=== PATIENT | male | born 1965 | race American Indian/Alaskan Native ===

== ENCOUNTER 2016-07-23 08:26 | Day surgery (SDC) | payer MEDICARE ==
[~2016-07-23 08:26] MED LIST: ANCEF/STERILE WATER 2 GM/20 ML 2 GM/20 ML SYRINGE IV NR; NACL 0.9% 1000 ML 1,000 ML IV SCH
--- NOTE | 2016-07-23 09:29 | Anesthesia Consultation ---
Anesthesia Consult and Med Hx Date of service: 07/23/16 - Airway Anesthetic Teeth Evaluation: Good ROM Head & Neck: Adequate Mental/Hyoid Distance: Adequate Mallampati Class: Class III Intubation Access Assessment: Possibly Difficult - Pulmonary Exam CTA: Yes - Cardiac Exam Cardiac Exam: RRR - Pre-Operative Health Status ASA Pre-Surgery Classification: ASA3 - Pre-Anesthesia Comment Pre-Anesthesia Comments: Patient states that the last time he had anesthesia he ended up coding, " for 32 min" Patient refusing to go to sleep. Wants block and light sedation - Pulmonary Hx Smoking: Yes (last cigarette 2 weeks ago) - Cardiovascular System Hx Hypertension: Yes (5YRS) - Endocrine Hx Renal Disease: Yes (renal failure. diaylsis- tues, thurs,sat; last dialysis sat) Hx End Stage Renal Disease: Yes Hx Insulin Dependent Diabetes: Yes - Hematic Hx Anemia: Yes
--- NOTE | 2016-07-23 09:30 | Anesthesia Day of Surgery ---
Anesthesia Day of Surgery - Day of Surgery Patient Examined: Yes Patient H&P Reviewed: Yes Patient is NPO: Yes Beta Blockers: No Cardiac Clearance: No Pulmonary Clearance: No
[2016-07-23] MEDS ORDERED: VERSED IV NR (10:00)
[2016-07-23] MEDS ORDERED: PEPCID IV NR (10:00)
[2016-07-23] MEDS ORDERED: DIPRIVAN 10 MG/ML IV ONE (10:36)
[2016-07-23] MEDS ORDERED: VERSED ONE (10:37)
[2016-07-23] MEDS ORDERED: XYLOCAINE 1%/ EPI 1:100,000 INFILTRATI ONE ×2 (11:06)
[2016-07-23] MEDS ORDERED: MARCAINE 0.5% INFILTRATI ONE ×2 (11:06)
[2016-07-23] MEDS ORDERED: NACL 0.9% IR ONE (11:06)
[2016-07-23] MEDS ORDERED: HEPARIN 10,000 UNITS/10 ML 1,000 UNIT in NACL 0.9% 250ML 250 ML IR ONE (11:07)
[2016-07-23] MEDS ORDERED: RIFADIN 600 MG in NACL 0.9% 50 ML IR ONE (11:08)
[2016-07-23] MEDS ORDERED: NACL 0.9% 250ML ONE (11:15)
[2016-07-23] MEDS ORDERED: XYLOCAINE 1% 20 mL ONE (11:15)
[2016-07-23] MEDS ORDERED: DECADRON ONE (11:15)
--- NOTE | 2016-07-23 12:07 | Short Stay Summary ---
Short Stay Documentation Date of service: 07/23/16 Narrative H&P: See H&P - History H&P: obtained from office - Allergies and Medications Current Medications: Allergies IVP dye Allergy (Uncoded 12/02/15 14:35) Unknown Home Medications Medication Instructions Recorded Confirmed Last Taken Type Insulin Aspart Prot/Aspart 0 units SQ BID 07/13/16 07/13/16 Unknown History [Novolog Mix 70/30] Sevelamer Carbonate [Renvela] 0.8 gm PO TIDWM 07/13/16 07/13/16 Unknown History Active Medications Famotidine (Pepcid) 20 mg IV PREOP NR Stop: 07/23/16 23:59 Cefazolin Sodium (Ancef/Sterile Water 2 Gm/20 Ml) 2 gm in 20 mls @ 80 mls/hr IV PREOP NR PRN Reason: Protocol Stop: 07/23/16 23:59 Sodium Chloride (Nacl 0.9% 1000 Ml) 1,000 mls @ 42 mls/hr IV DIRECT PEDRO LUIS Midazolam HCl (Versed) 2 mg IV PREOP NR Stop: 07/23/16 23:59 - Brief post op/procedure progress note Date of procedure: 07/23/16 Pre-op diagnosis: End-Stage Renal Disease Post-op diagnosis: same Procedure: Creation of Right Brachial Artery to Axillary Vein Arteriovenous Graft with 7 mm Bovine Graft Anesthesia: regional Surgeon: IZABELA MURRAY Estimated blood loss: minimal Pathology: none Condition: stable - Disposition Condition at discharge: Good Disposition: DISCHARGED TO HOME OR SELFCARE Short Stay Discharge Plan Activity: other (no heavy lifting with right arm) Wound: open to air, keep clean and dry, other (okay to wash the wound with soap and water but do not soak in water) Follow up with: IZABELA MURRAY MD [Staff Physician] - 14 Days Prescriptions: HYDROcodone/APAP 7.5-325 [[place] 7.5/325] 1 each PO Q6HR PRN #50 tablet PRN Reason: Pain
--- NOTE | 2016-07-23 12:12 | Operative Report ---
Operative Report Operative Report: Date of procedure: 07/23/2016 Pre-operative diagnosis: End-Stage Renal Disease Post-operative diagnosis: Same Procedure(s): 1. Creation of Right Brachial Artery to Axillary Vein AV Graft with 7 mm Bovine Graft Surgeon: Glenn Covarrubias MD Color Strainer: None Anesthesia: General Endotracheal Anesthesia EBL: Minimal Counts: Correct Complications: None Condition: Stable Findings: Successful Creation of Right Arm AV Graft with excellent thrill and palpable radial pulse at the end of the case. Specimen: None Indication: The patient is a 50-year-old male with a history of end-stage renal disease who was at multiple AV access creations. No need of a new access and a vein mapping demonstrated he had no adequate vein for creation so was offered an AV graft. He was given the risks, benefits, and alternative procedures and consented to procedure. Description of Procedure: The patient was brought to the operating room and laid in supine position after general endotracheal anesthesia was achieved the left arm was prepped and draped in normal sterile fashion. A longitudinal incision was made on the medial aspect of the arm just proximal to the antecubital crease and carried down to the brachial artery using sharp dissection. The brachial artery was dissected out circumferentially both proximally and distally and controlled with vessel loops. A second incision was created in longitudinal fashion on the medial aspect of the arm just distal to the axillary crease and carried down to the axillary vein using sharp dissection. Axillary vein was dissected out circumferentially and controlled with a vessel loop. I then used a Nikki- Wick tunneler to tunnel from the brachial artery incision to the axillary vein incision and then put an 8 mm bovine through the tunnel. I infused with heparinized saline to ensure that it was not twisted or kinked. I put the brachial artery vessel loops on tension controlling the flow and then created an arteriotomy using an 11 blade and Roberts scissors. I beveled the graft and created an end-to-side anastomosis using 6-0 Prolene running fashion. I clamped the graft just proximal to the anastomosis and then released the vessel loops restoring flow in the brachial artery. I placed quick clot in incision to achieve hemostasis. I cut the proximal end of the graft to the appropriate length and beveled the graft in preparation for a venous anastomosis. I controlled the axillary vein a Satinsky clamp and created a venotomy using an 11 blade and Roberts scissors. I created an end to side anastomosis using a 6-0 Prolene in running fashion. Prior to completing the anastomosis I flushed the graft to ensure there was no thrombus and then completed the anastamosis. I released all clamps allowing flow into the AV graft which had an excellent thrill. I packed the wound with quick clot to achieve hemostasis. I anesthetized both wounds with Marcaine and then closed both wounds in 2 layers using 3-0 Vicryl in running fashion in the deep dermal layer and 4-0 Monocryl in running fashion the subcuticular layer. I dressed both wounds with Surgicel. The patient tolerated the procedure well all sponge needle and instrument counts were correct the patient was taken to recovery in stable condition.
[2016-07-23 16:44] VITALS: BP 150/90
--- NOTE | 2016-07-23 20:55 | Admit Criteria Form ---
Admission Criteria Documentation: AMBULATORY SURGERY EXCEPTION CRITERIA Ambulatory Surgery Exception Criteria ( Place 'X' for any and all applicable criteria): Surgery or procedure performed on ambulatory basis may require inpatient stay for[A] ANY ONE of the following(1)(2)(3)(4)(5)(6)(7)(8)(9): [X] I. A preoperative situation, condition, or finding that warrants inpatient stay as indicated by ANY ONE of the following: [] a) Inpatient care needed because of severity of a disease or condition rather than the surgery (eg, severe cardiac or respiratory disease, severe infection) (15) (16 ) (17) (18) [] b) Emergent procedure (eg, angioplasty for acute ischemia)(19) [] c) Complex surgical approach or situation as indicated by ANY ONE of the following(3): [] i) Open approach needed instead of usual endoscopic, transcatheter, or other less invasive procedure [] ii) Difficult approach because of previous operation [] iii) Airway monitoring required after open neck procedures(20)(21) [] iv) Large mass requiring unusually extensive dissection [] v) Additional complicating feature requiring inpatient care (eg, drain management)(22(23): [X] d) Major surgery in a pt with high anesthetic risk as indicated by ANY ONE of the following (2)(3)(5)(7)(8): [X] i) ASA risk class III or higher (severe systemic disease impairing function) [D] [] ii) Advanced age (eg, older than 85 years)(14)(24) [] iii) Symptomatic heart failure(25) [] iv) Symptomatic asthma or COPD(8)(21) [] v) Morbid obesity with hemodynamic or respiratory problems(20)( 21)(26)(27) [] vi) Obstructive sleep apnea(20)(21) [] vii) Former premature infants who are younger than 60 weeks [] viii) High risk for severe postoperative abnormalities (eg, severe postoperative hypocalcemia after parathyroidectomy for severe hyperparathyroidism)(27)( 28) [] ix) Unstable angina(25) [] e) Drug-related risk requiring inpatient stay as indicated by ANY ONE of the following(5)(10)(14)(32)(33) [] i) Procedure requires discontinuing drugs or other therapy (eg , antiarrhythmic medication, antiseizure medication), which necessitates inpatient observation or treatment.(18)(31) [] ii) Major surgery and high risk drug use as indicated by ANY ONE of the following: [] 1) Active abuse of cocaine or similar drug [] 2) Monoamine oxidase inhibitor use [] 3) Other drug identified as posing risk [] f) Inadequate outpatient care situation as indicated by ANY ONE of the following(5)(10)(14)(32)(33) [] i) Patient lives remote from medical facility and procedure has urgent complication potential, and temporary nearby residence cannot be arranged [] ii) Patient will have postprocedure incapacitation and inadequate assistance at home, or alternative level of care cannot be arranged. [] iii) Patient will have long general anesthesia or procedure side effect resolution time, and competent person to stay with patient on first postoperative night at home or alternative level of care cannot be arranged. []iv) Other inadequate outpatient situation that cannot be handled by other means [] II. A perioperative event, condition, or finding that warrants inpatient stay as indicated by ANY ONE of the following (1)(2)(3): [] a) Inadequate physiologic recovery: cardiovascular, respiratory, or hemodynamic status not normal or near preoperative baseline(18) [] b) Hemodynamic instability [] c) Patient not alert with near normal or baseline mental status [] d) Temperature not normal or as expected and not appropriate for outpatient treatment of condition [] e) Ambulatory or appropriate activity level status not yet achieved post procedure [E](34)(35)(36) [] f) Operative site not appropriate (eg, unexpected or excessive drainage or bleeding) [] g) Postoperative effects not resolved or adequately managed (eg, significant pain or vomiting not appropriate for outpatient or next level of care)(10)(12) [] h) Complicating features requiring inpatient care as indicated by ANY ONE of the following(37): [] i) Severe complications of procedure (eg, bowel injury, airway compromise, vascular injury,severe hemorrhage) [] ii) Extensive (eg, dissection far beyond usual scope of procedure ) or prolonged (eg, 120 minutes beyond usual) surgery needed requiring inpatient postoperative care [] iii) Conversion to an open or complex procedure that requires inpatient care (eg, open vs laparoscopic cholecystectomy, abdominal vs vaginal hysterectomy)(38) [] iv) Comorbid condition or test result identified during or post procedure that requires inpatient care (7) [] v) Malignant hyperthermia(30) [] vi) Other complicating feature requiring inpatient care(22)(23) Inpatient stay may be needed until ALL of the following are present (1)(2)(3)(4) (5)(6)(10)(14)(33)(40): []a) Physiologic recovery: cardiovascular, respiratory, and hemodynamic status normal or near preoperative baseline []b) Hemodynamic stability []c) Patient alert, with near normal or baseline mental status []d) Temperature appropriate: patient afebrile or temperature appropriate for outpt treatment of condition []e) Activity level appropriate: ambulatory or appropriate activity level post procedure []f) Operative site appropriate as indicated by ALL of the following: []i) Site dry or with expected drainage []ii) Any blood noted is as expected for procedure. []g) Postoperative effects resolved or managed as indicated by ALL of the following: []i) Pain management appropriate for outpatient (or next level of) care(10) []ii) Minimal nausea and vomiting: if present, successfully treated with oral medication(12) []iii) Headache, dizziness, or drowsiness (if present) are mild. []h) Voiding status acceptable as indicated by ANY ONE of the following: []i) Voiding spontaneously []ii) No voiding but instructions given for follow-up in 6 to 8 hours []iii) Urinary catheter in place, and instructions given for follow-up []i) Complicating features requiring inpatient care manageable at a lower level of care(37) []j) Comorbid conditions manageable at a lower level of care(37) The original [employer] content created by [employer] has been revised. The portions of the content which have been revised are identified through the use of italic text or in bold, and [facility] [email or web address] has neither reviewed nor approved the modified material. All other unmodified content is copyright [employer]. Please see references footnoted in the original [employer] edition 2016 Admission Criteria Met: Yes
== END 2016-07-23 15:20 | disposition home or self-care (01) ==
LOC: OR 08:26
PROVIDERS: ATTEND Surgery Vascular Surgery
DX: I12.0 Hypertensive chronic kidney disease with stage 5 chronic kidney disease or end stage renal disease (principal); E11.22 Type 2 diabetes mellitus with diabetic chronic kidney disease; N18.6 End stage renal disease; F17.210 Nicotine dependence, cigarettes, uncomplicated; D64.9 Anemia, unspecified; Z72.89 Other problems related to lifestyle; Z99.2 Dependence on renal dialysis; Z98.890 Other specified postprocedural states; Z83.3 Family history of diabetes mellitus; Z80.9 Family history of malignant neoplasm, unspecified
CPT/HCPCS: 36415; 36830; 82962; 84132; J0690; J1644; J2250; J2704; J3490; J7030; J7050; C1768; J1100

== ENCOUNTER 2016-10-26 08:39 | Day surgery (SDC) | payer MEDICARE ==
[~2016-10-26 08:39] MED LIST changes: +HEPARIN 10,000 UNITS/10 ML ONE; +MARCAINE 0.5% 30 ML INFILTRATI ONE; +NACL 0.9% 500 ML 500 ML ONE; +NACL P/F VIAL (10 ML) 0 ML ONE; +PROTAMINE SULFATE ONE; +RIFADIN ONE
[2016-10-26] MEDS ORDERED: SUBLIMAZE ONE ×2 (08:47→11:58)
[2016-10-26] MEDS ORDERED: DIPRIVAN 10 MG/ML IV ONE (08:47)
[2016-10-26] MEDS ORDERED: ZOFRAN ONE (08:48)
[2016-10-26] MEDS ORDERED: XYLOCAINE MPF 2% ONE (08:48)
--- NOTE | 2016-10-26 09:17 | Anesthesia Consultation ---
Anesthesia Consult and Med Hx Date of service: 10/26/16 - Pre-Operative Health Status ASA Pre-Surgery Classification: ASA4 - Pulmonary Hx Smoking: Yes (CIGARETTES < 1 PPD X 35 YRS, QUIT 07/2016) Hx Sleep Apnea: No - Cardiovascular System Hx Hypertension: Yes (FOR 5YRS, NO MEDS) - Central Nervous System Hx Psychiatric Problems: No - Endocrine Hx Renal Disease: Yes Hx End Stage Renal Disease: Yes Hx Insulin Dependent Diabetes: Yes Hx Hyperthyroidism: Yes (secondary to ESRD) - Hematic Hx Anemia: Yes - Other Systems Hx Cancer: No
--- NOTE | 2016-10-26 09:27 | Anesthesia Day of Surgery ---
Anesthesia Day of Surgery - Day of Surgery Patient Examined: Yes Patient H&P Reviewed: Yes Patient is NPO: Yes
[2016-10-26] MEDS ORDERED: PEPCID ONE (10:04)
[2016-10-26 10:09] LABS: Mean Corpuscular HGB Conc 31 % (32-34); Mean Corpuscular Volume 80 fl (84-94); Platelet Count 168 K/mm3 (140-440); Red Blood Count 5.34 M/mm3 (3.65-5.03); Red Cell Distribution Width 19.1 % (13.2-15.2); White Blood Count 4.7 K/mm3 (4.5-11.0)
[2016-10-26 10:12] LABS: Hematocrit 42.6 % (35.5-45.6); Hemoglobin 13.2 gm/dl (11.8-15.2); Mean Corpuscular Hemoglobin 25 pg (28-32)
[2016-10-26 10:14] LABS: BUN/Creatinine Ratio 3.33; Calcium 8.7 mg/dL (8.4-10.2); Chloride 98.7 mmol/L (98-107); Potassium 4.9 mmol/L (3.6-5.0)
[2016-10-26] MEDS ORDERED: ZOFRAN IV PRN (10:45)
[2016-10-26] MEDS ORDERED: DILAUDID IV PRN (10:45)
[2016-10-26] MEDS ORDERED: NORCO 5/325 PO PRN (10:45)
[2016-10-26 10:55] LABS: Blastocytes % (Manual) 0 %
[2016-10-26 10:56] LABS: Anisocytosis 1+; Diff Status Complete; Hypochromasia 1+; Platelet Estimate Cons
[2016-10-26] MEDS ORDERED: MARCAINE 0.5% INFILTRATI ONE (10:57)
[2016-10-26] MEDS ORDERED: NACL 0.9% IR ONE (10:57)
[2016-10-26] MEDS ORDERED: HEPARIN 10,000 UNITS/10 ML 2,000 UNIT in NACL 0.9% 500 ML 500 ML IR ONE (10:57)
[2016-10-26] MEDS ORDERED: PEPCID PO NR (11:00)
[2016-10-26] MEDS ORDERED: PROAIR IH ONE (12:02)
--- NOTE | 2016-10-26 12:54 | Short Stay Summary ---
Short Stay Documentation Date of service: 10/26/16 Narrative H&P: See H&P - History H&P: obtained from office - Allergies and Medications Current Medications: Allergies IVP dye Allergy (Uncoded 12/02/15 14:35) Unknown Home Medications Medication Instructions Recorded Confirmed Last Taken Type Sevelamer Carbonate [Renvela] 0.8 gm PO TIDWM 07/13/16 10/26/16 10/24/16 17:00 History Insulin Aspart [NovoLOG Flexpen] 0 units SQ BIDAC 10/24/16 10/24/16 Unknown History Active Medications Cefazolin Sodium (Ancef/Sterile Water 2 Gm/20 Ml) 2 gm in 20 mls @ 80 mls/hr IV PREOP NR PRN Reason: Protocol Stop: 10/26/16 23:59 Sodium Chloride (Nacl 0.9% 1000 Ml) 1,000 mls @ 42 mls/hr IV DIRECT PEDRO LUIS Last Admin: 10/26/16 09:35 Dose: 42 mls/hr - Brief post op/procedure progress note Date of procedure: 10/26/16 Pre-op diagnosis: End-Stage Renal Disease Post-op diagnosis: same Procedure: One Stage Creation of Left Brachiobasilic Arteriovenous Fistula Anesthesia: GETA Surgeon: IZABELA MURRAY Estimated blood loss: other (200 ml) Pathology: none Condition: stable - Disposition Condition at discharge: Good Disposition: DISCHARGED TO HOME OR SELFCARE Short Stay Discharge Plan Activity: other (no lifting with left arm) Wound: open to air, keep clean and dry, other (okay to wash the wound with soap and water but do not soak in water) Follow up with: HILLARY CASTANEDA MD [Primary Care Provider] - 7 Days IZABELA MURRAY MD [Staff Physician] - 14 Days Prescriptions: Oxycodone HCl/Acetaminophen [Percocet 10/325 mg] 1 each PO Q6HR PRN #90 tablet PRN Reason: Pain
--- NOTE | 2016-10-26 13:01 | Operative Report ---
Operative Report Operative Report: Date of Procedure: 10/26/2016 Pre-operative Diagnosis: End Stage Renal Disease Post-operative Diagnosis: Same Procedure(s): 1. One Stage Creation of Left Brachial Basilic Arteriovenous Fistula Surgeon: Glenn Covarrubias M.D. Hospice Entrance Attendant: None Anesthesia: Gen. endotracheal anesthesia EBL: 200 mL Counts: Correct Complications: None Condition: Stable Findings: The patient has significant scarring of the brachial artery at the antecubital crease. Successful creation of left AV fistula with palpable thrill at the completion of the case. Specimen: None Indication: The patient is a 50-year-old male with a history of end-stage renal disease was having multiple AV access creations. He recently had creation of a right AV graft that became infected requiring excision. He is in need of new access. His vein size and demonstrated he was a candidate for left AV fistula. He was given the risk, benefits, and alternative procedures and consented to procedure. Description of Procedure: The patient was brought to the operating room and laid in supine position. After general endotracheal anesthesia was achieved his left arm was prepped and draped in normal sterile fashion. I initially created a transverse incision just pulled and cubital crease and carried this down to the brachial artery which was severely scarred in from a previous Gio fistula that has thrombosed creating an inflammatory reaction over the brachial artery. I decided to abandon this artery and created a longitudinal incision just above the antecubital crease and carried this down to the basilic vein. The basilic vein was fairly robust lot that was reasonable to created one stage brachial basilic arteriovenous fistula. I extended this incision towards the axillary crease and then dissected down to the basilic vein using sharp dissection. All side branches were suture ligated and divided and then I ligated and divided the vein near the elbow. I used a Nikki with tunneler to create a tunnel along the lateral aspect of the incision and then pulled the vein through the tunnel. I infused with heparinized saline to ensure that it was not twisted or kinked and additionally passed a 3 Dorcas to ensure that it was not twisted or kinked. I then dissected out the brachial artery just above the elbow, through the same incision. I dissected circumferentially controlled with vessel loops. I then created an arteriotomy using 11 blade and Roberts scissors and then created an end-to-side anastomosis using a 6-0 Prolene in running fashion. Prior to completing the anastomosis I flushed the artery as well as the vein and then completed the anastomosis. Upon completing the anastomosis WERE removed to allow flow in the fistula which had an excellent thrill. Hemostasis within the wound was achieved with quick clot. Once hemostasis was achieved I anesthetized both wounds with Marcaine and then closed them both in 2 layers using a 3-0 Vicryl running fashion and the deep dermal layer and a 4-0 Monocryl in running fashion subcuticular. Both wounds were then dressed with Dermabond. The patient tolerated the procedure well. All sponge, needle, and instrument counts were correct. The patient was taken to the recovery area in stable condition.
--- NOTE | 2016-10-26 13:50 | Post Anesthesia Evaluation ---
- Post Anesthesia Evaluation Patient Participated: Yes Airway Patent: Yes Stable Respiratory Function: Yes Temp > 96.8F: Yes Pain Manageable: Yes Adequeate Hydration: Yes Anesthesia Complications: No Block Receding Appropriately: Not Applicable
[2016-10-26 15:08] VITALS: BP 153/76
== END 2016-10-26 15:34 | disposition home or self-care (01) ==
LOC: OR 08:39
PROVIDERS: ATTEND Surgery Vascular Surgery
DX: E11.22 Type 2 diabetes mellitus with diabetic chronic kidney disease (principal); I12.0 Hypertensive chronic kidney disease with stage 5 chronic kidney disease or end stage renal disease; N18.6 End stage renal disease; E03.9 Hypothyroidism, unspecified; D64.9 Anemia, unspecified; F17.290 Nicotine dependence, other tobacco product, uncomplicated; Z79.4 Long term (current) use of insulin; Z79.899 Other long term (current) drug therapy; Z72.89 Other problems related to lifestyle; Z99.2 Dependence on renal dialysis; Z98.890 Other specified postprocedural states; Z88.4 Allergy status to anesthetic agent; Z91.041 Radiographic dye allergy status; Z83.3 Family history of diabetes mellitus; Z80.9 Family history of malignant neoplasm, unspecified
CPT/HCPCS: 36415; 36819; 80048; 82962; 85007; 85025; C1757; J0690; J1644; J2405; J2704; J3010; J7030; J7040; J2720; J3490

== ENCOUNTER 2016-11-09 08:51 | Day surgery (SDC) | payer MEDICARE ==
[~2016-11-09 08:51] MED LIST changes: -HEPARIN 10,000 UNITS/10 ML ONE; -MARCAINE 0.5% 30 ML INFILTRATI ONE; -NACL 0.9% 1000 ML 1,000 ML IV SCH; -NACL 0.9% 500 ML 500 ML ONE; -NACL P/F VIAL (10 ML) 0 ML ONE; -PROTAMINE SULFATE ONE; -RIFADIN ONE
[2016-11-09] MEDS ORDERED: BENADRYL IV ONE (12:00)
[2016-11-09] MEDS ORDERED: HEPARIN/NS 5000 UNIT/500ML(CATH LAB) 1,000 ML IR ONE (14:15)
[2016-11-09] MEDS ORDERED: XYLOCAINE 2% INFILTRATI ONE (14:15)
[2016-11-09] MEDS ORDERED: VERSED ONE (14:15)
[2016-11-09] MEDS ORDERED: NACL 0.9% 500 ML 500 ML ONE (14:15)
[2016-11-09] MEDS ORDERED: HEPARIN 10,000 UNITS/10 ML ONE (14:15)
[2016-11-09] MEDS ORDERED: ANCEF/STERILE WATER 2 GM/20 ML 2 GM/20 ML SYRINGE IV ONE (14:39)
[2016-11-09] MEDS: SUBLIMAZE ONE ×2 (14:47→15:42)
--- NOTE | 2016-11-09 15:55 | Short Stay Summary ---
Short Stay Documentation Date of service: 11/09/16 - History Principal diagnosis: Central venous occlusion H&P: obtained from office - Allergies and Medications Current Medications: Allergies IVP dye Allergy (Uncoded 12/02/15 14:35) Unknown Home Medications Medication Instructions Recorded Confirmed Last Taken Type Sevelamer Carbonate [Renvela] 0.8 gm PO TIDWM 07/13/16 11/09/16 11/08/16 History Insulin Aspart [NovoLOG Flexpen] 0 units SQ BIDAC 10/24/16 11/09/16 11/08/16 History Oxycodone HCl/Acetaminophen 1 each PO Q6HR PRN #90 tablet 10/26/16 11/09/16 Rx [Percocet 10/325 mg] Active Medications Cefazolin Sodium (Ancef/Sterile Water 2 Gm/20 Ml) 2 gm in 20 mls @ 80 mls/hr IV PREOP NR PRN Reason: Protocol Stop: 11/09/16 23:59 - Brief post op/procedure progress note Date of procedure: 11/09/16 Pre-op diagnosis: Central venous occlusion Post-op diagnosis: same Procedure: Venogram and US evaluation of central veins Anesthesia: local Surgeon: HUMA ALBARADO Estimated blood loss: minimal Pathology: none Condition: stable - Disposition Condition at discharge: Good Disposition: DC-01 TO HOME OR SELFCARE Short Stay Discharge Plan Activity: advance as tolerated Weight Bearing Status: Weight Bear as Tolerated Diet: regular Wound: keep clean and dry, per your surgeon's advice Follow up with: IZABELA MURRAY MD [Staff Physician] - 7 Days
--- NOTE | 2016-11-09 16:02 | Operative Report ---
Operative Report Operative Report: EXAM: ULTRASOUND-GUIDED EVALUATION OF THE VEINS OF THE NECK, VENOGRAPHY OF THE CENTRAL VEINS FROM A LEFT COMMON FEMORAL VEIN APPROACH CLINICAL INDICATION: PATIENT WITH SVC SYNDROME AND HAS SWELLING IN BILATERAL UPPER EXTREMITY SWELLING DATE: 11/09/2016 PROCEDURE: Following an explanation of the risks, benefits and alternatives; written informed consent was obtained. The patient was brought to the angiographic suite and his bilateral neck and left groin were prepped and draped in the usual sterile fashion. The patient has a catheter in his right femoral vein. Ultrasound-guided evaluation of the patient's neck demonstrates occlusion of bilateral internal jugular veins. Only collateral flow drains the neck. The external jugular veins are identified however distally they are occluded. 1% lidocaine was used for anesthesia. Under ultrasound guidance, the left common femoral vein was cannulated using a 7 cm 18-gauge needle. A 0.035 guidewire was advanced centrally. The needle was removed and a 5 Mauritanian sheath placed over the guidewire. A 4 Mauritanian vertebral catheter was then advanced over the guidewire into the SVC and digital subtraction venography performed. The guidewire in the distal SVC, the 5 Mauritanian sheath was exchanged for a 7 Mauritanian 65 cm sheath which was advanced to position the tip in the distal SVC. Contrast was injected through the sheath which demonstrates flush occlusion of the SVC. There is some tortuosity of the distal SVC with Dr. prompt drainage into the right atrium. The 4 Mauritanian vertebral catheter and 0.035 guidewire were again readvanced into the SVC and probe in an attempt to find a channel consistent with innominate veins. On the right side, there is a arch and tingling into the SVC which was cannulated and represents he has vein. A variety of catheters and guidewires were then utilized in 2 cannulate either the proximal SVC or either and innominate veins without success. Contrast was injected multiple locations of demonstrates no reflux of contrast into any venous structure that suggest a possible target for recanalization. At this point, the catheters, guidewires and sheaths were removed and hemostasis achieved in the right groin using an manual compression. A sterile dressing was then applied. The patient tolerated the procedure well. There were no immediate post procedure complications. Conscious sedation was performed under the guidance of radiologic nursing. Continuous cardiopulmonary monitoring was utilized. IMPRESSION: 1) Ultrasound guided evaluation of the neck demonstrated occlusion of bilateral internal jugular veins and distal occlusion of bilateral external jugular veins. 2) Central venography performed from a groin approach demonstrating flush occlusion of the SVC approximately 3 cm proximal to its entry into the right atrium. The azygous vein is identified. However, no target for recanalization is identified. 3) Further evaluation of the patient' s upper extremity venous system will be performed using CT venography of the chest.
[2016-11-09 17:15] VITALS: BP 153/99
--- NOTE | 2016-11-12 07:43 | Vascular Lab Report ---
MISCELLANEOUS VESSEL IDENTIFICATION: COMMENTS ON THE SCAN: The left common femoral artery was identified and under real-time ultrasound guidance was cannulated. IMPRESSION: Successful ultrasound guided arterial cannulation.
== END 2016-11-09 18:15 | disposition home or self-care (01) ==
LOC: OPU 08:51
PROVIDERS: ATTEND Surgery Vascular Surgery
DX: I87.1 Compression of vein (principal); E11.22 Type 2 diabetes mellitus with diabetic chronic kidney disease; N18.6 End stage renal disease; Z91.041 Radiographic dye allergy status; Z88.4 Allergy status to anesthetic agent; Z99.2 Dependence on renal dialysis; Z98.890 Other specified postprocedural states; F17.200 Nicotine dependence, unspecified, uncomplicated; Z72.89 Other problems related to lifestyle; Z80.9 Family history of malignant neoplasm, unspecified; Z83.3 Family history of diabetes mellitus
CPT/HCPCS: 36010; 36415; 75827; 76937; 82962; 84132; 96374; 96375; C1751; C1769; C1887; J0690; J1200; J1644; J2250; J2930; J3010; J7040; Q9967

== ENCOUNTER 2016-11-21 09:05 | Outpatient (CLI) | payer MEDICARE | END 2016-11-21 09:06 | disposition home or self-care (01) | LOC: CT 09:05 | PROVIDERS: ATTEND Surgery Vascular Surgery | DX: I12.9 Hypertensive chronic kidney disease with stage 1 through stage 4 chronic kidney disease, or unspecified chronic kidney disease (principal); N18.6 End stage renal disease; E11.22 Type 2 diabetes mellitus with diabetic chronic kidney disease; T82.590S Other mechanical complication of surgically created arteriovenous fistula, sequela; T82.858S Stenosis of other vascular prosthetic devices, implants and grafts, sequela; E03.9 Hypothyroidism, unspecified; Z79.4 Long term (current) use of insulin; F17.200 Nicotine dependence, unspecified, uncomplicated; X58.XXXS Exposure to other specified factors, sequela | CPT/HCPCS: 36415; 82565; 84520 ==

== ENCOUNTER 2016-12-10 08:34 | Day surgery (SDC) | payer MEDICARE ==
--- NOTE | 2016-12-07 09:06 | Admit Criteria Form ---
Admission Criteria Documentation: SKIN AND WOUND CARE Clinical Indications for Inpatient Care (Place 'X' for any and all applicable criteria): Ongoing inpatient care may be indicated for pressure, venous, arterial, or neuropathic ulcers, with ANY ONE of the following (2)(3)(8)(9)(21)(25): [X ]I. Need for ANY ONE of the following(26) [ ]a) Pressure ulcer closure procedures [ ]b) Skin grafting [ X]c) Wound debridement [ ]d) Dressing change under general anesthesia [ ]e) Arterial revascularization procedures(19) (Also use Aortofemoral or Aortoiliac Bypass or Femoral Popliteal Bypass Criteria as appropriate) [ ]f) Amputation (Also use Foot: Transmetatarsal Amputation or Knee: Amputation Above or Below Knee Criteria as appropriate) [ ]g) Diverting colostomy [ ]h) Other significant surgical treatment [ ]II. Infection requiring inpatient care as indicated by ALL of the following( 27) [ ]a) ANY ONE of the following signs of infection: [ ]i) Poorly approximated incision line. [ ]ii) Excessive drainage [ ]iii) Foul odor [ ]iv) Pus [ ]v) Increased redness [ ]vi) Breakdown in tissue after suture removal [ ]vii) Fever [ ]b) ANY ONE of the following findings: [ ]i) Mental status changes [ ]ii) Dehydration [ ]iii) Bacteremia [ ]iv) Perineal infection [ ]v) Hemodynamic instability [ ]vi) High-risk conditions, such as ANY ONE of the following: [ ]1) Poorly controlled diabetes [ ]2) Cirrhosis [ ]3) Neutropenia [ ]4) Asplenia [ ]5) HIV infection [ ]6) Immunosuppression Extended stay beyond goal length of stay for primary condition may be needed until ALL of the following are present(1)(2)(13)(21)(27): [ ]a) Tissue necrosis absent or treatment plan manageable at lower level of care [ ]b) Fistulas, tunneling, or underlying deep tissue infection absent or treated [ ]c) Purulence and tissue breakdown absent or improved [ ]d) Ulcer surgical repair absent or healing without complications [ ]e) Wound infection absent or manageable at lower level of care [ ]f) Comorbidities absent or manageable at lower level of care The original [facility] content created by Suzanne Whitaker has been revised. The portions of the content which have been revised are identified through the use of italic text or in bold, and [facility] has neither reviewed nor approved the modified material. All other unmodified content is copyright [facility]. Please see references footnoted in the original [facility] edition 2016
[~2016-12-10 08:34] MED LIST changes: +NACL 0.9% 1000 ML 1,000 ML IV SCH
[2016-12-10] MEDS ORDERED: NACL BACTERIOSTATIC INFILTRATI ONE (09:50)
[2016-12-10] MEDS ORDERED: HEPARIN 10,000 UNITS/10 ML ONE (09:59)
[2016-12-10] MEDS ORDERED: MARCAINE 0.5% 30 ML INFILTRATI ONE (09:59)
[2016-12-10] MEDS ORDERED: PROTAMINE SULFATE ONE (09:59)
[2016-12-10] MEDS ORDERED: RIFADIN ONE (10:00)
[2016-12-10] MEDS ORDERED: NITROGLYCERIN SYRINGE 3 ML ONE (10:00)
[2016-12-10] MEDS ORDERED: NACL 0.9% 250ML 250 ML ONE ×2 (10:00→10:12)
[2016-12-10] MEDS ORDERED: THROMBIN (BOVINE) TP ONE (10:01)
[2016-12-10] MEDS ORDERED: GELFOAM TP ONE (10:01)
--- NOTE | 2016-12-10 10:06 | Anesthesia Day of Surgery ---
Anesthesia Day of Surgery - Day of Surgery Patient Examined: Yes Patient H&P Reviewed: Yes Patient is NPO: Yes
--- NOTE | 2016-12-10 10:06 | Anesthesia Consultation ---
Anesthesia Consult and Med Hx Date of service: 12/10/16 - Airway Anesthetic Teeth Evaluation: Good ROM Head & Neck: Adequate Mental/Hyoid Distance: Adequate Mallampati Class: Class III Intubation Access Assessment: Possibly Difficult - Pulmonary Exam CTA: Yes - Cardiac Exam Cardiac Exam: RRR - Pre-Operative Health Status ASA Pre-Surgery Classification: ASA3 Proposed Anesthetic Plan: General - Pulmonary Hx Smoking: Yes (CIGARETTES < 1 PPD X 35 YRS, QUIT 07/2016) Hx Sleep Apnea: No - Cardiovascular System Hx Hypertension: Yes (FOR 5 YRS, NO MEDS) Hx Heart Attack/AMI: No - Central Nervous System Hx Psychiatric Problems: No - Endocrine Hx Renal Disease: Yes Hx End Stage Renal Disease: Yes Hx Insulin Dependent Diabetes: Yes Hx Hyperthyroidism: Yes (secondary to ESRD) - Other Systems Hx Cancer: No - Additional Comments Anesthesia Medical History Comments: Patient reports apparent cardiac arrest due to oversedation years ago. He had uncomplicated general anesthesia 11/10 at [facility]
[2016-12-10] MEDS ORDERED: DILAUDID IV PRN (10:07)
[2016-12-10 10:44] LABS: BUN/Creatinine Ratio 3.73; Calcium 8.9 mg/dL (8.4-10.2); Chloride 95.1 mmol/L (98-107); Potassium 4.5 mmol/L (3.6-5.0)
[2016-12-10] MEDS ORDERED: PERCOCET 5/325 PO PRN (11:00)
[2016-12-10] MEDS ORDERED: PEPCID PO NR (11:00)
[2016-12-10] MEDS ORDERED: ZOFRAN IV PRN (11:00)
[2016-12-10] MEDS ORDERED: VERSED IV NR (11:00)
[2016-12-10 11:07] LABS: Hematocrit 34.4 % (35.5-45.6); Hemoglobin 10.9 gm/dl (11.8-15.2); Mean Corpuscular HGB Conc 32 % (32-34); Mean Corpuscular Hemoglobin 28 pg (28-32); Mean Corpuscular Volume 87 fl (84-94); Platelet Count 196 K/mm3 (140-440); Red Blood Count 3.97 M/mm3 (3.65-5.03); Red Cell Distribution Width 31.1 % (13.2-15.2); White Blood Count 6.5 K/mm3 (4.5-11.0)
[2016-12-10] MEDS ORDERED: XYLOCAINE MPF 2% ONE (11:22)
[2016-12-10] MEDS ORDERED: DIPRIVAN 10 MG/ML IV ONE (11:22)
[2016-12-10] MEDS ORDERED: SUBLIMAZE ONE (11:37)
[2016-12-10 11:43] LABS: Basophils % (Manual) 0 % (0.0-1.8); Blastocytes % (Manual) 0 %
[2016-12-10 11:44] LABS: Elliptocytes 1+; Schistocytes Rare
[2016-12-10 11:45] LABS: Anisocytosis 1+; Diff Status Complete; Hypochromasia 1+; Platelet Estimate Consistent w Auto
[2016-12-10] MEDS ORDERED: NACL 0.9% IR ONE (12:19)
[2016-12-10] MEDS ORDERED: HEPARIN 10,000 UNITS/10 ML 1,000 UNIT in NACL 0.9% 250ML 250 ML IR ONE (12:20)
[2016-12-10] MEDS ORDERED: OMNIPAQUE (300 MG) 50 ML in NACL 0.9% 50 ML IR ONE (12:20)
[2016-12-10] MEDS ORDERED: BENADRYL ONE (12:25)
[2016-12-10] MEDS ORDERED: NACL 0.9% 500 ML 500 ML ONE (12:27)
[2016-12-10] MEDS ORDERED: ZOFRAN ONE (12:59)
--- NOTE | 2016-12-10 13:04 | Short Stay Summary ---
Short Stay Documentation Date of service: 12/10/16 Narrative H&P: See H&P - History H&P: obtained from office - Allergies and Medications Current Medications: Allergies IVP dye Allergy (Uncoded 12/02/15 14:35) Unknown Home Medications Medication Instructions Recorded Confirmed Last Taken Type Sevelamer Carbonate [Renvela] 0.8 gm PO TIDWM 07/13/16 12/10/16 12/08/16 History Insulin Aspart [NovoLOG Flexpen] 0 units SQ BIDAC 10/24/16 12/10/16 12/08/16 History Active Medications Hydromorphone HCl (Dilaudid) 0.5 mg IV Q10MIN PRN PRN Reason: Pain , Severe (7-10) Stop: 12/10/16 15:00 Cefazolin Sodium (Ancef/Sterile Water 2 Gm/20 Ml) 2 gm in 20 mls @ 80 mls/hr IV PREOP NR PRN Reason: Protocol Stop: 12/10/16 23:59 Sodium Chloride (Nacl 0.9% 1000 Ml) 1,000 mls @ 42 mls/hr IV DIRECT PEDRO LUIS Last Admin: 12/10/16 10:29 Dose: 42 mls/hr Midazolam HCl (Versed) 2 mg IV PREOP NR Stop: 12/10/16 23:59 Last Admin: 12/10/16 10:40 Dose: 2 mg - Brief post op/procedure progress note Date of procedure: 12/10/16 Pre-op diagnosis: Complications of Dialysis Access Post-op diagnosis: same Procedure: 1. Left Arm Fistulagram with Central Venogram 2. Debridement of Left Arm Skin and soft Tissue 10 x 4 x 4 cm (Upper Arm Wound ) 4 x 4 x 1 cm (Antecubital Wound) 3. Radiologic Supervision with Interpretation Anesthesia: JANIE Surgeon: IZABELA MURRAY Estimated blood loss: minimal Pathology: list (skin and soft tissue from left arm wounds) Specimen disposition: discarded Condition: stable - Disposition Condition at discharge: Good Disposition: DC- TO HOME OR SELFCARE Short Stay Discharge Plan Activity: other (no heavy lifting with left arm) Wound: per wound nurse instructions (Home Health to perform dressing changes) Follow up with: IZABELA MURRAY MD [Staff Physician] - 14 Days Prescriptions: Oxycodone HCl/Acetaminophen [Percocet 7.5/325 mg] 1 each PO Q6HR PRN #60 tablet PRN Reason: Pain
--- NOTE | 2016-12-10 13:19 | Operative Report ---
Operative Report Operative Report: Date of Procedure: 12/10/2016 Pre-operative Diagnosis: Complications of Dialysis Access Post-operative Diagnosis: Same Procedure(s): 1. Left Arm Fistulagram with Central Venogram 2. Excisional Debridement of Left Arm Skin and soft Tissue 10 x 4 x 4 cm ( Upper Arm Wound) 4 x 4 x 1 cm (Antecubital Wound) 3. Radiologic Supervision with Interpretation Surgeon: Glenn Covarrubias M.D. Community Development Director: None Anesthesia: Gen. 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 The chronic occlusion was unable to be crossed. The patient's wound was debrided to healthy bleeding tissue without any evidence of necrotic tissue or infection within the wound. The fistula is remote from the incision. Specimen: Skin and soft tissue from left arm wounds was discarded. Indication: The patient is a 51-year-old male with a history of end-stage renal disease who is currently on hemodialysis to a femoral permacath. She had creation of a left arm brachiobasilic arteriovenous fistula that cause significant swollen in his face as well as arm secondary to a central venous occlusion. Swelling in his arm resulted in breakdown of his wounds. He is in need of debridement of the wounds and a possible fistulogram with angioplasty to resolve the swelling. He was given the risks, benefits, and alternative procedures and consented to procedure. Description of Procedure: The patient was brought to the operating room and laid in supine position. After general endotracheal anesthesia was achieved his left arm was prepped and draped in normal sterile fashion. Micropuncture technique was used to access the fistula towards the venous outflow and a 0.035 J-wire was advanced into the proximal subclavian vein. I then placed a 11 cm 7 [place] sheath also allergic technique. I advanced a vertebral catheter and then exchanged the J-wire for 0.035 Advantage Wire. I made multiple attempts to cross the occlusion with various wires and catheters without success. I eventually aborted the procedure and removed all catheters, wires, and sheath, and closed the entry site with 4-0 Chromic in pursestring fashion. I then turned my attention to the wounds. The patient had a on the medial aspect of his arm through her previous elevation incision. He also has an incision just below the antecubital crease that both have dehisced. I used curved Mayos to sharply debride all necrotic skin and soft tissue within the wound. I then copiously irrigated both wounds and achieve hemostasis within the wound with a combination of direct pressure and cautery. Once hemostasis was achieved the wounds were packed with moist gauze and then dressed with an AVD pad, Kerlix roll, and a 4 inch Jaylen bandage. The patient tolerated the procedure well. All sponge, needle, and instruments counts were correct. The patient was taken to the recovery area in stable condition.
[2016-12-10] MEDS ORDERED: DECADRON ONE (16:00)
[2016-12-10 16:19] VITALS: BP 138/75
== END 2016-12-10 16:32 | disposition home or self-care (01) ==
LOC: OR 08:34
PROVIDERS: ATTEND Surgery Vascular Surgery
DX: T82.590A Other mechanical complication of surgically created arteriovenous fistula, initial encounter (principal); I12.0 Hypertensive chronic kidney disease with stage 5 chronic kidney disease or end stage renal disease; E11.22 Type 2 diabetes mellitus with diabetic chronic kidney disease; N25.81 Secondary hyperparathyroidism of renal origin; N18.6 End stage renal disease; Z99.2 Dependence on renal dialysis; Z98.890 Other specified postprocedural states; Z88.4 Allergy status to anesthetic agent; Z91.041 Radiographic dye allergy status; Z87.891 Personal history of nicotine dependence; Z72.89 Other problems related to lifestyle; Z79.899 Other long term (current) drug therapy; Z79.4 Long term (current) use of insulin; Z80.9 Family history of malignant neoplasm, unspecified; Z83.3 Family history of diabetes mellitus; Y83.2 Surgical operation with anastomosis, bypass or graft as the cause of abnormal reaction of the patient, or of later complication, without mention of misadventure at the time of the procedure
CPT/HCPCS: 11042; 11045; 36415; 36901; 80048; 82962; 85007; 85025; A4649; C1751; C1769; C1887; C1894; J0690; J1100; J1200; J1644; J2250; J2405; J2704; J2720; J3010; J3246; J3490; J7030; J7040; J7050; Q9966; J1815

== ENCOUNTER 2016-12-17 12:59 | Outpatient (CLI) | payer MEDICARE ==
[2016-12-17] MEDS ORDERED: XYLOCAINE TOPICAL 4% TP ONE ×2 (13:40→14:00)
== END 2016-12-17 13:00 | disposition home or self-care (01) ==
LOC: WOUND 12:59
PROVIDERS: ATTEND Internal Medicine
DX: T81.89XA Other complications of procedures, not elsewhere classified, initial encounter (principal); E11.22 Type 2 diabetes mellitus with diabetic chronic kidney disease; I12.0 Hypertensive chronic kidney disease with stage 5 chronic kidney disease or end stage renal disease; N18.6 End stage renal disease; F17.200 Nicotine dependence, unspecified, uncomplicated; Z99.2 Dependence on renal dialysis; Z72.89 Other problems related to lifestyle; Y83.8 Other surgical procedures as the cause of abnormal reaction of the patient, or of later complication, without mention of misadventure at the time of the procedure; Y92.89 Other specified places as the place of occurrence of the external cause
CPT/HCPCS: 99215; G0463

== ENCOUNTER 2016-12-17 14:00 | Outpatient (CLI) | payer MEDICARE ==
--- NOTE | 2016-11-29 14:42 | Cat Scan Report ---
CTA chest without and with contrast: History: End-stage renal disease Findings: No endobronchial lesion. Mediastinal lymph nodes measuring up to 2 cm. Left axillary lymph nodes measuring up to 1.2 cm. Right axillary lymph node measuring up to 1.5 cm. No pericardial effusion. Moderate right pleural effusion. Diffuse subcutaneous edema. No evidence of pulmonary embolism or aortic aneurysm. The visualized hepatic veins appears normal. Compressive atelectasis right lower lobe. No consolidation or mass. Impression: No evidence of pulmonary embolism. Additional findings as detailed above.
[~2016-12-17 14:00] MED LIST changes: -ANCEF/STERILE WATER 2 GM/20 ML 2 GM/20 ML SYRINGE IV NR; +HEPARIN IV ONE; +HEPARIN ONE; -NACL 0.9% 1000 ML 1,000 ML IV SCH; +NACL ONE
== END 2016-12-17 23:59 | disposition home or self-care (01) ==
LOC: CT 14:00
PROVIDERS: ATTEND Surgery Vascular Surgery
DX: N18.6 End stage renal disease (principal); T82.858S Stenosis of other vascular prosthetic devices, implants and grafts, sequela; T82.590S Other mechanical complication of surgically created arteriovenous fistula, sequela; X58.XXXS Exposure to other specified factors, sequela; J90 Pleural effusion, not elsewhere classified; J98.11 Atelectasis; R60.0 Localized edema; F17.200 Nicotine dependence, unspecified, uncomplicated
CPT/HCPCS: 36415; 71275; 82565; 84520; J1644; Q9967

== ENCOUNTER 2017-02-08 07:52 | Day surgery (SDC) | payer MEDICARE ==
[~2017-02-08 07:52] MED LIST changes: +ANCEF/STERILE WATER 2 GM/20 ML 2 GM/20 ML SYRINGE IV NR; -HEPARIN IV ONE; -HEPARIN ONE; +NACL 0.9% 1000 ML 1,000 ML IV SCH; -NACL ONE
[2017-02-08 08:51] LABS: Basophils % (Auto) 1.3 % (0.0-1.8); Eosinophils % (Auto) 3.6 % (0.0-4.3); Hematocrit 38.7 % (35.5-45.6); Hemoglobin 12.2 gm/dl (11.8-15.2); Mean Corpuscular HGB Conc 32 % (32-34); Mean Corpuscular Hemoglobin 29 pg (28-32); Mean Corpuscular Volume 91 fl (84-94); Platelet Count 167 K/mm3 (140-440); Red Blood Count 4.27 M/mm3 (3.65-5.03); White Blood Count 6.8 K/mm3 (4.5-11.0)
[2017-02-08 08:53] LABS: Red Cell Distribution Width 21.2 % (13.2-15.2)
[2017-02-08 09:03] LABS: INR 1.13 (0.87-1.13); Partial Thromboplastin Time 33.3 Sec. (24.2-36.6)
[2017-02-08 09:33] LABS: Potassium 5.2 mmol/L (3.6-5.0)
[2017-02-08 10:00] LABS: BUN/Creatinine Ratio 5.25; Calcium 8.8 mg/dL (8.4-10.2)
[2017-02-08] MEDS ORDERED: VERSED IV PRN (10:20)
--- NOTE | 2017-02-08 10:20 | Anesthesia Day of Surgery ---
Anesthesia Day of Surgery - Day of Surgery Patient Examined: Yes Patient H&P Reviewed: Yes Patient is NPO: Yes
--- NOTE | 2017-02-08 10:20 | Anesthesia Consultation ---
Anesthesia Consult and Med Hx Date of service: 02/08/17 - Airway Anesthetic Teeth Evaluation: Good ROM Head & Neck: Adequate Mental/Hyoid Distance: Adequate Mallampati Class: Class III Intubation Access Assessment: Possibly Difficult - Pulmonary Exam CTA: Yes - Pre-Operative Health Status ASA Pre-Surgery Classification: ASA4 Proposed Anesthetic Plan: General - Pre-Anesthesia Comment Pre-Anesthesia Comments: One loose tooth, lower left molar - Pulmonary Hx Smoking: Yes (CIGARETTES < 1 PPD X 35 YRS, QUIT 07/2016) Hx Sleep Apnea: No - Cardiovascular System Hx Hypertension: Yes (FOR 5 YRS, NO MEDS) Hx Heart Attack/AMI: No - Central Nervous System Hx Psychiatric Problems: No - Endocrine Hx Renal Disease: Yes Hx End Stage Renal Disease: Yes Hx Insulin Dependent Diabetes: Yes Hx Hyperthyroidism: Yes (secondary to ESRD) - Other Systems Hx Cancer: No - Additional Comments Anesthesia Medical History Comments: NAC previously.
[2017-02-08] MEDS ORDERED: VERSED IV ONE (10:31)
[2017-02-08] MEDS ORDERED: DIPRIVAN 10 MG/ML IV ONE (10:31)
[2017-02-08] MEDS ORDERED: [UNRECOGNIZED DRUG - OTHER] IJ ONE (10:32)
[2017-02-08] MEDS ORDERED: WATER FOR INJ IJ ONE (10:32)
[2017-02-08] MEDS ORDERED: BENADRYL ONE (10:33)
[2017-02-08] MEDS ORDERED: QUELICIN ONE (10:34)
[2017-02-08] MEDS ORDERED: ANCEF/STERILE WATER 2 GM/20 ML 2 GM/20 ML SYRINGE IV ONE (10:43)
[2017-02-08] MEDS ORDERED: NACL 0.9% 1000 ML 1,000 ML ONE (10:50)
[2017-02-08] MEDS ORDERED: HEPARIN/NS 5000 UNIT/500ML(CATH LAB) 1,000 ML IR ONE (10:51)
[2017-02-08] MEDS ORDERED: HEPARIN 10,000 UNITS/10 ML ONE (10:51)
[2017-02-08] MEDS ORDERED: XYLOCAINE 2% INFILTRATI ONE (10:52)
--- NOTE | 2017-02-08 12:26 | Operative Report ---
Operative Report Operative Report: EXAM: RIGHT LOWER EXTREMITY ATHERECTOMY, ANGIOPLASTY AND DRUG CUTTING BALLOON PLACEMENT CLINICAL INDICATION: PATIENT WITH HISTORY OF PERIPHERAL VASCULAR DISEASE WITH REST PAIN DATE: 02/08/2017 PROCEDURE: Following an examination of the risks, benefits and alternatives; written informed consent was obtained. The patient was brought to the genetic suite and placed in supine position on the examination table. Following the induction of general anesthesia, initial evaluation of his left groin was performed with ultrasound. This demonstrated a patent left common femoral artery. The left groin was prepped and draped in the usual sterile fashion. 1 % lidocaine was used for anesthesia. Under ultrasound guidance, the left common femoral artery was cannulated with a 7 cm 21-gauge needle. A 0.01 a guidewire was advanced centrally under fluoroscopy. The needle was removed and a micro-sheath placed. The 0.018 guidewire was exchanged for a 0.035 guidewire and a micro-sheath exchanged for a 5 Faroese vascular sheet. A 5 Faroese on the flush catheter was advanced over the guidewire to the distal abdominal aorta. Angiography was performed in the distal abdominal aorta for anatomic localization. The bifurcation was crossed using Omnipaque flush catheter and 0.035 guidewire under fluoroscopy. Additional angiography was performed in the right common iliac artery and right external iliac artery. Scattered atherosclerotic disease is present without hemodynamically significant stenosis. The origin of the SFA demonstrates a 99% stenosis with significant flow limitation. The stenotic area was crossed using the 0.035 guidewire and a 4 Faroese vertebral catheter. At this point in time, atherectomy of the lesion was performed using a Hawk 1LS atherectomy device. Post atherectomy angioplasty was performed using a 6 mm x 40 mm balloon insufflated to 6 beatriz for 1 minute. Post atherectomy and Quita plus the imaging demonstrated the reduction of the lesion to less than 20% stenosis. The 4 Faroese vertebral catheter was then advanced over the guidewire passed the lesion and additional imaging of the SFA performed. This demonstrates a mid 80 % stenosis and an distal 90% stenosis involving the SFA. Additional atherectomy was performed using the Hawk 1LS atherectomy device. Angioplasty of the entire SFA wasn't performed using a 5 mm x 250 mm balloon insufflated to 6 beatriz for 2 minutes. Post atherectomy and Quita plus the imaging demonstrated reduction of these 2 areas of stenoses to less than 20%. The repeatable catheter was again advanced over the guidewire to the popliteal artery. Angiography was performed to identify the below the knee vessels. The patient does have 3 below the knee vessels however, they are atretic. The component of this may be secondary to chronic underfilling. The guidewire was advanced through the catheter and catheter removed. Additional angiographic imaging of the right groin was performed for anatomic localization. A Bard 6 mm x 60 mm Lutonix drug-coated balloon was then advanced into the right groin at the site of the lesion. The balloon was insufflated to 7 beatriz for 3 minutes. Post angioplasty imaging with a drug- coated balloon demonstrated additional reduction of the stenosis to less than 10 %. At this point, the sheath was withdrawn proximally over the guidewire and imaging obtained of the access site. An appropriate access site puncture was identified. The sheath was removed and hemostasis achieved using an Angio-Seal arterial closure device. A sterile dressing was then applied. The patient tolerated the procedure well. There were no immediate post procedure complication. Sedation was provided by anesthesia. Continuous cardiopulmonary monitoring was utilized. IMPRESSION: 1) Right lower extremity angiogram demonstrating 99% stenosis involving the proximal SFA, 80% stenosis involving the mid SFA and 90% stenosis involving the distal SFA. 2) Atherectomy of the SFA using a Hawk 1 LS atherectomy device. 3) Angioplasty of the SFA as described. 4) Treatment of the proximal lesion with a drug-coated balloon as described.
--- NOTE | 2017-02-08 12:28 | Short Stay Summary ---
Short Stay Documentation Date of service: 02/08/17 - History Principal diagnosis: PVD with rest pain H&P: obtained from office - Allergies and Medications Current Medications: Allergies IVP dye Allergy (Uncoded 12/02/15 14:35) Unknown Home Medications Medication Instructions Recorded Confirmed Last Taken Type Sevelamer Carbonate [Renvela] 0.8 gm PO TIDWM 07/13/16 02/08/17 02/07/17 History Insulin Aspart [NovoLOG Flexpen] 3 - 5 units SQ BIDAC 10/24/16 02/08/17 History Naproxen Sodium [Aleve TAB] 1 tab PO PRN PRN 02/08/17 02/08/17 02/08/17 History Active Medications Cefazolin Sodium (Ancef/Sterile Water 2 Gm/20 Ml) 2 gm in 20 mls @ 80 mls/hr IV PREOP NR PRN Reason: Protocol Stop: 02/08/17 23:59 Sodium Chloride (Nacl 0.9% 1000 Ml) 1,000 mls @ 42 mls/hr IV DIRECT PEDRO LUIS Midazolam HCl (Versed) 2 mg IV PREOP PRN PRN Reason: Agitation Stop: 02/08/17 23:59 - Brief post op/procedure progress note Date of procedure: 02/08/17 Pre-op diagnosis: PVD with rest pain right foot and calf Post-op diagnosis: same Procedure: RLE revasc Anesthesia: GETA Surgeon: HUMA ALBARADO Estimated blood loss: minimal Pathology: none Condition: stable - Disposition Condition at discharge: Good Disposition: DC-01 TO HOME OR SELFCARE Short Stay Discharge Plan Activity: advance as tolerated Weight Bearing Status: Weight Bear as Tolerated Diet: regular Wound: keep clean and dry, per your surgeon's advice Follow up with: ROBERTA VENTURA MD [Primary Care Provider] - 7 Days
[2017-02-08] MEDS ORDERED: FLUSH HEPARIN IV ONE ×2 (14:02→15:09)
--- NOTE | 2017-02-08 14:14 | Post Anesthesia Evaluation ---
- Post Anesthesia Evaluation Patient Participated: Yes Airway Patent: Yes Stable Respiratory Function: Yes Nausea/Vomiting: No Temp > 96.8F: Yes Pain Manageable: Yes Adequeate Hydration: Yes Anesthesia Complications: No Block Receding Appropriately: Not Applicable Patient on Ventilator: No
[2017-02-08 15:24] VITALS: BP 137/82
== END 2017-02-08 14:45 | disposition home or self-care (01) ==
LOC: CATHLABREC 07:52
PROVIDERS: ATTEND Radiology Diagnostic Radiology
DX: I70.221 Atherosclerosis of native arteries of extremities with rest pain, right leg (principal); E11.22 Type 2 diabetes mellitus with diabetic chronic kidney disease; N18.6 End stage renal disease; F17.200 Nicotine dependence, unspecified, uncomplicated; Z88.4 Allergy status to anesthetic agent; Z91.041 Radiographic dye allergy status; Z98.890 Other specified postprocedural states; Z72.89 Other problems related to lifestyle; Z99.2 Dependence on renal dialysis; Z79.4 Long term (current) use of insulin; Z79.899 Other long term (current) drug therapy
CPT/HCPCS: 36415; 37225; 76937; 80048; 82962; 85025; 85610; 85730; C1714; C1725; C1750; C1760; C1769; C1887; J0330; J0690; J1200; J1642; J1644; J2704; J2930; J7030; J2250; Q9967

== ENCOUNTER 2017-05-09 18:21 | Inpatient (IN) | payer MEDICARE ==
[2017-05-09] MEDS ORDERED: D50W (25GM) Syringe IV ONE (19:09)
--- NOTE | 2017-05-09 19:19 | Emergency Department Report ---
HPI - General Chief Complaint: Altered Mental Status Time Seen by Provider: 05/09/17 18:57 - HPI HPI: Room 2 The patient is a 51-year-old male presented with a chief complaint of altered mental status. The patient's visitor states that his neighbor informed him the patient was stumbling when he arrived home from hemodialysis. The neighbor let the patient in the home and the patient stumbled and fell over into his chair at approximately 16:00. The patient's visitor states he arrives at approximately 15:00 and the patient was unresponsive in his chair. EMS was called and per the visitor's Accu-Chek was 85. The patient only complains of feeling tired and dizzy. Patient denies any forms of pain. Patient last received dialysis today. Location: Mental state Duration: [See above] Quality: Altered Severity: Moderate Modifying factors: [see above] Context: [see above] Mode of transportation: [not driving] ED Past Medical Hx - Past Medical History Hx Hypertension: Yes (FOR 5 YRS, NO MEDS) Hx Diabetes: Yes Hx Renal Disease: Yes - Surgical History Additional Surgical History: vas cath and multiple graft placement - Family History Family history: no significant - Social History Smoking Status: Current Every Day Smoker - Medications Home Medications: Home Medications Medication Instructions Recorded Confirmed Last Taken Type Sevelamer Carbonate [Renvela] 0.8 gm PO TIDWM 07/13/16 02/08/17 02/07/17 History Insulin Aspart [NovoLOG Flexpen] 3 - 5 units SQ BIDAC 10/24/16 02/08/17 History Naproxen Sodium [Aleve TAB] 1 tab PO PRN PRN 02/08/17 02/08/17 02/08/17 History oxyCODONE /ACETAMINOPHEN [Percocet 1 tab PO Q4HR PRN #40 tab 02/08/17 Unknown Rx 5/325] ED Review of Systems ROS: Stated complaint: DIZZY,LETHARGIC Other details as noted in HPI Eyes: denies: eye pain ENT: denies: throat pain Cardiovascular: denies: chest pain Gastrointestinal: denies: abdominal pain Neurological: confusion, other (syncope). denies: headache Physical Exam - Physical Exam Vital Signs: Vital Signs 05/09/17 18:31 Temperature 98 F Pulse Rate 92 H Respiratory 16 Rate Blood Pressure 93/61 O2 Sat by Pulse 97 Oximetry Physical Exam: GENERAL: The patient is well-developed well-nourished male lying on stretcher appearing fatigued, awakens with verbal stimuli to answer questions and then goes back to sleep. [] HEENT: Normocephalic. Atraumatic. Extraocular motions are intact. Patient has moist mucous membranes. NECK: Supple. Trachea midline CHEST/LUNGS: Clear to auscultation. There is no respiratory distress noted. HEART/CARDIOVASCULAR: Regular. There is no tachycardia. There is no gallop rub or murmur. ABDOMEN: Abdomen is soft, nontender. Patient has normal bowel sounds. There is no abdominal distention. SKIN: There is a subacute appearing rash in the left lower abdomen consistent with zoster. There is no edema. There is no diaphoresis. NEURO: The patient is awake and oriented but falls asleep easily. The patient is cooperative. The patient has no focal neurologic deficits. The patient has normal speech. Cranial nerves II through XII grossly intact, no drift MUSCULOSKELETAL: There is no evidence of acute injury. ED Course Vital Signs 05/09/17 18:31 Temperature 98 F Pulse Rate 92 H Respiratory 16 Rate Blood Pressure 93/61 O2 Sat by Pulse 97 Oximetry - Central Line Placement Left Femoral Consent Obtained: verbal consent Time Out Performed: No Patient Placed on Monitor/Pulse Ox: Yes Prep: mask, gown, gloves Central Line Prep: sterile drapes applied Local Anesthesia Used: Lidocaine 1% Amount of Anesthesia Used (mls): 3 Ultrasound Used for Placement: No Central Line Lumen Inserted: triple Bloods Obtained for Lab: No Central Line Position: good blood return, all ports aspirated, flus, other ( line secured with adhesive) Dressing Applied: Tegaderm Patient Tolerated Procedure: well Complications: none Additional Comments: Initial attempt for central line placement was right internal jugular. However the patient told me to "stop!" While I was using an ultrasound to locate the vein. Patient not cooperative with right IJ CVL and subsequently the left femoral site was chosen ED Medical Decision Making - Lab Data Result diagrams: 05/09/17 19:34 05/09/17 19:34 Laboratory Tests 05/09/17 05/09/17 05/09/17 18:46 19:25 19:25 WBC RBC Hgb Hct MCV MCH MCHC RDW Plt Count Add Manual Diff Total Counted Seg Neutrophils % Seg Neuts % (Manual) Band Neutrophils % Lymphocytes % (Manual) Reactive Lymphs % (Man) Monocytes % (Manual) Eosinophils % (Manual) Basophils % (Manual) Metamyelocytes % Myelocytes % Promyelocytes % Blast Cells % Nucleated RBC % Seg Neutrophils # Man Band Neutrophils # Lymphocytes # (Manual) Abs React Lymphs (Man) Monocytes # (Manual) Eosinophils # (Manual) Basophils # (Manual) Metamyelocytes # Myelocytes # Promyelocytes # Blast Cells # WBC Morphology Hypersegmented Neuts Hyposegmented Neuts Hypogranular Neuts Smudge Cells Toxic Granulation Toxic Vacuolation Dohle Bodies Pelger-Huet Anomaly Marv Rods Platelet Estimate Clumped Platelets Plt Clumps, EDTA Large Platelets Giant Platelets Platelet Satelliting Plt Morphology Comment RBC Morphology Dimorphic RBCs Polychromasia Hypochromasia Poikilocytosis Anisocytosis Microcytosis Macrocytosis Spherocytes Pappenheimer Bodies Sickle Cells Target Cells Tear Drop Cells Ovalocytes Helmet Cells Cole-Goodsprings Bodies [place] Rings Arabella Cells Bite Cells Crenated Cell Elliptocytes Acanthocytes (Spur) Rouleaux Hemoglobin C Crystals Schistocytes Malaria parasites ESR Nestor Bodies Hem Pathologist Commnt PT INR APTT Sodium Potassium Chloride Carbon Dioxide Anion Gap BUN Creatinine Estimated GFR BUN/Creatinine Ratio Glucose POC Glucose 56 L Calcium Ammonia 28.0 Total Creatine Kinase CK-MB (CK-2) Troponin T C-Reactive Protein Triglycerides Cholesterol LDL Cholesterol Direct HDL Cholesterol Cholesterol/HDL Ratio TSH 5.000 H Free T4 1.36 05/09/17 05/09/17 05/09/17 19:25 19:34 19:34 WBC 15.7 H RBC 4.71 Hgb 14.7 Hct 45.8 H MCV 97 H MCH 31 MCHC 32 RDW 21.6 H Plt Count 180 Add Manual Diff Complete Total Counted 100 Seg Neutrophils % Sales Project Administrator Seg Neuts % (Manual) 92.0 H Band Neutrophils % 0 Lymphocytes % (Manual) 3.0 L Reactive Lymphs % (Man) 0 Monocytes % (Manual) 2.0 Eosinophils % (Manual) 2.0 Basophils % (Manual) 1.0 Metamyelocytes % 0 Myelocytes % 0 Promyelocytes % 0 Blast Cells % 0 Nucleated RBC % Not Reportable Seg Neutrophils # Man 14.4 H Band Neutrophils # 0.0 Lymphocytes # (Manual) 0.5 L Abs React Lymphs (Man) 0.0 Monocytes # (Manual) 0.3 Eosinophils # (Manual) 0.3 Basophils # (Manual) 0.2 H Metamyelocytes # 0.0 Myelocytes # 0.0 Promyelocytes # 0.0 Blast Cells # 0.0 WBC Morphology Not Reportable Hypersegmented Neuts Not Reportable Hyposegmented Neuts Not Reportable Hypogranular Neuts Not Reportable Smudge Cells Not Reportable Toxic Granulation Not Reportable Toxic Vacuolation Not Reportable Dohle Bodies Not Reportable Pelger-Huet Anomaly Not Reportable Marv Rods Not Reportable Platelet Estimate Consistent w auto Clumped Platelets Not Reportable Plt Clumps, EDTA Not Reportable Large Platelets Not Reportable Giant Platelets Not Reportable Platelet Satelliting Not Reportable Plt Morphology Comment Not Reportable RBC Morphology Not Reportable Dimorphic RBCs Not Reportable Polychromasia Not Reportable Hypochromasia Not Reportable Poikilocytosis Not Reportable Anisocytosis 1+ Microcytosis Not Reportable Macrocytosis Not Reportable Spherocytes Not Reportable Pappenheimer Bodies Not Reportable Sickle Cells Not Reportable Target Cells Not Reportable Tear Drop Cells Not Reportable Ovalocytes Not Reportable Helmet Cells Not Reportable Cole-Goodsprings Bodies Not Reportable [place] Rings Not Reportable Arabella Cells Not Reportable Bite Cells Not Reportable Crenated Cell Not Reportable Elliptocytes Not Reportable Acanthocytes (Spur) Not Reportable Rouleaux Not Reportable Hemoglobin C Crystals Not Reportable Schistocytes Not Reportable Malaria parasites Not Reportable ESR 1 Nestor Bodies Not Reportable Hem Pathologist Commnt No PT INR APTT Sodium 138 Potassium 5.1 H Chloride 87.0 L Carbon Dioxide 22 Anion Gap 34 BUN 47 H Creatinine 10.0 H Estimated GFR 7 BUN/Creatinine Ratio 5 Glucose 83 POC Glucose 41 L Calcium 9.6 Ammonia Total Creatine Kinase 246 H CK-MB (CK-2) 12.8 H Troponin T 0.384 H* C-Reactive Protein 45.90 H Triglycerides 191 H Cholesterol 114 LDL Cholesterol Direct 68 HDL Cholesterol 8 L Cholesterol/HDL Ratio 14.25 TSH Free T4 05/09/17 05/09/17 05/09/17 19:34 20:05 20:36 WBC RBC Hgb Hct MCV MCH MCHC RDW Plt Count Add Manual Diff Total Counted Seg Neutrophils % Seg Neuts % (Manual) Band Neutrophils % Lymphocytes % (Manual) Reactive Lymphs % (Man) Monocytes % (Manual) Eosinophils % (Manual) Basophils % (Manual) Metamyelocytes % Myelocytes % Promyelocytes % Blast Cells % Nucleated RBC % Seg Neutrophils # Man Band Neutrophils # Lymphocytes # (Manual) Abs React Lymphs (Man) Monocytes # (Manual) Eosinophils # (Manual) Basophils # (Manual) Metamyelocytes # Myelocytes # Promyelocytes # Blast Cells # WBC Morphology Hypersegmented Neuts Hyposegmented Neuts Hypogranular Neuts Smudge Cells Toxic Granulation Toxic Vacuolation Dohle Bodies Pelger-Huet Anomaly Marv Rods Platelet Estimate Clumped Platelets Plt Clumps, EDTA Large Platelets Giant Platelets Platelet Satelliting Plt Morphology Comment RBC Morphology Dimorphic RBCs Polychromasia Hypochromasia Poikilocytosis Anisocytosis Microcytosis Macrocytosis Spherocytes Pappenheimer Bodies Sickle Cells Target Cells Tear Drop Cells Ovalocytes Helmet Cells Cole-Goodsprings Bodies [place] Rings Arabella Cells Bite Cells Crenated Cell Elliptocytes Acanthocytes (Spur) Rouleaux Hemoglobin C Crystals Schistocytes Malaria parasites ESR Nestor Bodies Hem Pathologist Commnt PT 17.9 H INR 1.40 H APTT 43.9 H Sodium Potassium Chloride Carbon Dioxide Anion Gap BUN Creatinine Estimated GFR BUN/Creatinine Ratio Glucose POC Glucose 78 83 Calcium Ammonia Total Creatine Kinase CK-MB (CK-2) Troponin T C-Reactive Protein Triglycerides Cholesterol LDL Cholesterol Direct HDL Cholesterol Cholesterol/HDL Ratio TSH Free T4 05/09/17 21:37 WBC RBC Hgb Hct MCV MCH MCHC RDW Plt Count Add Manual Diff Total Counted Seg Neutrophils % Seg Neuts % (Manual) Band Neutrophils % Lymphocytes % (Manual) Reactive Lymphs % (Man) Monocytes % (Manual) Eosinophils % (Manual) Basophils % (Manual) Metamyelocytes % Myelocytes % Promyelocytes % Blast Cells % Nucleated RBC % Seg Neutrophils # Man Band Neutrophils # Lymphocytes # (Manual) Abs React Lymphs (Man) Monocytes # (Manual) Eosinophils # (Manual) Basophils # (Manual) Metamyelocytes # Myelocytes # Promyelocytes # Blast Cells # WBC Morphology Hypersegmented Neuts Hyposegmented Neuts Hypogranular Neuts Smudge Cells Toxic Granulation Toxic Vacuolation Dohle Bodies Pelger-Huet Anomaly Marv Rods Platelet Estimate Clumped Platelets Plt Clumps, EDTA Large Platelets Giant Platelets Platelet Satelliting Plt Morphology Comment RBC Morphology Dimorphic RBCs Polychromasia Hypochromasia Poikilocytosis Anisocytosis Microcytosis Macrocytosis Spherocytes Pappenheimer Bodies Sickle Cells Target Cells Tear Drop Cells Ovalocytes Helmet Cells Cole-Goodsprings Bodies [place] Rings Arabella Cells Bite Cells Crenated Cell Elliptocytes Acanthocytes (Spur) Rouleaux Hemoglobin C Crystals Schistocytes Malaria parasites ESR Nestor Bodies Hem Pathologist Commnt PT INR APTT Sodium Potassium Chloride Carbon Dioxide Anion Gap BUN Creatinine Estimated GFR BUN/Creatinine Ratio Glucose POC Glucose 69 L Calcium Ammonia Total Creatine Kinase CK-MB (CK-2) Troponin T C-Reactive Protein Triglycerides Cholesterol LDL Cholesterol Direct HDL Cholesterol Cholesterol/HDL Ratio TSH Free T4 - EKG Data -: EKG Interpreted by Me EKG shows normal: sinus rhythm Rate: normal - EKG Data When compared to previous EKG there are: no significant change Interpretation: unchanged when compared t (08/25/2016) - Radiology Data Radiology results: report reviewed (CT head), image reviewed (CT head) FINAL REPORT PROCEDURE: CT head without contrast. TECHNIQUE: Computerized tomography of the head was performed without contrast material. HISTORY: Syncope, altered mental status. COMPARISON: CT head 08/25/2016. FINDINGS: The ventricles are normal in size. The graham matter and white matter appear normal. There are no mass lesions. There is no intracranial hemorrhage. The calvarium appears intact. There is some opacification of some of the mastoid air cells bilaterally. The paranasal sinuses are clear as far as visualized. IMPRESSION: Normal study of the brain. Mild bilateral mastoiditis. Transcribed By: MRM Dictated By: LES JENNINGS MD Electronically Authenticated By: LES JENNINGS MD Signed Date/Time: 05/09/171908 DD/ 08 TD/TT: 05/09/171908 - Differential Diagnosis syncope, ICH, hypothyroidism Critical care attestation.: If time is entered above; I have spent that time in minutes in the direct care of this critically ill patient, excluding procedure time. ED Disposition Clinical Impression: Altered mental status, Diabetic foot infection, Sepsis, Syncope Disposition: OP ADMIT IP TO THIS HOSP Is pt being admited?: Yes Does the pt Need Aspirin: Yes Condition: Serious Instructions: Diabetes Mellitus Type 2 in Adults (ED), Syncope (ED) Referrals: PRIMARY CARE, [Primary Care Provider] - 3-5 Days Time of Disposition: 23:58 (hospitalist paged (Dr. Fabiana Swift))
[2017-05-09 19:47] LABS: Hematocrit 45.8 % (35.5-45.6); Hemoglobin 14.7 gm/dl (11.8-15.2); Mean Corpuscular HGB Conc 32 % (32-34); Mean Corpuscular Hemoglobin 31 pg (28-32); Mean Corpuscular Volume 97 fl (84-94); Platelet Count 180 K/mm3 (140-440); Red Blood Count 4.71 M/mm3 (3.65-5.03); White Blood Count 15.7 K/mm3 (4.5-11.0)
[2017-05-09 19:49] LABS: Red Cell Distribution Width 21.6 % (13.2-15.2)
[2017-05-09 19:57] LABS: INR 1.4 (0.87-1.13)
[2017-05-09 19:58] LABS: Partial Thromboplastin Time 43.9 Sec. (24.2-36.6)
[2017-05-09 20:03] LABS: Creatine Kinase MB 12.8 ng/mL (0.0-4.0)
[2017-05-09 20:05] LABS: Calcium 9.6 mg/dL (8.4-10.2); Potassium 5.1 mmol/L (3.6-5.0)
[2017-05-09 20:19] LABS: C-Reactive Protein 45.9 mg/dL (0.00-1.30)
[2017-05-09] MEDS ORDERED: NACL 0.9% 500 ML 500 ML IV ONE (21:12)
[2017-05-09 21:15] LABS: Erythrocyte Sedimentation Rate 1 mm/Hr (0-20)
--- NOTE | 2017-05-09 21:18 | XRay Report ---
FINAL REPORT PROCEDURE: Right foot. TECHNIQUE: Three views. HISTORY: Diabetic foot infection. COMPARISON: No prior studies are available for comparison. FINDINGS: The bones appear intact without fracture or dislocation. There are no signs of osteomyelitis. The joint spaces appear normal. There is some calcification in the small arteries of the foot. There may be an ulcer in the soft tissues of the great toe. IMPRESSION: No evidence of osteomyelitis.
[2017-05-09] MEDS ORDERED: NACL 0.9% 1000 ML 0 ML ONE (21:24)
[2017-05-09 21:57] LABS: Anisocytosis 1+; Blastocytes % (Manual) 0 %; Diff Status Complete; Platelet Estimate Consistent w Auto
[2017-05-09] MEDS ORDERED: ZOSYN/NS 2.25 GM/50ML 2.25 GM/50 ML BAG IV ONE (22:30)
[2017-05-09] MEDS ORDERED: VANCOMYCIN/NS 1 GM/250 ML 1 GM/250 ML BAG IV ONE (23:00)
--- NOTE | 2017-05-09 23:12 | Cat Scan Report ---
FINAL REPORT PROCEDURE: CT head without contrast. TECHNIQUE: Computerized tomography of the head was performed without contrast material. HISTORY: Syncope, altered mental status. COMPARISON: CT head 08/25/2016. FINDINGS: The ventricles are normal in size. The graham matter and white matter appear normal. There are no mass lesions. There is no intracranial hemorrhage. The calvarium appears intact. There is some opacification of some of the mastoid air cells bilaterally. The paranasal sinuses are clear as far as visualized. IMPRESSION: Normal study of the brain. Mild bilateral mastoiditis.
[2017-05-09] MEDS ORDERED: LEVOPHED DRIP 4 MG/NS 250 ML 4 MG/250 ML BAG IV ONE (23:59)
[2017-05-10] MEDS ORDERED: DULCOLAX PR PRN (01:22)
[2017-05-10] MEDS ORDERED: TYLENOL PO PRN (01:22)
[2017-05-10] MEDS ORDERED: ZOFRAN IV PRN (01:22)
--- NOTE | 2017-05-10 01:34 | History and Physical Report ---
History of Present Illness Date of examination: 05/10/17 History of present illness: 51-year-old man history of hypertension, diabetes, end-stage renal disease on dialysis was brought to the emergency room because he was weak and not acting himself. Brother at bedside state that after dialysis his symptoms started, family members told him that he had a syncopal episode. The review of system unobtainable PAST MEDICAL HISTORY:hypertension, diabetes, end-stage renal disease on dialysis PAST SURGICAL HISTORY: AV fistula SOCIAL HISTORY: He smokes, unknown drug or alcohol FAMILY HISTORY: Hypertension Medications and Allergies Allergies Allergy/AdvReac Type Severity Reaction Status Date / Time IVP dye Allergy Unknown Uncoded 12/02/15 14:35 Home Medications Medication Instructions Recorded Confirmed Last Taken Type Sevelamer Carbonate [Renvela] 0.8 gm PO TIDWM 07/13/16 02/08/17 02/07/17 History Insulin Aspart [NovoLOG Flexpen] 3 - 5 units SQ BIDAC 10/24/16 02/08/17 History Naproxen Sodium [Aleve TAB] 1 tab PO PRN PRN 02/08/17 02/08/17 02/08/17 History oxyCODONE /ACETAMINOPHEN [Percocet 1 tab PO Q4HR PRN #40 tab 02/08/17 Unknown Rx 5/325] Active Meds: Active Medications Acetaminophen (Tylenol) 650 mg PO Q4H PRN PRN Reason: Pain MILD(1-3)/Fever >100.5/CALDERON Bisacodyl (Dulcolax) 10 mg UT QDAY PRN PRN Reason: Constipation unrelieved by MOM Dextrose (D50w (25gm) Syringe) 50 ml IV PRN PRN PRN Reason: Hypoglycemia Enoxaparin Sodium (Lovenox) 30 mg SUB-Q QDAY PEDRO LUIS Norepinephrine (Levophed Drip 4 Mg/Ns 250 Ml) 4 mg in 250 mls @ 7.5 mls/hr IV TITR ONE; 2 MCG/MIN PRN Reason: Protocol Stop: 05/11/17 09:18 Last Admin: 05/10/17 00:30 Dose: 2 mcg/min, 7.5 mls/hr Piperacillin Sod/Tazobactam Sod (Zosyn/Ns 2.25 Gm/50ml) 2.25 gm in 50 mls @ 100 mls/hr IV Q8HR PEDRO LUIS PRN Reason: Protocol Ondansetron HCl (Zofran) 4 mg IV Q8H PRN PRN Reason: N/V unrelieved by Reglan Exam - Physical Exam Narrative exam: Gen. appearance: Patient lying in bed, no apparent distress HEENT: Normocephalic, atraumatic, pupils equally round and reactive to light, extraocular movement intact, and no sclericterus,. No JVD or thyromegaly or nodule,neck supple, no carotid bruit ,mucous membranes moist, no exudate or erythema Heart: S1, S2, regular rate and rhythm Lungs: Clear to auscultation bilaterally, breathing comfortable Abdomen: Positive bowel sounds, nontender, nondistended, no organomegaly Extremity: dry gangrene of right toe, No edema, cyanosis, clubbing Skin: No rash, nodules, warm, dry Neuro: Lethargic but arousable - Constitutional Vitals: Temp Pulse Resp BP Pulse Ox 98 F 94 H 20 101/56 99 05/09/17 18:31 05/10/17 00:45 05/10/17 00:56 05/10/17 00:45 05/10/17 00:56 Results - Labs CBC & Chem 7: 05/15/17 07:50 05/15/17 07:50 Labs: Abnormal lab results 05/09/17 05/09/17 05/09/17 Range/Units 18:46 19:25 19:25 WBC (4.5-11.0) K/mm3 Hct (35.5-45.6) % MCV (84-94) fl RDW (13.2-15.2) % Seg Neuts % (Manual) (40.0-70.0) % Lymphocytes % (Manual) (13.4-35.0) % Seg Neutrophils # Man (1.8-7.7) K/mm3 Lymphocytes # (Manual) (1.2-5.4) K/mm3 Basophils # (Manual) (0.0-0.1) K/mm3 PT (12.2-14.9) Sec. INR (0.87-1.13) APTT (24.2-36.6) Sec. D-Dimer (0-234) ng/mlDDU Potassium (3.6-5.0) mmol/L Chloride (98-107) mmol/L BUN (9-20) mg/dL Creatinine (0.8-1.5) mg/dL POC Glucose 56 L 41 L (70-105) Total Creatine Kinase (55-170) units/L CK-MB (CK-2) (0.0-4.0) ng/mL Troponin T (0.00-0.029) ng/mL C-Reactive Protein (0.00-1.30) mg/dL Triglycerides (2-149) mg/dL HDL Cholesterol (40-59) mg/dL TSH 5.000 H (0.270-4.200) mlU/mL 05/09/17 05/09/17 05/09/17 Range/Units 19:34 19:34 19:34 WBC 15.7 H (4.5-11.0) K/mm3 Hct 45.8 H (35.5-45.6) % MCV 97 H (84-94) fl RDW 21.6 H (13.2-15.2) % Seg Neuts % (Manual) 92.0 H (40.0-70.0) % Lymphocytes % (Manual) 3.0 L (13.4-35.0) % Seg Neutrophils # Man 14.4 H (1.8-7.7) K/mm3 Lymphocytes # (Manual) 0.5 L (1.2-5.4) K/mm3 Basophils # (Manual) 0.2 H (0.0-0.1) K/mm3 PT 17.9 H (12.2-14.9) Sec. INR 1.40 H (0.87-1.13) APTT 43.9 H (24.2-36.6) Sec. D-Dimer 1996.75 H (0-234) ng/mlDDU Potassium 5.1 H (3.6-5.0) mmol/L Chloride 87.0 L (98-107) mmol/L BUN 47 H (9-20) mg/dL Creatinine 10.0 H (0.8-1.5) mg/dL POC Glucose (70-105) Total Creatine Kinase 246 H (55-170) units/L CK-MB (CK-2) 12.8 H (0.0-4.0) ng/mL Troponin T 0.384 H* (0.00-0.029) ng/mL C-Reactive Protein 45.90 H (0.00-1.30) mg/dL Triglycerides 191 H (2-149) mg/dL HDL Cholesterol 8 L (40-59) mg/dL TSH (0.270-4.200) mlU/mL /14/17 Range/Units 21:37 WBC (4.5-11.0) K/mm3 Hct (35.5-45.6) % MCV (84-94) fl RDW (13.2-15.2) % Seg Neuts % (Manual) (40.0-70.0) % Lymphocytes % (Manual) (13.4-35.0) % Seg Neutrophils # Man (1.8-7.7) K/mm3 Lymphocytes # (Manual) (1.2-5.4) K/mm3 Basophils # (Manual) (0.0-0.1) K/mm3 PT (12.2-14.9) Sec. INR (0.87-1.13) APTT (24.2-36.6) Sec. D-Dimer (0-234) ng/mlDDU Potassium (3.6-5.0) mmol/L Chloride (98-107) mmol/L BUN (9-20) mg/dL Creatinine (0.8-1.5) mg/dL POC Glucose 69 L (70-105) Total Creatine Kinase (55-170) units/L CK-MB (CK-2) (0.0-4.0) ng/mL Troponin T (0.00-0.029) ng/mL C-Reactive Protein (0.00-1.30) mg/dL Triglycerides (2-149) mg/dL HDL Cholesterol (40-59) mg/dL TSH (0.270-4.200) mlU/mL - Imaging and Cardiology EKG: image reviewed CT Scan - head: report reviewed Assessment and Plan Assessment Sepsis shock Syncope Elevated d-dimer End-stage renal disease on dialysis Lower extremity wound Plan Admit to medicine Start IV Zosyn, levophed drip, status post vancomycin in the emergency room Check cardiac enzymes, echo, VQ scan, chest x-ray Consult renal, critical care DVT prophylaxis
--- NOTE | 2017-05-10 03:13 | XRay Report ---
FINAL REPORT PROCEDURE: XR CHEST 1V AP TECHNIQUE: Chest radiograph anteroposterior view. CPT 04118 HISTORY: Routine cxr/ams COMPARISON: No prior studies are available for comparison. FINDINGS: Heart: Borderline enlarged. Mediastinum/Vessels: Normal. Lungs/Pleural space: There elevation the right hemidiaphragm. There is an infiltrate at the right lung base. There is a small right pleural effusion. The left lung is clear and expanded. There are no pneumothoraces.. Bony thorax: No acute osseous abnormality. Life support devices: None. IMPRESSION: The heart is borderline enlarged.. There elevation the right hemidiaphragm. There is an infiltrate at the right lung base. There is a small right pleural effusion. The left lung is clear and expanded. There are no pneumothoraces..
--- NOTE | 2017-05-10 03:57 | Nuclear Medicine Report ---
FINAL REPORT PROCEDURE: NM LUNG SCAN PERF/VENT TECHNIQUE: 5.0 mCi Tc-99m MAA was injected IV for pulmonary perfusion imaging in multiple projections. 15.0 mCi xe-[id number] was inhaled for pulmonary ventilation imaging in multiple projections. Injection site: RIGHT antecubital fossa. CPT 58077 REGULATORY GUIDELINES: The patient was released based upon guidelines established in [place] State Regulations for Protection Against Radiation, Chapter 1199-07-03-35, Release of Individuals Containing Radioactive Drugs or Implants. HISTORY: syncope COMPARISON: Chest x-ray dated 05/10/2017 FINDINGS: Perfusion: There is a large perfusion defect corresponding to the right lower lung.. Ventilation: There is a large ventilation defect corresponding to the right lower lung.. IMPRESSION: There are matching perfusion and ventilation defects corresponding to opacity at the right lower lung seen on chest x-ray. There are no perfusion or ventilation defects in the left lung. There is low probability of pulmonary embolism.
[2017-05-10] MEDS: D50W (25GM) Syringe IV PRN ×2 (04:21→06:15)
[2017-05-10 04:29] LABS: Creatine Kinase MB 10.1 ng/mL (0.0-4.0)
[2017-05-10] MEDS: ZOSYN/NS 2.25 GM/50ML 2.25 GM/50 ML BAG IV SCH ×3 (06:15→21:27)
[2017-05-10] MEDS ORDERED: D50W (25GM) Vial IV ONE (08:00)
[2017-05-10 09:02] LABS: Calcium 8.7 mg/dL (8.4-10.2); Chloride 88.7 mmol/L (98-107); Potassium 5.8 mmol/L (3.6-5.0)
[2017-05-10 10:14] LABS: Hematocrit 43.9 % (35.5-45.6); Hemoglobin 15.1 gm/dl (11.8-15.2); Mean Corpuscular HGB Conc 35 % (32-34); Mean Corpuscular Hemoglobin 33 pg (28-32); Mean Corpuscular Volume 96 fl (84-94); Platelet Count 166 K/mm3 (140-440); Red Blood Count 4.59 M/mm3 (3.65-5.03); White Blood Count 19.6 K/mm3 (4.5-11.0)
[2017-05-10 10:16] LABS: Red Cell Distribution Width 21.6 % (13.2-15.2)
--- NOTE | 2017-05-10 10:43 | Consultation ---
History of Present Illness - History of Present Illness Thank you for the consultation patient was evaluated today. Source of information; patient himself current records were also reviewed History of presenting illness; Patient is a 51-year-old -[place] male who has been admitted here with multiple comorbidities including, altered mental status, patient was also noted to be stumbling after he returned home from hemodialysis and fell over his chair at around extreme p.m. yesterday. After the EMS came and his Accu-Chek was around 85 according to the current records. Physical family member available at this time and patient cannot provide any history. Upon arrival patient's BMI was 47 creatinine was 10 potassium 5.1 his white cell count was 15.7 thousand, platelet count. He currently does have a right femoral permacath / blood cultures were drawn but currently negative for any growth. V/Q scan was essentially unremarkable, currently an echocardiogram is in progress. CT scan of the head did not show any acute events Patient is currently on vasopressor levo fed with borderline blood pressure. He also appears to be encephalopathic at this time. Past medical history is significant for end-stage renal disease Central venous catheter right femoral for dialysis access Anemia and end-stage renal disease Secondary hyperparathyroidism Allergies: IV dye Social history: unable to obtain due to altered mental status Family history: unable to obtain due to altered mental status review of systems: Unable to obtain due to altered mental status Physical examination General: No acute distress, occasionally agitated HEENT: Oral mucosa moist no pharyngeal erythema no pallor or icterus no uremic order Neck: Supple no evidence of any thyromegaly trachea midline no JVD Chest: Clear to auscultation no crackles are also wheezes anteriorly Heart: Regular rate and rhythm S1-S2 heard no S3-S4 Abdomen: Soft nontender no renal bruit no CVA tenderness no suprapubic fullness no organomegaly Extremity: Minimal edema dry skin no peripheral cyanosis pulses palpable, has a right femoral central venous catheter for dialysis Neurological: patient is arousable but lethargic Back: Nontender thoracolumbar spine Musculoskeletal: No joint effusion noted Skin: No petechial rash/noted Assessment and plan; end-stage renal disease: Patient is currently in maintenance of her dialysis 3 times a week there is no acute emergent indication for renal replacement therapy as patient is also hemodynamically unstable we'll continue to monitor his potassium level Hypotension: Agree with obtaining blood cultures, empiric antibiotic if needed IV fluids, He will benefit from a cardiac echocardiogram, needs to rule out for any possibility of sepsis Hyperkalemia: Very mild at this time to follow if needed can give Kayexalate or dialyze if stable anemia and end-stage renal disease: To monitor and follow Secondary hyperparathyroidism: To monitor phosphorus and PTH level periodically Patient's prognosis appears to be guarded to poor given that he is admitted with altered mental status hypotensive, We'll continue to follow and make recommendations from renal standpoint If you have any questions please feel free to contact me at [phone] Medications and Allergies Allergies Allergy/AdvReac Type Severity Reaction Status Date / Time IVP dye Allergy Unknown Uncoded 12/02/15 14:35 Home Medications Medication Instructions Recorded Confirmed Last Taken Type Sevelamer Carbonate [Renvela] 0.8 gm PO TIDWM 07/13/16 02/08/17 02/07/17 History Insulin Aspart [NovoLOG Flexpen] 3 - 5 units SQ BIDAC 10/24/16 02/08/17 History Naproxen Sodium [Aleve TAB] 1 tab PO PRN PRN 02/08/17 02/08/17 02/08/17 History oxyCODONE /ACETAMINOPHEN [Percocet 1 tab PO Q4HR PRN #40 tab 02/08/17 Unknown Rx 5/325] Active Meds: Active Medications Acetaminophen (Tylenol) 650 mg PO Q4H PRN PRN Reason: Pain MILD(1-3)/Fever >100.5/CALDERON Bisacodyl (Dulcolax) 10 mg [place] QDAY PRN PRN Reason: Constipation unrelieved by MOM Dextrose (D50w (25gm) Vial) 25 gm IV PRN PRN PRN Reason: Hypoglycemia Enoxaparin Sodium (Lovenox) 30 mg SUB-Q QDAY PEDRO LUIS Norepinephrine (Levophed Drip 4 Mg/Ns 250 Ml) 4 mg in 250 mls @ 7.5 mls/hr IV TITR ONE; 2 MCG/MIN PRN Reason: Protocol Stop: 05/11/17 09:18 Last Titration: 05/10/17 03:50 Dose: 4 mcg/min, 15 mls/hr Piperacillin Sod/Tazobactam Sod (Zosyn/Ns 2.25 Gm/50ml) 2.25 gm in 50 mls @ 100 mls/hr IV Q8HR PEDRO LUIS PRN Reason: Protocol Last Admin: 05/10/17 06:15 Dose: 100 mls/hr Calcium Gluconate 1,000 mg/ (Sodium Chloride) 110 mls @ 660 mls/hr IV ONCE ONE Stop: 05/10/17 10:41 Ondansetron HCl (Zofran) 4 mg IV Q8H PRN PRN Reason: N/V unrelieved by Reglan Exam - Vital Signs Vital signs: Vital Signs Temp Pulse Resp BP Pulse Ox 98 F 92 H 16 93/61 97 05/09/17 18:31 05/09/17 18:31 05/09/17 18:31 05/09/17 18:31 05/09/17 18:31 Results - Lab Results 05/10/17 10:02 05/10/17 10:42 Most recent lab results Calcium 8.7 mg/dL (8.4-10.2) 05/10/17 07:44
[2017-05-10] MEDS ORDERED: CALCIUM GLUCONATE 1,000 MG in NACL 0.9% 100 ML IV ONE (12:30)
[2017-05-10 13:07] LABS: ISTAT Base Excess -5; ISTAT HCO3 19.4; ISTAT PCO2 28.7 (35-45); ISTAT PH 7.438 (7.35-7.45); ISTAT PO2 115 (80-105); ISTAT SO2 99; ISTAT TCO2 20
--- NOTE | 2017-05-10 13:15 | Vascular Lab Report ---
LOWER EXTREMITY ARTERIAL DUPLEX: REASON FOR EXAM: Peripheral arterial disease with gangrene, right lower extremity. COMMENTS ON THE RIGHT: Triphasic waveforms are seen proximally. Monophasic waveforms are seen distally. Velocities throughout the leg are lower than expected. Monophasic flow is seen distal to the popliteal artery. Scattered plaque is seen throughout. Findings are consistent with abnormal perfusion. Findings are not consistent with the ability to heal distal wounds. COMMENTS ON THE LEFT: Triphasic waveforms are seen proximally. Monophasic waveforms are seen distally. Lower than expected velocities are seen throughout the arterial system. Monophasic flow is seen distal to the popliteal artery. Scattered plaque is seen throughout. Findings are consistent with abnormal perfusion. Findings are not consistent with the ability to heal distal wounds. IMPRESSION: RIGHT: Low flow velocities throughout. Severe arterial occlusive disease distal to the popliteal artery. Findings are not consistent with the ability to heal distal wounds. LEFT:Low flow velocities throughout. Severe arterial occlusive disease is noted distal to the popliteal artery. Findings are not consistent with the ability to heal distal wounds.
--- NOTE | 2017-05-10 14:59 | Event Note ---
Date: 05/10/17 Pt seen and examined. Appears confused. Chemistry is significant for hyperkalemia. will give 30gm of kayexalate, 1gm calcium gluconate, insulin 10 unts and one ampule d50. Will repeat K level. nephrology following the pt. Will cont current plan and management as dictated in h and P.
--- NOTE | 2017-05-10 15:11 | Consultation ---
History of Present Illness Consult date: 05/10/17 Requesting physician: DUYEN ALDRICH Reason for consult: hypoxemia, other (septic shock) History of present illness: 51-year-old man history of hypertension, diabetes, end-stage renal disease on dialysis was brought to the emergency room because he was weak and not acting himself. Brother at bedside state that after dialysis his symptoms started. The patient lives with his 17 year old daughter and the brother states that the patietn is very non-compliant with medical therapies. Patient has multiple comorbidities including, altered mental status, patient was also noted to be stumbling after he returned home from hemodialysis and fell over his chair at around extreme p.m. yesterday. After the EMS came and his Accu-Chek was around 85 according to the current records. Physical family member available at this time and patient cannot provide any history. Upon arrival patient's BMI was 47 creatinine was 10 potassium 5.1 his white cell count was 15.7 thousand, platelet count. He currently does have a right femoral permacath/ blood cultures were drawn but currently negative for any growth. V/Q scan was essentially unremarkable, An echo revealed LVEF 25-30%, severe right ventricular dilatation and hypokinesis, severe right atrial dilatation, moderate to severe TR with severe pulmonary hypertension. Telemetry is pertinent for a transient episode of atrial fibrillation with RVR. CT scan of the head did not show any acute events Patient is currently on norepinephrine with borderline blood pressure. He has leukocytosis, hyperkalemia , lactic acidosis. His brother endorses a history of tobacco abuse disorder, ESRD on HD but non- compliant with HD, he also has gangrene of the right great toe which he apparently has been receiving therapies for over the last few months. I have been consulted for critical care management and admission to the ICU Past medical history is also significant for Diabetes mellitus Peripheral vascular disease Tobacco abuse disorder End-stage renal disease Central venous catheter right femoral for dialysis access Anemia and end-stage renal disease Secondary hyperparathyroidism Past History Past Medical History: other Medications and Allergies Allergies Allergy/AdvReac Type Severity Reaction Status Date / Time IVP dye Allergy Unknown Uncoded 12/02/15 14:35 Home Medications Medication Instructions Recorded Confirmed Last Taken Type Sevelamer Carbonate [Renvela] 0.8 gm PO TIDWM 07/13/16 02/08/17 02/07/17 History Insulin Aspart [NovoLOG Flexpen] 3 - 5 units SQ BIDAC 10/24/16 02/08/17 History Naproxen Sodium [Aleve TAB] 1 tab PO PRN PRN 02/08/17 02/08/17 02/08/17 History oxyCODONE /ACETAMINOPHEN [Percocet 1 tab PO Q4HR PRN #40 tab 02/08/17 Unknown Rx 5/325] Active Meds: Active Medications Acetaminophen (Tylenol) 650 mg PO Q4H PRN PRN Reason: Pain MILD(1-3)/Fever >100.5/CALDERON Bisacodyl (Dulcolax) [address] QDAY PRN PRN Reason: Constipation unrelieved by MOM Dextrose (D50w (25gm) Vial) 25 gm IV PRN PRN PRN Reason: Hypoglycemia Dextrose (D50w (25gm) Syringe) 50 ml IV ONCE ONE Stop: 05/10/17 16:01 Enoxaparin Sodium (Lovenox) 30 mg SUB-Q QDAY PEDRO LUIS Norepinephrine (Levophed Drip 4 Mg/Ns 250 Ml) 4 mg in 250 mls @ 7.5 mls/hr IV TITR ONE; 2 MCG/MIN PRN Reason: Protocol Stop: 05/11/17 09:18 Last Titration: 05/10/17 03:50 Dose: 4 mcg/min, 15 mls/hr Piperacillin Sod/Tazobactam Sod (Zosyn/Ns 2.25 Gm/50ml) 2.25 gm in 50 mls @ 100 mls/hr IV Q8HR PEDRO LUIS PRN Reason: Protocol Last Admin: 05/10/17 06:15 Dose: 100 mls/hr Insulin Human Isoph/Insulin Regular (Novolin 70/30) 10 unit SUB-Q ONCE ONE Stop: 05/10/17 16:01 Ondansetron HCl (Zofran) 4 mg IV Q8H PRN PRN Reason: N/V unrelieved by Reglan Sodium Polystyrene Sulfonate (Kionex) 30 gm PO ONCE ONE Stop: 05/10/17 16:01 Review of Systems ROS unobtainable: due to mental status (encephalopathic, intermittently and inconcistently obeys one step commands) Physical Examination Vital signs: Vital Signs Temp Pulse Resp BP Pulse Ox 98 F 92 H 16 93/61 97 05/09/17 18:31 05/09/17 18:31 05/09/17 18:31 05/09/17 18:31 05/09/17 18:31 General appearance: lethargic Eyes: non-icteric ENT: oropharynx dry Neck: supple, no lymphadenopathy, no JVD Effort: mildly labored Ascultation: Bilateral: diminished breath sounds Cardiovascular: regular rate and rhythm, murmur noted (systolic murmur) Gastrointestinal: normoactive bowel sounds, soft, non-tender, other (distended) Extremities: cool (necrotic right great toe, absent pedal pulses, right groin permacath, left femoral CVC), cyanosis non-focal exam, other (encephalopathy) Results - Laboratory Findings CBC and BMP: 05/12/17 Unknown 05/12/17 Unknown ABG POC ABG pH 7.438 (7.35-7.45) 05/10/17 13:02 POC ABG pCO2 28.7 (35-45) L 05/10/17 13:02 POC ABG pO2 115 (80-105) H 05/10/17 13:02 POC ABG HCO3 19.4 05/10/17 13:02 POC ABG Total CO2 20 05/10/17 13:02 POC ABG O2 Sat 99 05/10/17 13:02 PT/INR, D-dimer PT 17.9 Sec. (12.2-14.9) H 05/09/17 19:34 INR 1.40 (0.87-1.13) H 05/09/17 19:34 D-Dimer 1996.75 ng/mlDDU (0-234) H 05/09/17 19:34 Abnormal lab findings: Abnormal Labs 05/09/17 05/09/17 05/09/17 18:46 19:25 19:25 WBC Hct MCV MCH MCHC RDW Seg Neuts % (Manual) Lymphocytes % (Manual) Seg Neutrophils # Man Lymphocytes # (Manual) Basophils # (Manual) PT INR APTT D-Dimer POC ABG pCO2 POC ABG pO2 Sodium Potassium Chloride Carbon Dioxide BUN Creatinine Glucose POC Glucose 56 L 41 L Total Creatine Kinase CK-MB (CK-2) CK-MB (CK-2) Rel Index Troponin T C-Reactive Protein Triglycerides HDL Cholesterol TSH 5.000 H 05/09/17 05/09/17 05/09/17 19:34 19:34 19:34 WBC 15.7 H Hct 45.8 H MCV 97 H MCH MCHC RDW 21.6 H Seg Neuts % (Manual) 92.0 H Lymphocytes % (Manual) 3.0 L Seg Neutrophils # Man 14.4 H Lymphocytes # (Manual) 0.5 L Basophils # (Manual) 0.2 H PT 17.9 H INR 1.40 H APTT 43.9 H D-Dimer 1996.75 H POC ABG pCO2 POC ABG pO2 Sodium Potassium 5.1 H Chloride 87.0 L Carbon Dioxide BUN 47 H Creatinine 10.0 H Glucose POC Glucose Total Creatine Kinase 246 H CK-MB (CK-2) 12.8 H CK-MB (CK-2) Rel Index Troponin T 0.384 H* C-Reactive Protein 45.90 H Triglycerides 191 H HDL Cholesterol 8 L TSH 05/09/17 05/10/17 05/10/17 21:37 03:30 03:59 WBC Hct MCV MCH MCHC RDW Seg Neuts % (Manual) Lymphocytes % (Manual) Seg Neutrophils # Man Lymphocytes # (Manual) Basophils # (Manual) PT INR APTT D-Dimer POC ABG pCO2 POC ABG pO2 Sodium Potassium Chloride Carbon Dioxide BUN Creatinine Glucose POC Glucose 69 L 63 L Total Creatine Kinase 233 H CK-MB (CK-2) 10.1 H CK-MB (CK-2) Rel Index 4.3 H Troponin T 0.363 H* C-Reactive Protein Triglycerides HDL Cholesterol TSH 05/10/17 05/10/17 05/10/17 05:52 07:17 07:31 WBC Hct MCV MCH MCHC RDW Seg Neuts % (Manual) Lymphocytes % (Manual) Seg Neutrophils # Man Lymphocytes # (Manual) Basophils # (Manual) PT INR APTT D-Dimer POC ABG pCO2 POC ABG pO2 Sodium Potassium Chloride Carbon Dioxide BUN Creatinine Glucose POC Glucose 69 L 66 L Total Creatine Kinase 230 H CK-MB (CK-2) 10.0 H CK-MB (CK-2) Rel Index 4.3 H Troponin T 0.371 H* C-Reactive Protein Triglycerides HDL Cholesterol TSH 05/10/17 05/10/17 05/10/17 07:44 07:57 10:02 WBC 19.6 H Hct MCV 96 H MCH 33 H MCHC 35 H RDW 21.6 H Seg Neuts % (Manual) Lymphocytes % (Manual) Seg Neutrophils # Man Lymphocytes # (Manual) Basophils # (Manual) PT INR APTT D-Dimer POC ABG pCO2 POC ABG pO2 Sodium 135 L Potassium 5.8 H Chloride 88.7 L Carbon Dioxide 21 L BUN 52 H Creatinine 10.6 H Glucose 177 H POC Glucose 161 H Total Creatine Kinase CK-MB (CK-2) CK-MB (CK-2) Rel Index Troponin T C-Reactive Protein Triglycerides HDL Cholesterol TSH 05/10/17 05/10/17 10:42 13:02 WBC Hct MCV MCH MCHC RDW Seg Neuts % (Manual) Lymphocytes % (Manual) Seg Neutrophils # Man Lymphocytes # (Manual) Basophils # (Manual) PT INR APTT D-Dimer POC ABG pCO2 28.7 L POC ABG pO2 115 H Sodium Potassium 5.7 H Chloride Carbon Dioxide BUN Creatinine Glucose POC Glucose Total Creatine Kinase CK-MB (CK-2) CK-MB (CK-2) Rel Index Troponin T C-Reactive Protein Triglycerides HDL Cholesterol TSH - Diagnostic Findings Chest x-ray: image reviewed Assessment and Plan Severe sepsis with septic shock Possible cardiogenic shock Acute Hypoxemic Resp Failure Right lung pneumonia with parapneumonic effusion( possibly aspiration) Gangrenous right great toe Right Pleural Effusion ESRD on dialysis HTN Anemia Acute Encephalopathy (Toxic-Metabolic) Hyperkalemia Type 2 DM PVD with h/o stent placement Severe pulmonary hypertension -Continue with vasopressor support, norepinephrine, keep MAP>65 -Aspiration precautions, HOB>40 -Follow up cultures -Continue on vancomycin and zosyn for now -Renally dose all medications -Keep NPO for now, remains tenouous. -If he fails supplemental oxygen or his encephalopathy worsens, may need mechanical ventilatory support - continue supplemental oxygen - get chest USS - order thoracentesis with pleural fluid analysis - HD/UF as tolerated for toxin and volume clearance - add Vasopressin infusion if unable to maitain MAP>65 or increasing doses of norepinephrine - continue empiric AB's - get lactate and CRP and trend as necessary - GI & VTE prophylaxis -accuchecks, glycemic control -Will need to place small bowel feeding tube to initiate enteric feeding if he remains at aspiration risk -Medical management of hyperkalemia, may not tolerate HD with his current hemodynamic profile. - Flu & pneumovax per protocol ..he is critically ill on life sustaining interventions including MVS and at high risk for further deterioration including .. discussed care plan with his brother who is at the bedside ..patient is full code, and is to be resuscitated in the event of cardiopulmonary arrest ....65' CCT
[2017-05-10] MEDS: LOVENOX SUB-Q SCH (15:48)
[2017-05-10] MEDS ORDERED: D50W (25GM) Syringe IV ONE (16:00)
[2017-05-10] MEDS ORDERED: KIONEX PO ONE (16:00)
[2017-05-10] MEDS ORDERED: NACL 0.9% 500 ML 500 ML IV ONE (18:00)
--- NOTE | 2017-05-10 18:02 | Event Note ---
chart reviewed again patient's hyperkalemia is currently being treated medically. He has been hypotensive, blood cultures have been negative At this point I would like to give him 500 cc of normal saline bolus start him on midodrine to see if he'll become more stable If his hyperkalemia remains refractory we can consider dialyzing him tonight with sodium modeling, lower blood flow and cooler dialysate to see if he can tolerate it well
[2017-05-10] MEDS ORDERED: D5/0.45NS 1,000 ML IV SCH (21:00)
[2017-05-10] MEDS ORDERED: LEVOPHED DRIP 4 MG/NS 250 ML 4 MG/250 ML BAG IV PRN (21:36)
[2017-05-10] MEDS: PROAMATINE PO SCH (21:37)
[2017-05-10] MEDS ORDERED: LEVOPHED DRIP 4 MG/NS 250 ML 4 MG/250 ML BAG IV SCH (22:00)
[2017-05-11 00:34] LABS: Calcium 8.8 mg/dL (8.4-10.2); Chloride 92.4 mmol/L (98-107); Potassium 5.7 mmol/L (3.6-5.0)
[2017-05-11] MEDS ORDERED: KIONEX PO ONE (00:41)
[2017-05-11] MEDS ORDERED: NACL 0.9% 250ML 250 ML IV ONE (02:51)
[2017-05-11 03:45] LABS: Basophils % (Auto) 0.5 % (0.0-1.8); Eosinophils % (Auto) 1.8 % (0.0-4.3); Hematocrit 41.1 % (35.5-45.6); Mean Corpuscular HGB Conc 34 % (32-34); Mean Corpuscular Hemoglobin 33 pg (28-32); Mean Corpuscular Volume 96 fl (84-94); Platelet Count 147 K/mm3 (140-440); White Blood Count 14.3 K/mm3 (4.5-11.0)
[2017-05-11 03:57] LABS: Red Cell Distribution Width 21.9 % (13.2-15.2)
[2017-05-11 04:33] LABS: Calcium 8.7 mg/dL (8.4-10.2); Chloride 94.1 mmol/L (98-107); Potassium 5.3 mmol/L (3.6-5.0)
[2017-05-11] MEDS: ZOSYN/NS 2.25 GM/50ML 2.25 GM/50 ML BAG IV SCH ×2 (06:13→19:16)
--- NOTE | 2017-05-11 08:53 | Progress Note ---
Subjective Interval history: Patient was seen today for follow-up, on many renal related issues patient is arousable but remains encephalopathic Earlier was hypotensive and tachycardic as well Denies any complaints of chest pain shortness of breath Noted to have cardiomyopathy ejection fraction and 25% range with severe pulmonary hypertension and valvular heart disease Interdisciplinary notes were reviewed Vitals labs intake and output medications were reviewed from today Allergies: Reviewed Social history: Reviewed Family history: Reviewed Physical examination HEENT: Oral mucosa moist no pharyngeal erythema Neck: Supple no JVD Chest: Clear to auscultation no crackles rales or wheezes Heart: Regular rate and rhythm S1-S2 heard no S3-S4 Abdomen: Soft nontender no renal bruit no CVA tenderness no suprapubic fullness Extremity: Mild edema dry skin no peripheral cyanosis pulses palpable Neurological: arousable but does not follow commands well Musculoskeletal: No joint effusion noted Assessment and plan end-stage renal disease: Patient is in need for dialysis. We'll do with a low blood flow cooler dialysate and higher sodium to see if he can tolerate well, risk and benefit of therapy were discussed with the patient's brother Chris at length explained about hemodynamic instability and remotely he wants us to proceed with hemodialysis knowing the risk and benefit currently patient has refractory hyperkalemia which is quite worrisome Hypotension tachycardia currently relatively better will give him albumin higher dialysate sodium and try dialysis as he is hyperkalemic Hyperkalemia: Patient has received several treatments since yesterday still remains hyperkalemic will need to be dialyzed Altered mental status: Etiology unclear at this time status post cardiology and pulmonary evaluation please consider neuro evaluation as well it could be metabolic rule out other causes Lactic acidosis: Mostly resulting from hypotension currently blood cultures have been negative Condition of patient: Critically ill prognosis very poor mortality risk high Discussed with patient's family Chris over the phone explained not once but twice about all the hospital related comorbidities in addition to renal Expected prognosis was also explained to the patient's brother He is going to come and see him today Objective - Vital Signs Vital signs: Vital Signs - 12hr 05/10/17 05/10/17 05/10/17 21:01 21:08 21:11 Temperature Pulse Rate 91 H 89 Pulse Rate [ Left Dorsalis Pedis] Pulse Rate [ Left Popliteal] Pulse Rate [ Right Dorsalis Pedis] Pulse Rate [ Right Popliteal ] Respiratory 24 19 Rate Blood Pressure 110/83 110/83 O2 Sat by Pulse 94 Oximetry 05/10/17 05/10/17 05/10/17 21:21 21:30 21:41 Temperature Pulse Rate 89 83 88 Pulse Rate [ Left Dorsalis Pedis] Pulse Rate [ Left Popliteal] Pulse Rate [ Right Dorsalis Pedis] Pulse Rate [ Right Popliteal ] Respiratory 28 H 16 17 Rate Blood Pressure 125/59 107/57 107/57 O2 Sat by Pulse Oximetry 05/10/17 05/10/17 05/10/17 21:51 22:00 22:11 Temperature Pulse Rate 86 92 H 91 H Pulse Rate [ Left Dorsalis Pedis] Pulse Rate [ Left Popliteal] Pulse Rate [ Right Dorsalis Pedis] Pulse Rate [ Right Popliteal ] Respiratory 26 H 15 22 Rate Blood Pressure 103/48 94/58 94/58 O2 Sat by Pulse Oximetry 05/10/17 05/10/17 05/10/17 22:21 22:30 22:41 Temperature Pulse Rate 91 H 92 H 90 Pulse Rate [ Left Dorsalis Pedis] Pulse Rate [ Left Popliteal] Pulse Rate [ Right Dorsalis Pedis] Pulse Rate [ Right Popliteal ] Respiratory 17 13 17 Rate Blood Pressure 103/48 120/59 120/59 O2 Sat by Pulse Oximetry 05/10/17 05/10/17 05/10/17 22:51 23:00 23:11 Temperature Pulse Rate 87 90 88 Pulse Rate [ Left Dorsalis Pedis] Pulse Rate [ Left Popliteal] Pulse Rate [ Right Dorsalis Pedis] Pulse Rate [ Right Popliteal ] Respiratory 18 18 15 Rate Blood Pressure 120/59 103/55 103/55 O2 Sat by Pulse Oximetry 05/10/17 05/10/17 05/10/17 23:21 23:23 23:31 Temperature Pulse Rate 88 90 Pulse Rate [ Left Dorsalis Pedis] Pulse Rate [ Left Popliteal] Pulse Rate [ Right Dorsalis Pedis] Pulse Rate [ Right Popliteal ] Respiratory 21 15 19 Rate Blood Pressure 104/58 96/57 O2 Sat by Pulse 98 Oximetry 05/10/17 05/10/17 05/10/17 23:41 23:45 23:51 Temperature Pulse Rate 89 87 Pulse Rate [ Left Dorsalis Pedis] Pulse Rate [ Left Popliteal] Pulse Rate [ Right Dorsalis Pedis] Pulse Rate [ Right Popliteal ] Respiratory 17 21 Rate Blood Pressure 96/57 88/59 88/59 O2 Sat by Pulse Oximetry 05/10/17 05/11/17 05/11/17 23:58 00:00 00:11 Temperature Pulse Rate 89 89 91 H Pulse Rate [ Left Dorsalis Pedis] Pulse Rate [ Left Popliteal] Pulse Rate [ Right Dorsalis Pedis] Pulse Rate [ Right Popliteal ] Respiratory 18 28 H 27 H Rate Blood Pressure 88/59 91/43 91/43 O2 Sat by Pulse Oximetry 05/11/17 05/11/17 05/11/17 00:13 00:18 00:21 Temperature Pulse Rate 91 H 88 Pulse Rate [ 88 Left Dorsalis Pedis] Pulse Rate [ 88 Left Popliteal] Pulse Rate [ 88 Right Dorsalis Pedis] Pulse Rate [ 88 Right Popliteal ] Respiratory 17 22 Rate Blood Pressure 91/43 88/59 O2 Sat by Pulse 98 Oximetry 05/11/17 05/11/17 05/11/17 00:31 00:41 00:51 Temperature Pulse Rate 90 86 85 Pulse Rate [ Left Dorsalis Pedis] Pulse Rate [ Left Popliteal] Pulse Rate [ Right Dorsalis Pedis] Pulse Rate [ Right Popliteal ] Respiratory 15 17 18 Rate Blood Pressure 100/61 119/59 107/53 O2 Sat by Pulse Oximetry 05/11/17 05/11/17 05/11/17 01:00 01:11 01:21 Temperature Pulse Rate 86 93 H 88 Pulse Rate [ Left Dorsalis Pedis] Pulse Rate [ Left Popliteal] Pulse Rate [ Right Dorsalis Pedis] Pulse Rate [ Right Popliteal ] Respiratory 22 16 18 Rate Blood Pressure 106/52 106/52 102/60 O2 Sat by Pulse Oximetry 05/11/17 05/11/17 05/11/17 01:31 01:41 01:51 Temperature Pulse Rate 94 H 84 83 Pulse Rate [ Left Dorsalis Pedis] Pulse Rate [ Left Popliteal] Pulse Rate [ Right Dorsalis Pedis] Pulse Rate [ Right Popliteal ] Respiratory 17 21 26 H Rate Blood Pressure 108/55 108/55 77/57 O2 Sat by Pulse 93 Oximetry 05/11/17 05/11/17 05/11/17 02:00 02:11 02:21 Temperature Pulse Rate 90 87 89 Pulse Rate [ Left Dorsalis Pedis] Pulse Rate [ Left Popliteal] Pulse Rate [ Right Dorsalis Pedis] Pulse Rate [ Right Popliteal ] Respiratory 26 H 29 H 20 Rate Blood Pressure 95/50 95/50 101/53 O2 Sat by Pulse Oximetry 05/11/17 05/11/17 05/11/17 02:31 02:41 02:51 Temperature Pulse Rate 93 H 136 H 135 H Pulse Rate [ Left Dorsalis Pedis] Pulse Rate [ Left Popliteal] Pulse Rate [ Right Dorsalis Pedis] Pulse Rate [ Right Popliteal ] Respiratory 24 15 28 H Rate Blood Pressure 92/63 92/63 94/52 O2 Sat by Pulse Oximetry 05/11/17 05/11/17 05/11/17 03:00 03:11 03:21 Temperature Pulse Rate 134 H 131 H 125 H Pulse Rate [ Left Dorsalis Pedis] Pulse Rate [ Left Popliteal] Pulse Rate [ Right Dorsalis Pedis] Pulse Rate [ Right Popliteal ] Respiratory 17 25 H 33 H Rate Blood Pressure 104/51 104/51 89/42 O2 Sat by Pulse 97 Oximetry 05/11/17 05/11/17 05/11/17 03:31 03:41 03:51 Temperature Pulse Rate 126 H 140 H 144 H Pulse Rate [ Left Dorsalis Pedis] Pulse Rate [ Left Popliteal] Pulse Rate [ Right Dorsalis Pedis] Pulse Rate [ Right Popliteal ] Respiratory 18 22 15 Rate Blood Pressure 86/57 86/57 81/59 O2 Sat by Pulse 97 97 Oximetry 05/11/17 05/11/17 05/11/17 03:56 04:01 04:11 Temperature Pulse Rate 122 H 126 H Pulse Rate [ 135 H Left Dorsalis Pedis] Pulse Rate [ 135 H Left Popliteal] Pulse Rate [ 135 H Right Dorsalis Pedis] Pulse Rate [ 135 H Right Popliteal ] Respiratory 22 28 H 17 Rate Blood Pressure 77/38 77/38 O2 Sat by Pulse 98 98 97 Oximetry 05/11/17 05/11/17 05/11/17 04:21 04:31 04:41 Temperature Pulse Rate 124 H 124 H 126 H Pulse Rate [ Left Dorsalis Pedis] Pulse Rate [ Left Popliteal] Pulse Rate [ Right Dorsalis Pedis] Pulse Rate [ Right Popliteal ] Respiratory 14 16 19 Rate Blood Pressure 117/56 101/46 101/46 O2 Sat by Pulse 98 99 100 Oximetry 05/11/17 05/11/17 05/11/17 04:51 05:00 05:11 Temperature Pulse Rate 127 H 126 H 128 H Pulse Rate [ Left Dorsalis Pedis] Pulse Rate [ Left Popliteal] Pulse Rate [ Right Dorsalis Pedis] Pulse Rate [ Right Popliteal ] Respiratory 20 21 25 H Rate Blood Pressure 120/45 130/60 130/60 O2 Sat by Pulse 99 100 100 Oximetry 05/11/17 05/11/17 05/11/17 05:21 05:30 05:41 Temperature Pulse Rate 134 H 144 H 136 H Pulse Rate [ Left Dorsalis Pedis] Pulse Rate [ Left Popliteal] Pulse Rate [ Right Dorsalis Pedis] Pulse Rate [ Right Popliteal ] Respiratory 24 25 H 20 Rate Blood Pressure 106/57 90/58 90/58 O2 Sat by Pulse 100 98 100 Oximetry 05/11/17 05/11/17 05/11/17 05:51 06:01 08:00 Temperature 98.3 F Pulse Rate 124 H 151 H Pulse Rate [ Left Dorsalis Pedis] Pulse Rate [ Left Popliteal] Pulse Rate [ Right Dorsalis Pedis] Pulse Rate [ Right Popliteal ] Respiratory 31 H 15 Rate Blood Pressure 134/106 104/83 O2 Sat by Pulse 99 100 Oximetry - Lab 05/11/17 03:20 05/11/17 12:43 Most recent lab results Calcium 8.7 mg/dL (8.4-10.2) 05/11/17 03:20
--- NOTE | 2017-05-11 09:06 | Consultation ---
History of Present Illness Consult date: 05/11/17 History of present illness: 51 year old male admitted with altered mental status after HD. CT brain showing bilateral mastoiditis and CXR pertinent for right sided infiltrates and pleural effusion. Patient has ESRD on HD. He is very somnolent this morning and does not answer questions appropriately. Labs are pertinent for leukocytosis, lactic acidosis and electrlytes abnormalities. Elevated D-Dimer however VQ scan was low probability. An echo revealed LVEF 25-30%, severe right ventricular diltation and hypokinesis, severe right atrial dilatation, moderate to severe TR with severe pulmonary hypertension. Tele is pertinent for a transient episode of atrial fibrillation with RVR. Past History Past Medical History: diabetes, hypertension, renal failure Past Surgical History: Other (AV fistula) Social history: smoking Family history: hypertension Medications and Allergies Allergies Allergy/AdvReac Type Severity Reaction Status Date / Time IVP dye Allergy Unknown Uncoded 12/02/15 14:35 Home Medications Medication Instructions Recorded Confirmed Last Taken Type Sevelamer Carbonate [Renvela] 0.8 gm PO TIDWM 07/13/16 02/08/17 02/07/17 History Insulin Aspart [NovoLOG Flexpen] 3 - 5 units SQ BIDAC 10/24/16 02/08/17 History Naproxen Sodium [Aleve TAB] 1 tab PO PRN PRN 02/08/17 02/08/17 02/08/17 History oxyCODONE /ACETAMINOPHEN [Percocet 1 tab PO Q4HR PRN #40 tab 02/08/17 Unknown Rx 5/325] Active Meds: Active Medications Acetaminophen (Tylenol) 650 mg PO Q4H PRN PRN Reason: Pain MILD(1-3)/Fever >100.5/CALDER[place] Bisacodyl (Dulcolax) 10 mg [place] QDAY PRN PRN Reason: Constipation unrelieved by MOM Dextrose (D50w (25gm) Vial) 25 gm IV PRN PRN PRN Reason: Hypoglycemia Enoxaparin Sodium (Lovenox) 30 mg SUB-Q QDAY [facility] Last Admin: 05/10/17 15:48 Dose: 30 mg Piperacillin Sod/Tazobactam Sod (Zosyn/Ns 2.25 Gm/50ml) 2.25 gm in 50 mls @ 100 mls/hr IV Q8HR PEDRO LUIS PRN Reason: Protocol Last Admin: 05/11/17 06:13 Dose: 100 mls/hr Dextrose/Sodium Chloride (D5/0.45ns) 1,000 mls @ 50 mls/hr IV DIRECT PEDRO LUIS Stop: 05/11/17 16:59 Last Admin: 05/10/17 21:28 Dose: 50 mls/hr Norepinephrine (Levophed Drip 4 Mg/Ns 250 Ml) 4 mg in 250 mls @ 7.5 mls/hr IV TITR PEDRO LUIS; 2 MCG/MIN PRN Reason: Protocol Midodrine (Proamatine) 5 mg PO BID PEDRO LUIS Last Admin: 05/10/17 21:37 Dose: 5 mg Ondansetron HCl (Zofran) 4 mg IV Q8H PRN PRN Reason: N/V unrelieved by Reglan Review of Systems ROS unobtainable: due to mental status Physical Examination Vital Signs Temp Pulse Resp BP Pulse Ox 98 F 92 H 16 93/61 97 05/09/17 18:31 05/09/17 18:31 05/09/17 18:31 05/09/17 18:31 05/09/17 18:31 General appearance: disheveled Neck: Positive: neck supple Cardiac: Positive: Reg Rate and Rhythm, Systolic Murmur Lungs: Positive: Decreased Breath Sounds Abdomen: Positive: Soft Extremities: Absent: edema Results 05/11/17 03:20 05/11/17 03:20 Cardiac Enzymes 05/10/17 Range/Units 07:31 CK-MB (CK-2) 10.0 H (0.0-4.0) ng/mL CBC 05/10/17 05/11/17 Range/Units 10:02 03:20 WBC 19.6 H 14.3 H (4.5-11.0) K/mm3 RBC 4.59 4.30 (3.65-5.03) M/mm3 Hgb 15.1 14.0 (11.8-15.2) gm/dl Hct 43.9 41.1 (35.5-45.6) % Plt Count 166 147 (140-440) K/mm3 Lymph # 0.6 L (1.2-5.4) K/mm3 [place] # 0.9 H (0.0-0.8) K/mm3 Eos # 0.3 (0.0-0.4) K/mm3 Baso # 0.1 (0.0-0.1) K/mm3 Comprehensive Metabolic Panel 05/10/17 05/10/17 05/10/17 Range/Units 07:44 10:42 17:53 Sodium 135 L (137-145) mmol/L Potassium 5.8 H 5.7 H 6.1 H* (3.6-5.0) mmol/L Chloride 88.7 L (98-107) mmol/L Carbon Dioxide 21 L (22-30) mmol/L BUN 52 H (9-20) mg/dL Creatinine 10.6 H (0.8-1.5) mg/dL Glucose 177 H (75-100) mg/dL Calcium 8.7 (8.4-10.2) mg/dL 05/11/17 05/11/17 Range/Units 00:00 03:20 Sodium 137 140 (137-145) mmol/L Potassium 5.7 H 5.3 H (3.6-5.0) mmol/L Chloride 92.4 L 94.1 L (98-107) mmol/L Carbon Dioxide 23 23 (22-30) mmol/L BUN 58 H 58 H (9-20) mg/dL Creatinine 11.3 H 11.2 H (0.8-1.5) mg/dL Glucose 110 H 107 H (75-100) mg/dL Calcium 8.8 8.7 (8.4-10.2) mg/dL EKG interpretations - Telemetry EKG Rhythm: Sinus Rhythm Assessment and Plan Altered Mental status Right sided pneumonia and effusion Bilateral mastoiditis ESRD on HD through a right femoral dialysis catheter Hyperkalemia Lactic acidosis Hypotension due to SIRS/sepsis, on midodrine and levophed Cardiomyopathy, LVEF 25-30% Severe right ventricular enlargement and dysfunction Moderate to severe TR with severe pulmonary hypertension (likely group II and III) Normal VQ scan Paroxysmal atrial fibrillation in the setting of severe metabolic derangements Lower extremity wound 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
[2017-05-11] MEDS: CORDARONE PO SCH (10:15)
[2017-05-11] MEDS: PROAMATINE PO SCH ×3 (11:00→23:06)
[2017-05-11] MEDS ORDERED: NACL 0.9% 100 ML IV PRN (11:00)
[2017-05-11] MEDS ORDERED: NACL 0.9% 500 ML IV ONE (11:30)
--- NOTE | 2017-05-11 11:44 | XRay Report ---
AP CHEST :05/11/17 CLINICAL: Shortness of breath. COMPARISON:05/10/17 FINDINGS: Increased opacification in the right hemithorax with greater widening of the pleural space and greater opacification of the right upper lobe with air bronchograms.Shift of the heart to the left. Left lung remains normally expanded and clear. No tubes or lines. IMPRESSION: Increased right pleural effusion and worsened right pneumonia.
[2017-05-11] MEDS ORDERED: D50W (25GM) Syringe IV ONE (12:53)
[2017-05-11] MEDS: D50W (25GM) Vial IV PRN ×2 (13:05→21:32)
--- NOTE | 2017-05-11 14:05 | Progress Note ---
Assessment and Plan Acute Hypoxemic Resp Failure Sepsis Syndrome Right Pleural Effusion ESRD on dialysis HTN Anemia Acute Encephalopathy (Toxic-Metabolic) - continue supplemental oxygen - get chest USS - order thoracentesis - HD/UF as tolerated for toxin and volume clearance - add Vasopressin Gtt for persistent HTN on Levophed - increase midodrine to 10mg p.o. q8h - continue empiric AB's - get lactate and CRP and trend as necessary - get random cortisol level +/- stress dose steroids - Aspiration Precautions - GI & VTE prophylaxis - Flu & pneumovax per protocol ..he is critically ill on life sustaining interventions including MVS and at high risk for further deterioration including ....38' CCT Subjective Date of service: 05/11/17 Principal diagnosis: Sepsis Syndrome; Acute Hypoxemic Resp Failure; Acute Encephalopathy; ESRD Interval history: Patient is seen today for: Sepsis Syndrome; Acute Hypoxemic Resp Failure; Acute Encephalopathy; ESRD Seen and examined at bedside; 24hour events reviewed; nursing and respiratory care staff consulted; no adverse overnight events reported to me; resting in bed ; on venti mask; AMS is persistent; dialysis ongoing; No emesis or overt aspiration and no gross bleeding Objective Vital Signs - 12hr 05/11/17 05/11/17 05/11/17 02:11 02:21 02:31 Temperature Pulse Rate 87 89 93 H Pulse Rate [ Left Dorsalis Pedis] Pulse Rate [ Left Popliteal] Pulse Rate [ Right Dorsalis Pedis] Pulse Rate [ Right Popliteal ] Respiratory 29 H 20 24 Rate Blood Pressure 95/50 101/53 92/63 O2 Sat by Pulse Oximetry 05/11/17 05/11/17 05/11/17 02:41 02:51 03:00 Temperature Pulse Rate 136 H 135 H 134 H Pulse Rate [ Left Dorsalis Pedis] Pulse Rate [ Left Popliteal] Pulse Rate [ Right Dorsalis Pedis] Pulse Rate [ Right Popliteal ] Respiratory 15 28 H 17 Rate Blood Pressure 92/63 94/52 104/51 O2 Sat by Pulse Oximetry 05/11/17 05/11/17 05/11/17 03:11 03:21 03:31 Temperature Pulse Rate 131 H 125 H 126 H Pulse Rate [ Left Dorsalis Pedis] Pulse Rate [ Left Popliteal] Pulse Rate [ Right Dorsalis Pedis] Pulse Rate [ Right Popliteal ] Respiratory 25 H 33 H 18 Rate Blood Pressure 104/51 89/42 86/57 O2 Sat by Pulse 97 97 Oximetry 05/11/17 05/11/17 05/11/17 03:41 03:51 03:56 Temperature Pulse Rate 140 H 144 H Pulse Rate [ 135 H Left Dorsalis Pedis] Pulse Rate [ 135 H Left Popliteal] Pulse Rate [ 135 H Right Dorsalis Pedis] Pulse Rate [ 135 H Right Popliteal ] Respiratory 22 15 22 Rate Blood Pressure 86/57 81/59 O2 Sat by Pulse 97 98 Oximetry 05/11/17 05/11/17 05/11/17 04:01 04:11 04:21 Temperature Pulse Rate 122 H 126 H 124 H Pulse Rate [ Left Dorsalis Pedis] Pulse Rate [ Left Popliteal] Pulse Rate [ Right Dorsalis Pedis] Pulse Rate [ Right Popliteal ] Respiratory 28 H 17 14 Rate Blood Pressure 77/38 77/38 117/56 O2 Sat by Pulse 98 97 98 Oximetry 05/11/17 05/11/17 05/11/17 04:31 04:41 04:51 Temperature Pulse Rate 124 H 126 H 127 H Pulse Rate [ Left Dorsalis Pedis] Pulse Rate [ Left Popliteal] Pulse Rate [ Right Dorsalis Pedis] Pulse Rate [ Right Popliteal ] Respiratory 16 19 20 Rate Blood Pressure 101/46 101/46 120/45 O2 Sat by Pulse 99 100 99 Oximetry 05/11/17 05/11/17 05/11/17 05:00 05:11 05:21 Temperature Pulse Rate 126 H 128 H 134 H Pulse Rate [ Left Dorsalis Pedis] Pulse Rate [ Left Popliteal] Pulse Rate [ Right Dorsalis Pedis] Pulse Rate [ Right Popliteal ] Respiratory 21 25 H 24 Rate Blood Pressure 130/60 130/60 106/57 O2 Sat by Pulse 100 100 100 Oximetry 05/11/17 05/11/17 05/11/17 05:30 05:41 05:51 Temperature Pulse Rate 144 H 136 H 124 H Pulse Rate [ Left Dorsalis Pedis] Pulse Rate [ Left Popliteal] Pulse Rate [ Right Dorsalis Pedis] Pulse Rate [ Right Popliteal ] Respiratory 25 H 20 31 H Rate Blood Pressure 90/58 90/58 134/106 O2 Sat by Pulse 98 100 99 Oximetry 05/11/17 05/11/17 05/11/17 06:01 06:11 06:21 Temperature Pulse Rate 151 H 115 H 112 H Pulse Rate [ Left Dorsalis Pedis] Pulse Rate [ Left Popliteal] Pulse Rate [ Right Dorsalis Pedis] Pulse Rate [ Right Popliteal ] Respiratory 15 13 18 Rate Blood Pressure 104/83 104/83 112/40 O2 Sat by Pulse 100 100 100 Oximetry 05/11/17 05/11/17 05/11/17 06:30 06:41 06:51 Temperature Pulse Rate 114 H 118 H 116 H Pulse Rate [ Left Dorsalis Pedis] Pulse Rate [ Left Popliteal] Pulse Rate [ Right Dorsalis Pedis] Pulse Rate [ Right Popliteal ] Respiratory 26 H 17 17 Rate Blood Pressure 124/50 124/50 118/38 O2 Sat by Pulse Oximetry 05/11/17 05/11/17 05/11/17 07:01 07:11 07:21 Temperature Pulse Rate 114 H 120 H 114 H Pulse Rate [ Left Dorsalis Pedis] Pulse Rate [ Left Popliteal] Pulse Rate [ Right Dorsalis Pedis] Pulse Rate [ Right Popliteal ] Respiratory 27 H 24 20 Rate Blood Pressure 138/27 138/27 117/39 O2 Sat by Pulse Oximetry 05/11/17 05/11/17 05/11/17 07:31 07:41 07:51 Temperature Pulse Rate 119 H 114 H 86 Pulse Rate [ Left Dorsalis Pedis] Pulse Rate [ Left Popliteal] Pulse Rate [ Right Dorsalis Pedis] Pulse Rate [ Right Popliteal ] Respiratory 21 28 H 16 Rate Blood Pressure 143/93 143/93 105/62 O2 Sat by Pulse Oximetry 05/11/17 05/11/17 05/11/17 08:00 08:01 08:11 Temperature 98.3 F Pulse Rate 92 H 88 Pulse Rate [ Left Dorsalis Pedis] Pulse Rate [ Left Popliteal] Pulse Rate [ Right Dorsalis Pedis] Pulse Rate [ Right Popliteal ] Respiratory 16 22 Rate Blood Pressure 99/57 99/57 O2 Sat by Pulse Oximetry 05/11/17 05/11/17 05/11/17 08:21 08:31 08:41 Temperature Pulse Rate 92 H 89 86 Pulse Rate [ Left Dorsalis Pedis] Pulse Rate [ Left Popliteal] Pulse Rate [ Right Dorsalis Pedis] Pulse Rate [ Right Popliteal ] Respiratory 21 20 23 Rate Blood Pressure 97/60 86/28 86/28 O2 Sat by Pulse Oximetry 05/11/17 05/11/17 05/11/17 08:51 09:00 09:11 Temperature Pulse Rate 86 84 83 Pulse Rate [ Left Dorsalis Pedis] Pulse Rate [ Left Popliteal] Pulse Rate [ Right Dorsalis Pedis] Pulse Rate [ Right Popliteal ] Respiratory 23 31 H 18 Rate Blood Pressure 78/44 118/38 85/61 O2 Sat by Pulse 97 97 98 Oximetry 05/11/17 05/11/17 05/11/17 09:21 09:30 09:41 Temperature Pulse Rate 85 85 87 Pulse Rate [ Left Dorsalis Pedis] Pulse Rate [ Left Popliteal] Pulse Rate [ Right Dorsalis Pedis] Pulse Rate [ Right Popliteal ] Respiratory 21 25 H 18 Rate Blood Pressure 100/52 100/53 95/67 O2 Sat by Pulse 100 100 100 Oximetry 05/11/17 05/11/17 05/11/17 09:51 10:00 10:01 Temperature Pulse Rate 86 85 Pulse Rate [ Left Dorsalis Pedis] Pulse Rate [ Left Popliteal] Pulse Rate [ Right Dorsalis Pedis] Pulse Rate [ Right Popliteal ] Respiratory 15 15 Rate Blood Pressure 96/49 78/25 O2 Sat by Pulse 100 Oximetry 05/11/17 05/11/17 05/11/17 10:11 10:21 10:31 Temperature Pulse Rate 82 81 84 Pulse Rate [ Left Dorsalis Pedis] Pulse Rate [ Left Popliteal] Pulse Rate [ Right Dorsalis Pedis] Pulse Rate [ Right Popliteal ] Respiratory 15 14 11 L Rate Blood Pressure 111/38 111/38 111/38 O2 Sat by Pulse 100 100 100 Oximetry 05/11/17 05/11/17 05/11/17 10:41 10:51 11:01 Temperature Pulse Rate 82 80 82 Pulse Rate [ Left Dorsalis Pedis] Pulse Rate [ Left Popliteal] Pulse Rate [ Right Dorsalis Pedis] Pulse Rate [ Right Popliteal ] Respiratory 14 11 L 15 Rate Blood Pressure 111/38 146/73 146/73 O2 Sat by Pulse 99 Oximetry 05/11/17 05/11/17 05/11/17 11:11 11:21 11:31 Temperature Pulse Rate 79 83 83 Pulse Rate [ Left Dorsalis Pedis] Pulse Rate [ Left Popliteal] Pulse Rate [ Right Dorsalis Pedis] Pulse Rate [ Right Popliteal ] Respiratory 16 9 L 20 Rate Blood Pressure 146/73 146/73 104/54 O2 Sat by Pulse 92 99 Oximetry 05/11/17 05/11/17 05/11/17 11:41 11:51 12:00 Temperature 97.6 F Pulse Rate 83 83 84 Pulse Rate [ Left Dorsalis Pedis] Pulse Rate [ Left Popliteal] Pulse Rate [ Right Dorsalis Pedis] Pulse Rate [ Right Popliteal ] Respiratory 16 27 H 26 H Rate Blood Pressure 104/54 110/50 118/46 O2 Sat by Pulse 100 100 100 Oximetry 05/11/17 05/11/17 05/11/17 12:10 12:21 12:31 Temperature Pulse Rate 85 78 81 Pulse Rate [ Left Dorsalis Pedis] Pulse Rate [ Left Popliteal] Pulse Rate [ Right Dorsalis Pedis] Pulse Rate [ Right Popliteal ] Respiratory 23 25 H 18 Rate Blood Pressure 118/46 108/48 96/41 O2 Sat by Pulse 100 100 95 Oximetry 05/11/17 05/11/17 05/11/17 12:41 12:51 13:01 Temperature Pulse Rate 86 82 86 Pulse Rate [ Left Dorsalis Pedis] Pulse Rate [ Left Popliteal] Pulse Rate [ Right Dorsalis Pedis] Pulse Rate [ Right Popliteal ] Respiratory 15 15 16 Rate Blood Pressure 108/48 110/44 94/52 O2 Sat by Pulse 96 93 Oximetry 05/11/17 13:11 Temperature Pulse Rate 80 Pulse Rate [ Left Dorsalis Pedis] Pulse Rate [ Left Popliteal] Pulse Rate [ Right Dorsalis Pedis] Pulse Rate [ Right Popliteal ] Respiratory 22 Rate Blood Pressure 96/41 O2 Sat by Pulse 96 Oximetry Constitutional: lethargic, appears uncomfortable Eyes: non-icteric ENT: oropharynx moist Neck: supple, no lymphadenopathy, no JVD, other (no thyromegaly) Effort: mildly labored Ascultation: Right: diminished breath sounds (base), Bilateral: rhonchi Percussion: Right: dull Cardiovascular: regular rate and rhythm, other (no rubs/murmurs) Gastrointestinal: normoactive bowel sounds, soft, non-tender, non-distended, other (No HSM) Integumentary: other (poor turgor) Extremities: no cyanosis, no edema Neurologic: unable to assess Psychiatric: other (unable to assess) CBC and BMP: 05/11/17 03:20 05/11/17 12:43 ABG, PT/INR, D-dimer: ABG POC ABG pH 7.438 (7.35-7.45) 05/10/17 13:02 POC ABG pCO2 28.7 (35-45) L 05/10/17 13:02 POC ABG pO2 115 (80-105) H 05/10/17 13:02 POC ABG HCO3 19.4 05/10/17 13:02 POC ABG Total CO2 20 05/10/17 13:02 POC ABG O2 Sat 99 05/10/17 13:02 PT/INR, D-dimer PT 17.9 Sec. (12.2-14.9) H 05/09/17 19:34 INR 1.40 (0.87-1.13) H 05/09/17 19:34 D-Dimer 1996.75 ng/mlDDU (0-234) H 05/09/17 19:34 Abnormal lab findings: Abnormal Labs 05/09/17 05/09/17 05/09/17 18:46 19:25 19:25 WBC Hct MCV MCH MCHC RDW Lymph % (Auto) Lymph # [place] # Seg Neutrophils % Seg Neuts % (Manual) Lymphocytes % (Manual) Seg Neutrophils # Seg Neutrophils # Man Lymphocytes # (Manual) Basophils # (Manual) PT INR APTT D-Dimer POC ABG pCO2 POC ABG pO2 Sodium Potassium Chloride Carbon Dioxide BUN Creatinine Glucose POC Glucose 56 L 41 L Lactic Acid Total Creatine Kinase CK-MB (CK-2) CK-MB (CK-2) Rel Index Troponin T C-Reactive Protein Triglycerides HDL Cholesterol TSH 5.000 H 05/09/17 05/09/17 05/09/17 19:34 19:34 19:34 WBC 15.7 H Hct 45.8 H MCV 97 H MCH MCHC RDW 21.6 H Lymph % (Auto) Lymph # [place] # Seg Neutrophils % Seg Neuts % (Manual) 92.0 H Lymphocytes % (Manual) 3.0 L Seg Neutrophils # Seg Neutrophils # Man 14.4 H Lymphocytes # (Manual) 0.5 L Basophils # (Manual) 0.2 H PT 17.9 H INR 1.40 H APTT 43.9 H D-Dimer 1996.75 H POC ABG pCO2 POC ABG pO2 Sodium Potassium 5.1 H Chloride 87.0 L Carbon Dioxide BUN 47 H Creatinine 10.0 H Glucose POC Glucose Lactic Acid Total Creatine Kinase 246 H CK-MB (CK-2) 12.8 H CK-MB (CK-2) Rel Index Troponin T 0.384 H* C-Reactive Protein 45.90 H Triglycerides 191 H HDL Cholesterol 8 L TSH 05/09/17 05/10/17 05/10/17 21:37 03:30 03:59 WBC Hct MCV MCH MCHC RDW Lymph % (Auto) Lymph # [place] # Seg Neutrophils % Seg Neuts % (Manual) Lymphocytes % (Manual) Seg Neutrophils # Seg Neutrophils # Man Lymphocytes # (Manual) Basophils # (Manual) PT INR APTT D-Dimer POC ABG pCO2 POC ABG pO2 Sodium Potassium Chloride Carbon Dioxide BUN Creatinine Glucose POC Glucose 69 L 63 L Lactic Acid Total Creatine Kinase 233 H CK-MB (CK-2) 10.1 H CK-MB (CK-2) Rel Index 4.3 H Troponin T 0.363 H* C-Reactive Protein Triglycerides HDL Cholesterol TSH 05/10/17 05/10/17 05/10/17 05:52 07:17 07:31 WBC Hct MCV MCH MCHC RDW Lymph % (Auto) Lymph # [place] # Seg Neutrophils % Seg Neuts % (Manual) Lymphocytes % (Manual) Seg Neutrophils # Seg Neutrophils # Man Lymphocytes # (Manual) Basophils # (Manual) PT INR APTT D-Dimer POC ABG pCO2 POC ABG pO2 Sodium Potassium Chloride Carbon Dioxide BUN Creatinine Glucose POC Glucose 69 L 66 L Lactic Acid Total Creatine Kinase 230 H CK-MB (CK-2) 10.0 H CK-MB (CK-2) Rel Index 4.3 H Troponin T 0.371 H* C-Reactive Protein Triglycerides HDL Cholesterol TSH 05/10/17 05/10/17 05/10/17 07:44 07:57 10:02 WBC 19.6 H Hct MCV 96 H MCH 33 H MCHC 35 H RDW 21.6 H Lymph % (Auto) Lymph # [place] # Seg Neutrophils % Seg Neuts % (Manual) Lymphocytes % (Manual) Seg Neutrophils # Seg Neutrophils # Man Lymphocytes # (Manual) Basophils # (Manual) PT INR APTT D-Dimer POC ABG pCO2 POC ABG pO2 Sodium 135 L Potassium 5.8 H Chloride 88.7 L Carbon Dioxide 21 L BUN 52 H Creatinine 10.6 H Glucose 177 H POC Glucose 161 H Lactic Acid Total Creatine Kinase CK-MB (CK-2) CK-MB (CK-2) Rel Index Troponin T C-Reactive Protein Triglycerides HDL Cholesterol TSH 05/10/17 05/10/17 05/10/17 10:42 13:02 17:53 WBC Hct MCV MCH MCHC RDW Lymph % (Auto) Lymph # [place] # Seg Neutrophils % Seg Neuts % (Manual) Lymphocytes % (Manual) Seg Neutrophils # Seg Neutrophils # Man Lymphocytes # (Manual) Basophils # (Manual) PT INR APTT D-Dimer POC ABG pCO2 28.7 L POC ABG pO2 115 H Sodium Potassium 5.7 H 6.1 H* Chloride Carbon Dioxide BUN Creatinine Glucose POC Glucose Lactic Acid Total Creatine Kinase CK-MB (CK-2) CK-MB (CK-2) Rel Index Troponin T C-Reactive Protein Triglycerides HDL Cholesterol TSH 05/10/17 05/10/17 05/10/17 18:26 20:38 23:46 WBC Hct MCV MCH MCHC RDW Lymph % (Auto) Lymph # [place] # Seg Neutrophils % Seg Neuts % (Manual) Lymphocytes % (Manual) Seg Neutrophils # Seg Neutrophils # Man Lymphocytes # (Manual) Basophils # (Manual) PT INR APTT D-Dimer POC ABG pCO2 POC ABG pO2 Sodium Potassium Chloride Carbon Dioxide BUN Creatinine Glucose POC Glucose 68 L < 40 L Lactic Acid 3.30 H* Total Creatine Kinase CK-MB (CK-2) CK-MB (CK-2) Rel Index Troponin T C-Reactive Protein Triglycerides HDL Cholesterol TSH 05/11/17 05/11/17 05/11/17 00:00 03:15 03:20 WBC 14.3 H Hct MCV 96 H MCH 33 H MCHC RDW 21.9 H Lymph % (Auto) 4.2 L Lymph # 0.6 L [place] # 0.9 H Seg Neutrophils % 87.2 H Seg Neuts % (Manual) Lymphocytes % (Manual) Seg Neutrophils # 12.5 H Seg Neutrophils # Man Lymphocytes # (Manual) Basophils # (Manual) PT INR APTT D-Dimer POC ABG pCO2 POC ABG pO2 Sodium Potassium 5.7 H Chloride 92.4 L Carbon Dioxide BUN 58 H Creatinine 11.3 H Glucose 110 H POC Glucose Lactic Acid 2.10 H* Total Creatine Kinase CK-MB (CK-2) CK-MB (CK-2) Rel Index Troponin T C-Reactive Protein Triglycerides HDL Cholesterol TSH 05/11/17 05/11/17 05/11/17 03:20 07:41 12:24 WBC Hct MCV MCH MCHC RDW Lymph % (Auto) Lymph # [place] # Seg Neutrophils % Seg Neuts % (Manual) Lymphocytes % (Manual) Seg Neutrophils # Seg Neutrophils # Man Lymphocytes # (Manual) Basophils # (Manual) PT INR APTT D-Dimer POC ABG pCO2 POC ABG pO2 Sodium Potassium 5.3 H Chloride 94.1 L Carbon Dioxide BUN 58 H Creatinine 11.2 H Glucose 107 H POC Glucose 46 L 46 L Lactic Acid Total Creatine Kinase CK-MB (CK-2) CK-MB (CK-2) Rel Index Troponin T C-Reactive Protein Triglycerides HDL Cholesterol TSH Chest x-ray: image reviewed (large right pleural effusion) Allied health notes reviewed: nursing
[2017-05-11 14:16] LABS: ISTAT Base Excess -3; ISTAT HCO3 22.3; ISTAT PCO2 38.1 (35-45); ISTAT PH 7.375 (7.35-7.45); ISTAT PO2 89 (80-105); ISTAT SO2 97; ISTAT TCO2 23
[2017-05-11 14:44] LABS: Total Protein 6.2 g/dL (6.3-8.2)
--- NOTE | 2017-05-11 14:45 | Progress Note ---
Assessment and Plan /Acute metabolic/toxic encephalopathy likely due to sepsis vs uremia cont abx, wait for HD, monitor electrolytes /Acute respiratory failure likely due to PNA and pleural effusion cont abx, will need thoracenthesis cont nebs, supplimental O2 /Septic vs cardiodenic shock cont pressor support and midodrine /Right sided pneumonia and effusion cont abx, ordered for thoracenthesis /Bilateral mastoiditis cont abx /ESRD on HD - through a right femoral dialysis catheter nephrology following, could not get HD due to low BP /Hyperkalemia treat medically now as cannot get HD /Lactic acidosis due to SIRS/sepsis, cont to trend /Cardiomyopathy, LVEF 25-30% cardiology consulted may need further ischemic work up when more stable /Severe pulmonary hypertension (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 The aggregate critical care time was [32] minutes. This time is in addition to time spent performing reported procedures but includes the following: [x] Data Review and interpretation [xx] Patient assessment and monitoring of vital signs [x] Documentation [x] Medication orders and management Physical exam: General appearance: disheveled HEENT: reactive pupil Neck: Positive: neck supple Cardiac: Positive: Reg Rate and Rhythm, Systolic Murmur Lungs: Positive: Decreased Breath Sounds Abdomen: Positive: Soft Extremities: Absent: edema Skin: cold, no resh Neuro: follow commends, confused, oriented to self only Musculoskeletal: no joint swelling Subjective Date of service: 05/11/17 Principal diagnosis: Sepsis Syndrome; Acute Hypoxemic Resp Failure; Acute Encephalopathy; ESRD Interval history: Pt seen and examined placed on 15L O2 appears confused c/o leg pain unable to reach out to family Objective - Constitutional Vitals: Vital Signs - 12hr 05/11/17 05/11/17 05/11/17 02:51 03:00 03:11 Temperature Pulse Rate 135 H 134 H 131 H Pulse Rate [ Left Dorsalis Pedis] Pulse Rate [ Left Popliteal] Pulse Rate [ Right Dorsalis Pedis] Pulse Rate [ Right Popliteal ] Respiratory 28 H 17 25 H Rate Blood Pressure 94/52 104/51 104/51 O2 Sat by Pulse Oximetry 05/11/17 05/11/17 05/11/17 03:21 03:31 03:41 Temperature Pulse Rate 125 H 126 H 140 H Pulse Rate [ Left Dorsalis Pedis] Pulse Rate [ Left Popliteal] Pulse Rate [ Right Dorsalis Pedis] Pulse Rate [ Right Popliteal ] Respiratory 33 H 18 22 Rate Blood Pressure 89/42 86/57 86/57 O2 Sat by Pulse 97 97 97 Oximetry 05/11/17 05/11/17 05/11/17 03:51 03:56 04:01 Temperature Pulse Rate 144 H 122 H Pulse Rate [ 135 H Left Dorsalis Pedis] Pulse Rate [ 135 H Left Popliteal] Pulse Rate [ 135 H Right Dorsalis Pedis] Pulse Rate [ 135 H Right Popliteal ] Respiratory 15 22 28 H Rate Blood Pressure 81/59 77/38 O2 Sat by Pulse 98 98 Oximetry 05/11/17 05/11/17 05/11/17 04:11 04:21 04:31 Temperature Pulse Rate 126 H 124 H 124 H Pulse Rate [ Left Dorsalis Pedis] Pulse Rate [ Left Popliteal] Pulse Rate [ Right Dorsalis Pedis] Pulse Rate [ Right Popliteal ] Respiratory 17 14 16 Rate Blood Pressure 77/38 117/56 101/46 O2 Sat by Pulse 97 98 99 Oximetry 05/11/17 05/11/17 05/11/17 04:41 04:51 05:00 Temperature Pulse Rate 126 H 127 H 126 H Pulse Rate [ Left Dorsalis Pedis] Pulse Rate [ Left Popliteal] Pulse Rate [ Right Dorsalis Pedis] Pulse Rate [ Right Popliteal ] Respiratory 19 20 21 Rate Blood Pressure 101/46 120/45 130/60 O2 Sat by Pulse 100 99 100 Oximetry 05/11/17 05/11/17 05/11/17 05:11 05:21 05:30 Temperature Pulse Rate 128 H 134 H 144 H Pulse Rate [ Left Dorsalis Pedis] Pulse Rate [ Left Popliteal] Pulse Rate [ Right Dorsalis Pedis] Pulse Rate [ Right Popliteal ] Respiratory 25 H 24 25 H Rate Blood Pressure 130/60 106/57 90/58 O2 Sat by Pulse 100 100 98 Oximetry 05/11/17 05/11/17 05/11/17 05:41 05:51 06:01 Temperature Pulse Rate 136 H 124 H 151 H Pulse Rate [ Left Dorsalis Pedis] Pulse Rate [ Left Popliteal] Pulse Rate [ Right Dorsalis Pedis] Pulse Rate [ Right Popliteal ] Respiratory 20 31 H 15 Rate Blood Pressure 90/58 134/106 104/83 O2 Sat by Pulse 100 99 100 Oximetry 05/11/17 05/11/17 05/11/17 06:11 06:21 06:30 Temperature Pulse Rate 115 H 112 H 114 H Pulse Rate [ Left Dorsalis Pedis] Pulse Rate [ Left Popliteal] Pulse Rate [ Right Dorsalis Pedis] Pulse Rate [ Right Popliteal ] Respiratory 13 18 26 H Rate Blood Pressure 104/83 112/40 124/50 O2 Sat by Pulse 100 100 Oximetry 05/11/17 05/11/17 05/11/17 06:41 06:51 07:01 Temperature Pulse Rate 118 H 116 H 114 H Pulse Rate [ Left Dorsalis Pedis] Pulse Rate [ Left Popliteal] Pulse Rate [ Right Dorsalis Pedis] Pulse Rate [ Right Popliteal ] Respiratory 17 17 27 H Rate Blood Pressure 124/50 118/38 138/27 O2 Sat by Pulse Oximetry 05/11/17 05/11/17 05/11/17 07:11 07:21 07:31 Temperature Pulse Rate 120 H 114 H 119 H Pulse Rate [ Left Dorsalis Pedis] Pulse Rate [ Left Popliteal] Pulse Rate [ Right Dorsalis Pedis] Pulse Rate [ Right Popliteal ] Respiratory 24 20 21 Rate Blood Pressure 138/27 117/39 143/93 O2 Sat by Pulse Oximetry 05/11/17 05/11/17 05/11/17 07:41 07:51 08:00 Temperature 98.3 F Pulse Rate 114 H 86 Pulse Rate [ Left Dorsalis Pedis] Pulse Rate [ Left Popliteal] Pulse Rate [ Right Dorsalis Pedis] Pulse Rate [ Right Popliteal ] Respiratory 28 H 16 Rate Blood Pressure 143/93 105/62 O2 Sat by Pulse Oximetry 05/11/17 05/11/17 05/11/17 08:01 08:11 08:21 Temperature Pulse Rate 92 H 88 92 H Pulse Rate [ Left Dorsalis Pedis] Pulse Rate [ Left Popliteal] Pulse Rate [ Right Dorsalis Pedis] Pulse Rate [ Right Popliteal ] Respiratory 16 22 21 Rate Blood Pressure 99/57 99/57 97/60 O2 Sat by Pulse Oximetry 05/11/17 05/11/17 05/11/17 08:31 08:41 08:51 Temperature Pulse Rate 89 86 86 Pulse Rate [ Left Dorsalis Pedis] Pulse Rate [ Left Popliteal] Pulse Rate [ Right Dorsalis Pedis] Pulse Rate [ Right Popliteal ] Respiratory 20 23 23 Rate Blood Pressure 86/28 86/28 78/44 O2 Sat by Pulse 97 Oximetry 05/11/17 05/11/17 05/11/17 09:00 09:11 09:21 Temperature Pulse Rate 84 83 85 Pulse Rate [ Left Dorsalis Pedis] Pulse Rate [ Left Popliteal] Pulse Rate [ Right Dorsalis Pedis] Pulse Rate [ Right Popliteal ] Respiratory 31 H 18 21 Rate Blood Pressure 118/38 85/61 100/52 O2 Sat by Pulse 97 98 100 Oximetry 05/11/17 05/11/17 05/11/17 09:30 09:41 09:51 Temperature Pulse Rate 85 87 86 Pulse Rate [ Left Dorsalis Pedis] Pulse Rate [ Left Popliteal] Pulse Rate [ Right Dorsalis Pedis] Pulse Rate [ Right Popliteal ] Respiratory 25 H 18 15 Rate Blood Pressure 100/53 95/67 96/49 O2 Sat by Pulse 100 100 Oximetry 05/11/17 05/11/17 05/11/17 10:00 10:01 10:11 Temperature Pulse Rate 85 82 Pulse Rate [ Left Dorsalis Pedis] Pulse Rate [ Left Popliteal] Pulse Rate [ Right Dorsalis Pedis] Pulse Rate [ Right Popliteal ] Respiratory 15 15 Rate Blood Pressure 78/25 111/38 O2 Sat by Pulse 100 100 Oximetry 05/11/17 05/11/17 05/11/17 10:21 10:31 10:41 Temperature Pulse Rate 81 84 82 Pulse Rate [ Left Dorsalis Pedis] Pulse Rate [ Left Popliteal] Pulse Rate [ Right Dorsalis Pedis] Pulse Rate [ Right Popliteal ] Respiratory 14 11 L 14 Rate Blood Pressure 111/38 111/38 111/38 O2 Sat by Pulse 100 100 99 Oximetry 05/11/17 05/11/17 05/11/17 10:51 11:01 11:11 Temperature Pulse Rate 80 82 79 Pulse Rate [ Left Dorsalis Pedis] Pulse Rate [ Left Popliteal] Pulse Rate [ Right Dorsalis Pedis] Pulse Rate [ Right Popliteal ] Respiratory 11 L 15 16 Rate Blood Pressure 146/73 146/73 146/73 O2 Sat by Pulse Oximetry 05/11/17 05/11/17 05/11/17 11:21 11:31 11:41 Temperature Pulse Rate 83 83 83 Pulse Rate [ Left Dorsalis Pedis] Pulse Rate [ Left Popliteal] Pulse Rate [ Right Dorsalis Pedis] Pulse Rate [ Right Popliteal ] Respiratory 9 L 20 16 Rate Blood Pressure 146/73 104/54 104/54 O2 Sat by Pulse 92 99 100 Oximetry 05/11/17 05/11/17 05/11/17 11:51 12:00 12:10 Temperature 97.6 F Pulse Rate 83 84 85 Pulse Rate [ Left Dorsalis Pedis] Pulse Rate [ Left Popliteal] Pulse Rate [ Right Dorsalis Pedis] Pulse Rate [ Right Popliteal ] Respiratory 27 H 26 H 23 Rate Blood Pressure 110/50 118/46 118/46 O2 Sat by Pulse 100 100 100 Oximetry 05/11/17 05/11/17 05/11/17 12:21 12:31 12:35 Temperature Pulse Rate 78 81 Pulse Rate [ Left Dorsalis Pedis] Pulse Rate [ Left Popliteal] Pulse Rate [ Right Dorsalis Pedis] Pulse Rate [ Right Popliteal ] Respiratory 25 H 18 Rate Blood Pressure 108/48 96/41 96/41 O2 Sat by Pulse 100 95 Oximetry 05/11/17 05/11/17 05/11/17 12:41 12:51 13:01 Temperature Pulse Rate 86 82 86 Pulse Rate [ Left Dorsalis Pedis] Pulse Rate [ Left Popliteal] Pulse Rate [ Right Dorsalis Pedis] Pulse Rate [ Right Popliteal ] Respiratory 15 15 16 Rate Blood Pressure 108/48 110/44 94/52 O2 Sat by Pulse 96 93 Oximetry 05/11/17 13:11 Temperature Pulse Rate 80 Pulse Rate [ Left Dorsalis Pedis] Pulse Rate [ Left Popliteal] Pulse Rate [ Right Dorsalis Pedis] Pulse Rate [ Right Popliteal ] Respiratory 22 Rate Blood Pressure 96/41 O2 Sat by Pulse 96 Oximetry - Labs CBC & Chem 7: 05/12/17 Unknown 05/12/17 Unknown Labs: Abnormal lab results 05/10/17 05/10/17 05/10/17 Range/Units 17:53 18:26 20:38 WBC (4.5-11.0) K/mm3 MCV (84-94) fl MCH (28-32) pg RDW (13.2-15.2) % Lymph % (Auto) (13.4-35.0) % Lymph # (1.2-5.4) K/mm3 [place] # (0.0-0.8) K/mm3 Seg Neutrophils % (40.0-70.0) % Seg Neutrophils # (1.8-7.7) K/mm3 Potassium 6.1 H* (3.6-5.0) mmol/L Chloride (98-107) mmol/L BUN (9-20) mg/dL Creatinine (0.8-1.5) mg/dL Glucose (75-100) mg/dL POC Glucose 68 L (70-105) Lactic Acid 3.30 H* (0.7-2.0) mmol/L Lactate Dehydrogenase (91-180) units/L Total Protein (6.3-8.2) g/dL 05/10/17 05/11/17 05/11/17 Range/Units 23:46 00:00 03:15 WBC (4.5-11.0) K/mm3 MCV (84-94) fl MCH (28-32) pg RDW (13.2-15.2) % Lymph % (Auto) (13.4-35.0) % Lymph # (1.2-5.4) K/mm3 [place] # (0.0-0.8) K/mm3 Seg Neutrophils % (40.0-70.0) % Seg Neutrophils # (1.8-7.7) K/mm3 Potassium 5.7 H (3.6-5.0) mmol/L Chloride 92.4 L (98-107) mmol/L BUN 58 H (9-20) mg/dL Creatinine 11.3 H (0.8-1.5) mg/dL Glucose 110 H (75-100) mg/dL POC Glucose < 40 L (70-105) Lactic Acid 2.10 H* (0.7-2.0) mmol/L Lactate Dehydrogenase (91-180) units/L Total Protein (6.3-8.2) g/dL 05/11/17 05/11/1705/11/17 Range/Units 03:20 03:20 07:41 WBC 14.3 H (4.5-11.0) K/mm3 MCV 96 H (84-94) fl MCH 33 H (28-32) pg RDW 21.9 H (13.2-15.2) % Lymph % (Auto) 4.2 L (13.4-35.0) % Lymph # 0.6 L (1.2-5.4) K/mm3 [place] # 0.9 H (0.0-0.8) K/mm3 Seg Neutrophils % 87.2 H (40.0-70.0) % Seg Neutrophils # 12.5 H (1.8-7.7) K/mm3 Potassium 5.3 H (3.6-5.0) mmol/L Chloride 94.1 L (98-107) mmol/L BUN 58 H (9-20) mg/dL Creatinine 11.2 H (0.8-1.5) mg/dL Glucose 107 H (75-100) mg/dL POC Glucose 46 L (70-105) Lactic Acid (0.7-2.0) mmol/L Lactate Dehydrogenase (91-180) units/L Total Protein (6.3-8.2) g/dL 05/11/17 05/11/17 Range/Units 12:24 12:43 WBC (4.5-11.0) K/mm3 MCV (84-94) fl MCH (28-32) pg RDW (13.2-15.2) % Lymph % (Auto) (13.4-35.0) % Lymph # (1.2-5.4) K/mm3 [place] # (0.0-0.8) K/mm3 Seg Neutrophils % (40.0-70.0) % Seg Neutrophils # (1.8-7.7) K/mm3 Potassium (3.6-5.0) mmol/L Chloride (98-107) mmol/L BUN (9-20) mg/dL Creatinine (0.8-1.5) mg/dL Glucose (75-100) mg/dL POC Glucose 46 L (70-105) Lactic Acid (0.7-2.0) mmol/L Lactate Dehydrogenase 255 H (91-180) units/L Total Protein 6.2 L (6.3-8.2) g/dL
[2017-05-11] MEDS: Vasostrict 20 UNIT in NACL 0.9% 100 ML IV SCH ×2 (14:50→23:09)
--- NOTE | 2017-05-11 15:12 | Ultrasound Report ---
FINAL REPORT PROCEDURE: US CHEST TECHNIQUE: Real-time sonography in multiple planes of the chest was performed with image documentation. CPT 06920 HISTORY: pleural effusion COMPARISON: No prior studies are available for comparison. FINDINGS: RIGHT chest: Moderate degree right pleural effusion is noted LEFT chest: Mild degree left pleural effusion is noted IMPRESSION: Bilateral pleural effusions right more than left
[2017-05-11] MEDS: DUONEB *Not for PRN Use IH SCH ×2 (18:21→20:03)
[2017-05-11] MEDS: LOVENOX SUB-Q SCH (18:27)
[2017-05-12] MEDS: ZOSYN/NS 2.25 GM/50ML 2.25 GM/50 ML BAG IV SCH ×4 (04:43→22:21)
[2017-05-12 06:03] LABS: Hematocrit 41.7 % (35.5-45.6); Hemoglobin 13.5 gm/dl (11.8-15.2); Mean Corpuscular HGB Conc 32 % (32-34); Mean Corpuscular Hemoglobin 31 pg (28-32); Mean Corpuscular Volume 95 fl (84-94); Platelet Count 121 K/mm3 (140-440); Red Blood Count 4.39 M/mm3 (3.65-5.03)
[2017-05-12 06:05] LABS: Red Cell Distribution Width 21.4 % (13.2-15.2)
[2017-05-12 06:13] LABS: Calcium 8.6 mg/dL (8.4-10.2); Chloride 96.4 mmol/L (98-107); Potassium 5.9 mmol/L (3.6-5.0)
[2017-05-12 07:11] LABS: Calcium 8.7 mg/dL (8.4-10.2); Chloride 96.8 mmol/L (98-107); Potassium 5.6 mmol/L (3.6-5.0)
[2017-05-12 07:23] LABS: INR 1.63 (0.87-1.13)
[2017-05-12 07:24] LABS: Partial Thromboplastin Time 52.8 Sec. (24.2-36.6)
[2017-05-12] MEDS: PROAMATINE PO SCH ×2 (07:43→15:00)
--- NOTE | 2017-05-12 08:51 | Progress Note ---
Subjective Principal diagnosis: Sepsis Syndrome; Acute Hypoxemic Resp Failure; Acute Encephalopathy; ESRD Interval history: Patient was seen today for follow-up, on many renal related issues patient is arousable but remains encephalopathic even today without much changes Hypotension and tachycardia is relatively better Status post partial dialysis treatment due to hemodynamic problems Interdisciplinary notes were reviewed Vitals labs intake and output medications were reviewed from today Allergies: Reviewed Social history: Reviewed Family history: Reviewed Physical examination HEENT: Oral mucosa moist no pharyngeal erythema Neck: Supple no JVD Chest: Clear to auscultation no crackles rales or wheezes Heart: Regular rate and rhythm S1-S2 heard no S3-S4 Abdomen: Soft nontender no renal bruit no CVA tenderness no suprapubic fullness Extremity: Mild edema dry skin no peripheral cyanosis pulses palpable Neurological: arousable but encephalopathic Musculoskeletal: No joint effusion noted Assessment and plan End-stage renal disease: patient is a partial hemodialysis treatment yesterday due to hemodynamic instability Hyperkalemia: At this time is to retreated medically as much as possible , not stable for HD at this time may collapse on dialysis Hypotension: Multifactorial blood cultures essentially negative patient getting slightly fluid overloaded cannot give any additional fluid currently on vasopressors Does have history of cardiomyopathy which is moderately severe being followed by cardiology Altered mental status: Multifactorial, may benefit from urology evaluation please consider PAD gangrene, to see vascular Currently being followed by multiple disciplines Overall prognosis very poor, I have discussed his renal care plan with his brother Chris at length during this hospitalization Would like to add Solu-Cortef to see if his blood pressure stabilizes if so then he can be considered for hemodialysis tomorrow In the meantime continue to treat hyperkalemia medically as much as possible, Mortality risk in my opinion: Very high family has been made aware, has been discussed with Chris brother already at length Care plan was also discussed with hospital medicine service Dr. Malagon Objective - Vital Signs Vital signs: Vital Signs - 12hr 05/11/17 05/11/17 05/11/17 21:00 21:11 21:21 Temperature Pulse Rate 82 80 75 Pulse Rate [ Left Dorsalis Pedis] Pulse Rate [ Left Popliteal] Pulse Rate [ Right Dorsalis Pedis] Pulse Rate [ Right Popliteal ] Respiratory 19 17 15 Rate Respiratory Rate [Right Foot] Blood Pressure 97/77 97/77 97/77 O2 Sat by Pulse 98 96 Oximetry 05/11/17 05/11/17 05/11/17 21:30 21:41 21:45 Temperature 98.5 F Pulse Rate 77 79 82 Pulse Rate [ Left Dorsalis Pedis] Pulse Rate [ Left Popliteal] Pulse Rate [ Right Dorsalis Pedis] Pulse Rate [ Right Popliteal ] Respiratory 15 11 L Rate Respiratory Rate [Right Foot] Blood Pressure 108/40 108/40 O2 Sat by Pulse 97 98 Oximetry 05/11/17 05/11/17 05/11/17 21:46 21:51 22:01 Temperature Pulse Rate 81 82 Pulse Rate [ Left Dorsalis Pedis] Pulse Rate [ Left Popliteal] Pulse Rate [ Right Dorsalis Pedis] Pulse Rate [ Right Popliteal ] Respiratory 18 22 Rate Respiratory 19 Rate [Right Foot] Blood Pressure 88/70 88/70 O2 Sat by Pulse 99 97 Oximetry 05/11/17 05/11/17 05/11/17 22:11 22:21 22:30 Temperature Pulse Rate 80 82 83 Pulse Rate [ Left Dorsalis Pedis] Pulse Rate [ Left Popliteal] Pulse Rate [ Right Dorsalis Pedis] Pulse Rate [ Right Popliteal ] Respiratory 15 18 22 Rate Respiratory Rate [Right Foot] Blood Pressure 88/70 69/39 98/66 O2 Sat by Pulse 96 95 100 Oximetry 05/11/17 05/11/17 05/11/17 22:31 22:41 22:51 Temperature Pulse Rate 84 81 82 Pulse Rate [ Left Dorsalis Pedis] Pulse Rate [ Left Popliteal] Pulse Rate [ Right Dorsalis Pedis] Pulse Rate [ Right Popliteal ] Respiratory 14 16 16 Rate Respiratory Rate [Right Foot] Blood Pressure 98/76 98/76 109/48 O2 Sat by Pulse 92 94 95 Oximetry 05/11/17 05/11/17 05/11/17 23:01 23:10 23:21 Temperature Pulse Rate 83 81 82 Pulse Rate [ Left Dorsalis Pedis] Pulse Rate [ Left Popliteal] Pulse Rate [ Right Dorsalis Pedis] Pulse Rate [ Right Popliteal ] Respiratory 22 23 18 Rate Respiratory Rate [Right Foot] Blood Pressure 75/31 85/41 72/51 O2 Sat by Pulse 99 98 99 Oximetry 05/11/17 05/11/17 05/11/17 23:31 23:41 23:51 Temperature Pulse Rate 83 81 81 Pulse Rate [ Left Dorsalis Pedis] Pulse Rate [ Left Popliteal] Pulse Rate [ Right Dorsalis Pedis] Pulse Rate [ Right Popliteal ] Respiratory 16 25 H 19 Rate Respiratory Rate [Right Foot] Blood Pressure 143/118 143/118 150/114 O2 Sat by Pulse 100 100 100 Oximetry 05/12/17 05/12/17 05/12/17 00:00 00:01 00:03 Temperature Pulse Rate 80 82 Pulse Rate [ Left Dorsalis Pedis] Pulse Rate [ Left Popliteal] Pulse Rate [ Right Dorsalis Pedis] Pulse Rate [ Right Popliteal ] Respiratory 16 14 17 Rate Respiratory Rate [Right Foot] Blood Pressure 79/51 79/51 O2 Sat by Pulse 100 100 100 Oximetry 05/12/17 05/12/17 05/12/17 00:11 00:21 00:31 Temperature Pulse Rate 80 82 78 Pulse Rate [ Left Dorsalis Pedis] Pulse Rate [ Left Popliteal] Pulse Rate [ Right Dorsalis Pedis] Pulse Rate [ Right Popliteal ] Respiratory 16 21 24 Rate Respiratory Rate [Right Foot] Blood Pressure 79/51 78/35 78/48 O2 Sat by Pulse 100 100 100 Oximetry 05/12/17 05/12/17 05/12/17 00:41 00:51 01:01 Temperature Pulse Rate 79 83 80 Pulse Rate [ Left Dorsalis Pedis] Pulse Rate [ Left Popliteal] Pulse Rate [ Right Dorsalis Pedis] Pulse Rate [ Right Popliteal ] Respiratory 21 27 H 26 H Rate Respiratory Rate [Right Foot] Blood Pressure 78/48 78/48 91/44 O2 Sat by Pulse 100 100 100 Oximetry 05/12/17 05/12/17 05/12/17 01:11 01:21 01:31 Temperature Pulse Rate 81 81 75 Pulse Rate [ Left Dorsalis Pedis] Pulse Rate [ Left Popliteal] Pulse Rate [ Right Dorsalis Pedis] Pulse Rate [ Right Popliteal ] Respiratory 18 25 H 20 Rate Respiratory Rate [Right Foot] Blood Pressure 91/44 84/65 79/27 O2 Sat by Pulse 100 100 100 Oximetry 05/12/17 05/12/17 05/12/17 01:41 01:51 02:00 Temperature Pulse Rate 80 80 80 Pulse Rate [ 89 Left Dorsalis Pedis] Pulse Rate [ 98 H Left Popliteal] Pulse Rate [ 89 Right Dorsalis Pedis] Pulse Rate [ 89 Right Popliteal ] Respiratory 15 13 22 Rate Respiratory Rate [Right Foot] Blood Pressure 109/90 77/34 68/35 O2 Sat by Pulse 100 100 99 Oximetry 05/12/17 05/12/17 05/12/17 02:11 02:21 02:31 Temperature Pulse Rate 76 77 79 Pulse Rate [ Left Dorsalis Pedis] Pulse Rate [ Left Popliteal] Pulse Rate [ Right Dorsalis Pedis] Pulse Rate [ Right Popliteal ] Respiratory 20 22 19 Rate Respiratory Rate [Right Foot] Blood Pressure 68/35 96/49 87/60 O2 Sat by Pulse 97 100 100 Oximetry 05/12/17 05/12/17 05/12/17 02:41 02:51 03:01 Temperature Pulse Rate 79 79 79 Pulse Rate [ Left Dorsalis Pedis] Pulse Rate [ Left Popliteal] Pulse Rate [ Right Dorsalis Pedis] Pulse Rate [ Right Popliteal ] Respiratory 22 22 21 Rate Respiratory Rate [Right Foot] Blood Pressure 86/65 94/62 87/54 O2 Sat by Pulse 100 100 100 Oximetry 05/12/17 05/12/17 05/12/17 03:11 03:21 03:31 Temperature Pulse Rate 77 78 80 Pulse Rate [ Left Dorsalis Pedis] Pulse Rate [ Left Popliteal] Pulse Rate [ Right Dorsalis Pedis] Pulse Rate [ Right Popliteal ] Respiratory 22 23 20 Rate Respiratory Rate [Right Foot] Blood Pressure 87/54 88/38 96/44 O2 Sat by Pulse 100 100 99 Oximetry 05/12/17 05/12/17 05/12/17 03:41 03:51 04:00 Temperature Pulse Rate 74 80 80 Pulse Rate [ Left Dorsalis Pedis] Pulse Rate [ Left Popliteal] Pulse Rate [ Right Dorsalis Pedis] Pulse Rate [ Right Popliteal ] Respiratory 20 20 22 Rate Respiratory Rate [Right Foot] Blood Pressure 96/44 98/64 90/63 O2 Sat by Pulse 99 99 100 Oximetry 05/12/17 05/12/17 05/12/17 04:11 04:21 04:30 Temperature Pulse Rate 79 76 77 Pulse Rate [ Left Dorsalis Pedis] Pulse Rate [ Left Popliteal] Pulse Rate [ Right Dorsalis Pedis] Pulse Rate [ Right Popliteal ] Respiratory 23 21 23 Rate Respiratory Rate [Right Foot] Blood Pressure 90/63 102/57 114/71 O2 Sat by Pulse 100 100 100 Oximetry 05/12/17 05/12/1717 04:41 04:51 05:00 Temperature Pulse Rate 80 76 81 Pulse Rate [ Left Dorsalis Pedis] Pulse Rate [ Left Popliteal] Pulse Rate [ Right Dorsalis Pedis] Pulse Rate [ Right Popliteal ] Respiratory 25 H 20 25 H Rate Respiratory Rate [Right Foot] Blood Pressure 114/71 104/77 98/66 O2 Sat by Pulse 100 100 100 Oximetry 05/12/17 05/12/17 05/12/17 05:11 05:17 05:21 Temperature Pulse Rate 83 84 82 Pulse Rate [ Left Dorsalis Pedis] Pulse Rate [ Left Popliteal] Pulse Rate [ Right Dorsalis Pedis] Pulse Rate [ Right Popliteal ] Respiratory 20 20 21 Rate Respiratory Rate [Right Foot] Blood Pressure 98/66 98/57 98/57 O2 Sat by Pulse 100 100 100 Oximetry 05/12/17 05/12/17 05/12/17 05:30 05:41 05:51 Temperature Pulse Rate 77 76 80 Pulse Rate [ Left Dorsalis Pedis] Pulse Rate [ Left Popliteal] Pulse Rate [ Right Dorsalis Pedis] Pulse Rate [ Right Popliteal ] Respiratory 20 15 17 Rate Respiratory Rate [Right Foot] Blood Pressure 98/57 98/57 104/55 O2 Sat by Pulse 100 100 100 Oximetry 05/12/17 05/12/17 05/12/17 06:01 06:10 06:20 Temperature Pulse Rate 82 83 78 Pulse Rate [ Left Dorsalis Pedis] Pulse Rate [ Left Popliteal] Pulse Rate [ Right Dorsalis Pedis] Pulse Rate [ Right Popliteal ] Respiratory 22 26 H 24 Rate Respiratory Rate [Right Foot] Blood Pressure 80/29 80/29 O2 Sat by Pulse 100 100 100 Oximetry 05/12/17 05/12/17 05/12/17 06:30 06:40 06:50 Temperature Pulse Rate 71 80 77 Pulse Rate [ Left Dorsalis Pedis] Pulse Rate [ Left Popliteal] Pulse Rate [ Right Dorsalis Pedis] Pulse Rate [ Right Popliteal ] Respiratory 21 15 17 Rate Respiratory Rate [Right Foot] Blood Pressure 135/35 135/35 141/36 O2 Sat by Pulse 100 100 100 Oximetry 05/12/17 05/12/17 05/12/17 07:00 07:10 07:20 Temperature Pulse Rate 76 75 79 Pulse Rate [ Left Dorsalis Pedis] Pulse Rate [ Left Popliteal] Pulse Rate [ Right Dorsalis Pedis] Pulse Rate [ Right Popliteal ] Respiratory 18 17 15 Rate Respiratory Rate [Right Foot] Blood Pressure 145/44 145/44 147/56 O2 Sat by Pulse 100 100 99 Oximetry 05/12/17 05/12/17 05/12/17 07:30 07:40 07:50 Temperature Pulse Rate 74 78 77 Pulse Rate [ Left Dorsalis Pedis] Pulse Rate [ Left Popliteal] Pulse Rate [ Right Dorsalis Pedis] Pulse Rate [ Right Popliteal ] Respiratory 21 20 22 Rate Respiratory Rate [Right Foot] Blood Pressure 129/45 129/45 134/33 O2 Sat by Pulse 100 100 99 Oximetry 05/12/17 05/12/17 05/12/17 08:00 08:10 08:20 Temperature 98.8 F Pulse Rate 78 78 77 Pulse Rate [ Left Dorsalis Pedis] Pulse Rate [ Left Popliteal] Pulse Rate [ Right Dorsalis Pedis] Pulse Rate [ Right Popliteal ] Respiratory 21 19 15 Rate Respiratory Rate [Right Foot] Blood Pressure 133/29 133/29 137/35 O2 Sat by Pulse 99 100 99 Oximetry 05/12/17 05/12/17 08:30 08:40 Temperature Pulse Rate 74 77 Pulse Rate [ Left Dorsalis Pedis] Pulse Rate [ Left Popliteal] Pulse Rate [ Right Dorsalis Pedis] Pulse Rate [ Right Popliteal ] Respiratory 17 21 Rate Respiratory Rate [Right Foot] Blood Pressure 130/40 130/40 O2 Sat by Pulse 99 99 Oximetry - Lab 05/12/17 Unknown 05/12/17 Unknown Most recent lab results Calcium 8.6 mg/dL (8.4-10.2) 05/12/17 Unknown
[2017-05-12] MEDS: DUONEB *Not for PRN Use IH SCH ×3 (09:16→20:05)
--- NOTE | 2017-05-12 10:06 | Progress Note ---
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) Normal VQ scan Paroxysmal atrial fibrillation in the setting of severe metabolic derangements on po amiodarone for suppression Lower extremity wound Severe bilateral arterial occlusive disease distal to the popliteal artery Type II DM History of systemic hypertension Recommendations: Continue pressor support Fluid management through HD No new cardiac recommendations Overall prognosis is very poor Subjective Date of service: 05/12/17 Principal diagnosis: Sepsis Syndrome; Acute Hypoxemic Resp Failure; Acute Encephalopathy; ESRD Interval history: Patient continues to be confused, on BiPAP Patient does not answer questions appropriately Tele is showing SR Objective Vital Signs Temp Pulse Pulse Pulse Pulse Pulse Pulse 05/12/17 09:38 78 79 05/12/17 09:10 79 78 05/12/17 08:40 77 05/12/17 08:30 74 05/12/17 08:20 77 05/12/17 08:10 78 05/12/17 08:00 98.8 F 78 05/12/17 07:50 77 05/12/17 07:40 78 05/12/17 07:30 74 05/12/17 07:20 79 05/12/17 07:10 75 05/12/17 07:00 76 05/12/17 06:50 77 05/12/17 06:40 80 05/12/17 06:30 71 05/12/17 06:20 78 05/12/17 06:10 83 05/12/17 06:01 82 05/12/17 05:51 80 05/12/17 05:41 76 05/12/17 05:30 77 05/12/17 05:21 82 05/12/17 05:17 84 05/12/17 05:11 83 05/12/17 05:00 81 05/12/17 04:51 76 05/12/17 04:41 80 05/12/17 04:30 77 05/12/17 04:21 76 05/12/17 04:11 79 05/12/17 04:00 80 05/12/17 03:51 80 05/12/17 03:41 74 05/12/17 03:31 80 05/12/17 03:21 78 05/12/17 03:11 77 05/12/17 03:01 79 05/12/17 02:51 79 05/12/17 02:41 79 05/12/17 02:31 79 05/12/17 02:21 77 05/12/17 02:11 76 05/12/17 02:00 80 89 98 H 89 05/12/17 01:51 80 05/12/17 01:41 80 05/12/17 01:31 75 05/12/17 01:21 81 05/12/17 01:11 81 05/12/17 01:01 80 05/12/17 00:51 83 05/12/17 00:41 79 05/12/17 00:31 78 05/12/17 00:21 82 05/12/17 00:11 80 05/12/17 00:03 82 05/12/17 00:01 80 05/12/17 00:00 05/11/17 23:51 81 17 23:41 81 1617 23:31 83 1617 23:21 82 1617 23:10 81 17 23:01 83 1617 22:51 82 17 22:41 81 1617 22:31 84 1617 22:30 83 1617 22:21 82 1617 22:11 80 1617 22:01 82 1617 21:51 81 1617 21:46 1617 21:45 98.5 F 82 1617 21:41 79 1617 21:30 77 16/17 21:21 75 1617 21:11 80 1617 21:00 82 1617 20:51 80 1617 20:41 83 16/17 20:31 77 1617 20:21 81 1617 20:20 84 1617 20:11 79 1617 20:09 80 1617 20:04 1617 20:01 88 12/16/17 20:00 87 87 87 12/16/17 19:51 80 12/16/17 19:41 77 12/16/17 19:31 80 12/16/17 19:21 81 1216/17 19:11 80 1216/17 19:01 81 1216/17 18:51 81 1216/17 18:45 96 H 1216/17 18:41 80 1216/17 18:30 82 98 H 1216/17 18:21 80 1216/17 18:11 83 1216/17 18:01 83 1216/17 17:51 85 1216/17 17:41 84 1216/17 17:31 82 1216/17 17:21 85 1216/17 17:11 85 1216/17 17:01 85 1216/17 16:51 84 1216/17 16:41 85 16/17 16:31 83 16/17 16:21 82 1216/17 16:11 82 1216/17 16:01 79 16/17 16:00 98.1 F 16/17 15:51 79 16/17 15:41 77 16/17 15:30 111 H 16/17 15:21 100 H 16/17 15:11 95 H 16/17 15:00 103 H 16/17 14:51 112 H 16/17 14:41 100 H 16/17 14:35 122 H 16/17 14:31 111 H 16/17 14:30 100 H 16/17 14:21 118 H 16/17 14:15 97.5 F L 102 H 16/17 14:11 95 H 16/17 14:01 130 H 16/17 14:00 89 16/17 13:51 124 H 1216/17 13:45 88 1216/17 13:41 88 1216/17 13:31 86 16/17 13:30 87 12/16/17 13:21 88 16/17 13:15 87 16/17 13:11 80 16/17 13:01 86 16/17 13:00 86 05/11/17 12:51 82 05/11/17 12:45 81 05/11/17 12:41 86 05/11/17 12:35 97.6 F 81 05/11/17 12:31 81 05/11/17 12:30 81 05/11/17 12:21 78 05/11/17 12:10 85 05/11/17 12:00 97.6 F 84 05/11/17 11:51 83 05/11/17 11:41 83 05/11/17 11:31 83 05/11/17 11:21 83 05/11/17 11:11 79 05/11/17 11:01 82 05/11/17 10:51 80 05/11/17 10:41 82 05/11/17 10:31 84 05/11/17 10:21 81 05/11/17 10:11 82 Pulse Resp Resp Resp Resp BP Pulse Ox 05/12/17 09:38 18 20 124/32 100 05/12/17 09:10 25 H 25 H 130/54 100 05/12/17 08:40 21 130/40 99 05/12/17 08:30 17 130/40 99 05/12/17 08:20 15 137/35 99 05/12/17 08:10 19 133/29 100 05/12/17 08:00 21 133/29 99 05/12/17 07:50 22 134/33 99 05/12/17 07:40 20 129/45 100 05/12/17 07:30 21 129/45 100 05/12/17 07:20 15 147/56 99 05/12/17 07:10 17 145/44 100 05/12/17 07:00 18 145/44 100 05/12/17 06:50 17 141/36 100 05/12/17 06:40 15 135/35 100 05/12/17 06:30 21 135/35 100 05/12/17 06:20 24 80/29 100 05/12/17 06:10 26 H 100 05/12/17 06:01 22 80/29 100 05/12/17 05:51 17 104/55 100 05/12/17 05:41 15 98/57 100 05/12/17 05:30 20 98/57 100 05/12/17 05:21 21 98/57 100 12/17/17 05:17 20 98/57 100 17 05:11 20 98/66 100 05/12/17 05:00 25 H 98/66 100 17 04:51 20 104/77 100 17 04:41 25 H 114/71 100 17 04:30 23 114/71 100 17 04:21 21 102/57 100 17 04:11 23 90/63 100 17 04:00 22 90/63 100 17 03:51 20 98/64 99 17 03:41 20 96/44 99 17 03:31 20 96/44 99 17 03:21 23 88/38 100 17 03:11 22 87/54 100 17 03:01 21 87/54 100 05/12/17 02:51 22 94/62 100 17 02:41 22 86/65 100 17 02:31 19 87/60 100 17 02:21 22 96/49 100 05/12/17 02:11 20 68/35 97 17 02:00 89 22 68/35 99 05/12/17 01:51 13 77/34 100 05/12/17 01:41 15 109/90 100 17 01:31 20 79/27 100 05/12/17 01:21 25 H 84/65 100 17 01:11 18 91/44 100 17 01:01 26 H 91/44 100 17 00:51 27 H 78/48 100 17 00:41 21 78/48 100 17 00:31 24 78/48 100 17 00:21 21 78/35 100 17 00:11 16 79/51 100 17 00:03 17 79/51 100 17 00:01 14 79/51 100 17 00:00 16 100 17 23:51 19 150/114 100 1617 23:41 25 H 143/118 100 1617 23:31 16 143/118 100 12/16/17 23:21 18 72/51 99 05/11/17 23:10 23 85/41 98 17 23:01 22 75/31 99 17 22:51 16 109/48 95 17 22:41 16 98/76 94 05/11/17 22:31 14 98/76 92 05/11/17 22:30 22 98/66 100 05/11/17 22:21 18 69/39 95 17 22:11 15 88/70 96 05/11/17 22:01 22 88/70 97 05/11/17 21:51 18 88/70 99 05/11/17 21:46 19 05/11/17 21:45 05/11/17 21:41 11 L 108/40 98 05/11/17 21:30 15 108/40 97 05/11/17 21:21 15 97/77 96 05/11/17 21:11 17 97/77 05/11/17 21:00 19 97/77 98 05/11/17 20:51 18 113/80 05/11/17 20:41 16 92/74 100 05/11/17 20:31 18 92/74 100 05/11/17 20:21 18 92/74 100 05/11/17 20:20 20 05/11/17 20:11 14 114/53 100 05/11/17 20:09 15 05/11/17 20:04 100 05/11/17 20:01 18 99/53 100 05/11/17 20:00 87 15 97 05/11/17 19:51 17 99/53 100 05/11/17 19:41 15 92/73 100 17 19:31 17 92/73 100 05/11/17 19:21 14 92/73 100 05/11/17 19:11 12 87/67 100 05/11/17 19:01 19 138/114 17 18:51 21 138/114 05/11/17 18:45 28 H 17 18:41 26 H 138/114 05/11/17 18:30 16 20 138/114 99 05/11/17 18:21 22 148/120 100 05/11/17 18:11 18 154/120 100 05/11/17 18:01 15 85/68 99 12/16/17 17:51 19 85/68 99 16/17 17:41 10 L 86/43 99 16/17 17:31 14 86/43 100 16/17 17:21 17 82/60 98 16/17 17:11 16 100 16/17 17:01 16 100 16/17 16:51 14 87/26 100 16/17 16:41 22 132/97 99 1216/17 16:31 26 H 132/97 100 16/17 16:21 20 125/48 99 16/17 16:11 22 125/48 97 16/17 16:01 19 125/48 97 16/17 16:00 16/17 15:51 14 120/46 99 16/17 15:41 19 106/63 100 16/17 15:30 17 106/63 99 16/17 15:21 22 109/32 96 16/17 15:11 18 101/42 99 16/17 15:00 17 101/42 100 16/17 14:51 17 107/25 97 16/17 14:41 15 101/36 100 16/17 14:35 28 H 87/67 98 16/17 14:31 19 101/36 91 16/17 14:30 90/52 16/17 14:21 15 101/76 16/17 14:15 28 H 92/48 16/17 14:11 19 111/66 100 16/17 14:01 17 111/66 100 16/17 14:00 16/17 13:51 18 135/54 100 16/17 13:45 98/56 16/17 13:41 15 94/52 100 16/17 13:31 14 98/56 100 16/17 13:30 71/49 16/17 13:21 13 85/62 93 16/17 13:15 85/62 16/17 13:11 22 96/41 96 16/17 13:01 16 94/52 16/17 13:00 94/52 16/17 12:51 15 110/44 93 12/16/17 12:45 110/44 05/11/17 12:41 15 108/48 96 05/11/17 12:35 18 96/41 05/11/17 12:31 18 96/41 95 05/11/17 12:30 96/41 05/11/17 12:21 25 H 108/48 100 05/11/17 12:10 23 118/46 100 05/11/17 12:00 26 H 118/46 100 05/11/17 11:51 27 H 110/50 100 05/11/17 11:41 16 104/54 100 05/11/17 11:31 20 104/54 99 05/11/17 11:21 9 L 146/73 92 05/11/17 11:11 16 146/73 05/11/17 11:01 15 146/73 05/11/17 10:51 11 L 146/73 05/11/17 10:41 14 111/38 99 05/11/17 10:31 11 L 111/38 100 05/11/17 10:21 14 111/38 100 05/11/17 10:11 15 111/38 100 - Physical Examination Neck: Positive: neck supple Cardiac: Positive: Reg Rate and Rhythm Lungs: Positive: Ventilated Respirations Abdomen: Positive: Soft Extremities: Absent: edema - Labs and Meds Cardiac Enzymes 05/11/17 Range/Units 12:43 Lactate Dehydrogenase 255 H (91-180) units/L Coagulation 05/12/17 Range/Units 06:41 PT 20.3 H (12.2-14.9) Sec. INR 1.63 H (0.87-1.13) APTT 52.8 H (24.2-36.6) Sec. CBC 05/12/17 Range/Units Unknown WBC 12.0 H (4.5-11.0) K/mm3 RBC 4.39 (3.65-5.03) M/mm3 Hgb 13.5 (11.8-15.2) gm/dl Hct 41.7 (35.5-45.6) % Plt Count 121 L (140-440) K/mm3 Comprehensive Metabolic Panel 05/11/17 05/11/17 05/12/17 Range/Units 12:43 12:43 06:41 Sodium 142 (137-145) mmol/L Potassium 5.6 H (3.6-5.0) mmol/L Chloride 96.8 L (98-107) mmol/L Carbon Dioxide 22 (22-30) mmol/L BUN 51 H (9-20) mg/dL Creatinine 9.6 H (0.8-1.5) mg/dL Glucose 92 97 (75-100) mg/dL Calcium 8.7 (8.4-10.2) mg/dL Total Protein 6.2 L (6.3-8.2) g/dL 05/12/ Range/Units Unknown Sodium 142 (137-145) mmol/L Potassium 5.9 H (3.6-5.0) mmol/L Chloride 96.4 L (98-107) mmol/L Carbon Dioxide 23 (22-30) mmol/L BUN 49 H (9-20) mg/dL Creatinine 9.4 H (0.8-1.5) mg/dL Glucose 92 (75-100) mg/dL Calcium 8.6 (8.4-10.2) mg/dL Total Protein (6.3-8.2) g/dL - Imaging and Cardiology EKG: image reviewed - Allied health notes Allied health notes reviewed: nursing
[2017-05-12] MEDS: Vasostrict 20 UNIT in NACL 0.9% 100 ML IV SCH (11:42)
[2017-05-12] MEDS: CORDARONE PO SCH (15:35)
[2017-05-12] MEDS: LOVENOX SUB-Q SCH (15:36)
[2017-05-12] MEDS ORDERED: D50W (25GM) Syringe IV ONE ×2 (15:40→21:44)
[2017-05-12] MEDS ORDERED: CALCIUM CHLORIDE IV ONE (15:40)
--- NOTE | 2017-05-12 15:53 | Progress Note ---
Assessment and Plan /Acute metabolic/toxic encephalopathy likely due to sepsis vs uremia cont abx, wait for HD, monitor electrolytes /Acute respiratory failure likely due to PNA and pleural effusion cont abx, will need thoracenthesis cont nebs, supplimental O2 /Septic vs cardiodenic shock cont pressor support with vasopressin and midodrine /Right sided pneumonia and effusion cont abx, ordered for thoracenthesis /Bilateral mastoiditis cont abx /ESRD on HD - through a right femoral dialysis catheter nephrology following, could not get HD due to low BP /Hyperkalemia treat medically now as cannot get HD /Lactic acidosis due to SIRS/sepsis, cont to trend /Cardiomyopathy, LVEF 25-30% cardiology consulted may need further ischemic work up when more stable /Severe pulmonary hypertension (likely group II and III) Normal VQ scan, CC following /Paroxysmal atrial fibrillation in the setting of severe metabolic derangements rate controlled with amioderone /PVD with h/o recent stent placement has Severe bilateral arterial occlusive disease distal to the popliteal artery vascular consulted, ordered arterial doppler /Type II DM ADA diet, SSI /History of systemic hypertension now hypotensive, hold BP meds Overall prognosis is very poor The high probability of a clinically significant, sudden or life threatening deterioration of the system(s) required my full and direct attention, intervention and personal management. The aggregate critical care time was [32] minutes. This time is in addition to time spent performing reported procedures but includes the following: [x] Data Review and interpretation [xx] Patient assessment and monitoring of vital signs [x] Documentation [x] Medication orders and management Brief History: 51-year-old man history of hypertension, diabetes, end-stage renal disease on dialysis was brought to the emergency room because he was weak and not acting himself. Brother at bedside stated that his symptoms started after dialysis, family members also mentioned that he had a syncopal episode. Physical exam: General appearance: disheveled HEENT: reactive pupil Neck: Positive: neck supple Cardiac: Positive: Reg Rate and Rhythm, Systolic Murmur Lungs: Positive: Decreased Breath Sounds Abdomen: Positive: Soft Extremities: Absent: edema Skin: cold, no resh Neuro: follow commends, confused, oriented to self only Musculoskeletal: no joint swelling Subjective Date of service: 05/12/17 Principal diagnosis: Sepsis Syndrome; Acute Hypoxemic Resp Failure; Acute Encephalopathy; ESRD Interval history: Pt seen and examined was placed on BiPAP last night placed on 15L O2 since this am appears confused family was at bedside today Discussed with Dr. Lopez still not stable for HD Weaned off Lovephed, still on vasopressin K level remained high Objective - Constitutional Vitals: Vital Signs - 12hr 05/12/17 05/12/17 05/12/17 04:00 04:11 04:21 Temperature Pulse Rate 80 79 76 Pulse Rate [ Anterior Bilateral Throughout] Respiratory 22 23 21 Rate Respiratory Rate [Anterior Bilateral Throughout] Blood Pressure 90/63 90/63 102/57 O2 Sat by Pulse 100 100 100 Oximetry 05/12/17 05/12/17 05/12/17 04:30 04:41 04:51 Temperature Pulse Rate 77 80 76 Pulse Rate [ Anterior Bilateral Throughout] Respiratory 23 25 H 20 Rate Respiratory Rate [Anterior Bilateral Throughout] Blood Pressure 114/71 114/71 104/77 O2 Sat by Pulse 100 100 100 Oximetry 05/12/17 05/12/17 05/12/17 05:00 05:11 05:17 Temperature Pulse Rate 81 83 84 Pulse Rate [ Anterior Bilateral Throughout] Respiratory 25 H 20 20 Rate Respiratory Rate [Anterior Bilateral Throughout] Blood Pressure 98/66 98/66 98/57 O2 Sat by Pulse 100 100 100 Oximetry 05/12/17 05/12/17 05/12/17 05:21 05:30 05:41 Temperature Pulse Rate 82 77 76 Pulse Rate [ Anterior Bilateral Throughout] Respiratory 21 20 15 Rate Respiratory Rate [Anterior Bilateral Throughout] Blood Pressure 98/57 98/57 98/57 O2 Sat by Pulse 100 100 100 Oximetry 05/12/17 05/12/17 05/12/17 05:51 06:01 06:10 Temperature Pulse Rate 80 82 83 Pulse Rate [ Anterior Bilateral Throughout] Respiratory 17 22 26 H Rate Respiratory Rate [Anterior Bilateral Throughout] Blood Pressure 104/55 80/29 O2 Sat by Pulse 100 100 100 Oximetry 05/12/17 05/12/17 05/12/17 06:20 06:30 06:40 Temperature Pulse Rate 78 71 80 Pulse Rate [ Anterior Bilateral Throughout] Respiratory 24 21 15 Rate Respiratory Rate [Anterior Bilateral Throughout] Blood Pressure 80/29 135/35 135/35 O2 Sat by Pulse 100 100 100 Oximetry 05/12/17 05/12/17 05/12/17 06:50 07:00 07:10 Temperature Pulse Rate 77 76 75 Pulse Rate [ Anterior Bilateral Throughout] Respiratory 17 18 17 Rate Respiratory Rate [Anterior Bilateral Throughout] Blood Pressure 141/36 145/44 145/44 O2 Sat by Pulse 100 100 100 Oximetry 05/12/17 05/12/17 05/12/17 07:20 07:30 07:40 Temperature Pulse Rate 79 74 78 Pulse Rate [ Anterior Bilateral Throughout] Respiratory 15 21 20 Rate Respiratory Rate [Anterior Bilateral Throughout] Blood Pressure 147/56 129/45 129/45 O2 Sat by Pulse 99 100 100 Oximetry 05/12/17 05/12/17 05/12/17 07:50 08:00 08:10 Temperature 98.8 F Pulse Rate 77 78 78 Pulse Rate [ Anterior Bilateral Throughout] Respiratory 22 21 19 Rate Respiratory Rate [Anterior Bilateral Throughout] Blood Pressure 134/33 133/29 133/29 O2 Sat by Pulse 99 99 100 Oximetry 05/12/17 05/12/17 05/12/17 08:20 08:30 08:40 Temperature Pulse Rate 77 74 77 Pulse Rate [ Anterior Bilateral Throughout] Respiratory 15 17 21 Rate Respiratory Rate [Anterior Bilateral Throughout] Blood Pressure 137/35 130/40 130/40 O2 Sat by Pulse 99 99 99 Oximetry 05/12/17 05/12/17 05/12/17 08:50 09:00 09:10 Temperature Pulse Rate 79 79 80 Pulse Rate [ 78 Anterior Bilateral Throughout] Respiratory 22 22 18 Rate Respiratory 25 H Rate [Anterior Bilateral Throughout] Blood Pressure 116/41 130/54 130/54 O2 Sat by Pulse 99 99 98 Oximetry 05/12/17 05/12/17 05/12/17 09:20 09:30 09:38 Temperature Pulse Rate 73 79 78 Pulse Rate [ 79 Anterior Bilateral Throughout] Respiratory 19 10 L 18 Rate Respiratory 20 Rate [Anterior Bilateral Throughout] Blood Pressure 133/56 124/32 124/32 O2 Sat by Pulse 100 100 100 Oximetry 05/12/17 05/12/17 05/12/17 09:40 09:50 10:00 Temperature Pulse Rate 78 80 77 Pulse Rate [ Anterior Bilateral Throughout] Respiratory 15 19 11 L Rate Respiratory Rate [Anterior Bilateral Throughout] Blood Pressure 124/32 116/35 110/38 O2 Sat by Pulse 100 100 100 Oximetry 05/12/17 05/12/17 05/12/17 10:10 10:20 10:30 Temperature Pulse Rate 81 80 79 Pulse Rate [ Anterior Bilateral Throughout] Respiratory 14 8 L 23 Rate Respiratory Rate [Anterior Bilateral Throughout] Blood Pressure 110/38 116/47 114/39 O2 Sat by Pulse 100 100 100 Oximetry 05/12/17 05/12/17 05/12/17 10:40 10:50 11:00 Temperature Pulse Rate 75 82 79 Pulse Rate [ Anterior Bilateral Throughout] Respiratory 11 L 11 L 12 Rate Respiratory Rate [Anterior Bilateral Throughout] Blood Pressure 114/39 116/41 116/41 O2 Sat by Pulse 100 99 100 Oximetry 05/12/17 05/12/17 05/12/17 11:10 11:20 11:30 Temperature Pulse Rate 83 82 79 Pulse Rate [ Anterior Bilateral Throughout] Respiratory 16 8 L 23 Rate Respiratory Rate [Anterior Bilateral Throughout] Blood Pressure 119/32 108/50 128/104 O2 Sat by Pulse 100 100 100 Oximetry 05/12/17 05/12/17 05/12/17 11:40 11:50 12:00 Temperature 99.0 F Pulse Rate 81 83 79 Pulse Rate [ Anterior Bilateral Throughout] Respiratory 16 17 13 Rate Respiratory Rate [Anterior Bilateral Throughout] Blood Pressure 128/104 110/30 113/59 O2 Sat by Pulse 100 100 100 Oximetry 05/12/17 05/12/17 05/12/17 12:10 12:20 12:30 Temperature Pulse Rate 83 84 78 Pulse Rate [ Anterior Bilateral Throughout] Respiratory 26 H 17 23 Rate Respiratory Rate [Anterior Bilateral Throughout] Blood Pressure 113/59 106/47 107/44 O2 Sat by Pulse 99 100 100 Oximetry 05/12/17 05/12/17 05/12/17 12:40 12:50 13:00 Temperature Pulse Rate 80 84 84 Pulse Rate [ Anterior Bilateral Throughout] Respiratory 22 21 25 H Rate Respiratory Rate [Anterior Bilateral Throughout] Blood Pressure 107/44 105/52 105/52 O2 Sat by Pulse 100 99 100 Oximetry 05/12/17 05/12/17 05/12/17 13:10 13:17 13:20 Temperature Pulse Rate 81 83 Pulse Rate [ 78 Anterior Bilateral Throughout] Respiratory 22 29 H Rate Respiratory 22 Rate [Anterior Bilateral Throughout] Blood Pressure 189/163 105/55 O2 Sat by Pulse 99 100 100 Oximetry 05/12/17 05/12/17 05/12/17 13:30 13:36 13:40 Temperature Pulse Rate 80 82 Pulse Rate [ 80 Anterior Bilateral Throughout] Respiratory 21 24 Rate Respiratory 11 L Rate [Anterior Bilateral Throughout] Blood Pressure 127/55 127/55 O2 Sat by Pulse 98 98 Oximetry 05/12/17 05/12/17 05/12/17 13:50 14:00 14:10 Temperature Pulse Rate 83 78 82 Pulse Rate [ Anterior Bilateral Throughout] Respiratory 26 H 26 H 23 Rate Respiratory Rate [Anterior Bilateral Throughout] Blood Pressure 143/32 95/46 95/46 O2 Sat by Pulse 97 100 99 Oximetry 05/12/17 05/12/17 05/12/17 14:20 14:30 14:40 Temperature Pulse Rate 82 85 82 Pulse Rate [ Anterior Bilateral Throughout] Respiratory 14 11 L 10 L Rate Respiratory Rate [Anterior Bilateral Throughout] Blood Pressure 107/62 107/62 122/25 O2 Sat by Pulse 99 100 98 Oximetry 05/12/17 05/12/17 05/12/17 14:50 15:00 15:10 Temperature Pulse Rate 85 83 84 Pulse Rate [ Anterior Bilateral Throughout] Respiratory 16 19 8 L Rate Respiratory Rate [Anterior Bilateral Throughout] Blood Pressure 127/95 127/95 115/76 O2 Sat by Pulse 98 100 99 Oximetry - Labs CBC & Chem 7: 05/12/17 Unknown 05/12/17 Unknown Labs: Abnormal lab results 05/11/17 05/11/17 05/12/17 Range/Units 21:24 22:20 01:23 WBC (4.5-11.0) K/mm3 MCV (84-94) fl RDW (13.2-15.2) % Plt Count (140-440) K/mm3 PT (12.2-14.9) Sec. INR (0.87-1.13) APTT (24.2-36.6) Sec. Potassium (3.6-5.0) mmol/L Chloride (98-107) mmol/L BUN (9-20) mg/dL Creatinine (0.8-1.5) mg/dL POC Glucose 62 L 316 H 132 H (70-105) Lactic Acid (0.7-2.0) mmol/L 05/12/17 05/12/17 05/12/17 Range/Units 06:41 06:41 Unknown WBC (4.5-11.0) K/mm3 MCV (84-94) fl RDW (13.2-15.2) % Plt Count (140-440) K/mm3 PT 20.3 H (12.2-14.9) Sec. INR 1.63 H (0.87-1.13) APTT 52.8 H (24.2-36.6) Sec. Potassium 5.6 H (3.6-5.0) mmol/L Chloride 96.8 L (98-107) mmol/L BUN 51 H (9-20) mg/dL Creatinine 9.6 H (0.8-1.5) mg/dL POC Glucose (70-105) Lactic Acid 2.30 H* (0.7-2.0) mmol/L 05/12/17 05/12/17 Range/Units Unknown Unknown WBC 12.0 H (4.5-11.0) K/mm3 MCV 95 H (84-94) fl RDW 21.4 H (13.2-15.2) % Plt Count 121 L (140-440) K/mm3 PT (12.2-14.9) Sec. INR (0.87-1.13) APTT (24.2-36.6) Sec. Potassium 5.9 H (3.6-5.0) mmol/L Chloride 96.4 L (98-107) mmol/L BUN 49 H (9-20) mg/dL Creatinine 9.4 H (0.8-1.5) mg/dL POC Glucose (70-105) Lactic Acid (0.7-2.0) mmol/L
--- NOTE | 2017-05-12 16:25 | Progress Note ---
Assessment and Plan Severe sepsis with septic shock Possible cardiogenic shock Acute Hypoxemic Resp Failure Right lung pneumonia with parapneumonic effusion( possibly aspiration) Gangrenous right great toe Right Pleural Effusion ESRD on dialysis HTN Anemia Acute Encephalopathy (Toxic-Metabolic) Hyperkalemia Type 2 DM PVD with h/o stent placement Severe pulmonary hypertension -Continue with vasopressor support, norepinephrine/vasopressin keep MAP>65 -Aspiration precautions, HOB>40 -Follow up cultures, Blood Culture 1/2 positive for GPC in clusters -Continue on vancomycin and zosyn for now -Get vancomycin trough levels and redose as needed -Renally dose all medications -Keep NPO for now, remains tenouous. -If he fails supplemental oxygen or his encephalopathy worsens, may need mechanical ventilatory support - continue supplemental oxygen - get chest USS - order thoracentesis with pleural fluid analysis - HD/UF as tolerated for toxin and volume clearance - add Vasopressin infusion if unable to maitain MAP>65 or increasing doses of norepinephrine - GI & VTE prophylaxis -accuchecks, glycemic control -Will need to place small bowel feeding tube to initiate enteric feeding if he remains at aspiration risk - Continue medical management of hyperkalemia, may not tolerate HD with his current hemodynamic profile. - Flu & pneumovax per protocol ..he is critically ill on life sustaining interventions including MVS and at high risk for further deterioration including ..patient is full code, and is to be resuscitated in the event of cardiopulmonary arrest ....35' CCT Subjective Date of service: 05/12/17 Principal diagnosis: Sepsis Syndrome; Acute Hypoxemic Resp Failure; Acute Encephalopathy; ESRD Interval history: Remains encephalopathic. remains critically ill on vasopressor support, unable to tolerate HD yesterday. Seen and examined. Vitals, labs, medications, chart reviewed. Discussed with RN at the bedside. Objective - Exam Narrative Exam: Gen. appearance: Patient lying in bed, in mild respiratory distress, venturi mask at 50% Will obey one step commands, though inconsistently. Oriented to person and place HEENT: Normocephalic, atraumatic, pupils equally round and reactive to light, extraocular movement intact, and no sclericterus,. No JVD or thyromegaly or nodule,neck supple, no carotid bruit ,mucous membranes moist, no exudate or erythema Heart: S1, S2, regular rate and rhythm Lungs: Decreased AE bilaterally, coarse BS anterior chest wall, Abdomen: Positive bowel sounds, nontender, nondistended, no organomegaly right femoral permacath, left femoral CVC Extremity: No edema, cyanosis, clubbing right gangrenous right great toe, DP pulses not palpable Left upper extremity edema Skin: No rash, nodules, warm, dry Neuro: Lethargic but arousable Vital Signs - 12hr 05/12/17 05/12/17 05/12/17 04:30 04:41 04:51 Temperature Pulse Rate 77 80 76 Pulse Rate [ Anterior Bilateral Throughout] Respiratory 23 25 H 20 Rate Respiratory Rate [Anterior Bilateral Throughout] Blood Pressure 114/71 114/71 104/77 O2 Sat by Pulse 100 100 100 Oximetry 05/12/17 05/12/17 05/12/17 05:00 05:11 05:17 Temperature Pulse Rate 81 83 84 Pulse Rate [ Anterior Bilateral Throughout] Respiratory 25 H 20 20 Rate Respiratory Rate [Anterior Bilateral Throughout] Blood Pressure 98/66 98/66 98/57 O2 Sat by Pulse 100 100 100 Oximetry 05/12/17 05/12/17 05/12/17 05:21 05:30 05:41 Temperature Pulse Rate 82 77 76 Pulse Rate [ Anterior Bilateral Throughout] Respiratory 21 20 15 Rate Respiratory Rate [Anterior Bilateral Throughout] Blood Pressure 98/57 98/57 98/57 O2 Sat by Pulse 100 100 100 Oximetry 05/12/17 05/12/17 05/12/17 05:51 06:01 06:10 Temperature Pulse Rate 80 82 83 Pulse Rate [ Anterior Bilateral Throughout] Respiratory 17 22 26 H Rate Respiratory Rate [Anterior Bilateral Throughout] Blood Pressure 104/55 80/29 O2 Sat by Pulse 100 100 100 Oximetry 05/12/17 05/12/17 05/12/17 06:20 06:30 06:40 Temperature Pulse Rate 78 71 80 Pulse Rate [ Anterior Bilateral Throughout] Respiratory 24 21 15 Rate Respiratory Rate [Anterior Bilateral Throughout] Blood Pressure 80/29 135/35 135/35 O2 Sat by Pulse 100 100 100 Oximetry 05/12/17 05/12/17 05/12/17 06:50 07:00 07:10 Temperature Pulse Rate 77 76 75 Pulse Rate [ Anterior Bilateral Throughout] Respiratory 17 18 17 Rate Respiratory Rate [Anterior Bilateral Throughout] Blood Pressure 141/36 145/44 145/44 O2 Sat by Pulse 100 100 100 Oximetry 12/05/12/17 05/12/17 07:20 07:30 07:40 Temperature Pulse Rate 79 74 78 Pulse Rate [ Anterior Bilateral Throughout] Respiratory 15 21 20 Rate Respiratory Rate [Anterior Bilateral Throughout] Blood Pressure 147/56 129/45 129/45 O2 Sat by Pulse 99 100 100 Oximetry 05/12/17 05/12/17 05/12/17 07:50 08:00 08:10 Temperature 98.8 F Pulse Rate 77 78 78 Pulse Rate [ Anterior Bilateral Throughout] Respiratory 22 21 19 Rate Respiratory Rate [Anterior Bilateral Throughout] Blood Pressure 134/33 133/29 133/29 O2 Sat by Pulse 99 99 100 Oximetry 05/12/17 05/12/17 05/12/17 08:20 08:30 08:40 Temperature Pulse Rate 77 74 77 Pulse Rate [ Anterior Bilateral Throughout] Respiratory 15 17 21 Rate Respiratory Rate [Anterior Bilateral Throughout] Blood Pressure 137/35 130/40 130/40 O2 Sat by Pulse 99 99 99 Oximetry 05/12/17 05/12/17 05/12/17 08:50 09:00 09:10 Temperature Pulse Rate 79 79 80 Pulse Rate [ 78 Anterior Bilateral Throughout] Respiratory 22 22 18 Rate Respiratory 25 H Rate [Anterior Bilateral Throughout] Blood Pressure 116/41 130/54 130/54 O2 Sat by Pulse 99 99 98 Oximetry 05/12/17 05/12/17 05/12/17 09:20 09:30 09:38 Temperature Pulse Rate 73 79 78 Pulse Rate [ 79 Anterior Bilateral Throughout] Respiratory 19 10 L 18 Rate Respiratory 20 Rate [Anterior Bilateral Throughout] Blood Pressure 133/56 124/32 124/32 O2 Sat by Pulse 100 100 100 Oximetry 05/12/17 05/12/17 05/12/17 09:40 09:50 10:00 Temperature Pulse Rate 78 80 77 Pulse Rate [ Anterior Bilateral Throughout] Respiratory 15 19 11 L Rate Respiratory Rate [Anterior Bilateral Throughout] Blood Pressure 124/32 116/35 110/38 O2 Sat by Pulse 100 100 100 Oximetry 05/12/17 05/12/17 05/12/17 10:10 10:20 10:30 Temperature Pulse Rate 81 80 79 Pulse Rate [ Anterior Bilateral Throughout] Respiratory 14 8 L 23 Rate Respiratory Rate [Anterior Bilateral Throughout] Blood Pressure 110/38 116/47 114/39 O2 Sat by Pulse 100 100 100 Oximetry 05/12/17 05/12/17 05/12/17 10:40 10:50 11:00 Temperature Pulse Rate 75 82 79 Pulse Rate [ Anterior Bilateral Throughout] Respiratory 11 L 11 L 12 Rate Respiratory Rate [Anterior Bilateral Throughout] Blood Pressure 114/39 116/41 116/41 O2 Sat by Pulse 100 99 100 Oximetry 05/12/17 05/12/17 05/12/17 11:10 11:20 11:30 Temperature Pulse Rate 83 82 79 Pulse Rate [ Anterior Bilateral Throughout] Respiratory 16 8 L 23 Rate Respiratory Rate [Anterior Bilateral Throughout] Blood Pressure 119/32 108/50 128/104 O2 Sat by Pulse 100 100 100 Oximetry 05/12/17 05/12/17 05/12/17 11:40 11:50 12:00 Temperature 99.0 F Pulse Rate 81 83 79 Pulse Rate [ Anterior Bilateral Throughout] Respiratory 16 17 13 Rate Respiratory Rate [Anterior Bilateral Throughout] Blood Pressure 128/104 110/30 113/59 O2 Sat by Pulse 100 100 100 Oximetry 05/12/17 05/12/17 05/12/17 12:10 12:20 12:30 Temperature Pulse Rate 83 84 78 Pulse Rate [ Anterior Bilateral Throughout] Respiratory 26 H 17 23 Rate Respiratory Rate [Anterior Bilateral Throughout] Blood Pressure 113/59 106/47 107/44 O2 Sat by Pulse 99 100 100 Oximetry 05/12/17 05/12/17 05/12/17 12:40 12:50 13:00 Temperature Pulse Rate 80 84 84 Pulse Rate [ Anterior Bilateral Throughout] Respiratory 22 21 25 H Rate Respiratory Rate [Anterior Bilateral Throughout] Blood Pressure 107/44 105/52 105/52 O2 Sat by Pulse 100 99 100 Oximetry 05/12/17 05/12/17 05/12/17 13:10 13:17 13:20 Temperature Pulse Rate 81 83 Pulse Rate [ 78 Anterior Bilateral Throughout] Respiratory 22 29 H Rate Respiratory 22 Rate [Anterior Bilateral Throughout] Blood Pressure 189/163 105/55 O2 Sat by Pulse 99 100 100 Oximetry 05/12/17 05/12/17 05/12/17 13:30 13:36 13:40 Temperature Pulse Rate 80 82 Pulse Rate [ 80 Anterior Bilateral Throughout] Respiratory 21 24 Rate Respiratory 11 L Rate [Anterior Bilateral Throughout] Blood Pressure 127/55 127/55 O2 Sat by Pulse 98 98 Oximetry 05/12/17 05/12/17 05/12/17 13:50 14:00 14:10 Temperature Pulse Rate 83 78 82 Pulse Rate [ Anterior Bilateral Throughout] Respiratory 26 H 26 H 23 Rate Respiratory Rate [Anterior Bilateral Throughout] Blood Pressure 143/32 95/46 95/46 O2 Sat by Pulse 97 100 99 Oximetry 05/12/17 05/12/17 05/12/17 14:20 14:30 14:40 Temperature Pulse Rate 82 85 82 Pulse Rate [ Anterior Bilateral Throughout] Respiratory 14 11 L 10 L Rate Respiratory Rate [Anterior Bilateral Throughout] Blood Pressure 107/62 107/62 122/25 O2 Sat by Pulse 99 100 98 Oximetry 05/12/17 05/12/17 05/12/17 14:50 15:00 15:10 Temperature Pulse Rate 85 83 84 Pulse Rate [ Anterior Bilateral Throughout] Respiratory 16 19 8 L Rate Respiratory Rate [Anterior Bilateral Throughout] Blood Pressure 127/95 127/95 115/76 O2 Sat by Pulse 98 100 99 Oximetry Constitutional: lethargic Eyes: non-icteric ENT: oropharynx dry Neck: supple, no lymphadenopathy, no JVD Effort: mildly labored Ascultation: Bilateral: diminished breath sounds, rhonchi Percussion: Right: dull Cardiovascular: regular rate and rhythm, murmur noted (systolic murmur) Gastrointestinal: normoactive bowel sounds, soft, non-tender, other (distended) Integumentary: other (poor turgor) Extremities: cool (necrotic right great toe, absent pedal pulses, right groin permacath, left femoral CVC), cyanosis Neurologic: non-focal exam, other (encephalopathy) Psychiatric: other (unable to assess) CBC and BMP: 05/13/17 04:10 05/13/17 04:10 ABG, PT/INR, D-dimer: ABG POC ABG pH 7.375 (7.35-7.45) 05/11/17 11:20 POC ABG pCO2 38.1 (35-45) 05/11/17 11:20 POC ABG pO2 89 (80-105) 05/11/17 11:20 POC ABG HCO3 22.3 05/11/17 11:20 POC ABG Total CO2 23 05/11/17 11:20 POC ABG O2 Sat 97 05/11/17 11:20 PT/INR, D-dimer PT 20.3 Sec. (12.2-14.9) H 05/12/17 06:41 INR 1.63 (0.87-1.13) H 05/12/17 06:41 D-Dimer 1996.75 ng/mlDDU (0-234) H 05/09/17 19:34 Abnormal lab findings: Abnormal Labs 05/09/17 05/09/17 05/09/17 18:46 19:25 19:25 WBC Hct MCV MCH MCHC RDW Plt Count Lymph % (Auto) Lymph # [place] # Seg Neutrophils % Seg Neuts % (Manual) Lymphocytes % (Manual) Seg Neutrophils # Seg Neutrophils # Man Lymphocytes # (Manual) Basophils # (Manual) PT INR APTT D-Dimer POC ABG pCO2 POC ABG pO2 Sodium Potassium Chloride Carbon Dioxide BUN Creatinine Glucose POC Glucose 56 L 41 L Lactic Acid Lactate Dehydrogenase Total Creatine Kinase CK-MB (CK-2) CK-MB (CK-2) Rel Index Troponin T C-Reactive Protein Total Protein Triglycerides HDL Cholesterol TSH 5.000 H 05/09/17 05/09/17 05/09/17 19:34 19:34 19:34 WBC 15.7 H Hct 45.8 H MCV 97 H MCH MCHC RDW 21.6 H Plt Count Lymph % (Auto) Lymph # [place] # Seg Neutrophils % Seg Neuts % (Manual) 92.0 H Lymphocytes % (Manual) 3.0 L Seg Neutrophils # Seg Neutrophils # Man 14.4 H Lymphocytes # (Manual) 0.5 L Basophils # (Manual) 0.2 H PT 17.9 H INR 1.40 H APTT 43.9 H D-Dimer 1996.75 H POC ABG pCO2 POC ABG pO2 Sodium Potassium 5.1 H Chloride 87.0 L Carbon Dioxide BUN 47 H Creatinine 10.0 H Glucose POC Glucose Lactic Acid Lactate Dehydrogenase Total Creatine Kinase 246 H CK-MB (CK-2) 12.8 H CK-MB (CK-2) Rel Index Troponin T 0.384 H* C-Reactive Protein 45.90 H Total Protein Triglycerides 191 H HDL Cholesterol 8 L TSH 05/09/17 05/10/17 05/10/17 21:37 03:30 03:59 WBC Hct MCV MCH MCHC RDW Plt Count Lymph % (Auto) Lymph # [place] # Seg Neutrophils % Seg Neuts % (Manual) Lymphocytes % (Manual) Seg Neutrophils # Seg Neutrophils # Man Lymphocytes # (Manual) Basophils # (Manual) PT INR APTT D-Dimer POC ABG pCO2 POC ABG pO2 Sodium Potassium Chloride Carbon Dioxide BUN Creatinine Glucose POC Glucose 69 L 63 L Lactic Acid Lactate Dehydrogenase Total Creatine Kinase 233 H CK-MB (CK-2) 10.1 H CK-MB (CK-2) Rel Index 4.3 H Troponin T 0.363 H* C-Reactive Protein Total Protein Triglycerides HDL Cholesterol TSH 05/10/17 05/10/17 05/10/17 05:52 07:17 07:31 WBC Hct MCV MCH MCHC RDW Plt Count Lymph % (Auto) Lymph # [place] # Seg Neutrophils % Seg Neuts % (Manual) Lymphocytes % (Manual) Seg Neutrophils # Seg Neutrophils # Man Lymphocytes # (Manual) Basophils # (Manual) PT INR APTT D-Dimer POC ABG pCO2 POC ABG pO2 Sodium Potassium Chloride Carbon Dioxide BUN Creatinine Glucose POC Glucose 69 L 66 L Lactic Acid Lactate Dehydrogenase Total Creatine Kinase 230 H CK-MB (CK-2) 10.0 H CK-MB (CK-2) Rel Index 4.3 H Troponin T 0.371 H* C-Reactive Protein Total Protein Triglycerides HDL Cholesterol TSH 05/10/17 05/10/17 05/10/17 07:44 07:57 10:02 WBC 19.6 H Hct MCV 96 H MCH 33 H MCHC 35 H RDW 21.6 H Plt Count Lymph % (Auto) Lymph # [place] # Seg Neutrophils % Seg Neuts % (Manual) Lymphocytes % (Manual) Seg Neutrophils # Seg Neutrophils # Man Lymphocytes # (Manual) Basophils # (Manual) PT INR APTT D-Dimer POC ABG pCO2 POC ABG pO2 Sodium 135 L Potassium 5.8 H Chloride 88.7 L Carbon Dioxide 21 L BUN 52 H Creatinine 10.6 H Glucose 177 H POC Glucose 161 H Lactic Acid Lactate Dehydrogenase Total Creatine Kinase CK-MB (CK-2) CK-MB (CK-2) Rel Index Troponin T C-Reactive Protein Total Protein Triglycerides HDL Cholesterol TSH 05/10/17 05/10/17 05/10/17 10:42 13:02 17:53 WBC Hct MCV MCH MCHC RDW Plt Count Lymph % (Auto) Lymph # [place] # Seg Neutrophils % Seg Neuts % (Manual) Lymphocytes % (Manual) Seg Neutrophils # Seg Neutrophils # Man Lymphocytes # (Manual) Basophils # (Manual) PT INR APTT D-Dimer POC ABG pCO2 28.7 L POC ABG pO2 115 H Sodium Potassium 5.7 H 6.1 H* Chloride Carbon Dioxide BUN Creatinine Glucose POC Glucose Lactic Acid Lactate Dehydrogenase Total Creatine Kinase CK-MB (CK-2) CK-MB (CK-2) Rel Index Troponin T C-Reactive Protein Total Protein Triglycerides HDL Cholesterol TSH 05/10/17 05/10/17 05/10/17 18:26 20:38 23:46 WBC Hct MCV MCH MCHC RDW Plt Count Lymph % (Auto) Lymph # [place] # Seg Neutrophils % Seg Neuts % (Manual) Lymphocytes % (Manual) Seg Neutrophils # Seg Neutrophils # Man Lymphocytes # (Manual) Basophils # (Manual) PT INR APTT D-Dimer POC ABG pCO2 POC ABG pO2 Sodium Potassium Chloride Carbon Dioxide BUN Creatinine Glucose POC Glucose 68 L < 40 L Lactic Acid 3.30 H* Lactate Dehydrogenase Total Creatine Kinase CK-MB (CK-2) CK-MB (CK-2) Rel Index Troponin T C-Reactive Protein Total Protein Triglycerides HDL Cholesterol TSH 05/11/17 05/11/17 05/11/17 00:00 03:15 03:20 WBC 14.3 H Hct MCV 96 H MCH 33 H MCHC RDW 21.9 H Plt Count Lymph % (Auto) 4.2 L Lymph # 0.6 L [place] # 0.9 H Seg Neutrophils % 87.2 H Seg Neuts % (Manual) Lymphocytes % (Manual) Seg Neutrophils # 12.5 H Seg Neutrophils # Man Lymphocytes # (Manual) Basophils # (Manual) PT INR APTT D-Dimer POC ABG pCO2 POC ABG pO2 Sodium Potassium 5.7 H Chloride 92.4 L Carbon Dioxide BUN 58 H Creatinine 11.3 H Glucose 110 H POC Glucose Lactic Acid 2.10 H* Lactate Dehydrogenase Total Creatine Kinase CK-MB (CK-2) CK-MB (CK-2) Rel Index Troponin T C-Reactive Protein Total Protein Triglycerides HDL Cholesterol TSH 05/11/17 05/11/17 05/11/17 03:20 07:41 12:24 WBC Hct MCV MCH MCHC RDW Plt Count Lymph % (Auto) Lymph # [place] # Seg Neutrophils % Seg Neuts % (Manual) Lymphocytes % (Manual) Seg Neutrophils # Seg Neutrophils # Man Lymphocytes # (Manual) Basophils # (Manual) PT INR APTT D-Dimer POC ABG pCO2 POC ABG pO2 Sodium Potassium 5.3 H Chloride 94.1 L Carbon Dioxide BUN 58 H Creatinine 11.2 H Glucose 107 H POC Glucose 46 L 46 L Lactic Acid Lactate Dehydrogenase Total Creatine Kinase CK-MB (CK-2) CK-MB (CK-2) Rel Index Troponin T C-Reactive Protein Total Protein Triglycerides HDL Cholesterol TSH 05/11/17 05/11/17 05/11/17 12:43 21:24 22:20 WBC Hct MCV MCH MCHC RDW Plt Count Lymph % (Auto) Lymph # [place] # Seg Neutrophils % Seg Neuts % (Manual) Lymphocytes % (Manual) Seg Neutrophils # Seg Neutrophils # Man Lymphocytes # (Manual) Basophils # (Manual) PT INR APTT D-Dimer POC ABG pCO2 POC ABG pO2 Sodium Potassium Chloride Carbon Dioxide BUN Creatinine Glucose POC Glucose 62 L 316 H Lactic Acid Lactate Dehydrogenase 255 H Total Creatine Kinase CK-MB (CK-2) CK-MB (CK-2) Rel Index Troponin T C-Reactive Protein Total Protein 6.2 L Triglycerides HDL Cholesterol TSH 05/12/17 05/12/17 05/12/17 01:23 06:41 06:41 WBC Hct MCV MCH MCHC RDW Plt Count Lymph % (Auto) Lymph # [place] # Seg Neutrophils % Seg Neuts % (Manual) Lymphocytes % (Manual) Seg Neutrophils # Seg Neutrophils # Man Lymphocytes # (Manual) Basophils # (Manual) PT 20.3 H INR 1.63 H APTT 52.8 H D-Dimer POC ABG pCO2 POC ABG pO2 Sodium Potassium 5.6 H Chloride 96.8 L Carbon Dioxide BUN 51 H Creatinine 9.6 H Glucose POC Glucose 132 H Lactic Acid Lactate Dehydrogenase Total Creatine Kinase CK-MB (CK-2) CK-MB (CK-2) Rel Index Troponin T C-Reactive Protein Total Protein Triglycerides HDL Cholesterol TSH 05/12/17 05/12/17 05/12/17 Unknown Unknown Unknown WBC 12.0 H Hct MCV 95 H MCH MCHC RDW 21.4 H Plt Count 121 L Lymph % (Auto) Lymph # [place] # Seg Neutrophils % Seg Neuts % (Manual) Lymphocytes % (Manual) Seg Neutrophils # Seg Neutrophils # Man Lymphocytes # (Manual) Basophils # (Manual) PT INR APTT D-Dimer POC ABG pCO2 POC ABG pO2 Sodium Potassium 5.9 H Chloride 96.4 L Carbon Dioxide BUN 49 H Creatinine 9.4 H Glucose POC Glucose Lactic Acid 2.30 H* Lactate Dehydrogenase Total Creatine Kinase CK-MB (CK-2) CK-MB (CK-2) Rel Index Troponin T C-Reactive Protein Total Protein Triglycerides HDL Cholesterol TSH Chest x-ray: image reviewed Allied health notes reviewed: RT (on venturi mask, monitor oxygen saturations)
[2017-05-12 19:43] LABS: Calcium 8.8 mg/dL (8.4-10.2); Chloride 95.8 mmol/L (98-107)
[2017-05-12 20:20] LABS: Potassium 6.2 mmol/L (3.6-5.0)
[2017-05-12] MEDS ORDERED: KIONEX PO ONE (20:29)
--- NOTE | 2017-05-12 21:42 | Event Note ---
called in for follow up patient doing poorly not stable for dialysis family aware mortality risk is high Treat hyperkalemia medcially and hope he is more stable for HD
[2017-05-12] MEDS ORDERED: SODIUM BICARBONATE IV ONE (21:43)
[2017-05-13 02:34] LABS: Calcium 8.7 mg/dL (8.4-10.2); Chloride 95.5 mmol/L (98-107)
[2017-05-13 03:50] LABS: Potassium 6.1 mmol/L (3.6-5.0)
[2017-05-13 05:32] LABS: Basophils % (Auto) 0.5 % (0.0-1.8); Eosinophils % (Auto) 2.6 % (0.0-4.3); Hematocrit 38.7 % (35.5-45.6); Hemoglobin 12.4 gm/dl (11.8-15.2); Mean Corpuscular HGB Conc 32 % (32-34); Mean Corpuscular Hemoglobin 31 pg (28-32); Mean Corpuscular Volume 95 fl (84-94); Red Blood Count 4.06 M/mm3 (3.65-5.03); White Blood Count 13.8 K/mm3 (4.5-11.0)
[2017-05-13 05:38] LABS: Platelet Count 97 K/mm3 (140-440); Red Cell Distribution Width 21.6 % (13.2-15.2)
[2017-05-13] MEDS ORDERED: D50W (25GM) Syringe IV ONE (06:21)
[2017-05-13] MEDS ORDERED: CALCIUM CHLORIDE IV ONE (06:24)
[2017-05-13] MEDS: ZOSYN/NS 2.25 GM/50ML 2.25 GM/50 ML BAG IV SCH ×3 (06:44→22:16)
[2017-05-13] MEDS: DUONEB *Not for PRN Use IH SCH ×3 (07:20→20:25)
--- NOTE | 2017-05-13 10:15 | Progress Note ---
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) Normal VQ scan Paroxysmal atrial fibrillation in the setting of severe metabolic derangements on po amiodarone for suppression Lower extremity wound Severe bilateral arterial occlusive disease distal to the popliteal artery Type II DM History of systemic hypertension Recommendations: Continue ICU support Start IV amiodarone for rhythm control Overall prognosis is very poor Subjective Date of service: 05/13/17 Principal diagnosis: Sepsis Syndrome; Acute Hypoxemic Resp Failure; Acute Encephalopathy; ESRD Interval history: Patient is not responsive He is still on BiPAP Pressors are off Tele is showing afib Objective Vital Signs Temp Pulse Pulse Resp Resp Resp BP 05/13/17 08:45 101 H 12 90/50 05/13/17 08:30 95 H 13 97/40 05/13/17 08:16 101 H 13 92/43 05/13/17 08:00 98.7 F 103 H 11 L 126/49 05/13/17 07:46 108 H 24 130/104 05/13/17 07:36 104 H 20 05/13/17 07:30 98 H 16 117/79 05/13/17 07:20 98 H 18 117/79 05/13/17 07:17 100 H 100 H 20 22 117/79 05/13/17 07:10 99 H 19 102/60 05/13/17 07:00 103 H 19 102/60 05/13/17 06:50 101 H 14 103/56 05/13/17 06:40 99 H 17 104/44 05/13/17 06:30 91 H 13 107/39 05/13/17 06:20 95 H 15 107/39 05/13/17 06:10 93 H 21 106/40 05/13/17 06:00 95 H 14 106/40 05/13/17 05:50 93 H 15 100/43 05/13/17 05:40 103 H 19 110/38 05/13/17 05:30 96 H 17 110/38 05/13/17 05:20 106 H 19 104/41 05/13/17 05:10 96 H 16 102/47 05/13/17 05:00 101 H 16 102/47 05/13/17 04:50 91 H 20 109/49 05/13/17 04:40 101 H 15 93/36 05/13/17 04:30 105 H 21 93/36 05/13/17 04:20 96 H 15 93/36 05/13/17 04:10 99 H 22 93/36 05/13/17 04:00 101 H 22 105/54 05/13/17 03:50 107 H 19 105/54 05/13/17 03:40 92 H 20 114/37 05/13/17 03:30 101 H 25 H 114/37 05/13/17 03:20 100 H 20 105/39 05/13/17 03:10 108 H 23 101/42 05/13/17 03:00 113 H 25 H 108/40 05/13/17 02:50 99 H 24 108/40 05/13/17 02:40 100 H 24 117/39 05/13/17 02:30 105 H 29 H 117/39 05/13/17 02:20 110 H 26 H 111/44 05/13/17 02:10 101 H 22 124/58 05/13/17 02:00 117 H 26 H 92/68 05/13/17 01:50 114 H 32 H 92/68 05/13/17 01:40 67 32 H 100/70 05/13/17 01:30 115 H 31 H 100/70 05/13/17 01:20 117 H 30 H 99/49 05/13/17 01:10 105 H 32 H 135/59 17 01:00 99 H 27 H 135/59 17 00:54 103 H 26 H 118/63 17 00:50 103 H 27 H 110/50 17 00:40 103 H 26 H 118/63 05/13/17 00:30 89 24 118/63 05/13/17 00:20 92 H 26 H 134/48 05/13/17 00:10 91 H 25 H 117/55 05/13/17 00:00 99.3 F 92 H 21 134/48 05/12/17 23:50 103 H 19 134/48 05/12/17 23:40 93 H 25 H 153/99 05/12/17 23:30 101 H 21 120/55 17 23:20 84 20 120/55 17 23:10 89 21 174/119 05/12/17 23:00 94 H 21 120/55 17 22:50 93 H 26 H 120/55 05/12/17 22:40 94 H 25 H 107/51 05/12/17 22:30 95 H 23 107/51 05/12/17 22:20 114 H 25 H 104/58 05/12/17 22:10 87 26 H 124/55 05/12/17 22:00 86 25 H 19 124/55 05/12/17 21:50 88 26 H 117/91 05/12/17 21:40 86 23 94/52 05/12/17 21:30 84 23 94/52 05/12/17 21:20 86 24 84/51 05/12/17 21:10 84 22 117/91 05/12/17 21:00 88 29 H 101/47 05/12/17 20:50 86 30 H 101/47 17 20:40 86 29 H 108/45 17 20:30 87 27 H 108/45 17 20:23 29 H 91/49 17 20:21 05/12/17 20:20 86 24 91/49 05/12/17 20:10 87 84 30 H 18 98/53 05/12/17 20:00 99.5 F 88 82 25 H 18 98/53 05/12/17 19:50 88 28 H 83/50 17 19:40 88 28 H 94/40 05/12/17 19:30 89 27 H 94/40 17 19:20 92 H 26 H 96/39 17 19:10 89 29 H 94/46 05/12/17 19:00 90 26 H 94/46 05/12/17 18:50 87 23 97/49 05/12/17 18:40 84 23 103/44 05/12/17 18:30 89 24 103/44 17/17 18:20 87 22 82/46 05/12/17 18:10 89 20 138/45 17 18:00 91 H 30 H 138/45 05/12/17 17:50 94 H 25 H 116/56 05/12/17 17:40 94 H 28 H 93/58 17 17:30 94 H 24 128/55 17 17:20 96 H 29 H 110/62 05/12/17 17:10 96 H 32 H 93/58 05/12/17 17:00 90 24 102/39 05/12/17 16:50 95 H 21 102/39 05/12/17 16:40 92 H 19 155/20 05/12/17 16:30 90 24 155/20 05/12/17 16:20 90 26 H 153/16 05/12/17 16:10 87 26 H 125/57 05/12/17 16:00 85 25 H 125/57 05/12/17 15:50 84 21 129/51 05/12/ 15:40 84 19 176/23 17 15:30 84 10 L 124/35 05/12/17 15:20 83 25 H 124/35 17 15:10 84 8 L 115/76 17 15:00 83 19 127/95 05/12/17 14:50 85 16 127/95 05/12/17 14:40 82 10 L 122/25 05/12/17 14:30 85 11 L 107/62 05/12/17 14:20 82 14 107/62 05/12/17 14:10 82 23 95/46 05/12/17 14:00 78 26 H 95/46 05/12/17 13:50 83 26 H 143/32 05/12/17 13:40 82 24 127/55 05/12/17 13:36 80 11 L 05/12/17 13:30 80 21 127/55 05/12/17 13:20 83 29 H 105/55 05/12/17 13:17 78 22 05/12/17 13:10 81 22 189/163 05/12/17 13:00 84 25 H 105/52 05/12/17 12:50 84 21 105/52 05/12/17 12:40 80 22 107/44 05/12/17 12:30 78 23 107/44 05/12/17 12:20 84 17 106/47 05/12/17 12:10 83 26 H 113/59 12/17/17 12:00 99.0 F 79 13 113/59 17/17 11:50 83 17 110/30 17/17 11:40 81 16 128/104 17/17 11:30 79 23 128/104 17/17 11:20 82 8 L 108/50 17/17 11:10 83 16 119/32 17/17 11:00 79 12 116/41 17/17 10:50 82 11 L 116/41 17/17 10:40 75 11 L 114/39 17/17 10:30 79 23 114/39 17/17 10:20 80 8 L 116/47 Pulse Ox 05/13/17 08:45 99 18/17 08:30 98 18/17 08:16 99 18/17 08:00 98 18/17 07:46 1218/17 07:36 100 18/17 07:30 100 1218/17 07:20 100 1218/17 07:17 100 1218/17 07:10 1218/17 07:00 1218/17 06:50 12/18/17 06:40 12/18/17 06:30 100 12/18/17 06:20 100 12/18/17 06:10 100 12/18/17 06:00 100 1218/17 05:50 100 1218/17 05:40 100 12/18/17 05:30 100 12/18/17 05:20 100 12/18/17 05:10 100 1218/17 05:00 100 12/18/17 04:50 100 12/18/17 04:40 100 12/18/17 04:30 100 12/18/17 04:20 100 12/18/17 04:10 100 12/18/17 04:00 100 12/18/17 03:50 100 12/18/17 03:40 100 12/18/17 03:30 100 12/18/17 03:20 100 12/18/17 03:10 100 12/18/17 03:00 100 12/18/17 02:50 100 12/18/17 02:40 100 12/18/17 02:30 100 1218/17 02:20 100 12/18/17 02:10 100 12/18/17 02:00 100 12/18/17 01:50 100 12/18/17 01:40 100 12/18/17 01:30 100 12/18/17 01:20 100 12/18/17 01:10 100 12/18/17 01:00 100 12/18/17 00:54 100 12/18/17 00:50 100 12/18/17 00:40 100 12/18/17 00:30 100 12/18/17 00:20 100 12/18/17 00:10 100 1218/17 00:00 100 17/17 23:50 100 17/17 23:40 100 17/17 23:30 100 17/17 23:20 100 17/17 23:10 100 17/17 23:00 100 17/17 22:50 100 17/17 22:40 100 17/17 22:30 100 17/17 22:20 100 17/17 22:10 100 17/17 22:00 100 17/17 21:50 100 17/17 21:40 100 17/17 21:30 100 17/17 21:20 100 17/17 21:10 100 17/17 21:00 100 17/17 20:50 100 17/17 20:40 17/17 20:30 100 17/17 20:23 100 17/17 20:21 100 17/17 20:20 17/17 20:10 98 17/17 20:00 94 1217/17 19:50 94 1217/17 19:40 99 1217/17 19:30 99 17/17 19:20 1217/17 19:10 17/17 19:00 97 17/17 18:50 96 17/17 18:40 97 17/17 18:30 96 17/17 18:20 93 1217/17 18:10 1217/17 18:00 96 17/17 17:50 96 17/17 17:40 95 17/17 17:30 95 12/17/17 17:20 96 05/12/17 17:10 95 05/12/17 17:00 97 05/12/17 16:50 99 17 16:40 99 05/12/17 16:30 99 17 16:20 100 17 16:10 100 05/12/17 16:00 100 17 15:50 100 17 15:40 100 17 15:30 100 17 15:20 96 17 15:10 99 05/12/17 15:00 100 05/12/17 14:50 98 05/12/17 14:40 98 05/12/17 14:30 100 05/12/17 14:20 99 05/12/17 14:10 99 05/12/17 14:00 100 05/12/17 13:50 97 05/12/17 13:40 98 05/12/17 13:36 05/12/17 13:30 98 05/12/17 13:20 100 05/12/17 13:17 100 05/12/17 13:10 99 05/12/17 13:00 100 05/12/17 12:50 99 05/12/17 12:40 100 05/12/17 12:30 100 05/12/17 12:20 100 05/12/17 12:10 99 05/12/17 12:00 100 05/12/17 11:50 100 05/12/17 11:40 100 05/12/17 11:30 100 05/12/17 11:20 100 05/12/17 11:10 100 05/12/17 11:00 100 05/12/17 10:50 99 05/12/17 10:40 100 05/12/17 10:30 100 05/12/17 10:20 100 - Physical Examination Neck: Positive: neck supple Cardiac: Positive: irregularly irregular Lungs: Positive: Ventilated Respirations Abdomen: Positive: Soft Extremities: Absent: edema - Labs and Meds CBC 05/13/17 Range/Units 04:10 WBC 13.8 H (4.5-11.0) K/mm3 RBC 4.06 (3.65-5.03) M/mm3 Hgb 12.4 (11.8-15.2) gm/dl Hct 38.7 (35.5-45.6) % Plt Count 97 L (140-440) K/mm3 Lymph # 1.1 L (1.2-5.4) K/mm3 [place] # 1.3 H (0.0-0.8) K/mm3 Eos # 0.4 (0.0-0.4) K/mm3 Baso # 0.1 (0.0-0.1) K/mm3 Comprehensive Metabolic Panel 05/12/17 05/13/17 05/13/17 Range/Units 19:10 01:43 04:10 Sodium 142 144 (137-145) mmol/L Potassium 6.2 H* 6.1 H* 6.4 H* (3.6-5.0) mmol/L Chloride 95.8 L 95.5 L (98-107) mmol/L Carbon Dioxide 18 L 20 L (22-30) mmol/L BUN 56 H 58 H (9-20) mg/dL Creatinine 9.8 H 10.5 H (0.8-1.5) mg/dL Glucose 140 H 185 H (75-100) mg/dL Calcium 8.8 8.7 (8.4-10.2) mg/dL - Imaging and Cardiology EKG: image reviewed - Allied health notes Allied health notes reviewed: RT (on venturi mask, monitor oxygen saturations)
--- NOTE | 2017-05-13 10:16 | Progress Note ---
Assessment and Plan Acute Hypoxemic Resp Failure Sepsis Syndrome Right Pleural Effusion ESRD on dialysis HTN Anemia Acute Encephalopathy (Toxic-Metabolic) - continue supplemental oxygen - awaiting thoracentesis - continue HD/UF as tolerated for toxin and volume clearance - Vassopressors for MAP < 60mmHg with target > 65mmHg - continue midodrine at 10mg p.o. q8h - continue empiric AB's - get lactate and CRP and trend as necessary - follow random cortisol level - Continue aspiration Precautions - continue GI & VTE prophylaxis - Flu & pneumovax per protocol ..he remains critically ill on life sustaining interventions including MVS and at high risk for further deterioration including ...full CODE status ....30' CCT Subjective Date of service: 05/13/17 Principal diagnosis: Sepsis Syndrome; Acute Hypoxemic Resp Failure; Acute Encephalopathy; ESRD Interval history: Patient is seen today for: Sepsis Syndrome; Acute Hypoxemic Resp Failure; Acute Encephalopathy; ESRD; large Right Pleural Effusion Seen and examined at bedside; 24hour events reviewed; nursing and respiratory care staff consulted; no adverse overnight events reported to me; resting in bed ; HD/UF ongoing; somnolent to lethargic; on 40% venti-mask; responds to sternal rub; no emesis or overt aspiration; BP's labile Objective Vital Signs - 12hr 05/12/17 05/12/17 05/12/17 22:20 22:30 22:40 Temperature Pulse Rate 114 H 95 H 94 H Pulse Rate [ Anterior Bilateral Throughout] Respiratory 25 H 23 25 H Rate Respiratory Rate [Anterior Bilateral Throughout] Blood Pressure 104/58 107/51 107/51 O2 Sat by Pulse 100 100 100 Oximetry 05/12/17 05/12/17 05/12/17 22:50 23:00 23:10 Temperature Pulse Rate 93 H 94 H 89 Pulse Rate [ Anterior Bilateral Throughout] Respiratory 26 H 21 21 Rate Respiratory Rate [Anterior Bilateral Throughout] Blood Pressure 120/55 120/55 174/119 O2 Sat by Pulse 100 100 100 Oximetry 05/12/17 05/12/17 05/12/17 23:20 23:30 23:40 Temperature Pulse Rate 84 101 H 93 H Pulse Rate [ Anterior Bilateral Throughout] Respiratory 20 21 25 H Rate Respiratory Rate [Anterior Bilateral Throughout] Blood Pressure 120/55 120/55 153/99 O2 Sat by Pulse 100 100 100 Oximetry 05/12/17 05/13/1705/13/17 23:50 00:00 00:10 Temperature 99.3 F Pulse Rate 103 H 92 H 91 H Pulse Rate [ Anterior Bilateral Throughout] Respiratory 19 21 25 H Rate Respiratory Rate [Anterior Bilateral Throughout] Blood Pressure 134/48 134/48 117/55 O2 Sat by Pulse 100 100 100 Oximetry 05/13/17 05/13/17 05/13/17 00:20 00:30 00:40 Temperature Pulse Rate 92 H 89 103 H Pulse Rate [ Anterior Bilateral Throughout] Respiratory 26 H 24 26 H Rate Respiratory Rate [Anterior Bilateral Throughout] Blood Pressure 134/48 118/63 118/63 O2 Sat by Pulse 100 100 100 Oximetry 05/13/17 05/13/17 05/13/17 00:50 00:54 01:00 Temperature Pulse Rate 103 H 103 H 99 H Pulse Rate [ Anterior Bilateral Throughout] Respiratory 27 H 26 H 27 H Rate Respiratory Rate [Anterior Bilateral Throughout] Blood Pressure 110/50 118/63 135/59 O2 Sat by Pulse 100 100 100 Oximetry 05/13/17 05/13/17 05/13/17 01:10 01:20 01:30 Temperature Pulse Rate 105 H 117 H 115 H Pulse Rate [ Anterior Bilateral Throughout] Respiratory 32 H 30 H 31 H Rate Respiratory Rate [Anterior Bilateral Throughout] Blood Pressure 135/59 99/49 100/70 O2 Sat by Pulse 100 100 100 Oximetry 05/13/17 05/13/17 05/13/17 01:40 01:50 02:00 Temperature Pulse Rate 67 114 H 117 H Pulse Rate [ Anterior Bilateral Throughout] Respiratory 32 H 32 H 26 H Rate Respiratory Rate [Anterior Bilateral Throughout] Blood Pressure 100/70 92/68 92/68 O2 Sat by Pulse 100 100 100 Oximetry 05/13/17 05/13/17 05/13/17 02:10 02:20 02:30 Temperature Pulse Rate 101 H 110 H 105 H Pulse Rate [ Anterior Bilateral Throughout] Respiratory 22 26 H 29 H Rate Respiratory Rate [Anterior Bilateral Throughout] Blood Pressure 124/58 111/44 117/39 O2 Sat by Pulse 100 100 100 Oximetry 05/13/17 05/13/17 05/13/17 02:40 02:50 03:00 Temperature Pulse Rate 100 H 99 H 113 H Pulse Rate [ Anterior Bilateral Throughout] Respiratory 24 24 25 H Rate Respiratory Rate [Anterior Bilateral Throughout] Blood Pressure 117/39 108/40 108/40 O2 Sat by Pulse 100 100 100 Oximetry 05/13/17 05/13/17 05/13/17 03:10 03:20 03:30 Temperature Pulse Rate 108 H 100 H 101 H Pulse Rate [ Anterior Bilateral Throughout] Respiratory 23 20 25 H Rate Respiratory Rate [Anterior Bilateral Throughout] Blood Pressure 101/42 105/39 114/37 O2 Sat by Pulse 100 100 100 Oximetry 05/13/17 05/13/17 05/13/17 03:40 03:50 04:00 Temperature Pulse Rate 92 H 107 H 101 H Pulse Rate [ Anterior Bilateral Throughout] Respiratory 20 19 22 Rate Respiratory Rate [Anterior Bilateral Throughout] Blood Pressure 114/37 105/54 105/54 O2 Sat by Pulse 100 100 100 Oximetry 05/13/17 05/13/17 05/13/17 04:10 04:20 04:30 Temperature Pulse Rate 99 H 96 H 105 H Pulse Rate [ Anterior Bilateral Throughout] Respiratory 22 15 21 Rate Respiratory Rate [Anterior Bilateral Throughout] Blood Pressure 93/36 93/36 93/36 O2 Sat by Pulse 100 100 100 Oximetry 05/13/17 05/13/17 05/13/17 04:40 04:50 05:00 Temperature Pulse Rate 101 H 91 H 101 H Pulse Rate [ Anterior Bilateral Throughout] Respiratory 15 20 16 Rate Respiratory Rate [Anterior Bilateral Throughout] Blood Pressure 93/36 109/49 102/47 O2 Sat by Pulse 100 100 100 Oximetry 05/13/17 05/13/17 05/13/17 05:10 05:20 05:30 Temperature Pulse Rate 96 H 106 H 96 H Pulse Rate [ Anterior Bilateral Throughout] Respiratory 16 19 17 Rate Respiratory Rate [Anterior Bilateral Throughout] Blood Pressure 102/47 104/41 110/38 O2 Sat by Pulse 100 100 100 Oximetry 05/13/17 05/13/17 05/13/17 05:40 05:50 06:00 Temperature Pulse Rate 103 H 93 H 95 H Pulse Rate [ Anterior Bilateral Throughout] Respiratory 19 15 14 Rate Respiratory Rate [Anterior Bilateral Throughout] Blood Pressure 110/38 100/43 106/40 O2 Sat by Pulse 100 100 100 Oximetry 05/13/17 05/13/17 05/13/17 06:10 06:20 06:30 Temperature Pulse Rate 93 H 95 H 91 H Pulse Rate [ Anterior Bilateral Throughout] Respiratory 21 15 13 Rate Respiratory Rate [Anterior Bilateral Throughout] Blood Pressure 106/40 107/39 107/39 O2 Sat by Pulse 100 100 100 Oximetry 05/13/17 05/13/17 05/13/17 06:40 06:50 07:00 Temperature Pulse Rate 99 H 101 H 103 H Pulse Rate [ Anterior Bilateral Throughout] Respiratory 17 14 19 Rate Respiratory Rate [Anterior Bilateral Throughout] Blood Pressure 104/44 103/56 102/60 O2 Sat by Pulse Oximetry 05/13/17 05/13/17 05/13/17 07:10 07:17 07:20 Temperature Pulse Rate 99 H 100 H 98 H Pulse Rate [ 100 H Anterior Bilateral Throughout] Respiratory 19 20 18 Rate Respiratory 22 Rate [Anterior Bilateral Throughout] Blood Pressure 102/60 117/79 117/79 O2 Sat by Pulse 100 100 Oximetry 05/13/17 05/13/17 05/13/17 07:30 07:36 07:46 Temperature Pulse Rate 98 H 108 H Pulse Rate [ 104 H Anterior Bilateral Throughout] Respiratory 16 24 Rate Respiratory 20 Rate [Anterior Bilateral Throughout] Blood Pressure 117/79 130/104 O2 Sat by Pulse 100 100 Oximetry 05/13/17 05/13/17 05/13/17 08:00 08:16 08:30 Temperature 98.7 F Pulse Rate 103 H 101 H 95 H Pulse Rate [ Anterior Bilateral Throughout] Respiratory 11 L 13 13 Rate Respiratory Rate [Anterior Bilateral Throughout] Blood Pressure 126/49 92/43 97/40 O2 Sat by Pulse 98 99 98 Oximetry 05/13/17 08:45 Temperature Pulse Rate 101 H Pulse Rate [ Anterior Bilateral Throughout] Respiratory 12 Rate Respiratory Rate [Anterior Bilateral Throughout] Blood Pressure 90/50 O2 Sat by Pulse 99 Oximetry Constitutional: lethargic Eyes: non-icteric ENT: oropharynx moist Neck: supple, no lymphadenopathy, no JVD Effort: mildly labored Ascultation: Right: diminished breath sounds, Bilateral: rhonchi Percussion: Right: dull Cardiovascular: regular rate and rhythm, murmur noted (systolic murmur), other ( no rubs) Gastrointestinal: normoactive bowel sounds, soft, non-tender, other (distended) Integumentary: other (poor turgor) Extremities: no edema, cool (necrotic right great toe, absent pedal pulses, right groin permacath, left femoral CVC), cyanosis, other (diminished peripheral pulses) Neurologic: non-focal exam (grossly), pupils equal and round, other (moves all 4 extremities) Psychiatric: other (unable to assess) CBC and BMP: 05/13/17 04:10 05/13/17 13:15 ABG, PT/INR, D-dimer: ABG POC ABG pH 7.375 (7.35-7.45) 05/11/17 11:20 POC ABG pCO2 38.1 (35-45) 05/11/17 11:20 POC ABG pO2 89 (80-105) 05/11/17 11:20 POC ABG HCO3 22.3 05/11/17 11:20 POC ABG Total CO2 23 05/11/17 11:20 POC ABG O2 Sat 97 05/11/17 11:20 PT/INR, D-dimer PT 20.3 Sec. (12.2-14.9) H 05/12/17 06:41 INR 1.63 (0.87-1.13) H 05/12/17 06:41 D-Dimer 1996.75 ng/mlDDU (0-234) H 05/09/17 19:34 Abnormal lab findings: Abnormal Labs 05/09/17 05/09/17 05/09/17 18:46 19:25 19:25 WBC Hct MCV MCH MCHC RDW Plt Count Lymph % (Auto) [place] % (Auto) Lymph # [place] # Seg Neutrophils % Seg Neuts % (Manual) Lymphocytes % (Manual) Seg Neutrophils # Seg Neutrophils # Man Lymphocytes # (Manual) Basophils # (Manual) PT INR APTT D-Dimer POC ABG pCO2 POC ABG pO2 Sodium Potassium Chloride Carbon Dioxide BUN Creatinine Glucose POC Glucose 56 L 41 L Lactic Acid Lactate Dehydrogenase Total Creatine Kinase CK-MB (CK-2) CK-MB (CK-2) Rel Index Troponin T C-Reactive Protein Total Protein Triglycerides HDL Cholesterol TSH 5.000 H 05/09/17 05/09/17 05/09/17 19:34 19:34 19:34 WBC 15.7 H Hct 45.8 H MCV 97 H MCH MCHC RDW 21.6 H Plt Count Lymph % (Auto) [place] % (Auto) Lymph # [place] # Seg Neutrophils % Seg Neuts % (Manual) 92.0 H Lymphocytes % (Manual) 3.0 L Seg Neutrophils # Seg Neutrophils # Man 14.4 H Lymphocytes # (Manual) 0.5 L Basophils # (Manual) 0.2 H PT 17.9 H INR 1.40 H APTT 43.9 H D-Dimer 1996.75 H POC ABG pCO2 POC ABG pO2 Sodium Potassium 5.1 H Chloride 87.0 L Carbon Dioxide BUN 47 H Creatinine 10.0 H Glucose POC Glucose Lactic Acid Lactate Dehydrogenase Total Creatine Kinase 246 H CK-MB (CK-2) 12.8 H CK-MB (CK-2) Rel Index Troponin T 0.384 H* C-Reactive Protein 45.90 H Total Protein Triglycerides 191 H HDL Cholesterol 8 L TSH 05/09/17 05/10/17 05/10/17 21:37 03:30 03:59 WBC Hct MCV MCH MCHC RDW Plt Count Lymph % (Auto) [place] % (Auto) Lymph # [place] # Seg Neutrophils % Seg Neuts % (Manual) Lymphocytes % (Manual) Seg Neutrophils # Seg Neutrophils # Man Lymphocytes # (Manual) Basophils # (Manual) PT INR APTT D-Dimer POC ABG pCO2 POC ABG pO2 Sodium Potassium Chloride Carbon Dioxide BUN Creatinine Glucose POC Glucose 69 L 63 L Lactic Acid Lactate Dehydrogenase Total Creatine Kinase 233 H CK-MB (CK-2) 10.1 H CK-MB (CK-2) Rel Index 4.3 H Troponin T 0.363 H* C-Reactive Protein Total Protein Triglycerides HDL Cholesterol TSH 05/10/17 05/10/17 05/10/17 05:52 07:17 07:31 WBC Hct MCV MCH MCHC RDW Plt Count Lymph % (Auto) [place] % (Auto) Lymph # [place] # Seg Neutrophils % Seg Neuts % (Manual) Lymphocytes % (Manual) Seg Neutrophils # Seg Neutrophils # Man Lymphocytes # (Manual) Basophils # (Manual) PT INR APTT D-Dimer POC ABG pCO2 POC ABG pO2 Sodium Potassium Chloride Carbon Dioxide BUN Creatinine Glucose POC Glucose 69 L 66 L Lactic Acid Lactate Dehydrogenase Total Creatine Kinase 230 H CK-MB (CK-2) 10.0 H CK-MB (CK-2) Rel Index 4.3 H Troponin T 0.371 H* C-Reactive Protein Total Protein Triglycerides HDL Cholesterol TSH 05/10/17 05/10/17 05/10/17 07:44 07:57 10:02 WBC 19.6 H Hct MCV 96 H MCH 33 H MCHC 35 H RDW 21.6 H Plt Count Lymph % (Auto) [place] % (Auto) Lymph # [place] # Seg Neutrophils % Seg Neuts % (Manual) Lymphocytes % (Manual) Seg Neutrophils # Seg Neutrophils # Man Lymphocytes # (Manual) Basophils # (Manual) PT INR APTT D-Dimer POC ABG pCO2 POC ABG pO2 Sodium 135 L Potassium 5.8 H Chloride 88.7 L Carbon Dioxide 21 L BUN 52 H Creatinine 10.6 H Glucose 177 H POC Glucose 161 H Lactic Acid Lactate Dehydrogenase Total Creatine Kinase CK-MB (CK-2) CK-MB (CK-2) Rel Index Troponin T C-Reactive Protein Total Protein Triglycerides HDL Cholesterol TSH 05/10/17 05/10/17 05/10/17 10:42 13:02 17:53 WBC Hct MCV MCH MCHC RDW Plt Count Lymph % (Auto) [place] % (Auto) Lymph # [place] # Seg Neutrophils % Seg Neuts % (Manual) Lymphocytes % (Manual) Seg Neutrophils # Seg Neutrophils # Man Lymphocytes # (Manual) Basophils # (Manual) PT INR APTT D-Dimer POC ABG pCO2 28.7 L POC ABG pO2 115 H Sodium Potassium 5.7 H 6.1 H* Chloride Carbon Dioxide BUN Creatinine Glucose POC Glucose Lactic Acid Lactate Dehydrogenase Total Creatine Kinase CK-MB (CK-2) CK-MB (CK-2) Rel Index Troponin T C-Reactive Protein Total Protein Triglycerides HDL Cholesterol TSH 05/10/17 05/10/17 05/10/17 18:26 20:38 23:46 WBC Hct MCV MCH MCHC RDW Plt Count Lymph % (Auto) [place] % (Auto) Lymph # [place] # Seg Neutrophils % Seg Neuts % (Manual) Lymphocytes % (Manual) Seg Neutrophils # Seg Neutrophils # Man Lymphocytes # (Manual) Basophils # (Manual) PT INR APTT D-Dimer POC ABG pCO2 POC ABG pO2 Sodium Potassium Chloride Carbon Dioxide BUN Creatinine Glucose POC Glucose 68 L < 40 L Lactic Acid 3.30 H* Lactate Dehydrogenase Total Creatine Kinase CK-MB (CK-2) CK-MB (CK-2) Rel Index Troponin T C-Reactive Protein Total Protein Triglycerides HDL Cholesterol TSH 05/11/17 05/11/17 05/11/17 00:00 03:15 03:20 WBC 14.3 H Hct MCV 96 H MCH 33 H MCHC RDW 21.9 H Plt Count Lymph % (Auto) 4.2 L [place] % (Auto) Lymph # 0.6 L [place] # 0.9 H Seg Neutrophils % 87.2 H Seg Neuts % (Manual) Lymphocytes % (Manual) Seg Neutrophils # 12.5 H Seg Neutrophils # Man Lymphocytes # (Manual) Basophils # (Manual) PT INR APTT D-Dimer POC ABG pCO2 POC ABG pO2 Sodium Potassium 5.7 H Chloride 92.4 L Carbon Dioxide BUN 58 H Creatinine 11.3 H Glucose 110 H POC Glucose Lactic Acid 2.10 H* Lactate Dehydrogenase Total Creatine Kinase CK-MB (CK-2) CK-MB (CK-2) Rel Index Troponin T C-Reactive Protein Total Protein Triglycerides HDL Cholesterol TSH 05/11/17 05/11/17 05/11/17 03:20 07:41 12:24 WBC Hct MCV MCH MCHC RDW Plt Count Lymph % (Auto) [place] % (Auto) Lymph # [place] # Seg Neutrophils % Seg Neuts % (Manual) Lymphocytes % (Manual) Seg Neutrophils # Seg Neutrophils # Man Lymphocytes # (Manual) Basophils # (Manual) PT INR APTT D-Dimer POC ABG pCO2 POC ABG pO2 Sodium Potassium 5.3 H Chloride 94.1 L Carbon Dioxide BUN 58 H Creatinine 11.2 H Glucose 107 H POC Glucose 46 L 46 L Lactic Acid Lactate Dehydrogenase Total Creatine Kinase CK-MB (CK-2) CK-MB (CK-2) Rel Index Troponin T C-Reactive Protein Total Protein Triglycerides HDL Cholesterol TSH 05/11/17 05/11/17 05/11/17 12:43 21:24 22:20 WBC Hct MCV MCH MCHC RDW Plt Count Lymph % (Auto) [place] % (Auto) Lymph # [place] # Seg Neutrophils % Seg Neuts % (Manual) Lymphocytes % (Manual) Seg Neutrophils # Seg Neutrophils # Man Lymphocytes # (Manual) Basophils # (Manual) PT INR APTT D-Dimer POC ABG pCO2 POC ABG pO2 Sodium Potassium Chloride Carbon Dioxide BUN Creatinine Glucose POC Glucose 62 L 316 H Lactic Acid Lactate Dehydrogenase 255 H Total Creatine Kinase CK-MB (CK-2) CK-MB (CK-2) Rel Index Troponin T C-Reactive Protein Total Protein 6.2 L Triglycerides HDL Cholesterol TSH 05/12/17 05/12/17 05/12/17 01:23 06:41 06:41 WBC Hct MCV MCH MCHC RDW Plt Count Lymph % (Auto) [place] % (Auto) Lymph # [place] # Seg Neutrophils % Seg Neuts % (Manual) Lymphocytes % (Manual) Seg Neutrophils # Seg Neutrophils # Man Lymphocytes # (Manual) Basophils # (Manual) PT 20.3 H INR 1.63 H APTT 52.8 H D-Dimer POC ABG pCO2 POC ABG pO2 Sodium Potassium 5.6 H Chloride 96.8 L Carbon Dioxide BUN 51 H Creatinine 9.6 H Glucose POC Glucose 132 H Lactic Acid Lactate Dehydrogenase Total Creatine Kinase CK-MB (CK-2) CK-MB (CK-2) Rel Index Troponin T C-Reactive Protein Total Protein Triglycerides HDL Cholesterol TSH 05/12/17 05/12/17 05/12/17 15:52 19:10 21:26 WBC Hct MCV MCH MCHC RDW Plt Count Lymph % (Auto) [place] % (Auto) Lymph # [place] # Seg Neutrophils % Seg Neuts % (Manual) Lymphocytes % (Manual) Seg Neutrophils # Seg Neutrophils # Man Lymphocytes # (Manual) Basophils # (Manual) PT INR APTT D-Dimer POC ABG pCO2 POC ABG pO2 Sodium Potassium 6.2 H* Chloride 95.8 L Carbon Dioxide 18 L BUN 56 H Creatinine 9.8 H Glucose 140 H POC Glucose 113 H 126 H Lactic Acid Lactate Dehydrogenase Total Creatine Kinase CK-MB (CK-2) CK-MB (CK-2) Rel Index Troponin T C-Reactive Protein Total Protein Triglycerides HDL Cholesterol TSH 05/12/17 05/12/17 05/12/17 Unknown Unknown Unknown WBC 12.0 H Hct MCV 95 H MCH MCHC RDW 21.4 H Plt Count 121 L Lymph % (Auto) [place] % (Auto) Lymph # [place] # Seg Neutrophils % Seg Neuts % (Manual) Lymphocytes % (Manual) Seg Neutrophils # Seg Neutrophils # Man Lymphocytes # (Manual) Basophils # (Manual) PT INR APTT D-Dimer POC ABG pCO2 POC ABG pO2 Sodium Potassium 5.9 H Chloride 96.4 L Carbon Dioxide BUN 49 H Creatinine 9.4 H Glucose POC Glucose Lactic Acid 2.30 H* Lactate Dehydrogenase Total Creatine Kinase CK-MB (CK-2) CK-MB (CK-2) Rel Index Troponin T C-Reactive Protein Total Protein Triglycerides HDL Cholesterol TSH 05/13/17 05/13/17 05/13/17 01:43 02:03 04:10 WBC 13.8 H Hct MCV 95 H MCH MCHC RDW 21.6 H Plt Count 97 L Lymph % (Auto) 7.6 L [place] % (Auto) 9.3 H Lymph # 1.1 L [place] # 1.3 H Seg Neutrophils % 80.0 H Seg Neuts % (Manual) Lymphocytes % (Manual) Seg Neutrophils # 11.0 H Seg Neutrophils # Man Lymphocytes # (Manual) Basophils # (Manual) PT INR APTT D-Dimer POC ABG pCO2 POC ABG pO2 Sodium Potassium 6.1 H* Chloride 95.5 L Carbon Dioxide 20 L BUN 58 H Creatinine 10.5 H Glucose 185 H POC Glucose 166 H Lactic Acid Lactate Dehydrogenase Total Creatine Kinase CK-MB (CK-2) CK-MB (CK-2) Rel Index Troponin T C-Reactive Protein Total Protein Triglycerides HDL Cholesterol TSH 05/13/17 05/13/17 04:10 05:47 WBC Hct MCV MCH MCHC RDW Plt Count Lymph % (Auto) [place] % (Auto) Lymph # [place] # Seg Neutrophils % Seg Neuts % (Manual) Lymphocytes % (Manual) Seg Neutrophils # Seg Neutrophils # Man Lymphocytes # (Manual) Basophils # (Manual) PT INR APTT D-Dimer POC ABG pCO2 POC ABG pO2 Sodium Potassium 6.4 H* Chloride Carbon Dioxide BUN Creatinine Glucose POC Glucose 158 H Lactic Acid Lactate Dehydrogenase Total Creatine Kinase CK-MB (CK-2) CK-MB (CK-2) Rel Index Troponin T C-Reactive Protein Total Protein Triglycerides HDL Cholesterol TSH Chest x-ray: image reviewed (large right pleural effusion) Prior PFT's, U/S of legs: image reviewed (CHEST USS = large right pleural effusion) Allied health notes reviewed: RT (on venturi mask, monitor oxygen saturations)
--- NOTE | 2017-05-13 11:34 | Progress Note ---
Assessment and Plan Assessment and Plan Acute metabolic encephalopathy: Likely due to sepsis. Patient is on antibiotics and for hemodialysis. Acute respiratory failure: On DuoNeb, supplemental oxygen, antibiotics. For thoracentesis for pneumonic effusion. 911 Dispatcher following. Septic shock: On vasopressin and midodrine. Right pneumonia and pleural effusion: On antibiotics. For thoracentesis. Bilateral mastoiditis: On antibiotics. End-stage renal disease: For hemodialysis. Nephrology following. Hyperkalemia: Will treat until hemodialysis. Lactic acidosis: Due to sepsis. Systolic heart failure with left ventricular ejection fraction of 25-30%: Cardiologists following. Pulmonary hypertension: Cardiologists following. A-fib: Rate controlled with amiodarone. Peripheral vascular disease: Arterial doppler showed severe occlusive disease BLE. Vascular surgery following. Diabetes mellitus: Sliding scale insulin. Hypertensionnow hypotensive: Hold BP meds. Still very ill pt. Spent 32 min of critical care time in direct pt care, review of laboratory and radiological datareview of laboratory and radiological data Subjective Date of service: 05/13/17 Principal diagnosis: Sepsis Syndrome; Acute Hypoxemic Resp Failure; Acute Encephalopathy; ESRD Interval history: Right bog toe dry gangrene Objective - Constitutional Vitals: Vital Signs - 12hr 05/12/17 05/12/17 05/13/17 23:40 23:50 00:00 Temperature 99.3 F Pulse Rate 93 H 103 H 92 H Pulse Rate [ Anterior Bilateral Throughout] Respiratory 25 H 19 21 Rate Respiratory Rate [Anterior Bilateral Throughout] Blood Pressure 153/99 134/48 134/48 O2 Sat by Pulse 100 100 100 Oximetry 05/13/17 05/13/17 05/13/17 00:10 00:20 00:30 Temperature Pulse Rate 91 H 92 H 89 Pulse Rate [ Anterior Bilateral Throughout] Respiratory 25 H 26 H 24 Rate Respiratory Rate [Anterior Bilateral Throughout] Blood Pressure 117/55 134/48 118/63 O2 Sat by Pulse 100 100 100 Oximetry 05/13/17 05/13/17 05/13/17 00:40 00:50 00:54 Temperature Pulse Rate 103 H 103 H 103 H Pulse Rate [ Anterior Bilateral Throughout] Respiratory 26 H 27 H 26 H Rate Respiratory Rate [Anterior Bilateral Throughout] Blood Pressure 118/63 110/50 118/63 O2 Sat by Pulse 100 100 100 Oximetry 05/13/17 05/13/17 05/13/17 01:00 01:10 01:20 Temperature Pulse Rate 99 H 105 H 117 H Pulse Rate [ Anterior Bilateral Throughout] Respiratory 27 H 32 H 30 H Rate Respiratory Rate [Anterior Bilateral Throughout] Blood Pressure 135/59 135/59 99/49 O2 Sat by Pulse 100 100 100 Oximetry 05/13/17 05/13/17 05/13/17 01:30 01:40 01:50 Temperature Pulse Rate 115 H 67 114 H Pulse Rate [ Anterior Bilateral Throughout] Respiratory 31 H 32 H 32 H Rate Respiratory Rate [Anterior Bilateral Throughout] Blood Pressure 100/70 100/70 92/68 O2 Sat by Pulse 100 100 100 Oximetry 05/13/17 05/13/17 05/13/17 02:00 02:10 02:20 Temperature Pulse Rate 117 H 101 H 110 H Pulse Rate [ Anterior Bilateral Throughout] Respiratory 26 H 22 26 H Rate Respiratory Rate [Anterior Bilateral Throughout] Blood Pressure 92/68 124/58 111/44 O2 Sat by Pulse 100 100 100 Oximetry 05/13/17 05/13/17 05/13/17 02:30 02:40 02:50 Temperature Pulse Rate 105 H 100 H 99 H Pulse Rate [ Anterior Bilateral Throughout] Respiratory 29 H 24 24 Rate Respiratory Rate [Anterior Bilateral Throughout] Blood Pressure 117/39 117/39 108/40 O2 Sat by Pulse 100 100 100 Oximetry 05/13/17 05/13/17 05/13/17 03:00 03:10 03:20 Temperature Pulse Rate 113 H 108 H 100 H Pulse Rate [ Anterior Bilateral Throughout] Respiratory 25 H 23 20 Rate Respiratory Rate [Anterior Bilateral Throughout] Blood Pressure 108/40 101/42 105/39 O2 Sat by Pulse 100 100 100 Oximetry 05/13/17 05/13/17 05/13/17 03:30 03:40 03:50 Temperature Pulse Rate 101 H 92 H 107 H Pulse Rate [ Anterior Bilateral Throughout] Respiratory 25 H 20 19 Rate Respiratory Rate [Anterior Bilateral Throughout] Blood Pressure 114/37 114/37 105/54 O2 Sat by Pulse 100 100 100 Oximetry 05/13/17 05/13/17 05/13/17 04:00 04:10 04:20 Temperature Pulse Rate 101 H 99 H 96 H Pulse Rate [ Anterior Bilateral Throughout] Respiratory 22 22 15 Rate Respiratory Rate [Anterior Bilateral Throughout] Blood Pressure 105/54 93/36 93/36 O2 Sat by Pulse 100 100 100 Oximetry 05/13/17 05/13/17 05/13/17 04:30 04:40 04:50 Temperature Pulse Rate 105 H 101 H 91 H Pulse Rate [ Anterior Bilateral Throughout] Respiratory 21 15 20 Rate Respiratory Rate [Anterior Bilateral Throughout] Blood Pressure 93/36 93/36 109/49 O2 Sat by Pulse 100 100 100 Oximetry 05/13/17 05/13/17 05/13/17 05:00 05:10 05:20 Temperature Pulse Rate 101 H 96 H 106 H Pulse Rate [ Anterior Bilateral Throughout] Respiratory 16 16 19 Rate Respiratory Rate [Anterior Bilateral Throughout] Blood Pressure 102/47 102/47 104/41 O2 Sat by Pulse 100 100 100 Oximetry 05/13/17 05/13/17 05/13/17 05:30 05:40 05:50 Temperature Pulse Rate 96 H 103 H 93 H Pulse Rate [ Anterior Bilateral Throughout] Respiratory 17 19 15 Rate Respiratory Rate [Anterior Bilateral Throughout] Blood Pressure 110/38 110/38 100/43 O2 Sat by Pulse 100 100 100 Oximetry 05/13/17 05/13/17 05/13/17 06:00 06:10 06:20 Temperature Pulse Rate 95 H 93 H 95 H Pulse Rate [ Anterior Bilateral Throughout] Respiratory 14 21 15 Rate Respiratory Rate [Anterior Bilateral Throughout] Blood Pressure 106/40 106/40 107/39 O2 Sat by Pulse 100 100 100 Oximetry 05/13/17 05/13/17 05/13/17 06:30 06:40 06:50 Temperature Pulse Rate 91 H 99 H 101 H Pulse Rate [ Anterior Bilateral Throughout] Respiratory 13 17 14 Rate Respiratory Rate [Anterior Bilateral Throughout] Blood Pressure 107/39 104/44 103/56 O2 Sat by Pulse 100 Oximetry 05/13/17 05/13/17 05/13/17 07:00 07:10 07:17 Temperature Pulse Rate 103 H 99 H 100 H Pulse Rate [ 100 H Anterior Bilateral Throughout] Respiratory 19 19 20 Rate Respiratory 22 Rate [Anterior Bilateral Throughout] Blood Pressure 102/60 102/60 117/79 O2 Sat by Pulse 100 Oximetry 05/13/17 05/13/17 05/13/17 07:20 07:30 07:36 Temperature Pulse Rate 98 H 98 H Pulse Rate [ 104 H Anterior Bilateral Throughout] Respiratory 18 16 Rate Respiratory 20 Rate [Anterior Bilateral Throughout] Blood Pressure 117/79 117/79 O2 Sat by Pulse 100 100 100 Oximetry 05/13/17 05/13/17 05/13/17 07:46 08:00 08:16 Temperature 98.7 F Pulse Rate 108 H 103 H 101 H Pulse Rate [ Anterior Bilateral Throughout] Respiratory 24 11 L 13 Rate Respiratory Rate [Anterior Bilateral Throughout] Blood Pressure 130/104 126/49 92/43 O2 Sat by Pulse 98 99 Oximetry 05/13/17 05/13/17 05/13/17 08:30 08:45 10:45 Temperature Pulse Rate 95 H 101 H Pulse Rate [ Anterior Bilateral Throughout] Respiratory 13 12 Rate Respiratory Rate [Anterior Bilateral Throughout] Blood Pressure 97/40 90/50 O2 Sat by Pulse 98 99 100 Oximetry General appearance: Present: no acute distress - EENT Eyes: PERRL, EOM intact ENT: hearing intact, clear oral mucosa Ears: bilateral: normal - Neck Neck: supple, normal ROM - Respiratory Respiratory effort: normal Respiratory: bilateral: CTA - Breasts Breasts: normal - Cardiovascular Rhythm: regular Heart Sounds: Present: S1 & S2. Absent: gallop, rub Extremities: pulses intact, No edema, normal color, Full ROM - Gastrointestinal General gastrointestinal: Present: soft, non-tender, non-distended, normal bowel sounds - Genitourinary Male genitourinary: normal - Integumentary Integumentary: clear, warm, dry - Musculoskeletal Musculoskeletal: 1, strength equal bilaterally - Neurologic Neurologic: moves all extremities - Psychiatric Psychiatric: cooperative - Labs CBC & Chem 7: 05/13/17 04:10 05/13/17 13:15 Labs: Abnormal lab results 05/12/17 05/12/17 05/12/17 Range/Units 15:52 19:10 21:26 WBC (4.5-11.0) K/mm3 MCV (84-94) fl RDW (13.2-15.2) % Plt Count (140-440) K/mm3 Lymph % (Auto) (13.4-35.0) % Coles % (Auto) (0.0-7.3) % Lymph # (1.2-5.4) K/mm3 Coles # (0.0-0.8) K/mm3 Seg Neutrophils % (40.0-70.0) % Seg Neutrophils # (1.8-7.7) K/mm3 Potassium 6.2 H* (3.6-5.0) mmol/L Chloride 95.8 L (98-107) mmol/L Carbon Dioxide 18 L (22-30) mmol/L BUN 56 H (9-20) mg/dL Creatinine 9.8 H (0.8-1.5) mg/dL Glucose 140 H (75-100) mg/dL POC Glucose 113 H 126 H (70-105) 05/13/17 05/13/17 05/13/17 Range/Units 01:43 02:03 04:10 WBC 13.8 H (4.5-11.0) K/mm3 MCV 95 H (84-94) fl RDW 21.6 H (13.2-15.2) % Plt Count 97 L (140-440) K/mm3 Lymph % (Auto) 7.6 L (13.4-35.0) % Coles % (Auto) 9.3 H (0.0-7.3) % Lymph # 1.1 L (1.2-5.4) K/mm3 Coles # 1.3 H (0.0-0.8) K/mm3 Seg Neutrophils % 80.0 H (40.0-70.0) % Seg Neutrophils # 11.0 H (1.8-7.7) K/mm3 Potassium 6.1 H* (3.6-5.0) mmol/L Chloride 95.5 L (98-107) mmol/L Carbon Dioxide 20 L (22-30) mmol/L BUN 58 H (9-20) mg/dL Creatinine 10.5 H (0.8-1.5) mg/dL Glucose 185 H (75-100) mg/dL POC Glucose 166 H (70-105) 05/13/17 05/13/17 Range/Units 04:10 05:47 WBC (4.5-11.0) K/mm3 MCV (84-94) fl RDW (13.2-15.2) % Plt Count (140-440) K/mm3 Lymph % (Auto) (13.4-35.0) % Coles % (Auto) (0.0-7.3) % Lymph # (1.2-5.4) K/mm3 Coles # (0.0-0.8) K/mm3 Seg Neutrophils % (40.0-70.0) % Seg Neutrophils # (1.8-7.7) K/mm3 Potassium 6.4 H* (3.6-5.0) mmol/L Chloride (98-107) mmol/L Carbon Dioxide (22-30) mmol/L BUN (9-20) mg/dL Creatinine (0.8-1.5) mg/dL Glucose (75-100) mg/dL POC Glucose 158 H (70-105)
--- NOTE | 2017-05-13 12:12 | Consultation ---
History of Present Illness - Reason for Consult Consult date: 05/13/17 PVD with gangrene - History of Present Illness Patient with a history of peripheral vascular disease who was undergone interventions of previously however, is consistently noncompliant with his therapies and follow-up care including wound care presents with altered mental status and respiratory distress. Time of examination, patient is obtunded and breathing heavily on a face mask ventilation. Responds to stimuli. Past History Past Medical History: dialysis, ESRD, PVD, other Past Surgical History: Other (AV fistula, BLE revascularization) Social history: smoking Family history: hypertension Medications and Allergies Allergies Allergy/AdvReac Type Severity Reaction Status Date / Time IVP dye Allergy Unknown Uncoded 12/02/15 14:35 Home Medications Medication Instructions Recorded Confirmed Last Taken Type Sevelamer Carbonate [Renvela] 0.8 gm PO TIDWM 07/13/16 02/08/17 02/07/17 History Insulin Aspart [NovoLOG Flexpen] 3 - 5 units SQ BIDAC 10/24/16 02/08/17 History Naproxen Sodium [Aleve TAB] 1 tab PO PRN PRN 02/08/17 02/08/17 02/08/17 History oxyCODONE /ACETAMINOPHEN [Percocet 1 tab PO Q4HR PRN #40 tab 02/08/17 Unknown Rx 5/325] Active Meds: Active Medications Acetaminophen (Tylenol) 650 mg PO Q4H PRN PRN Reason: Pain MILD(1-3)/Fever >100.5/[place] Albuterol/Ipratropium (Duoneb *Not For Prn Use*) 1 ampul IH TIDRT [facility] Last Admin: 05/13/17 07:20 Dose: 1 ampul Bisacodyl (Dulcolax) 10 mg ND QDAY PRN PRN Reason: Constipation unrelieved by MOM Dextrose (D50w (25gm) Vial) 25 gm IV PRN PRN PRN Reason: Hypoglycemia Last Admin: 05/11/17 21:32 Dose: 25 gm Famotidine (Pepcid) 20 mg PO DAILY [facility] Hydrocortisone Sodium Succinate (Solu-Cortef) 100 mg IV Q8H [facility] Stop: 05/13/17 23:59 Last Admin: 05/13/17 03:09 Dose: 100 mg Hydrocortisone Sodium Succinate (Solu-Cortef) 50 mg IV BID [facility] Stop: 05/14/17 22:01 Hydrocortisone Sodium Succinate (Solu-Cortef) 50 mg IV DAILY [facility] Stop: 05/15/17 10:01 Piperacillin Sod/Tazobactam Sod (Zosyn/Ns 2.25 Gm/50ml) 2.25 gm in 50 mls @ 100 mls/hr IV Q8HR [facility] PRN Reason: Protocol Last Admin: 05/13/17 06:44 Dose: 100 mls/hr Norepinephrine (Levophed Drip 4 Mg/Ns 250 Ml) 4 mg in 250 mls @ 7.5 mls/hr IV TITR [facility]; 2 MCG/MIN PRN Reason: Protocol Last Admin: 05/11/17 11:00 Dose: 2 mcg/min, 7.5 mls/hr Sodium Chloride (Nacl 0.9%) 100 mls @ 999 mls/hr IV JUDI PRN PRN Reason: Hypotension Vasopressin 20 unit/ Sodium (Chloride) 101 mls @ 9.09 mls/hr IV TITR [facility]; 0.03 UNITS/MIN PRN Reason: Protocol Last Admin: 05/12/17 11:42 Dose: 0.03 units/min, 9.09 mls/hr Amiodarone HCl 900 mg/ (Dextrose) 500 mls @ 33.33 mls/hr IV DIRECT [facility]; 1 MG /MIN PRN Reason: Protocol Midodrine (Proamatine) 10 mg PO Q8H [facility] Last Admin: 05/12/17 15:00 Dose: 10 mg Ondansetron HCl (Zofran) 4 mg IV Q8H PRN PRN Reason: N/V unrelieved by Reglan Review of Systems ROS unobtainable: due to mental status Exam - Constitutional Vitals: Temp Pulse Resp BP Pulse Ox 98.7 F 101 H 12 90/50 100 05/13/17 08:00 05/13/17 08:45 05/13/17 08:45 05/13/17 08:45 05/13/17 10:45 General appearance: Present: mild distress - Neck Neck: Present: other (enlarged secondary to central venous occlusion) - Respiratory Respiratory effort: labored - Extremities Extremities: abnormal - Abdominal General gastrointestinal: Present: deferred Male genitourinary: Present: deferred Results - Labs CBC & Chem 7: 05/13/17 04:10 05/13/17 04:10 Labs: Abnormal lab results 05/12/17 05/12/17 05/12/17 Range/Units 15:52 19:10 21:26 WBC (4.5-11.0) K/mm3 MCV (84-94) fl RDW (13.2-15.2) % Plt Count (140-440) K/mm3 Lymph % (Auto) (13.4-35.0) % Hall % (Auto) (0.0-7.3) % Lymph # (1.2-5.4) K/mm3 Hall # (0.0-0.8) K/mm3 Seg Neutrophils % (40.0-70.0) % Seg Neutrophils # (1.8-7.7) K/mm3 Potassium 6.2 H* (3.6-5.0) mmol/L Chloride 95.8 L (98-107) mmol/L Carbon Dioxide 18 L (22-30) mmol/L BUN 56 H (9-20) mg/dL Creatinine 9.8 H (0.8-1.5) mg/dL Glucose 140 H (75-100) mg/dL POC Glucose 113 H 126 H (70-105) C-Reactive Protein (0.00-1.30) mg/dL 05/13/17 05/13/17 05/13/17 Range/Units 01:43 02:03 04:10 WBC 13.8 H (4.5-11.0) K/mm3 MCV 95 H (84-94) fl RDW 21.6 H (13.2-15.2) % Plt Count 97 L (140-440) K/mm3 Lymph % (Auto) 7.6 L (13.4-35.0) % Hall % (Auto) 9.3 H (0.0-7.3) % Lymph # 1.1 L (1.2-5.4) K/mm3 Hall # 1.3 H (0.0-0.8) K/mm3 Seg Neutrophils % 80.0 H (40.0-70.0) % Seg Neutrophils # 11.0 H (1.8-7.7) K/mm3 Potassium 6.1 H* (3.6-5.0) mmol/L Chloride 95.5 L (98-107) mmol/L Carbon Dioxide 20 L (22-30) mmol/L BUN 58 H (9-20) mg/dL Creatinine 10.5 H (0.8-1.5) mg/dL Glucose 185 H (75-100) mg/dL POC Glucose 166 H (70-105) C-Reactive Protein (0.00-1.30) mg/dL 05/13/17 05/13/17 05/13/17 Range/Units 04:10 04:31 05:47 WBC (4.5-11.0) K/mm3 MCV (84-94) fl RDW (13.2-15.2) % Plt Count (140-440) K/mm3 Lymph % (Auto) (13.4-35.0) % Hall % (Auto) (0.0-7.3) % Lymph # (1.2-5.4) K/mm3 Hall # (0.0-0.8) K/mm3 Seg Neutrophils % (40.0-70.0) % Seg Neutrophils # (1.8-7.7) K/mm3 Potassium 6.4 H* (3.6-5.0) mmol/L Chloride (98-107) mmol/L Carbon Dioxide (22-30) mmol/L BUN (9-20) mg/dL Creatinine (0.8-1.5) mg/dL Glucose (75-100) mg/dL POC Glucose 158 H (70-105) C-Reactive Protein 40.20 H (0.00-1.30) mg/dL Assessment and Plan Patient with a history of PVD with wounds that are slow to heal secondary to noncompliance with therapy. Will consult care nurse for treatment while he is an inpatient. His current medical problems supersede any need for additional revascularization at this time.
[2017-05-13] MEDS: CORDARONE 900 MG in D5W 482 ML IV SCH (12:52)
[2017-05-13 12:57] LABS: ISTAT Base Excess -1; ISTAT HCO3 22.6; ISTAT PCO2 29.3 (35-45); ISTAT PH 7.496 (7.35-7.45); ISTAT PO2 87 (80-105); ISTAT SO2 98; ISTAT TCO2 24
--- NOTE | 2017-05-13 13:24 | XRay Report ---
FINAL REPORT EXAM: XR ABDOMEN 1V AP HISTORY: dobhoff placement TECHNIQUE: Single view of the abdomen. PRIORS: None currently available. FINDINGS: Bowel gas appearance is nonspecific and non-distended. There is no pneumoperitoneum. There is no air fluid level. There is no obstructive pattern. Mild stool is present. There are no suspicious calcifications overlying the renal shadows. Pelvic phleboliths. Degenerative changes are present in the spine and hips. Partially imaged dual lumen dialysis catheter noted within the inferior vena cava L2 level. Enteric tube tip is present within the left upper quadrant and probably in the stomach. IMPRESSION: Nonspecific nonobstructive bowel gas pattern. Enteric tube tip is probably in the stomach.
[2017-05-13] MEDS: PROAMATINE PO SCH ×2 (14:24→22:16)
[2017-05-13] MEDS: PEPCID PO SCH (14:24)
[2017-05-13] MEDS ORDERED: VANCOMYCIN/NS 1 GM/250 ML 1 GM/250 ML BAG IV ONE (15:00)
[2017-05-13] MEDS ORDERED: NACL 0.9% 100 ML IV PRN (17:00)
--- NOTE | 2017-05-13 19:28 | Progress Note ---
Assessment and Plan - Patient Problems (1) Diabetic foot infection Current Visit: Yes Status: Acute (2) Acute respiratory failure Current Visit: No Status: Acute (3) ESRD (end stage renal disease) on dialysis Current Visit: No Status: Acute Plan to address problem: BP-better today- off pressors. Pt has hyperkalemia--HD today with UF as tolerated. Adjust meds per renal function. (4) Hyperkalemia Current Visit: Yes Status: Acute (5) Sepsis Current Visit: Yes Status: Acute (6) Encephalopathy acute Current Visit: No Status: Resolved Subjective Date of service: 05/13/17 Principal diagnosis: Sepsis Syndrome; Acute Hypoxemic Resp Failure; Acute Encephalopathy; ESRD Interval history: pt is sleepy, on BiPAP. Pt was seen and examined this morning. Chart was reviewed, spoke with pt's nurse and Objective - Vital Signs Vital signs: Vital Signs - 12hr 05/13/17 05/13/17 05/13/17 07:30 07:36 07:46 Temperature Pulse Rate 98 H 108 H Pulse Rate [ 104 H Anterior Bilateral Throughout] Respiratory 16 24 Rate Respiratory 20 Rate [Anterior Bilateral Throughout] Respiratory Rate [Right Arm ] Respiratory Rate [Right Foot] Blood Pressure 117/79 130/104 O2 Sat by Pulse 100 100 Oximetry O2 Sat by Pulse Oximetry [ Anterior Bilateral Throughout] 05/13/17 05/13/17 05/13/17 08:00 08:16 08:30 Temperature 98.7 F Pulse Rate 103 H 101 H 95 H Pulse Rate [ Anterior Bilateral Throughout] Respiratory 16 13 13 Rate Respiratory Rate [Anterior Bilateral Throughout] Respiratory Rate [Right Arm ] Respiratory Rate [Right Foot] Blood Pressure 126/49 92/43 97/40 O2 Sat by Pulse 98 99 98 Oximetry O2 Sat by Pulse Oximetry [ Anterior Bilateral Throughout] 05/13/17 05/13/17 05/13/17 08:45 09:00 09:15 Temperature Pulse Rate 101 H 101 H 102 H Pulse Rate [ Anterior Bilateral Throughout] Respiratory 12 15 15 Rate Respiratory Rate [Anterior Bilateral Throughout] Respiratory Rate [Right Arm ] Respiratory Rate [Right Foot] Blood Pressure 90/50 104/41 115/43 O2 Sat by Pulse 99 99 99 Oximetry O2 Sat by Pulse Oximetry [ Anterior Bilateral Throughout] 05/13/17 05/13/17 05/13/17 09:30 09:45 10:00 Temperature Pulse Rate 97 H 101 H 99 H Pulse Rate [ Anterior Bilateral Throughout] Respiratory 13 13 14 Rate Respiratory Rate [Anterior Bilateral Throughout] Respiratory 21 Rate [Right Arm ] Respiratory 21 Rate [Right Foot] Blood Pressure 118/43 109/58 109/58 O2 Sat by Pulse 99 100 99 Oximetry O2 Sat by Pulse Oximetry [ Anterior Bilateral Throughout] 05/13/17 05/13/17 05/13/17 10:16 10:30 10:45 Temperature Pulse Rate 103 H 114 H 105 H Pulse Rate [ Anterior Bilateral Throughout] Respiratory 19 16 22 Rate Respiratory Rate [Anterior Bilateral Throughout] Respiratory Rate [Right Arm ] Respiratory Rate [Right Foot] Blood Pressure 100/52 118/81 115/62 O2 Sat by Pulse 100 100 98 Oximetry O2 Sat by Pulse Oximetry [ Anterior Bilateral Throughout] 05/13/17 05/13/17 05/13/17 11:00 11:15 11:30 Temperature Pulse Rate 102 H 105 H 105 H Pulse Rate [ Anterior Bilateral Throughout] Respiratory 20 22 19 Rate Respiratory Rate [Anterior Bilateral Throughout] Respiratory Rate [Right Arm ] Respiratory Rate [Right Foot] Blood Pressure 98/60 97/52 113/48 O2 Sat by Pulse 100 100 100 Oximetry O2 Sat by Pulse Oximetry [ Anterior Bilateral Throughout] 05/13/17 05/13/17 05/13/17 11:36 11:46 12:00 Temperature 98.5 F Pulse Rate 102 H 105 H Pulse Rate [ Anterior Bilateral Throughout] Respiratory 17 21 Rate Respiratory Rate [Anterior Bilateral Throughout] Respiratory Rate [Right Arm ] Respiratory Rate [Right Foot] Blood Pressure 98/60 98/60 O2 Sat by Pulse 100 100 100 Oximetry O2 Sat by Pulse Oximetry [ Anterior Bilateral Throughout] 05/13/17 05/13/17 05/13/17 12:16 12:30 12:45 Temperature Pulse Rate 100 H 103 H 108 H Pulse Rate [ Anterior Bilateral Throughout] Respiratory 14 24 15 Rate Respiratory Rate [Anterior Bilateral Throughout] Respiratory Rate [Right Arm ] Respiratory Rate [Right Foot] Blood Pressure 125/55 125/55 119/66 O2 Sat by Pulse 100 100 100 Oximetry O2 Sat by Pulse Oximetry [ Anterior Bilateral Throughout] 05/13/17 05/13/17 05/13/17 13:00 13:16 13:30 Temperature Pulse Rate 112 H 102 H 100 H Pulse Rate [ Anterior Bilateral Throughout] Respiratory 26 H 25 H 24 Rate Respiratory Rate [Anterior Bilateral Throughout] Respiratory Rate [Right Arm ] Respiratory Rate [Right Foot] Blood Pressure 106/70 121/84 121/93 O2 Sat by Pulse 100 100 Oximetry O2 Sat by Pulse Oximetry [ Anterior Bilateral Throughout] 05/13/17 05/13/17 05/13/17 13:46 14:00 14:02 Temperature Pulse Rate 98 H 103 H Pulse Rate [ 105 H Anterior Bilateral Throughout] Respiratory 29 H 27 H Rate Respiratory 22 Rate [Anterior Bilateral Throughout] Respiratory Rate [Right Arm ] Respiratory Rate [Right Foot] Blood Pressure 129/46 129/46 O2 Sat by Pulse 100 100 Oximetry O2 Sat by Pulse Oximetry [ Anterior Bilateral Throughout] 05/13/17 05/13/17 05/13/17 14:16 14:20 14:30 Temperature Pulse Rate 105 H 107 H Pulse Rate [ 101 H Anterior Bilateral Throughout] Respiratory 24 25 H Rate Respiratory 20 Rate [Anterior Bilateral Throughout] Respiratory Rate [Right Arm ] Respiratory Rate [Right Foot] Blood Pressure 92/53 91/58 O2 Sat by Pulse 98 Oximetry O2 Sat by Pulse Oximetry [ Anterior Bilateral Throughout] 05/13/17 05/13/17 05/13/17 14:46 15:00 15:16 Temperature Pulse Rate 106 H 108 H 110 H Pulse Rate [ Anterior Bilateral Throughout] Respiratory 26 H 24 26 H Rate Respiratory Rate [Anterior Bilateral Throughout] Respiratory Rate [Right Arm ] Respiratory Rate [Right Foot] Blood Pressure 91/58 101/54 101/54 O2 Sat by Pulse Oximetry O2 Sat by Pulse Oximetry [ Anterior Bilateral Throughout] 05/13/17 05/13/17 05/13/17 15:30 15:46 15:58 Temperature 99.2 F Pulse Rate 101 H 105 H 102 H Pulse Rate [ Anterior Bilateral Throughout] Respiratory 24 29 H 25 H Rate Respiratory Rate [Anterior Bilateral Throughout] Respiratory Rate [Right Arm ] Respiratory Rate [Right Foot] Blood Pressure 93/62 93/62 100/60 O2 Sat by Pulse 93 Oximetry O2 Sat by Pulse 91 Oximetry [ Anterior Bilateral Throughout] 05/13/17 05/13/17 05/13/17 16:00 16:15 16:30 Temperature Pulse Rate 102 H 106 H 114 H Pulse Rate [ Anterior Bilateral Throughout] Respiratory 29 H 28 H 22 Rate Respiratory Rate [Anterior Bilateral Throughout] Respiratory Rate [Right Arm ] Respiratory Rate [Right Foot] Blood Pressure 92/64 101/54 110/57 O2 Sat by Pulse 99 98 Oximetry O2 Sat by Pulse Oximetry [ Anterior Bilateral Throughout] 05/13/17 05/13/17 05/13/17 16:45 16:46 17:00 Temperature Pulse Rate 108 H 103 H 106 H Pulse Rate [ Anterior Bilateral Throughout] Respiratory 20 25 H Rate Respiratory Rate [Anterior Bilateral Throughout] Respiratory Rate [Right Arm ] Respiratory Rate [Right Foot] Blood Pressure 119/71 119/71 100/58 O2 Sat by Pulse Oximetry O2 Sat by Pulse Oximetry [ Anterior Bilateral Throughout] 05/13/17 05/13/17 05/13/17 17:15 17:30 17:45 Temperature Pulse Rate 105 H 106 H 105 H Pulse Rate [ Anterior Bilateral Throughout] Respiratory 23 24 20 Rate Respiratory Rate [Anterior Bilateral Throughout] Respiratory Rate [Right Arm ] Respiratory Rate [Right Foot] Blood Pressure 105/64 83/56 79/52 O2 Sat by Pulse 100 Oximetry O2 Sat by Pulse Oximetry [ Anterior Bilateral Throughout] 05/13/17 05/13/17 05/13/17 17:59 18:00 18:15 Temperature 98.2 F Pulse Rate 104 H 106 H Pulse Rate [ Anterior Bilateral Throughout] Respiratory 26 H Rate Respiratory Rate [Anterior Bilateral Throughout] Respiratory Rate [Right Arm ] Respiratory Rate [Right Foot] Blood Pressure 81/62 89/58 O2 Sat by Pulse Oximetry O2 Sat by Pulse Oximetry [ Anterior Bilateral Throughout] 05/13/17 05/13/1717 18:16 18:30 18:45 Temperature Pulse Rate 105 H 105 H 106 H Pulse Rate [ Anterior Bilateral Throughout] Respiratory 21 21 Rate Respiratory Rate [Anterior Bilateral Throughout] Respiratory Rate [Right Arm ] Respiratory Rate [Right Foot] Blood Pressure 89/58 94/62 96/53 O2 Sat by Pulse Oximetry O2 Sat by Pulse Oximetry [ Anterior Bilateral Throughout] 05/13/17 05/13/17 05/13/17 18:46 19:00 19:15 Temperature Pulse Rate 104 H 105 H 106 H Pulse Rate [ Anterior Bilateral Throughout] Respiratory 24 20 20 Rate Respiratory Rate [Anterior Bilateral Throughout] Respiratory Rate [Right Arm ] Respiratory Rate [Right Foot] Blood Pressure 96/53 104/57 104/59 O2 Sat by Pulse 97 98 Oximetry O2 Sat by Pulse Oximetry [ Anterior Bilateral Throughout] - General Appearance General appearance: well-developed EENT: mucous membranes dry Neck: no JVD Respiratory: Present: Decreased Breath Sounds Cardiology: irregular, tachycardia Gastrointestinal: normoactive bowel sounds Neurologic: obtunded Musculoskeletal: other (1+edema, right great toe ischemic changes) - Lab 05/13/17 04:10 05/13/17 13:15 Most recent lab results Calcium 8.7 mg/dL (8.4-10.2) 05/13/17 01:43
--- NOTE | 2017-05-14 02:44 | XRay Report ---
FINAL REPORT PROCEDURE: XR CHEST 1V AP TECHNIQUE: Chest radiograph anteroposterior view. CPT 18549 HISTORY: Effusion COMPARISON: 05/10/2017 FINDINGS: Heart: Heart is borderline enlarged. Mediastinum/Vessels: Normal. Lungs/Pleural space: There is a large right pleural effusion similar to the prior study. Left lung is clear.. Bony thorax: No acute osseous abnormality. Life support devices: NG tube is in the stomach.. IMPRESSION: Heart is borderline enlarged. There is a large right pleural effusion similar to the prior study. Left lung is clear.. NG tube is in the stomach.. .
[2017-05-14] MEDS: ZOSYN/NS 2.25 GM/50ML 2.25 GM/50 ML BAG IV SCH (06:05)
[2017-05-14] MEDS: PROAMATINE PO SCH ×4 (06:06→22:00)
[2017-05-14 08:54] LABS: Calcium 8.7 mg/dL (8.4-10.2); Chloride 96.1 mmol/L (98-107); Potassium 5.2 mmol/L (3.6-5.0)
[2017-05-14] MEDS: DUONEB *Not for PRN Use IH SCH ×3 (09:08→19:49)
[2017-05-14 09:10] LABS: Hematocrit 39.8 % (35.5-45.6); Hemoglobin 13.3 gm/dl (11.8-15.2); Red Blood Count 4.22 M/mm3 (3.65-5.03); White Blood Count 14.6 K/mm3 (4.5-11.0)
[2017-05-14 09:11] LABS: Mean Corpuscular HGB Conc 33 % (32-34); Mean Corpuscular Hemoglobin 32 pg (28-32); Mean Corpuscular Volume 94 fl (84-94); Platelet Count 69 K/mm3 (140-440); Red Cell Distribution Width 20.7 % (13.2-15.2)
[2017-05-14] MEDS: PEPCID PO SCH (09:44)
--- NOTE | 2017-05-14 11:08 | Progress Note ---
Assessment and Plan Altered Mental status Right sided pneumonia and effusion Bilateral mastoiditis ESRD on HD through a right femoral dialysis catheter Hyperkalemia Lactic acidosis Hypotension due to SIRS/sepsis now off pressors Cardiomyopathy, LVEF 25-30% Severe right ventricular enlargement and dysfunction Moderate to severe TR with severe pulmonary hypertension. 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 Continue IV amiodarone for rhythm control. Subjective Date of service: 05/14/17 Principal diagnosis: Sepsis Syndrome; Acute Hypoxemic Resp Failure; Acute Encephalopathy; ESRD Interval history: No interval changes. Objective Vital Signs Temp Pulse Pulse Resp Resp BP Pulse Ox 05/14/17 09:30 110 H 29 H 05/14/17 09:08 109 H 28 H 05/14/17 09:04 109 H 36 H 99/47 96 05/14/17 08:15 110 H 18 109/64 98 05/14/17 08:01 109 H 21 117/55 97 05/14/17 08:00 98.4 F 05/14/17 07:45 109 H 25 H 135/62 98 05/14/17 07:31 107 H 16 118/55 97 05/14/17 07:15 107 H 18 131/58 97 05/14/17 07:00 109 H 15 130/60 97 05/14/17 06:45 108 H 24 122/63 98 05/14/17 06:30 108 H 19 117/57 97 05/14/17 06:15 108 H 23 120/53 96 05/14/17 06:00 107 H 24 94/44 97 05/14/17 05:45 108 H 26 H 101/51 97 05/14/17 05:30 108 H 25 H 110/64 98 05/14/17 05:23 108 H 20 111/47 97 05/14/17 05:15 107 H 21 111/47 98 05/14/17 05:00 107 H 17 107/50 98 05/14/17 04:46 108 H 11 L 91/55 98 05/14/17 04:30 111 H 16 99/56 98 05/14/17 04:15 111 H 21 105/58 98 05/14/17 04:00 110 H 23 98/59 95 05/14/17 03:45 110 H 19 91/55 97 05/14/17 03:31 100.1 F H 05/14/17 03:30 111 H 24 100/58 98 05/14/17 03:15 111 H 15 100/54 98 05/14/17 03:00 111 H 21 95/56 97 05/14/17 02:45 111 H 16 103/58 99 05/14/17 02:30 110 H 25 H 95/51 97 05/14/17 02:15 110 H 22 91/59 97 05/14/17 02:00 112 H 24 112/60 99 05/14/17 01:45 112 H 20 107/57 97 05/14/17 01:30 112 H 24 108/61 98 05/14/17 01:15 111 H 17 96/58 05/14/17 01:00 110 H 14 101/54 05/14/17 00:45 111 H 23 105/61 96 05/14/17 00:30 109 H 23 97/60 98 05/14/17 00:15 109 H 20 105/54 99 05/14/17 00:00 99.7 F H 108 H 18 105/39 100 05/13/17 23:45 107 H 20 110/50 100 05/13/17 23:30 102 H 19 90/55 90 05/13/17 23:15 102 H 24 90/63 05/13/17 23:00 101 H 26 H 87/46 100 05/13/17 22:45 103 H 21 99/51 89 05/13/17 22:30 100 H 19 90/30 96 05/13/17 22:15 102 H 24 89/50 88 05/13/17 22:00 103 H 22 89/59 97 05/13/17 21:45 103 H 25 H 101/50 94 05/13/17 21:30 102 H 19 97/56 05/13/17 21:15 102 H 17 89/44 93 05/13/17 21:00 104 H 21 109/59 97 05/13/17 20:45 103 H 22 90/60 91 05/13/17 20:30 102 H 14 92/51 99 05/13/17 20:26 100 05/13/17 20:20 103 H 104 H 27 H 20 96/61 94 12/18/17 20:15 104 H 25 H 99/57 91 18/17 20:00 98.3 F 104 H 101 H 20 20 106/66 97 18/17 19:45 103 H 24 96/61 92 18/17 19:38 98.8 F 104 H 21 121/52 18/17 19:30 102 H 18 121/52 97 18/17 19:23 103 H 104/59 1817 19:15 106 H 20 104/59 98 1817 19:00 105 H 20 104/57 97 18/17 18:46 104 H 24 96/53 18/17 18:45 106 H 96/53 1817 18:30 105 H 21 94/62 17 18:16 105 H 21 89/58 18/17 18:15 106 H 89/58 18/17 18:00 104 H 26 H 81/62 17 17:59 98.2 F 17 17:45 105 H 20 79/52 17 17:30 106 H 24 83/56 100 1817 17:15 105 H 23 105/64 18/17 17:00 106 H 25 H 100/58 1817 16:46 103 H 20 119/71 18/17 16:45 108 H 119/71 1817 16:30 114 H 22 110/57 98 18/17 16:15 106 H 28 H 101/54 17 16:00 102 H 29 H 92/64 99 1817 15:58 99.2 F 102 H 25 H 100/60 18/17 15:46 105 H 29 H 93/62 18/17 15:30 101 H 24 93/62 93 18/17 15:16 110 H 26 H 101/54 1817 15:00 108 H 24 101/54 18/17 14:46 106 H 26 H 91/58 18/17 14:30 107 H 25 H 91/58 18/17 14:20 101 H 20 17 14:16 105 H 24 92/53 98 1817 14:02 105 H 22 05/13/17 14:00 103 H 27 H 129/46 100 05/13/17 13:46 98 H 29 H 129/46 100 05/13/17 13:30 100 H 24 121/93 100 05/13/17 13:16 102 H 25 H 121/84 100 05/13/17 13:00 112 H 26 H 106/70 05/13/17 12:45 108 H 15 119/66 100 05/13/17 12:30 103 H 24 125/55 100 05/13/17 12:16 100 H 14 125/55 100 05/13/17 12:00 98.5 F 105 H 21 98/60 100 05/13/17 11:46 102 H 17 98/60 100 05/13/17 11:36 100 05/13/17 11:30 105 H 19 113/48 100 05/13/17 11:15 105 H 22 97/52 100 Pulse Ox 05/14/17 09:30 05/14/17 09:08 05/14/17 09:04 05/14/17 08:15 05/14/17 08:01 05/14/17 08:00 05/14/17 07:45 05/14/17 07:31 05/14/17 07:15 05/14/17 07:00 05/14/17 06:45 05/14/17 06:30 05/14/17 06:15 05/14/17 06:00 05/14/17 05:45 05/14/17 05:30 05/14/17 05:23 05/14/17 05:15 05/14/17 05:00 05/14/17 04:46 05/14/17 04:30 05/14/17 04:15 05/14/17 04:00 05/14/17 03:45 05/14/17 03:31 05/14/17 03:30 05/14/17 03:15 05/14/17 03:00 05/14/17 02:45 05/14/17 02:30 05/14/17 02:15 05/14/17 02:00 05/14/17 01:45 05/14/17 01:30 05/14/17 01:15 05/14/17 01:00 05/14/17 00:45 05/14/17 00:30 05/14/17 00:15 05/14/17 00:00 05/13/17 23:45 05/13/17 23:30 05/13/17 23:15 05/13/17 23:00 05/13/17 22:45 05/13/17 22:30 05/13/17 22:15 05/13/17 22:00 05/13/17 21:45 05/13/17 21:30 05/13/17 21:15 05/13/17 21:00 05/13/17 20:45 05/13/17 20:30 05/13/17 20:26 05/13/17 20:20 05/13/17 20:15 05/13/17 20:00 05/13/17 19:45 05/13/17 19:38 94 05/13/17 19:30 05/13/17 19:23 05/13/17 19:15 05/13/17 19:00 05/13/17 18:46 05/13/17 18:45 05/13/17 18:30 05/13/17 18:16 05/13/17 18:15 05/13/17 18:00 05/13/17 17:59 05/13/17 17:45 05/13/17 17:30 05/13/17 17:15 05/13/17 17:00 05/13/17 16:46 05/13/17 16:45 05/13/17 16:30 05/13/17 16:15 05/13/17 16:00 05/13/17 15:58 91 05/13/17 15:46 05/13/17 15:30 05/13/17 15:16 05/13/17 15:00 05/13/17 14:46 05/13/17 14:30 05/13/17 14:20 05/13/17 14:16 05/13/17 14:02 05/13/17 14:00 05/13/17 13:46 05/13/17 13:30 17 13:16 05/13/17 13:00 05/13/17 12:45 05/13/17 12:30 05/13/17 12:16 05/13/17 12:00 05/13/17 11:46 05/13/17 11:36 05/13/17 11:30 05/13/17 11:15 - Physical Examination Cardiac: Positive: irregularly irregular Abdomen: Positive: Soft Extremities: Absent: edema - Labs and Meds CBC 05/14/17 Range/Units 07:00 WBC 14.6 H (4.5-11.0) K/mm3 RBC 4.22 (3.65-5.03) M/mm3 Hgb 13.3 (11.8-15.2) gm/dl Hct 39.8 (35.5-45.6) % Plt Count 69 L (140-440) K/mm3 Comprehensive Metabolic Panel 05/13/17 05/14/17 Range/Units 13:15 07:00 Sodium 142 (137-145) mmol/L Potassium 5.6 H 5.2 H (3.6-5.0) mmol/L Chloride 96.1 L (98-107) mmol/L Carbon Dioxide 23 (22-30) mmol/L BUN 45 H (9-20) mg/dL Creatinine 7.3 H (0.8-1.5) mg/dL Glucose 190 H (75-100) mg/dL Calcium 8.7 (8.4-10.2) mg/dL - Imaging and Cardiology EKG: image reviewed - Allied health notes Allied health notes reviewed: RT (on venturi mask, monitor oxygen saturations)
[2017-05-14] MEDS: CORDARONE 900 MG in D5W 482 ML IV SCH (11:21)
--- NOTE | 2017-05-14 12:14 | Ultrasound Report ---
ULTRASOUND THORACENTESIS History: Right pleural effusion. Description of procedure: Informed consent was obtained. Sterile technique was utilized. 1% lidocaine for skin anesthesia. Using ultrasound guidance, a 5 Sinhala centesis needle was advanced into the right pleural space. There was spontaneous return of blood-tinged fluid. 1.8 L of fluid was aspirated. 120 cc of fluid was sent to lab for analysis. No complications. Impression: Successful ultrasound-guided right thoracentesis as described.
--- NOTE | 2017-05-14 12:17 | Procedure Note ---
Date of procedure: 05/14/17 Pre-op diagnosis: right pleural effusion Post-op diagnosis: same Procedure: US thoracentesis Findings: large right pleural effusion Anesthesia: local Surgeon: SRIDEVI GUNDERSON Estimated blood loss: none Pathology: list (120cc) Specimen disposition: to lab Condition: stable Disposition: floor
--- NOTE | 2017-05-14 12:34 | Progress Note ---
Assessment and Plan Assessment and plan: 51-year-old man history of hypertension, diabetes, end-stage renal disease on dialysis was brought to the emergency room because he was weak and not acting himself. Brother at bedside state that after dialysis his symptoms started, family members told him that he had a syncopal episode. The review of system unobtainable currently off pressors, on amiodarone drip for Aflutter afib has Right thumb ischemia; blue and cold and ischemia to toes, appears to be dry gangrene Blood cx growing MSSA: continue broad spectrum abx: Consult ID Assessment and Plan Acute metabolic encephalopathy: Likely due to sepsis. Patient is on antibiotics and for hemodialysis. Acute respiratory failure: On DuoNeb, supplemental oxygen, antibiotics. For thoracentesis for pneumonic effusion. Family Practice Physician Assistant following. Septic shock: On vasopressin and midodrine. Right pneumonia and pleural effusion: On antibiotics. For thoracentesis. Bilateral mastoiditis: On antibiotics. End-stage renal disease: For hemodialysis. Nephrology following. Hyperkalemia: Will treat until hemodialysis. Lactic acidosis: Due to sepsis. Systolic heart failure with left ventricular ejection fraction of 25-30%: Cardiologists following. Pulmonary hypertension: Cardiologists following. A-fib: Rate controlled with amiodarone. Peripheral vascular disease: Arterial doppler showed severe occlusive disease BLE. Vascular surgery following. Diabetes mellitus: Sliding scale insulin. Hypertensionnow hypotensive: Hold BP meds. Still very ill pt. Spent 32 min of critical care time in direct pt care, review of laboratory and radiological datareview of laboratory and radiological data Cardiology Continue IV amiodarone for rhythm control. Renal (3) ESRD (end stage renal disease) on dialysis Current Visit: No Status: Acute Plan to address problem: BP-better today- off pressors. Pt has hyperkalemia--HD today with UF as tolerated. Adjust meds per renal function. Vascular surgery Patient with a history of PVD with wounds that are slow to heal secondary to noncompliance with therapy. Will consult care nurse for treatment while he is an inpatient. His current medical problems supersede any need for additional revascularization at this time. The high probability of a clinically significant, sudden or life threatening deterioration of the [cardviovascular, renal, pulmonary] system(s) required my full and direct attention, intervention and personal management. The aggregate critical care time was [45] minutes. This time is in addition to time spent performing reported procedures but includes the following: [] Data Review and interpretation [] Patient assessment and monitoring of vital signs [] Documentation [] Medication orders and management History Interval history: Patient continued to deteriorate, his mentation is getting worse, his extremities are blue with poor pulses. Hospitalist Physical - Physical exam Narrative exam: General appearance: disheveled HEENT: reactive pupil Neck: Positive: neck supple Cardiac: Positive: Reg Rate and Rhythm, Systolic Murmur Lungs: Positive: Decreased Breath Sounds Abdomen: Positive: Soft Extremities: His extremities are blue and have poor pulses Neuro: Obtunded, nonresponsive - Constitutional Vitals: Temp Pulse Resp BP Pulse Ox 98.4 F 106 H 29 H 102/44 99 05/14/17 08:00 05/14/17 12:27 05/14/17 12:27 05/14/17 12:27 05/14/17 12:27 General appearance: Present: no acute distress Results - Labs CBC & Chem 7: 05/15/17 07:50 05/15/17 07:50 Labs: Laboratory Last Values WBC 14.6 K/mm3 (4.5-11.0) H 05/14/17 07:00 RBC 4.22 M/mm3 (3.65-5.03) 05/14/17 07:00 Hgb 13.3 gm/dl (11.8-15.2) 05/14/17 07:00 Hct 39.8 % (35.5-45.6) 05/14/17 07:00 MCV 94 fl (84-94) 05/14/17 07:00 MCH 32 pg (28-32) 05/14/17 07:00 MCHC 33 % (32-34) 05/14/17 07:00 RDW 20.7 % (13.2-15.2) H 05/14/17 07:00 Plt Count 69 K/mm3 (140-440) L 05/14/17 07:00 Lymph % (Auto) 7.6 % (13.4-35.0) L 05/13/17 04:10 [place] % (Auto) 9.3 % (0.0-7.3) H 05/13/17 04:10 Eos % (Auto) 2.6 % (0.0-4.3) 05/13/17 04:10 Baso % (Auto) 0.5 % (0.0-1.8) 05/13/17 04:10 Lymph # 1.1 K/mm3 (1.2-5.4) L 05/13/17 04:10 [place] # 1.3 K/mm3 (0.0-0.8) H 05/13/17 04:10 Eos # 0.4 K/mm3 (0.0-0.4) 05/13/17 04:10 Baso # 0.1 K/mm3 (0.0-0.1) 05/13/17 04:10 Add Manual Diff Complete 05/09/17 19:34 Total Counted 100 05/09/17 19:34 Seg Neutrophils % 80.0 % (40.0-70.0) H 05/13/17 04:10 Seg Neuts % (Manual) 92.0 % (40.0-70.0) H 05/09/17 19:34 Band Neutrophils % 0 % 05/09/17 19:34 Lymphocytes % (Manual) 3.0 % (13.4-35.0) L 05/09/17 19:34 Reactive Lymphs % (Man) 0 % 05/09/17 19:34 Monocytes % (Manual) 2.0 % (0.0-7.3) 05/09/17 19:34 Eosinophils % (Manual) 2.0 % (0.0-4.3) 05/09/17 19:34 Basophils % (Manual) 1.0 % (0.0-1.8) 05/09/17 19:34 Metamyelocytes % 0 % 05/09/17 19:34 Myelocytes % 0 % 05/09/17 19:34 Promyelocytes % 0 % 05/09/17 19:34 Blast Cells % 0 % 05/09/17 19:34 Nucleated RBC % Not Reportable 05/09/17 19:34 Seg Neutrophils # 11.0 K/mm3 (1.8-7.7) H 05/13/17 04:10 Seg Neutrophils # Man 14.4 K/mm3 (1.8-7.7) H 05/09/17 19:34 Band Neutrophils # 0.0 K/mm3 05/09/17 19:34 Lymphocytes # (Manual) 0.5 K/mm3 (1.2-5.4) L 05/09/17 19:34 Abs React Lymphs (Man) 0.0 K/mm3 05/09/17 19:34 Monocytes # (Manual) 0.3 K/mm3 (0.0-0.8) 05/09/17 19:34 Eosinophils # (Manual) 0.3 K/mm3 (0.0-0.4) 05/09/17 19:34 Basophils # (Manual) 0.2 K/mm3 (0.0-0.1) H 05/09/17 19:34 Metamyelocytes # 0.0 K/mm3 05/09/17 19:34 Myelocytes # 0.0 K/mm3 05/09/17 19:34 Promyelocytes # 0.0 K/mm3 05/09/17 19:34 Blast Cells # 0.0 K/mm3 05/09/17 19:34 WBC Morphology Not Reportable 05/09/17 19:34 Hypersegmented Neuts Not Reportable 05/09/17 19:34 Hyposegmented Neuts Not Reportable 05/09/17 19:34 Hypogranular Neuts Not Reportable 05/09/17 19:34 Smudge Cells Not Reportable 05/09/17 19:34 Toxic Granulation Not Reportable 05/09/17 19:34 Toxic Vacuolation Not Reportable 05/09/17 19:34 Dohle Bodies Not Reportable 05/09/17 19:34 Pelger-Huet Anomaly Not Reportable 05/09/17 19:34 Marv Rods Not Reportable 05/09/17 19:34 Platelet Estimate Consistent w auto 05/09/17 19:34 Clumped Platelets Not Reportable 05/09/17 19:34 Plt Clumps, EDTA Not Reportable 05/09/17 19:34 Large Platelets Not Reportable 05/09/17 19:34 Giant Platelets Not Reportable 05/09/17 19:34 Platelet Satelliting Not Reportable 05/09/17 19:34 Plt Morphology Comment Not Reportable 05/09/17 19:34 RBC Morphology Not Reportable 05/09/17 19:34 Dimorphic RBCs Not Reportable 05/09/17 19:34 Polychromasia Not Reportable 05/09/17 19:34 Hypochromasia Not Reportable 05/09/17 19:34 Poikilocytosis Not Reportable 05/09/17 19:34 Anisocytosis 1+ 05/09/17 19:34 Microcytosis Not Reportable 05/09/17 19:34 Macrocytosis Not Reportable 05/09/17 19:34 Spherocytes Not Reportable 05/09/17 19:34 Pappenheimer Bodies Not Reportable 05/09/17 19:34 Sickle Cells Not Reportable 05/09/17 19:34 Target Cells Not Reportable 05/09/17 19:34 Tear Drop Cells Not Reportable 05/09/17 19:34 Ovalocytes Not Reportable 05/09/17 19:34 Helmet Cells Not Reportable 05/09/17 19:34 [place] Bodies Not Reportable 05/09/17 19:34 [place] Rings Not Reportable 05/09/17 19:34 Arabella Cells Not Reportable 05/09/17 19:34 Bite Cells Not Reportable 05/09/17 19:34 Crenated Cell Not Reportable 05/09/17 19:34 Elliptocytes Not Reportable 05/09/17 19:34 Acanthocytes (Spur) Not Reportable 05/09/17 19:34 Rouleaux Not Reportable 05/09/17 19:34 Hemoglobin C Crystals Not Reportable 05/09/17 19:34 Schistocytes Not Reportable 05/09/17 19:34 Malaria parasites Not Reportable 05/09/17 19:34 ESR 1 mm/Hr (0-20) 05/09/17 19:34 Nestor Bodies Not Reportable 05/09/17 19:34 Hem Pathologist Commnt No 05/09/17 19:34 PT 20.3 Sec. (12.2-14.9) H 05/12/17 06:41 INR 1.63 (0.87-1.13) H 05/12/17 06:41 APTT 52.8 Sec. (24.2-36.6) H 05/12/17 06:41 D-Dimer 1996.75 ng/mlDDU (0-234) H 05/09/17 19:34 POC ABG pH 7.496 (7.35-7.45) H 05/13/17 12:56 POC ABG pCO2 29.3 (35-45) L 05/13/17 12:56 POC ABG pO2 87 (80-105) 05/13/17 12:56 POC ABG HCO3 22.6 05/13/17 12:56 POC ABG Total CO2 24 05/13/17 12:56 POC ABG O2 Sat 98 05/13/17 12:56 POC ABG Base Excess -1 05/13/17 12:56 FiO2 31 % 05/13/17 12:56 Sodium 142 mmol/L (137-145) 05/14/17 07:00 Potassium 5.2 mmol/L (3.6-5.0) H 05/14/17 07:00 Chloride 96.1 mmol/L (98-107) L 05/14/17 07:00 Carbon Dioxide 23 mmol/L (22-30) 05/14/17 07:00 Anion Gap 28 mmol/L 05/14/17 07:00 BUN 45 mg/dL (9-20) H 05/14/17 07:00 Creatinine 7.3 mg/dL (0.8-1.5) H 05/14/17 07:00 Estimated GFR 10 ml/min 05/14/17 07:00 BUN/Creatinine Ratio 6 % 05/14/17 07:00 Glucose 190 mg/dL (75-100) H 05/14/17 07:00 POC Glucose 126 (70-105) H 05/14/17 05:10 Lactic Acid 2.30 mmol/L (0.7-2.0) H* 05/12/17 Unknown Calcium 8.7 mg/dL (8.4-10.2) 05/14/17 07:00 Ammonia 30.0 umol/L (25-60) 05/13/17 12:00 Lactate Dehydrogenase 255 units/L (91-180) H 05/11/17 12:43 Total Creatine Kinase 230 units/L (55-170) H 05/10/17 07:31 CK-MB (CK-2) 10.0 ng/mL (0.0-4.0) H 05/10/17 07:31 CK-MB (CK-2) Rel Index 4.3 (0-4) H 05/10/17 07:31 Troponin T 0.371 ng/mL (0.00-0.029) H* 05/10/17 07:31 C-Reactive Protein 40.20 mg/dL (0.00-1.30) H 05/13/17 04:31 Total Protein 6.2 g/dL (6.3-8.2) L 05/11/17 12:43 Triglycerides 191 mg/dL (2-149) H 05/09/17 19:34 Cholesterol 114 mg/dL (50-199) 05/09/17 19:34 LDL Cholesterol Direct 68 mg/dL (50-130) 05/09/17 19:34 HDL Cholesterol 8 mg/dL (40-59) L 05/09/17 19:34 Cholesterol/HDL Ratio 14.25 % 05/09/17 19:34 TSH 5.000 mlU/mL (0.270-4.200) H 05/09/17 19:25 Free T4 1.36 ng/dL (0.76-1.46) 05/09/17 19:25 Random Vancomycin 8.1 ug/mL (0-40.0) 05/12/17 19:10 Hepatitis A IgM Ab Non-reactive (NonReactive) 05/13/17 16:45 Hep Bs Antigen Non-reactive (Negative) 05/13/17 16:45 Hep B Core IgM Ab Non-reactive (NonReactive) 05/13/17 16:45 Hepatitis C Antibody Non-reactive (NonReactive) 05/13/17 16:45
--- NOTE | 2017-05-14 12:47 | Progress Note ---
Assessment and Plan Acute Hypoxemic Resp Failure Sepsis Syndrome Right Pleural Effusion ESRD on dialysis HTN Anemia Acute Encephalopathy (Toxic-Metabolic) - continue supplemental oxygen - take off BIPAP then get ABG - de-escalated AB's to unasyn for MSSA bacteremia after discussing with ID - ID consult placed - continue HD/UF as tolerated for toxin and volume clearance - Vassopressors for MAP < 60mmHg with target > 65mmHg - continue midodrine at 10mg p.o. q8h - continue empiric AB's - will keep femoral CVL's in place in short time as he has very difficult vascular access - get lactate and CRP and trend as necessary - follow random cortisol level - Continue aspiration Precautions - continue GI & VTE prophylaxis - Flu & pneumovax per protocol ..he remains critically ill on life sustaining interventions including continuous NIV and at high risk for further deterioration including ...full CODE status ....32' CCT Subjective Date of service: 05/14/17 Principal diagnosis: Sepsis Syndrome; Acute Hypoxemic Resp Failure; Acute Encephalopathy; ESRD Interval history: Patient is seen today for: Sepsis Syndrome; Acute Hypoxemic Resp Failure; Acute Encephalopathy; ESRD; large Right Pleural Effusion Seen and examined at bedside; 24hour events reviewed; nursing and respiratory care staff consulted; no adverse overnight events reported to me; resting in bed ; remains lethargic; s/p thoracentesis; no N/V/F/C; remains on BIPAP Objective Vital Signs - 12hr 05/14/17 05/14/17 05/14/17 01:00 01:15 01:30 Temperature Pulse Rate 110 H 111 H 112 H Pulse Rate [ Anterior Bilateral Throughout] Respiratory 14 17 24 Rate Respiratory Rate [Anterior Bilateral Throughout] Blood Pressure 101/54 96/58 108/61 O2 Sat by Pulse 98 Oximetry 05/14/17 05/14/17 05/14/17 01:45 02:00 02:15 Temperature Pulse Rate 112 H 112 H 110 H Pulse Rate [ Anterior Bilateral Throughout] Respiratory 20 24 22 Rate Respiratory Rate [Anterior Bilateral Throughout] Blood Pressure 107/57 112/60 91/59 O2 Sat by Pulse 97 99 97 Oximetry 05/14/17 05/14/17 05/14/17 02:30 02:45 03:00 Temperature Pulse Rate 110 H 111 H 111 H Pulse Rate [ Anterior Bilateral Throughout] Respiratory 25 H 16 21 Rate Respiratory Rate [Anterior Bilateral Throughout] Blood Pressure 95/51 103/58 95/56 O2 Sat by Pulse 97 99 97 Oximetry 05/14/17 05/14/17 05/14/17 03:15 03:30 03:31 Temperature 100.1 F H Pulse Rate 111 H 111 H Pulse Rate [ Anterior Bilateral Throughout] Respiratory 15 24 Rate Respiratory Rate [Anterior Bilateral Throughout] Blood Pressure 100/54 100/58 O2 Sat by Pulse 98 98 Oximetry 05/14/17 05/14/17 05/14/17 03:45 04:00 04:15 Temperature Pulse Rate 110 H 110 H 111 H Pulse Rate [ Anterior Bilateral Throughout] Respiratory 19 23 21 Rate Respiratory Rate [Anterior Bilateral Throughout] Blood Pressure 91/55 98/59 105/58 O2 Sat by Pulse 97 95 98 Oximetry 05/14/17 05/14/17 05/14/17 04:30 04:46 05:00 Temperature Pulse Rate 111 H 108 H 107 H Pulse Rate [ Anterior Bilateral Throughout] Respiratory 16 11 L 17 Rate Respiratory Rate [Anterior Bilateral Throughout] Blood Pressure 99/56 91/55 107/50 O2 Sat by Pulse 98 98 98 Oximetry 05/14/17 05/14/17 05/14/17 05:15 05:23 05:30 Temperature Pulse Rate 107 H 108 H 108 H Pulse Rate [ Anterior Bilateral Throughout] Respiratory 21 20 25 H Rate Respiratory Rate [Anterior Bilateral Throughout] Blood Pressure 111/47 111/47 110/64 O2 Sat by Pulse 98 97 98 Oximetry 05/14/17 05/14/17 05/14/17 05:45 06:00 06:15 Temperature Pulse Rate 108 H 107 H 108 H Pulse Rate [ Anterior Bilateral Throughout] Respiratory 26 H 24 23 Rate Respiratory Rate [Anterior Bilateral Throughout] Blood Pressure 101/51 94/44 120/53 O2 Sat by Pulse 97 97 96 Oximetry 05/14/17 05/14/17 05/14/17 06:30 06:45 07:00 Temperature Pulse Rate 108 H 108 H 109 H Pulse Rate [ Anterior Bilateral Throughout] Respiratory 19 24 15 Rate Respiratory Rate [Anterior Bilateral Throughout] Blood Pressure 117/57 122/63 130/60 O2 Sat by Pulse 97 98 97 Oximetry 05/14/17 05/14/17 05/14/17 07:15 07:31 07:45 Temperature Pulse Rate 107 H 107 H 109 H Pulse Rate [ Anterior Bilateral Throughout] Respiratory 18 16 25 H Rate Respiratory Rate [Anterior Bilateral Throughout] Blood Pressure 131/58 118/55 135/62 O2 Sat by Pulse 97 97 98 Oximetry 05/14/17 05/14/17 05/14/17 08:00 08:01 08:15 Temperature 98.4 F Pulse Rate 109 H 110 H Pulse Rate [ Anterior Bilateral Throughout] Respiratory 21 18 Rate Respiratory Rate [Anterior Bilateral Throughout] Blood Pressure 117/55 109/64 O2 Sat by Pulse 97 98 Oximetry 05/14/17 05/14/17 05/14/17 09:04 09:08 09:30 Temperature Pulse Rate 109 H Pulse Rate [ 109 H 110 H Anterior Bilateral Throughout] Respiratory 36 H Rate Respiratory 28 H 29 H Rate [Anterior Bilateral Throughout] Blood Pressure 99/47 O2 Sat by Pulse 96 Oximetry 05/14/17 12:27 Temperature Pulse Rate 106 H Pulse Rate [ Anterior Bilateral Throughout] Respiratory 29 H Rate Respiratory Rate [Anterior Bilateral Throughout] Blood Pressure 102/44 O2 Sat by Pulse 99 Oximetry Constitutional: lethargic, appears uncomfortable Eyes: non-icteric ENT: oropharynx moist Neck: supple, no lymphadenopathy, no JVD, other (no thyromegaly) Effort: mildly labored Ascultation: Bilateral: rhonchi Percussion: Bilateral: not dull Cardiovascular: regular rate and rhythm, murmur noted (systolic murmur), other ( no rubs) Gastrointestinal: normoactive bowel sounds, soft, non-tender, other (distended) Integumentary: other (poor turgor) Extremities: no edema, cool (necrotic right great toe, absent pedal pulses, right groin permacath, left femoral CVC), cyanosis, other (diminished peripheral pulses) Neurologic: non-focal exam (grossly), pupils equal and round, other (moves all 4 extremities) Psychiatric: other (unable to assess) CBC and BMP: 05/14/17 07:00 05/14/17 07:00 ABG, PT/INR, D-dimer: ABG POC ABG pH 7.496 (7.35-7.45) H 05/13/17 12:56 POC ABG pCO2 29.3 (35-45) L 05/13/17 12:56 POC ABG pO2 87 (80-105) 05/13/17 12:56 POC ABG HCO3 22.6 05/13/17 12:56 POC ABG Total CO2 24 05/13/17 12:56 POC ABG O2 Sat 98 05/13/17 12:56 PT/INR, D-dimer PT 20.3 Sec. (12.2-14.9) H 05/12/17 06:41 INR 1.63 (0.87-1.13) H 05/12/17 06:41 D-Dimer 1996.75 ng/mlDDU (0-234) H 05/09/17 19:34 Abnormal lab findings: Abnormal Labs 05/09/17 05/09/17 05/09/17 18:46 19:25 19:25 WBC Hct MCV MCH MCHC RDW Plt Count Lymph % (Auto) [place] % (Auto) Lymph # [place] # Seg Neutrophils % Seg Neuts % (Manual) Lymphocytes % (Manual) Seg Neutrophils # Seg Neutrophils # Man Lymphocytes # (Manual) Basophils # (Manual) PT INR APTT D-Dimer POC ABG pH POC ABG pCO2 POC ABG pO2 Sodium Potassium Chloride Carbon Dioxide BUN Creatinine Glucose POC Glucose 56 L 41 L Lactic Acid Lactate Dehydrogenase Total Creatine Kinase CK-MB (CK-2) CK-MB (CK-2) Rel Index Troponin T C-Reactive Protein Total Protein Triglycerides HDL Cholesterol TSH 5.000 H 05/09/17 05/09/17 05/09/17 19:34 19:34 19:34 WBC 15.7 H Hct 45.8 H MCV 97 H MCH MCHC RDW 21.6 H Plt Count Lymph % (Auto) [place] % (Auto) Lymph # [place] # Seg Neutrophils % Seg Neuts % (Manual) 92.0 H Lymphocytes % (Manual) 3.0 L Seg Neutrophils # Seg Neutrophils # Man 14.4 H Lymphocytes # (Manual) 0.5 L Basophils # (Manual) 0.2 H PT 17.9 H INR 1.40 H APTT 43.9 H D-Dimer 1996.75 H POC ABG pH POC ABG pCO2 POC ABG pO2 Sodium Potassium 5.1 H Chloride 87.0 L Carbon Dioxide BUN 47 H Creatinine 10.0 H Glucose POC Glucose Lactic Acid Lactate Dehydrogenase Total Creatine Kinase 246 H CK-MB (CK-2) 12.8 H CK-MB (CK-2) Rel Index Troponin T 0.384 H* C-Reactive Protein 45.90 H Total Protein Triglycerides 191 H HDL Cholesterol 8 L TSH 05/09/17 05/10/17 05/10/17 21:37 03:30 03:59 WBC Hct MCV MCH MCHC RDW Plt Count Lymph % (Auto) [place] % (Auto) Lymph # [place] # Seg Neutrophils % Seg Neuts % (Manual) Lymphocytes % (Manual) Seg Neutrophils # Seg Neutrophils # Man Lymphocytes # (Manual) Basophils # (Manual) PT INR APTT D-Dimer POC ABG pH POC ABG pCO2 POC ABG pO2 Sodium Potassium Chloride Carbon Dioxide BUN Creatinine Glucose POC Glucose 69 L 63 L Lactic Acid Lactate Dehydrogenase Total Creatine Kinase 233 H CK-MB (CK-2) 10.1 H CK-MB (CK-2) Rel Index 4.3 H Troponin T 0.363 H* C-Reactive Protein Total Protein Triglycerides HDL Cholesterol TSH 05/10/17 05/10/17 05/10/17 05:52 07:17 07:31 WBC Hct MCV MCH MCHC RDW Plt Count Lymph % (Auto) [place] % (Auto) Lymph # [place] # Seg Neutrophils % Seg Neuts % (Manual) Lymphocytes % (Manual) Seg Neutrophils # Seg Neutrophils # Man Lymphocytes # (Manual) Basophils # (Manual) PT INR APTT D-Dimer POC ABG pH POC ABG pCO2 POC ABG pO2 Sodium Potassium Chloride Carbon Dioxide BUN Creatinine Glucose POC Glucose 69 L 66 L Lactic Acid Lactate Dehydrogenase Total Creatine Kinase 230 H CK-MB (CK-2) 10.0 H CK-MB (CK-2) Rel Index 4.3 H Troponin T 0.371 H* C-Reactive Protein Total Protein Triglycerides HDL Cholesterol TSH 05/10/17 05/10/17 05/10/17 07:44 07:57 10:02 WBC 19.6 H Hct MCV 96 H MCH 33 H MCHC 35 H RDW 21.6 H Plt Count Lymph % (Auto) [place] % (Auto) Lymph # [place] # Seg Neutrophils % Seg Neuts % (Manual) Lymphocytes % (Manual) Seg Neutrophils # Seg Neutrophils # Man Lymphocytes # (Manual) Basophils # (Manual) PT INR APTT D-Dimer POC ABG pH POC ABG pCO2 POC ABG pO2 Sodium 135 L Potassium 5.8 H Chloride 88.7 L Carbon Dioxide 21 L BUN 52 H Creatinine 10.6 H Glucose 177 H POC Glucose 161 H Lactic Acid Lactate Dehydrogenase Total Creatine Kinase CK-MB (CK-2) CK-MB (CK-2) Rel Index Troponin T C-Reactive Protein Total Protein Triglycerides HDL Cholesterol TSH 05/10/17 05/10/17 05/10/17 10:42 13:02 17:53 WBC Hct MCV MCH MCHC RDW Plt Count Lymph % (Auto) [place] % (Auto) Lymph # [place] # Seg Neutrophils % Seg Neuts % (Manual) Lymphocytes % (Manual) Seg Neutrophils # Seg Neutrophils # Man Lymphocytes # (Manual) Basophils # (Manual) PT INR APTT D-Dimer POC ABG pH POC ABG pCO2 28.7 L POC ABG pO2 115 H Sodium Potassium 5.7 H 6.1 H* Chloride Carbon Dioxide BUN Creatinine Glucose POC Glucose Lactic Acid Lactate Dehydrogenase Total Creatine Kinase CK-MB (CK-2) CK-MB (CK-2) Rel Index Troponin T C-Reactive Protein Total Protein Triglycerides HDL Cholesterol TSH 05/10/17 05/10/17 05/10/17 18:26 20:38 23:46 WBC Hct MCV MCH MCHC RDW Plt Count Lymph % (Auto) [place] % (Auto) Lymph # [place] # Seg Neutrophils % Seg Neuts % (Manual) Lymphocytes % (Manual) Seg Neutrophils # Seg Neutrophils # Man Lymphocytes # (Manual) Basophils # (Manual) PT INR APTT D-Dimer POC ABG pH POC ABG pCO2 POC ABG pO2 Sodium Potassium Chloride Carbon Dioxide BUN Creatinine Glucose POC Glucose 68 L < 40 L Lactic Acid 3.30 H* Lactate Dehydrogenase Total Creatine Kinase CK-MB (CK-2) CK-MB (CK-2) Rel Index Troponin T C-Reactive Protein Total Protein Triglycerides HDL Cholesterol TSH 05/11/17 05/11/17 05/11/17 00:00 03:15 03:20 WBC 14.3 H Hct MCV 96 H MCH 33 H MCHC RDW 21.9 H Plt Count Lymph % (Auto) 4.[address] [place] % (Auto) Lymph # 0.[address] [place] # 0.9 H Seg Neutrophils % 87.2 H Seg Neuts % (Manual) Lymphocytes % (Manual) Seg Neutrophils # 12.5 H Seg Neutrophils # Man Lymphocytes # (Manual) Basophils # (Manual) PT INR APTT D-Dimer POC ABG pH POC ABG pCO2 POC ABG pO2 Sodium Potassium 5.7 H Chloride 92.4 L Carbon Dioxide BUN 58 H Creatinine 11.3 H Glucose 110 H POC Glucose Lactic Acid 2.10 H* Lactate Dehydrogenase Total Creatine Kinase CK-MB (CK-2) CK-MB (CK-2) Rel Index Troponin T C-Reactive Protein Total Protein Triglycerides HDL Cholesterol TSH 05/11/17 05/11/17 05/11/17 03:20 07:41 12:24 WBC Hct MCV MCH MCHC RDW Plt Count Lymph % (Auto) [place] % (Auto) Lymph # [place] # Seg Neutrophils % Seg Neuts % (Manual) Lymphocytes % (Manual) Seg Neutrophils # Seg Neutrophils # Man Lymphocytes # (Manual) Basophils # (Manual) PT INR APTT D-Dimer POC ABG pH POC ABG pCO2 POC ABG pO2 Sodium Potassium 5.3 H Chloride 94.1 L Carbon Dioxide BUN 58 H Creatinine 11.2 H Glucose 107 H POC Glucose 46 L 46 L Lactic Acid Lactate Dehydrogenase Total Creatine Kinase CK-MB (CK-2) CK-MB (CK-2) Rel Index Troponin T C-Reactive Protein Total Protein Triglycerides HDL Cholesterol TSH 05/11/17 05/11/17 05/11/17 12:43 21:24 22:20 WBC Hct MCV MCH MCHC RDW Plt Count Lymph % (Auto) [place] % (Auto) Lymph # [place] # Seg Neutrophils % Seg Neuts % (Manual) Lymphocytes % (Manual) Seg Neutrophils # Seg Neutrophils # Man Lymphocytes # (Manual) Basophils # (Manual) PT INR APTT D-Dimer POC ABG pH POC ABG pCO2 POC ABG pO2 Sodium Potassium Chloride Carbon Dioxide BUN Creatinine Glucose POC Glucose 62 L 316 H Lactic Acid Lactate Dehydrogenase 255 H Total Creatine Kinase CK-MB (CK-2) CK-MB (CK-2) Rel Index Troponin T C-Reactive Protein Total Protein 6.2 L Triglycerides HDL Cholesterol TSH 05/12/17 05/12/17 05/12/17 01:23 06:41 06:41 WBC Hct MCV MCH MCHC RDW Plt Count Lymph % (Auto) [place] % (Auto) Lymph # [place] # Seg Neutrophils % Seg Neuts % (Manual) Lymphocytes % (Manual) Seg Neutrophils # Seg Neutrophils # Man Lymphocytes # (Manual) Basophils # (Manual) PT 20.3 H INR 1.63 H APTT 52.8 H D-Dimer POC ABG pH POC ABG pCO2 POC ABG pO2 Sodium Potassium 5.6 H Chloride 96.8 L Carbon Dioxide BUN 51 H Creatinine 9.6 H Glucose POC Glucose 132 H Lactic Acid Lactate Dehydrogenase Total Creatine Kinase CK-MB (CK-2) CK-MB (CK-2) Rel Index Troponin T C-Reactive Protein Total Protein Triglycerides HDL Cholesterol TSH 05/12/17 05/12/17 05/12/17 15:52 19:10 21:26 WBC Hct MCV MCH MCHC RDW Plt Count Lymph % (Auto) [place] % (Auto) Lymph # [place] # Seg Neutrophils % Seg Neuts % (Manual) Lymphocytes % (Manual) Seg Neutrophils # Seg Neutrophils # Man Lymphocytes # (Manual) Basophils # (Manual) PT INR APTT D-Dimer POC ABG pH POC ABG pCO2 POC ABG pO2 Sodium Potassium 6.2 H* Chloride 95.8 L Carbon Dioxide 18 L BUN 56 H Creatinine 9.8 H Glucose 140 H POC Glucose 113 H 126 H Lactic Acid Lactate Dehydrogenase Total Creatine Kinase CK-MB (CK-2) CK-MB (CK-2) Rel Index Troponin T C-Reactive Protein Total Protein Triglycerides HDL Cholesterol TSH 05/12/17 05/12/17 05/12/17 Unknown Unknown Unknown WBC 12.0 H Hct MCV 95 H MCH MCHC RDW 21.4 H Plt Count 121 L Lymph % (Auto) [place] % (Auto) Lymph # [place] # Seg Neutrophils % Seg Neuts % (Manual) Lymphocytes % (Manual) Seg Neutrophils # Seg Neutrophils # Man Lymphocytes # (Manual) Basophils # (Manual) PT INR APTT D-Dimer POC ABG pH POC ABG pCO2 POC ABG pO2 Sodium Potassium 5.9 H Chloride 96.4 L Carbon Dioxide BUN 49 H Creatinine 9.4 H Glucose POC Glucose Lactic Acid 2.30 H* Lactate Dehydrogenase Total Creatine Kinase CK-MB (CK-2) CK-MB (CK-2) Rel Index Troponin T C-Reactive Protein Total Protein Triglycerides HDL Cholesterol TSH 05/13/17 05/13/17 05/13/17 01:43 02:03 04:10 WBC 13.8 H Hct MCV 95 H MCH MCHC RDW 21.6 H Plt Count 97 L Lymph % (Auto) 7.[address] [place] % (Auto) 9.3 H Lymph # 1.[address] [place] # 1.3 H Seg Neutrophils % 80.0 H Seg Neuts % (Manual) Lymphocytes % (Manual) Seg Neutrophils # 11.0 H Seg Neutrophils # Man Lymphocytes # (Manual) Basophils # (Manual) PT INR APTT D-Dimer POC ABG pH POC ABG pCO2 POC ABG pO2 Sodium Potassium 6.1 H* Chloride 95.5 L Carbon Dioxide 20 L BUN 58 H Creatinine 10.5 H Glucose 185 H POC Glucose 166 H Lactic Acid Lactate Dehydrogenase Total Creatine Kinase CK-MB (CK-2) CK-MB (CK-2) Rel Index Troponin T C-Reactive Protein Total Protein Triglycerides HDL Cholesterol TSH 05/13/17 05/13/17 05/13/17 04:10 04:31 05:47 WBC Hct MCV MCH MCHC RDW Plt Count Lymph % (Auto) [place] % (Auto) Lymph # [place] # Seg Neutrophils % Seg Neuts % (Manual) Lymphocytes % (Manual) Seg Neutrophils # Seg Neutrophils # Man Lymphocytes # (Manual) Basophils # (Manual) PT INR APTT D-Dimer POC ABG pH POC ABG pCO2 POC ABG pO2 Sodium Potassium 6.4 H* Chloride Carbon Dioxide BUN Creatinine Glucose POC Glucose 158 H Lactic Acid Lactate Dehydrogenase Total Creatine Kinase CK-MB (CK-2) CK-MB (CK-2) Rel Index Troponin T C-Reactive Protein 40.20 H Total Protein Triglycerides HDL Cholesterol TSH 05/13/17 05/13/17 05/13/17 10:48 12:56 13:15 WBC Hct MCV MCH MCHC RDW Plt Count Lymph % (Auto) [place] % (Auto) Lymph # [place] # Seg Neutrophils % Seg Neuts % (Manual) Lymphocytes % (Manual) Seg Neutrophils # Seg Neutrophils # Man Lymphocytes # (Manual) Basophils # (Manual) PT INR APTT D-Dimer POC ABG pH 7.496 H POC ABG pCO2 29.3 L POC ABG pO2 Sodium Potassium 5.6 H Chloride Carbon Dioxide BUN Creatinine Glucose POC Glucose 201 H Lactic Acid Lactate Dehydrogenase Total Creatine Kinase CK-MB (CK-2) CK-MB (CK-2) Rel Index Troponin T C-Reactive Protein Total Protein Triglycerides HDL Cholesterol TSH 05/13/17 05/13/17 05/14/17 17:47 21:32 01:44 WBC Hct MCV MCH MCHC RDW Plt Count Lymph % (Auto) [place] % (Auto) Lymph # [place] # Seg Neutrophils % Seg Neuts % (Manual) Lymphocytes % (Manual) Seg Neutrophils # Seg Neutrophils # Man Lymphocytes # (Manual) Basophils # (Manual) PT INR APTT D-Dimer POC ABG pH POC ABG pCO2 POC ABG pO2 Sodium Potassium Chloride Carbon Dioxide BUN Creatinine Glucose POC Glucose 195 H 175 H 142 H Lactic Acid Lactate Dehydrogenase Total Creatine Kinase CK-MB (CK-2) CK-MB (CK-2) Rel Index Troponin T C-Reactive Protein Total Protein Triglycerides HDL Cholesterol TSH 05/14/17 05/14/17 05/14/17 05:10 07:00 07:00 WBC 14.6 H Hct MCV MCH MCHC RDW 20.7 H Plt Count 69 L Lymph % (Auto) [facility] % (Auto) Lymph # [facility] # Seg Neutrophils % Seg Neuts % (Manual) Lymphocytes % (Manual) Seg Neutrophils # Seg Neutrophils # Man Lymphocytes # (Manual) Basophils # (Manual) PT INR APTT D-Dimer POC ABG pH POC ABG pCO2 POC ABG pO2 Sodium Potassium 5.2 H Chloride 96.1 L Carbon Dioxide BUN 45 H Creatinine 7.3 H Glucose 190 H POC Glucose 126 H Lactic Acid Lactate Dehydrogenase Total Creatine Kinase CK-MB (CK-2) CK-MB (CK-2) Rel Index Troponin T C-Reactive Protein Total Protein Triglycerides HDL Cholesterol TSH Chest x-ray: image reviewed (resolution of right pleural effusion post thoracentesis; no pneumothorax) Allied health notes reviewed: RT (on venturi mask, monitor oxygen saturations)
[2017-05-14 15:08] LABS: Basophils Body Fluid 0 %; Eosinophils Body Fluid 0 %; Reactive Lymph Body Fluid 0 %
--- NOTE | 2017-05-14 15:08 | Progress Note ---
Assessment and Plan Impression * End-stage renal disease on maintenance hemodialysis * Hyperkalemia * Sepsis * Diabetic foot infection * Respiratory failure * Hypotension Recommendations * Patient's hyperkalemia has been corrected. * He is currently hypotensive and also on vasopressors. No urgent indication for dialysis today * Shall plan to dialyze him again tomorrow if stable * Antibiotics as per primary team * Adjust diet and meds for his ESRD state * No IV, BP or venipuncture in his access arm Subjective Date of service: 05/14/17 Principal diagnosis: Sepsis Syndrome; Acute Hypoxemic Resp Failure; Acute Encephalopathy; ESRD Interval history: Patient remains in the ICU. On 30% FiO2 via BiPAP. Currently on vasopressin as well as amiodarone drip. Patient is unresponsive. Objective - Vital Signs Vital signs: Vital Signs - 12hr 05/14/17 05/14/17 05/14/17 03:15 03:30 03:31 Temperature 100.1 F H Pulse Rate 111 H 111 H Pulse Rate [ Anterior Bilateral Throughout] Respiratory 15 24 Rate Respiratory Rate [Anterior Bilateral Throughout] Blood Pressure 100/54 100/58 O2 Sat by Pulse 98 98 Oximetry 05/14/17 05/14/17 05/14/17 03:45 04:00 04:15 Temperature Pulse Rate 110 H 110 H 111 H Pulse Rate [ Anterior Bilateral Throughout] Respiratory 19 23 21 Rate Respiratory Rate [Anterior Bilateral Throughout] Blood Pressure 91/55 98/59 105/58 O2 Sat by Pulse 97 95 98 Oximetry 05/14/17 05/14/17 05/14/17 04:30 04:46 05:00 Temperature Pulse Rate 111 H 108 H 107 H Pulse Rate [ Anterior Bilateral Throughout] Respiratory 16 11 L 17 Rate Respiratory Rate [Anterior Bilateral Throughout] Blood Pressure 99/56 91/55 107/50 O2 Sat by Pulse 98 98 98 Oximetry 05/14/17 05/14/17 05/14/17 05:15 05:23 05:30 Temperature Pulse Rate 107 H 108 H 108 H Pulse Rate [ Anterior Bilateral Throughout] Respiratory 21 20 25 H Rate Respiratory Rate [Anterior Bilateral Throughout] Blood Pressure 111/47 111/47 110/64 O2 Sat by Pulse 98 97 98 Oximetry 05/14/17 05/14/17 05/14/17 05:45 06:00 06:15 Temperature Pulse Rate 108 H 107 H 108 H Pulse Rate [ Anterior Bilateral Throughout] Respiratory 26 H 24 23 Rate Respiratory Rate [Anterior Bilateral Throughout] Blood Pressure 101/51 94/44 120/53 O2 Sat by Pulse 97 97 96 Oximetry 05/14/17 05/14/17 05/14/17 06:30 06:45 07:00 Temperature Pulse Rate 108 H 108 H 109 H Pulse Rate [ Anterior Bilateral Throughout] Respiratory 19 24 15 Rate Respiratory Rate [Anterior Bilateral Throughout] Blood Pressure 117/57 122/63 130/60 O2 Sat by Pulse 97 98 97 Oximetry 05/14/17 05/14/17 05/14/17 07:15 07:31 07:45 Temperature Pulse Rate 107 H 107 H 109 H Pulse Rate [ Anterior Bilateral Throughout] Respiratory 18 16 25 H Rate Respiratory Rate [Anterior Bilateral Throughout] Blood Pressure 131/58 118/55 135/62 O2 Sat by Pulse 97 97 98 Oximetry 05/14/17 05/14/17 05/14/17 08:00 08:01 08:15 Temperature 98.4 F Pulse Rate 109 H 110 H Pulse Rate [ Anterior Bilateral Throughout] Respiratory 21 18 Rate Respiratory Rate [Anterior Bilateral Throughout] Blood Pressure 117/55 109/64 O2 Sat by Pulse 97 98 Oximetry 05/14/17 05/14/17 05/14/17 08:30 08:45 09:00 Temperature Pulse Rate 109 H 109 H 109 H Pulse Rate [ Anterior Bilateral Throughout] Respiratory 21 22 26 H Rate Respiratory Rate [Anterior Bilateral Throughout] Blood Pressure 108/59 116/57 99/47 O2 Sat by Pulse 98 98 97 Oximetry 05/14/17 05/14/17 05/14/17 09:04 09:08 09:15 Temperature Pulse Rate 109 H 110 H Pulse Rate [ 109 H Anterior Bilateral Throughout] Respiratory 36 H 0 L Rate Respiratory 28 H Rate [Anterior Bilateral Throughout] Blood Pressure 99/47 111/57 O2 Sat by Pulse 96 98 Oximetry 05/14/17 05/14/17 05/14/17 09:30 09:45 10:00 Temperature Pulse Rate 109 H 110 H 108 H Pulse Rate [ 110 H Anterior Bilateral Throughout] Respiratory 17 22 18 Rate Respiratory 29 H Rate [Anterior Bilateral Throughout] Blood Pressure 106/49 118/60 112/52 O2 Sat by Pulse 97 98 97 Oximetry 05/14/17 05/14/17 05/14/17 11:09 11:15 11:30 Temperature Pulse Rate 103 H 104 H 106 H Pulse Rate [ Anterior Bilateral Throughout] Respiratory 22 16 21 Rate Respiratory Rate [Anterior Bilateral Throughout] Blood Pressure 119/58 124/59 109/69 O2 Sat by Pulse 98 98 99 Oximetry 05/14/17 05/14/17 05/14/17 11:45 12:00 12:15 Temperature 97.3 F L Pulse Rate 105 H 104 H 104 H Pulse Rate [ Anterior Bilateral Throughout] Respiratory 13 17 18 Rate Respiratory Rate [Anterior Bilateral Throughout] Blood Pressure 106/57 117/59 102/44 O2 Sat by Pulse Oximetry 05/14/17 05/14/17 05/14/17 12:27 12:30 12:45 Temperature Pulse Rate 106 H 107 H 104 H Pulse Rate [ Anterior Bilateral Throughout] Respiratory 29 H 19 18 Rate Respiratory Rate [Anterior Bilateral Throughout] Blood Pressure 102/44 122/62 122/57 O2 Sat by Pulse 99 98 98 Oximetry 05/14/17 05/14/17 05/14/17 13:00 13:15 13:30 Temperature Pulse Rate 103 H 103 H 105 H Pulse Rate [ Anterior Bilateral Throughout] Respiratory 22 18 24 Rate Respiratory Rate [Anterior Bilateral Throughout] Blood Pressure 114/60 119/55 126/63 O2 Sat by Pulse 98 98 98 Oximetry 05/14/17 05/14/17 05/14/17 14:30 14:33 14:45 Temperature Pulse Rate Pulse Rate [ 102 H 107 H Anterior Bilateral Throughout] Respiratory Rate Respiratory 20 20 Rate [Anterior Bilateral Throughout] Blood Pressure O2 Sat by Pulse 96 Oximetry - General Appearance General appearance: well-developed, well-nourished, appears stated age EENT: PERRL, mucous membranes moist Neck: no JVD, no thyromegaly, no carotid bruit, supple Respiratory: Present: Ronchi (few scattered rhonchi) Cardiology: regular, normal heart rate Gastrointestinal: normal, normoactive bowel sounds Integumentary: no rash, other (AV fistula in his left upper arm. Good bruit and thrill. Both heel wrapped with bandage) - Lab 05/14/17 07:00 05/14/17 07:00 Most recent lab results Calcium 8.7 mg/dL (8.4-10.2) 05/14/17 07:00
--- NOTE | 2017-05-14 15:21 | XRay Report ---
AP CHEST: HISTORY: Shortness of breath, recent right thoracentesis. The large right pleural effusion has been completely evacuated. The lungs are clear. No pneumothorax is appreciated. There is mild cardiomegaly with normal pulmonary vascularity. IMPRESSION: Complete evacuation of the right pleural effusion. No pneumothorax. Stable mild cardiomegaly.
[2017-05-14] MEDS ORDERED: SODIUM BICARBONATE FEEDTUBE PRN (17:03)
[2017-05-14] MEDS ORDERED: PANCREAZE DR 10,500 UNIT FEEDTUBE PRN (17:03)
[2017-05-14] MEDS ORDERED: SIMPLE SYRUP FEEDTUBE PRN ×2 (17:03)
[2017-05-14 17:51] LABS: ISTAT Base Excess -5; ISTAT HCO3 18.6; ISTAT PCO2 26.2 (35-45); ISTAT PO2 123 (80-105); ISTAT SO2 99; ISTAT TCO2 19
[2017-05-14] MEDS: ceFAZolin 2 GM in NACL 0.9% 20 ML IV SCH (18:29)
[2017-05-15] MEDS ORDERED: D50W (25GM) Syringe IV ONE ×2 (05:58→10:00)
[2017-05-15] MEDS: PROAMATINE PO SCH (06:15)
[2017-05-15 08:18] LABS: Hematocrit 42.9 % (35.5-45.6); Hemoglobin 13.3 gm/dl (11.8-15.2); Mean Corpuscular HGB Conc 31 % (32-34); Mean Corpuscular Hemoglobin 31 pg (28-32); Mean Corpuscular Volume 99 fl (84-94); Red Blood Count 4.34 M/mm3 (3.65-5.03); White Blood Count 19.6 K/mm3 (4.5-11.0)
[2017-05-15 08:21] LABS: Platelet Count 91 K/mm3 (140-440); Red Cell Distribution Width 21.3 % (13.2-15.2)
[2017-05-15 08:29] LABS: Calcium 7.9 mg/dL (8.4-10.2); Chloride 89.5 mmol/L (98-107)
[2017-05-15 08:55] LABS: Acanthocytes 1+; Anisocytosis 1+; Basophils % (Manual) 0 % (0.0-1.8); Blastocytes % (Manual) 0 %; Burr Cells 2+; Eosinophils % (Manual) 0 % (0.0-4.3); Ovalocytes 1+; Poikilocytosis 1+; Schistocytes Rare
[2017-05-15 08:56] LABS: Diff Status Complete; Helmet Cells Rare; Platelet Estimate Appears Decreased; Polychromasia 1+
[2017-05-15] MEDS ORDERED: NACL 0.9% 100 ML IV PRN (09:28)
[2017-05-15] MEDS ORDERED: ALBURX 25% (ALBUMIN) IV PRN (09:30)
[2017-05-15] MEDS: DUONEB *Not for PRN Use IH SCH ×2 (09:31→14:48)
[2017-05-15] MEDS: PEPCID PO SCH (09:42)
[2017-05-15] MEDS ORDERED: SODIUM BICARBONATE 150 MEQ in D5W 1,000 ML IV SCH (10:00)
[2017-05-15] MEDS ORDERED: SODIUM BICARBONATE IV ONE ×2 (10:00→12:30)
[2017-05-15] MEDS: ceFAZolin 2 GM in NACL 0.9% 20 ML IV SCH (10:03)
[2017-05-15] MEDS ORDERED: CATHFLO IV ONE ×2 (10:24→10:26)
[2017-05-15] MEDS ORDERED: WATER FOR INJ (PF) 10 ML ONE ×2 (10:37→11:31)
--- NOTE | 2017-05-15 11:17 | Consultation ---
History of Present Illness - Reason for Consult Consult date: 05/15/17 MSSA bacteremia Requesting physician: BALTA ALLEN - History of Present Illness 51 years old male with history of hypertension, diabetes, end-stage renal disease on dialysis, admitted admitted on 05/09/2017 due to 24 hours history of generalized weakness and altered mental status. Per family members, he had a syncopal episode. In the emergency room, initial temperature was 98 which then went to 100.1. Heart rate 92. Blood pressure 93/61. Initial white count 15.7. Hg 14.7. Plat 180. Creat 10. K=5.1. CRP 45. He has an old Right femoral permacath /Q scan was essentially unremarkable. CT scan of the head did not show any acute events . Patient is initially on levophed. CXR showed right pleural effusion, which was tapped and pleural fluid has been negative. TTE showed EF25-30%. Microbiology: Blood cultures: 05/09 MSSA 05/13 ngtd Pleural: 05/11 ngtd Current Antimicrobials: cefazolin Previous Antimicrobials: zosyn vanco Past History Past Medical History: dialysis, ESRD, PVD, other Past Surgical History: Other (AV fistula, BLE revascularization) Social history: smoking Family history: hypertension Medications and Allergies Allergies Allergy/AdvReac Type Severity Reaction Status Date / Time IVP dye Allergy Unknown Uncoded 12/02/15 14:35 Home Medications Medication Instructions Recorded Confirmed Last Taken Type Sevelamer Carbonate [Renvela] 0.8 gm PO TIDWM 07/13/16 02/08/17 02/07/17 History Insulin Aspart [NovoLOG Flexpen] 3 - 5 units SQ BIDAC 10/24/16 02/08/17 History Naproxen Sodium [Aleve TAB] 1 tab PO PRN PRN 02/08/17 02/08/17 02/08/17 History oxyCODONE /ACETAMINOPHEN [Percocet 1 tab PO Q4HR PRN #40 tab 02/08/17 Unknown Rx 5/325] Active Meds: Active Medications Acetaminophen (Tylenol) 650 mg PO Q4H PRN PRN Reason: Pain MILD(1-3)/Fever >100.5/[place] Albumin Human (Alburx 25% (Albumin)) 25 gm IV JUDI PRN PRN Reason: Hypotension Albuterol/Ipratropium (Duoneb *Not For Prn Use*) 1 ampul IH TIDRT PEDRO LUIS Last Admin: 05/15/17 09:31 Dose: 1 ampul Lipase/Protease/Amylase (Dahlia Dr 10,500 Unit) 1 each FEEDTUBE PRN PRN PRN Reason: For Clogged Feeding Tube Bisacodyl (Dulcolax) 10 mg IL QDAY PRN PRN Reason: Constipation unrelieved by MOM Dextrose (D50w (25gm) Vial) 25 gm IV PRN PRN PRN Reason: Hypoglycemia Last Admin: 05/11/17 21:32 Dose: 25 gm Famotidine (Pepcid) 20 mg PO DAILY PEDRO LUIS Last Admin: 05/15/17 09:42 Dose: 20 mg Amiodarone HCl 900 mg/ (Dextrose) 500 mls @ 33.33 mls/hr IV DIRECT PEDRO LUIS; 1 MG /MIN PRN Reason: Protocol Last Admin: 05/14/17 11:21 Dose: 1 mg/min, 33.33 mls/hr Sodium Chloride (Nacl 0.9%) 100 mls @ 999 mls/hr IV JUDI PRN PRN Reason: Hypotension Cefazolin Sodium 2 gm/ Sodium (Chloride) 20 mls @ 20 mls/10 min IV Q24HR PEDRO LUIS PRN Reason: Protocol Last Admin: 05/15/17 10:03 Dose: 20 mls/10 min Sodium Bicarbonate 150 meq/ (Dextrose) 1,150 mls @ 75 mls/hr IV DIRECT PEDRO LUIS Sodium Chloride (Nacl 0.9%) 100 mls @ 999 mls/hr IV JUDI PRN PRN Reason: Hypotension Midodrine (Proamatine) 10 mg PO Q8H PEDRO LUIS Last Admin: 05/15/17 06:15 Dose: 10 mg Ondansetron HCl (Zofran) 4 mg IV Q8H PRN PRN Reason: N/V unrelieved by Reglan Simple Syrup (Simple Syrup) 15 ml FEEDTUBE PRN PRN PRN Reason: Hypoglycemia Simple Syrup (Simple Syrup) 30 ml FEEDTUBE PRN PRN PRN Reason: Hypoglycemia Sodium Bicarbonate (Sodium Bicarbonate) 325 mg FEEDTUBE PRN PRN PRN Reason: For Clogged Feeding Tube Review of Systems ROS unobtainable: due to mental status Physical Examination - Physical Exam Narrative exam: General appearance: lethargic on BIPAP Eyes: anicteric sclerae, moist conjunctivae; no lid-lag; PERRLA HENT: Atraumatic; oropharynx +BIPAP mask +NGT Neck: Trachea midline; supple, no thyromegaly or lymphadenopathy Lungs: CTA, with normal respiratory effort and no intercostal retractions CV: RRR, no murmurs Abdomen: Soft, non-tender; no masses or hepatosplenomegaly Extremities: marked mando upper edema / right arm ecchymoses / right gret toe gangrene changes Skin: left flank dermatomal rash/scabs Psych: lethargic Neuro: lethargic Lines: right fem HD , left fem TLC - Constitutional Vitals: Vital Signs Temp Pulse Resp BP Pulse Ox 97.9 F 82 22 105/30 88 05/15/17 10:30 05/15/17 10:30 05/15/17 10:30 05/15/17 10:30 05/15/17 10:30 Temperature -Last 24 Hours Temperature 97.9 F Temperature 98.2 F Temperature 97.3 F Results - Labs CBC & Chem 7: 05/15/17 07:50 05/15/17 07:50 Labs: Abnormal lab results 05/14/17 05/14/17 05/14/17 Range/Units 10:04 14:17 17:08 WBC (4.5-11.0) K/mm3 MCV (84-94) fl MCHC (32-34) % RDW (13.2-15.2) % Plt Count (140-440) K/mm3 Seg Neuts % (Manual) (40.0-70.0) % Lymphocytes % (Manual) (13.4-35.0) % Nucleated RBC % (0.0-0.9) % Seg Neutrophils # Man (1.8-7.7) K/mm3 Monocytes # (Manual) (0.0-0.8) K/mm3 POC ABG pH (7.35-7.45) POC ABG pCO2 (35-45) POC ABG pO2 (80-105) Potassium (3.6-5.0) mmol/L Chloride (98-107) mmol/L Carbon Dioxide (22-30) mmol/L BUN (9-20) mg/dL Creatinine (0.8-1.5) mg/dL Glucose (75-100) mg/dL POC Glucose 191 H 221 H 223 H (70-105) Calcium (8.4-10.2) mg/dL 05/14/17 05/14/17 05/14/17 Range/Units 17:46 20:17 23:49 WBC (4.5-11.0) K/mm3 MCV (84-94) fl MCHC (32-34) % RDW (13.2-15.2) % Plt Count (140-440) K/mm3 Seg Neuts % (Manual) (40.0-70.0) % Lymphocytes % (Manual) (13.4-35.0) % Nucleated RBC % (0.0-0.9) % Seg Neutrophils # Man (1.8-7.7) K/mm3 Monocytes # (Manual) (0.0-0.8) K/mm3 POC ABG pH 7.460 H (7.35-7.45) POC ABG pCO2 26.2 L (35-45) POC ABG pO2 123 H (80-105) Potassium (3.6-5.0) mmol/L Chloride (98-107) mmol/L Carbon Dioxide (22-30) mmol/L BUN (9-20) mg/dL Creatinine (0.8-1.5) mg/dL Glucose (75-100) mg/dL POC Glucose 188 H 157 H (70-105) Calcium (8.4-10.2) mg/dL 05/15/17 05/15/17 05/15/17 Range/Units 05:52 05:56 06:42 WBC (4.5-11.0) K/mm3 MCV (84-94) fl MCHC (32-34) % RDW (13.2-15.2) % Plt Count (140-440) K/mm3 Seg Neuts % (Manual) (40.0-70.0) % Lymphocytes % (Manual) (13.4-35.0) % Nucleated RBC % (0.0-0.9) % Seg Neutrophils # Man (1.8-7.7) K/mm3 Monocytes # (Manual) (0.0-0.8) K/mm3 POC ABG pH (7.35-7.45) POC ABG pCO2 (35-45) POC ABG pO2 (80-105) Potassium (3.6-5.0) mmol/L Chloride (98-107) mmol/L Carbon Dioxide (22-30) mmol/L BUN (9-20) mg/dL Creatinine (0.8-1.5) mg/dL Glucose (75-100) mg/dL POC Glucose 43 L 52 L 127 H (70-105) Calcium (8.4-10.2) mg/dL 05/15/17 05/15/17 Range/Units 07:50 07:50 WBC 19.6 H (4.5-11.0) K/mm3 MCV 99 H (84-94) fl MCHC 31 L (32-34) % RDW 21.3 H (13.2-15.2) % Plt Count 91 L (140-440) K/mm3 Seg Neuts % (Manual) 82.0 H (40.0-70.0) % Lymphocytes % (Manual) 7.0 L (13.4-35.0) % Nucleated RBC % 9.0 H (0.0-0.9) % Seg Neutrophils # Man 16.1 H (1.8-7.7) K/mm3 Monocytes # (Manual) 1.4 H (0.0-0.8) K/mm3 POC ABG pH (7.35-7.45) POC ABG pCO2 (35-45) POC ABG pO2 (80-105) Potassium 7.0 H* D (3.6-5.0) mmol/L Chloride 89.5 L (98-107) mmol/L Carbon Dioxide 8 L* D (22-30) mmol/L BUN 66 H (9-20) mg/dL Creatinine 8.4 H (0.8-1.5) mg/dL Glucose 177 H (75-100) mg/dL POC Glucose (70-105) Calcium 7.9 L (8.4-10.2) mg/dL Assessment and Plan Assessment: 1) Sepsis with initial septic shock: Present on admission, manifested by fever, tachycardia, hypotension, leukocytosis. Etiology most likely MSSA septicemia 2) Complicated MSSA septicemia: source unclear ? likely HD permcath infection or from skin. TTE no vegetations 3) ?Pneumonia with right pleural effusion 4) Bilateral mild mastoiditis 5) Right great toe gangrene / PVD 6) CHF 7) AMS - ? metabolic Plan: -remove HD permcath MELINDA - discussed with renal -Vascular consult for PVD / right great toe ? amputation / eval for other sources of bacteremia ? old grafts -obtain C-reactive protein (CRP) -continue cefazolin renally dosed -remove fem TLC -monitor mentation prognosis guarded Thank you Dr Lacey for your consultation, will follow up with you. Alanna Ingram MD Infectious Diseases Specialist [facility] M [phone] O [phone]
[2017-05-15] MEDS ORDERED: CATHFLO IV NR (11:26)
[2017-05-15 11:29] LABS: ISTAT Base Excess -18; ISTAT HCO3 9.5; ISTAT PCO2 22.5 (35-45); ISTAT PH 7.236 (7.35-7.45); ISTAT PO2 126 (80-105); ISTAT SO2 98; ISTAT TCO2 10
[2017-05-15] MEDS: CATHFLO IV NR ×2 (11:44→11:45)
--- NOTE | 2017-05-15 11:50 | Progress Note ---
Assessment and Plan Acute Hypoxemic Resp Failure Sepsis Syndrome Right Pleural Effusion ESRD on dialysis HTN Anemia Acute Encephalopathy (Toxic-Metabolic) (No acute indication for emergent intubation as good ventilation however if unable to tolerate dialysis that could change quickly) - resume vasopressin +/- levophed for target MAP >/= 65mmHg - continue supplemental oxygen - continue RTC BIPAP for now - de-escalated AB's to unasyn for MSSA bacteremia after discussing with ID - ID consult noted and appreciated - continue HD/UF as tolerated for toxin and volume clearance (Hopefully able to declog vascath) - Vassopressors for MAP < 60mmHg with target > 65mmHg - continue midodrine at 10mg p.o. q8h - continue empiric AB's - will keep femoral CVL's in place in short time as he has very difficult vascular access - get lactate and CRP and trend as necessary - follow random cortisol level - Continue aspiration Precautions - continue GI & VTE prophylaxis - Flu & pneumovax per protocol ....will discuss with next of kin once he gets here ..he remains critically ill on life sustaining interventions including continuous NIV and at high risk for further deterioration including ...full CODE status ....35' CCT Subjective Date of service: 05/15/17 Principal diagnosis: Sepsis Syndrome; Acute Hypoxemic Resp Failure; Acute Encephalopathy; ESRD Interval history: Patient is seen today for: Sepsis Syndrome; Acute Hypoxemic Resp Failure; Acute Encephalopathy; ESRD; large Right Pleural Effusion Seen and examined at bedside; 24hour events reviewed; nursing and respiratory care staff consulted; no adverse overnight events reported to me; resting in bed ; hypotensive; acidotic; remains on continuous BIPAP; vascath clogged and trying cathflo yo open up; brother is headed this way and will decide on CODE status; Full code for now Objective Vital Signs - 12hr 05/15/17 05/15/17 05/15/17 00:00 00:15 00:31 Temperature Pulse Rate 100 H 102 H 101 H Pulse Rate [ Anterior Bilateral Throughout] Respiratory 22 25 H 21 Rate Respiratory Rate [Anterior Bilateral Throughout] Blood Pressure 114/67 114/67 113/63 O2 Sat by Pulse 96 96 96 Oximetry O2 Sat by Pulse Oximetry [ Anterior Bilateral Throughout] 05/15/17 05/15/17 05/15/17 00:45 01:00 01:15 Temperature Pulse Rate 98 H 99 H 107 H Pulse Rate [ Anterior Bilateral Throughout] Respiratory 22 24 22 Rate Respiratory Rate [Anterior Bilateral Throughout] Blood Pressure 106/63 107/61 105/60 O2 Sat by Pulse 97 97 97 Oximetry O2 Sat by Pulse Oximetry [ Anterior Bilateral Throughout] 05/15/17 05/15/17 05/15/17 01:31 01:45 02:00 Temperature Pulse Rate 109 H 112 H 108 H Pulse Rate [ Anterior Bilateral Throughout] Respiratory 24 23 24 Rate Respiratory Rate [Anterior Bilateral Throughout] Blood Pressure 105/60 131/56 119/71 O2 Sat by Pulse 97 97 97 Oximetry O2 Sat by Pulse Oximetry [ Anterior Bilateral Throughout] 05/15/17 05/15/17 05/15/17 02:15 02:31 02:45 Temperature Pulse Rate 110 H 104 H 105 H Pulse Rate [ Anterior Bilateral Throughout] Respiratory 26 H 23 23 Rate Respiratory Rate [Anterior Bilateral Throughout] Blood Pressure 123/73 120/63 105/84 O2 Sat by Pulse 97 97 96 Oximetry O2 Sat by Pulse Oximetry [ Anterior Bilateral Throughout] 05/15/17 05/15/17 05/15/17 02:56 03:00 03:15 Temperature Pulse Rate 106 H 100 H 102 H Pulse Rate [ Anterior Bilateral Throughout] Respiratory 26 H 23 24 Rate Respiratory Rate [Anterior Bilateral Throughout] Blood Pressure 105/84 111/84 113/81 O2 Sat by Pulse 97 97 Oximetry O2 Sat by Pulse Oximetry [ Anterior Bilateral Throughout] 05/15/17 05/15/17 05/15/17 03:31 03:45 04:00 Temperature Pulse Rate 105 H 100 H 107 H Pulse Rate [ Anterior Bilateral Throughout] Respiratory 24 28 H 23 Rate Respiratory Rate [Anterior Bilateral Throughout] Blood Pressure 95/41 113/81 127/67 O2 Sat by Pulse 96 96 95 Oximetry O2 Sat by Pulse Oximetry [ Anterior Bilateral Throughout] 05/15/17 05/15/17 05/15/17 04:15 04:31 04:45 Temperature Pulse Rate 98 H 101 H 94 H Pulse Rate [ Anterior Bilateral Throughout] Respiratory 29 H 29 H 26 H Rate Respiratory Rate [Anterior Bilateral Throughout] Blood Pressure 93/59 77/53 83/53 O2 Sat by Pulse 99 98 Oximetry O2 Sat by Pulse Oximetry [ Anterior Bilateral Throughout] 05/15/17 05/15/17 05/15/17 05:01 05:17 05:31 Temperature Pulse Rate 92 H 62 93 H Pulse Rate [ Anterior Bilateral Throughout] Respiratory 29 H 24 Rate Respiratory Rate [Anterior Bilateral Throughout] Blood Pressure 99/60 99/60 114/64 O2 Sat by Pulse 73 L Oximetry O2 Sat by Pulse Oximetry [ Anterior Bilateral Throughout] 05/15/17 05/15/17 05/15/17 05:45 06:01 06:15 Temperature Pulse Rate 94 H 90 91 H Pulse Rate [ Anterior Bilateral Throughout] Respiratory 24 22 26 H Rate Respiratory Rate [Anterior Bilateral Throughout] Blood Pressure 114/64 91/21 116/47 O2 Sat by Pulse Oximetry O2 Sat by Pulse Oximetry [ Anterior Bilateral Throughout] 05/15/17 05/15/17 05/15/17 06:30 06:45 09:20 Temperature Pulse Rate 90 90 81 Pulse Rate [ Anterior Bilateral Throughout] Respiratory 23 27 H 27 H Rate Respiratory Rate [Anterior Bilateral Throughout] Blood Pressure 119/32 119/32 119/32 O2 Sat by Pulse 91 Oximetry O2 Sat by Pulse Oximetry [ Anterior Bilateral Throughout] 05/15/17 05/15/17 05/15/17 09:25 09:41 10:30 Temperature 97.9 F Pulse Rate 82 Pulse Rate [ 81 86 Anterior Bilateral Throughout] Respiratory 22 Rate Respiratory 22 26 H Rate [Anterior Bilateral Throughout] Blood Pressure 105/30 O2 Sat by Pulse Oximetry O2 Sat by Pulse 88 Oximetry [ Anterior Bilateral Throughout] Constitutional: lethargic, appears uncomfortable Eyes: non-icteric ENT: oropharynx moist, other (On BIPAP FFM) Neck: supple, no lymphadenopathy, no JVD, other (no thyromegaly) Effort: mildly labored Ascultation: Bilateral: rhonchi Percussion: Bilateral: not dull Cardiovascular: regular rate and rhythm, murmur noted (systolic murmur), other ( no rubs) Gastrointestinal: normoactive bowel sounds, soft, non-tender, other (distended) Integumentary: other (poor turgor) Extremities: no edema, cool (necrotic right great toe, absent pedal pulses, right groin permacath, left femoral CVC), cyanosis, other (diminished peripheral pulses) Neurologic: non-focal exam (grossly), pupils equal and round, other (moves all 4 extremities) Psychiatric: other (unable to assess) CBC and BMP: 05/15/17 07:50 05/15/17 07:50 ABG, PT/INR, D-dimer: ABG POC ABG pH 7.236 (7.35-7.45) L 05/15/17 11:08 POC ABG pCO2 22.5 (35-45) L 05/15/17 11:08 POC ABG pO2 126 (80-105) H 05/15/17 11:08 POC ABG HCO3 9.5 05/15/17 11:08 POC ABG Total CO2 10 05/15/17 11:08 POC ABG O2 Sat 98 05/15/17 11:08 PT/INR, D-dimer PT 20.3 Sec. (12.2-14.9) H 05/12/17 06:41 INR 1.63 (0.87-1.13) H 05/12/17 06:41 D-Dimer 1996.75 ng/mlDDU (0-234) H 05/09/17 19:34 Abnormal lab findings: Abnormal Labs 05/09/17 05/09/17 05/09/17 18:46 19:25 19:25 WBC Hct MCV MCH MCHC RDW Plt Count Lymph % (Auto) [place] % (Auto) Lymph # [place] # Seg Neutrophils % Seg Neuts % (Manual) Lymphocytes % (Manual) Nucleated RBC % Seg Neutrophils # Seg Neutrophils # Man Lymphocytes # (Manual) Monocytes # (Manual) Basophils # (Manual) PT INR APTT D-Dimer POC ABG pH POC ABG pCO2 POC ABG pO2 Sodium Potassium Chloride Carbon Dioxide BUN Creatinine Glucose POC Glucose 56 L 41 L Lactic Acid Calcium Lactate Dehydrogenase Total Creatine Kinase CK-MB (CK-2) CK-MB (CK-2) Rel Index Troponin T C-Reactive Protein Total Protein Triglycerides HDL Cholesterol TSH 5.000 H 05/09/17 05/09/17 05/09/17 19:34 19:34 19:34 WBC 15.7 H Hct 45.8 H MCV 97 H MCH MCHC RDW 21.6 H Plt Count Lymph % (Auto) [place] % (Auto) Lymph # [place] # Seg Neutrophils % Seg Neuts % (Manual) 92.0 H Lymphocytes % (Manual) 3.0 L Nucleated RBC % Seg Neutrophils # Seg Neutrophils # Man 14.4 H Lymphocytes # (Manual) 0.5 L Monocytes # (Manual) Basophils # (Manual) 0.2 H PT 17.9 H INR 1.40 H APTT 43.9 H D-Dimer 1996.75 H POC ABG pH POC ABG pCO2 POC ABG pO2 Sodium Potassium 5.1 H Chloride 87.0 L Carbon Dioxide BUN 47 H Creatinine 10.0 H Glucose POC Glucose Lactic Acid Calcium Lactate Dehydrogenase Total Creatine Kinase 246 H CK-MB (CK-2) 12.8 H CK-MB (CK-2) Rel Index Troponin T 0.384 H* C-Reactive Protein 45.90 H Total Protein Triglycerides 191 H HDL Cholesterol 8 L TSH 05/09/17 05/10/17 05/10/17 21:37 03:30 03:59 WBC Hct MCV MCH MCHC RDW Plt Count Lymph % (Auto) [place] % (Auto) Lymph # [place] # Seg Neutrophils % Seg Neuts % (Manual) Lymphocytes % (Manual) Nucleated RBC % Seg Neutrophils # Seg Neutrophils # Man Lymphocytes # (Manual) Monocytes # (Manual) Basophils # (Manual) PT INR APTT D-Dimer POC ABG pH POC ABG pCO2 POC ABG pO2 Sodium Potassium Chloride Carbon Dioxide BUN Creatinine Glucose POC Glucose 69 L 63 L Lactic Acid Calcium Lactate Dehydrogenase Total Creatine Kinase 233 H CK-MB (CK-2) 10.1 H CK-MB (CK-2) Rel Index 4.3 H Troponin T 0.363 H* C-Reactive Protein Total Protein Triglycerides HDL Cholesterol TSH 05/10/17 05/10/17 05/10/17 05:52 07:17 07:31 WBC Hct MCV MCH MCHC RDW Plt Count Lymph % (Auto) [place] % (Auto) Lymph # [place] # Seg Neutrophils % Seg Neuts % (Manual) Lymphocytes % (Manual) Nucleated RBC % Seg Neutrophils # Seg Neutrophils # Man Lymphocytes # (Manual) Monocytes # (Manual) Basophils # (Manual) PT INR APTT D-Dimer POC ABG pH POC ABG pCO2 POC ABG pO2 Sodium Potassium Chloride Carbon Dioxide BUN Creatinine Glucose POC Glucose 69 L 66 L Lactic Acid Calcium Lactate Dehydrogenase Total Creatine Kinase 230 H CK-MB (CK-2) 10.0 H CK-MB (CK-2) Rel Index 4.3 H Troponin T 0.371 H* C-Reactive Protein Total Protein Triglycerides HDL Cholesterol TSH 05/10/17 05/10/17 05/10/17 07:44 07:57 10:02 WBC 19.6 H Hct MCV 96 H MCH 33 H MCHC 35 H RDW 21.6 H Plt Count Lymph % (Auto) [place] % (Auto) Lymph # [place] # Seg Neutrophils % Seg Neuts % (Manual) Lymphocytes % (Manual) Nucleated RBC % Seg Neutrophils # Seg Neutrophils # Man Lymphocytes # (Manual) Monocytes # (Manual) Basophils # (Manual) PT INR APTT D-Dimer POC ABG pH POC ABG pCO2 POC ABG pO2 Sodium 135 L Potassium 5.8 H Chloride 88.7 L Carbon Dioxide 21 L BUN 52 H Creatinine 10.6 H Glucose 177 H POC Glucose 161 H Lactic Acid Calcium Lactate Dehydrogenase Total Creatine Kinase CK-MB (CK-2) CK-MB (CK-2) Rel Index Troponin T C-Reactive Protein Total Protein Triglycerides HDL Cholesterol TSH 05/10/17 05/10/17 05/10/17 10:42 13:02 17:53 WBC Hct MCV MCH MCHC RDW Plt Count Lymph % (Auto) [place] % (Auto) Lymph # [place] # Seg Neutrophils % Seg Neuts % (Manual) Lymphocytes % (Manual) Nucleated RBC % Seg Neutrophils # Seg Neutrophils # Man Lymphocytes # (Manual) Monocytes # (Manual) Basophils # (Manual) PT INR APTT D-Dimer POC ABG pH POC ABG pCO2 28.7 L POC ABG pO2 115 H Sodium Potassium 5.7 H 6.1 H* Chloride Carbon Dioxide BUN Creatinine Glucose POC Glucose Lactic Acid Calcium Lactate Dehydrogenase Total Creatine Kinase CK-MB (CK-2) CK-MB (CK-2) Rel Index Troponin T C-Reactive Protein Total Protein Triglycerides HDL Cholesterol TSH 05/10/17 05/10/17 05/10/17 18:26 20:38 23:46 WBC Hct MCV MCH MCHC RDW Plt Count Lymph % (Auto) [place] % (Auto) Lymph # [place] # Seg Neutrophils % Seg Neuts % (Manual) Lymphocytes % (Manual) Nucleated RBC % Seg Neutrophils # Seg Neutrophils # Man Lymphocytes # (Manual) Monocytes # (Manual) Basophils # (Manual) PT INR APTT D-Dimer POC ABG pH POC ABG pCO2 POC ABG pO2 Sodium Potassium Chloride Carbon Dioxide BUN Creatinine Glucose POC Glucose 68 L < 40 L Lactic Acid 3.30 H* Calcium Lactate Dehydrogenase Total Creatine Kinase CK-MB (CK-2) CK-MB (CK-2) Rel Index Troponin T C-Reactive Protein Total Protein Triglycerides HDL Cholesterol TSH 05/11/17 05/11/17 05/11/17 00:00 03:15 03:20 WBC 14.3 H Hct MCV 96 H MCH 33 H MCHC RDW 21.9 H Plt Count Lymph % (Auto) 4.2 L [place] % (Auto) Lymph # 0.6 L [place] # 0.9 H Seg Neutrophils % 87.2 H Seg Neuts % (Manual) Lymphocytes % (Manual) Nucleated RBC % Seg Neutrophils # 12.5 H Seg Neutrophils # Man Lymphocytes # (Manual) Monocytes # (Manual) Basophils # (Manual) PT INR APTT D-Dimer POC ABG pH POC ABG pCO2 POC ABG pO2 Sodium Potassium 5.7 H Chloride 92.4 L Carbon Dioxide BUN 58 H Creatinine 11.3 H Glucose 110 H POC Glucose Lactic Acid 2.10 H* Calcium Lactate Dehydrogenase Total Creatine Kinase CK-MB (CK-2) CK-MB (CK-2) Rel Index Troponin T C-Reactive Protein Total Protein Triglycerides HDL Cholesterol [facility] 05/11/17 05/11/17 05/11/17 03:20 07:41 12:24 WBC Hct MCV MCH MCHC RDW Plt Count Lymph % (Auto) [place] % (Auto) Lymph # [place] # Seg Neutrophils % Seg Neuts % (Manual) Lymphocytes % (Manual) Nucleated RBC % Seg Neutrophils # Seg Neutrophils # Man Lymphocytes # (Manual) Monocytes # (Manual) Basophils # (Manual) PT INR APTT D-Dimer POC ABG pH POC ABG pCO2 POC ABG pO2 Sodium Potassium 5.3 H Chloride 94.1 L Carbon Dioxide BUN 58 H Creatinine 11.2 H Glucose 107 H POC Glucose 46 L 46 L Lactic Acid Calcium Lactate Dehydrogenase Total Creatine Kinase CK-MB (CK-2) CK-MB (CK-2) Rel Index Troponin T C-Reactive Protein Total Protein Triglycerides HDL Cholesterol [facility] 05/11/17 05/11/17 05/11/17 12:43 21:24 22:20 WBC Hct MCV MCH MCHC RDW Plt Count Lymph % (Auto) [place] % (Auto) Lymph # [place] # Seg Neutrophils % Seg Neuts % (Manual) Lymphocytes % (Manual) Nucleated RBC % Seg Neutrophils # Seg Neutrophils # Man Lymphocytes # (Manual) Monocytes # (Manual) Basophils # (Manual) PT INR APTT D-Dimer POC ABG pH POC ABG pCO2 POC ABG pO2 Sodium Potassium Chloride Carbon Dioxide BUN Creatinine Glucose POC Glucose 62 L 316 H Lactic Acid Calcium Lactate Dehydrogenase 255 H Total Creatine Kinase CK-MB (CK-2) CK-MB (CK-2) Rel Index Troponin T C-Reactive Protein Total Protein 6.2 L Triglycerides HDL Cholesterol TSH 05/12/17 05/12/17 05/12/17 01:23 06:41 06:41 WBC Hct MCV MCH MCHC RDW Plt Count Lymph % (Auto) [place] % (Auto) Lymph # [place] # Seg Neutrophils % Seg Neuts % (Manual) Lymphocytes % (Manual) Nucleated RBC % Seg Neutrophils # Seg Neutrophils # Man Lymphocytes # (Manual) Monocytes # (Manual) Basophils # (Manual) PT 20.3 H INR 1.63 H APTT 52.8 H D-Dimer POC ABG pH POC ABG pCO2 POC ABG pO2 Sodium Potassium 5.6 H Chloride 96.8 L Carbon Dioxide BUN 51 H Creatinine 9.6 H Glucose POC Glucose 132 H Lactic Acid Calcium Lactate Dehydrogenase Total Creatine Kinase CK-MB (CK-2) CK-MB (CK-2) Rel Index Troponin T C-Reactive Protein Total Protein Triglycerides HDL Cholesterol TSH 05/12/17 05/12/17 05/12/17 15:52 19:10 21:26 WBC Hct MCV MCH MCHC RDW Plt Count Lymph % (Auto) [place] % (Auto) Lymph # [place] # Seg Neutrophils % Seg Neuts % (Manual) Lymphocytes % (Manual) Nucleated RBC % Seg Neutrophils # Seg Neutrophils # Man Lymphocytes # (Manual) Monocytes # (Manual) Basophils # (Manual) PT INR APTT D-Dimer POC ABG pH POC ABG pCO2 POC ABG pO2 Sodium Potassium 6.2 H* Chloride 95.8 L Carbon Dioxide 18 L BUN 56 H Creatinine 9.8 H Glucose 140 H POC Glucose 113 H 126 H Lactic Acid Calcium Lactate Dehydrogenase Total Creatine Kinase CK-MB (CK-2) CK-MB (CK-2) Rel Index Troponin T C-Reactive Protein Total Protein Triglycerides HDL Cholesterol TSH 05/12/17 05/12/17 05/12/17 Unknown Unknown Unknown WBC 12.0 H Hct MCV 95 H MCH MCHC RDW 21.4 H Plt Count 121 L Lymph % (Auto) [place] % (Auto) Lymph # [place] # Seg Neutrophils % Seg Neuts % (Manual) Lymphocytes % (Manual) Nucleated RBC % Seg Neutrophils # Seg Neutrophils # Man Lymphocytes # (Manual) Monocytes # (Manual) Basophils # (Manual) PT INR APTT D-Dimer POC ABG pH POC ABG pCO2 POC ABG pO2 Sodium Potassium 5.9 H Chloride 96.4 L Carbon Dioxide BUN 49 H Creatinine 9.4 H Glucose POC Glucose Lactic Acid 2.30 H* Calcium Lactate Dehydrogenase Total Creatine Kinase CK-MB (CK-2) CK-MB (CK-2) Rel Index Troponin T C-Reactive Protein Total Protein Triglycerides HDL Cholesterol TSH 05/13/17 05/13/17 05/13/17 01:43 02:03 04:10 WBC 13.8 H Hct MCV 95 H MCH MCHC RDW 21.6 H Plt Count 97 L Lymph % (Auto) 7.6 L [place] % (Auto) 9.3 H Lymph # 1.1 L [place] # 1.3 H Seg Neutrophils % 80.0 H Seg Neuts % (Manual) Lymphocytes % (Manual) Nucleated RBC % Seg Neutrophils # 11.0 H Seg Neutrophils # Man Lymphocytes # (Manual) Monocytes # (Manual) Basophils # (Manual) PT INR APTT D-Dimer POC ABG pH POC ABG pCO2 POC ABG pO2 Sodium Potassium 6.1 H* Chloride 95.5 L Carbon Dioxide 20 L BUN 58 H Creatinine 10.5 H Glucose 185 H POC Glucose 166 H Lactic Acid Calcium Lactate Dehydrogenase Total Creatine Kinase CK-MB (CK-2) CK-MB (CK-2) Rel Index Troponin T C-Reactive Protein Total Protein Triglycerides HDL Cholesterol TSH 05/13/17 05/13/17 05/13/17 04:10 04:31 05:47 WBC Hct MCV MCH MCHC RDW Plt Count Lymph % (Auto) [place] % (Auto) Lymph # [place] # Seg Neutrophils % Seg Neuts % (Manual) Lymphocytes % (Manual) Nucleated RBC % Seg Neutrophils # Seg Neutrophils # Man Lymphocytes # (Manual) Monocytes # (Manual) Basophils # (Manual) PT INR APTT D-Dimer POC ABG pH POC ABG pCO2 POC ABG pO2 Sodium Potassium 6.4 H* Chloride Carbon Dioxide BUN Creatinine Glucose POC Glucose 158 H Lactic Acid Calcium Lactate Dehydrogenase Total Creatine Kinase CK-MB (CK-2) CK-MB (CK-2) Rel Index Troponin T C-Reactive Protein 40.20 H Total Protein Triglycerides HDL Cholesterol TSH 05/13/17 05/13/17 05/13/17 10:48 12:56 13:15 WBC Hct MCV MCH MCHC RDW Plt Count Lymph % (Auto) [place] % (Auto) Lymph # [place] # Seg Neutrophils % Seg Neuts % (Manual) Lymphocytes % (Manual) Nucleated RBC % Seg Neutrophils # Seg Neutrophils # Man Lymphocytes # (Manual) Monocytes # (Manual) Basophils # (Manual) PT INR APTT D-Dimer POC ABG pH 7.496 H POC ABG pCO2 29.3 L POC ABG pO2 Sodium Potassium 5.6 H Chloride Carbon Dioxide BUN Creatinine Glucose POC Glucose 201 H Lactic Acid Calcium Lactate Dehydrogenase Total Creatine Kinase CK-MB (CK-2) CK-MB (CK-2) Rel Index Troponin T C-Reactive Protein Total Protein Triglycerides HDL Cholesterol TSH 05/13/17 05/13/17 05/14/17 17:47 21:32 01:44 WBC Hct MCV MCH MCHC RDW Plt Count Lymph % (Auto) [place] % (Auto) Lymph # [place] # Seg Neutrophils % Seg Neuts % (Manual) Lymphocytes % (Manual) Nucleated RBC % Seg Neutrophils # Seg Neutrophils # Man Lymphocytes # (Manual) Monocytes # (Manual) Basophils # (Manual) PT INR APTT D-Dimer POC ABG pH POC ABG pCO2 POC ABG pO2 Sodium Potassium Chloride Carbon Dioxide BUN Creatinine Glucose POC Glucose 195 H 175 H 142 H Lactic Acid Calcium Lactate Dehydrogenase Total Creatine Kinase CK-MB (CK-2) CK-MB (CK-2) Rel Index Troponin T C-Reactive Protein Total Protein Triglycerides HDL Cholesterol TSH 05/14/17 05/14/17 05/14/17 05:10 07:00 07:00 WBC 14.6 H Hct MCV MCH MCHC RDW 20.7 H Plt Count 69 L Lymph % (Auto) [place] % (Auto) Lymph # [place] # Seg Neutrophils % Seg Neuts % (Manual) Lymphocytes % (Manual) Nucleated RBC % Seg Neutrophils # Seg Neutrophils # Man Lymphocytes # (Manual) Monocytes # (Manual) Basophils # (Manual) PT INR APTT D-Dimer POC ABG pH POC ABG pCO2 POC ABG pO2 Sodium Potassium 5.2 H Chloride 96.1 L Carbon Dioxide BUN 45 H Creatinine 7.3 H Glucose 190 H POC Glucose 126 H Lactic Acid Calcium Lactate Dehydrogenase Total Creatine Kinase CK-MB (CK-2) CK-MB (CK-2) Rel Index Troponin T C-Reactive Protein Total Protein Triglycerides HDL Cholesterol TSH 05/14/17 05/14/17 05/14/17 10:04 14:17 17:08 WBC Hct MCV MCH MCHC RDW Plt Count Lymph % (Auto) [place] % (Auto) Lymph # [place] # Seg Neutrophils % Seg Neuts % (Manual) Lymphocytes % (Manual) Nucleated RBC % Seg Neutrophils # Seg Neutrophils # Man Lymphocytes # (Manual) Monocytes # (Manual) Basophils # (Manual) PT INR APTT D-Dimer POC ABG pH POC ABG pCO2 POC ABG pO2 Sodium Potassium Chloride Carbon Dioxide BUN Creatinine Glucose POC Glucose 191 H 221 H 223 H Lactic Acid Calcium Lactate Dehydrogenase Total Creatine Kinase CK-MB (CK-2) CK-MB (CK-2) Rel Index Troponin T C-Reactive Protein Total Protein Triglycerides HDL Cholesterol TSH 05/14/17 05/14/17 05/14/17 17:46 20:17 23:49 WBC Hct MCV MCH MCHC RDW Plt Count Lymph % (Auto) [place] % (Auto) Lymph # [place] # Seg Neutrophils % Seg Neuts % (Manual) Lymphocytes % (Manual) Nucleated RBC % Seg Neutrophils # Seg Neutrophils # Man Lymphocytes # (Manual) Monocytes # (Manual) Basophils # (Manual) PT INR APTT D-Dimer POC ABG pH 7.460 H POC ABG pCO2 26.2 L POC ABG pO2 123 H Sodium Potassium Chloride Carbon Dioxide BUN Creatinine Glucose POC Glucose 188 H 157 H Lactic Acid Calcium Lactate Dehydrogenase Total Creatine Kinase CK-MB (CK-2) CK-MB (CK-2) Rel Index Troponin T C-Reactive Protein Total Protein Triglycerides HDL Cholesterol TSH 05/15/17 05/15/17 05/15/17 05:52 05:56 06:42 WBC Hct MCV MCH MCHC RDW Plt Count Lymph % (Auto) [place] % (Auto) Lymph # [place] # Seg Neutrophils % Seg Neuts % (Manual) Lymphocytes % (Manual) Nucleated RBC % Seg Neutrophils # Seg Neutrophils # Man Lymphocytes # (Manual) Monocytes # (Manual) Basophils # (Manual) PT INR APTT D-Dimer POC ABG pH POC ABG pCO2 POC ABG pO2 Sodium Potassium Chloride Carbon Dioxide BUN Creatinine Glucose POC Glucose 43 L 52 L 127 H Lactic Acid Calcium Lactate Dehydrogenase Total Creatine Kinase CK-MB (CK-2) CK-MB (CK-2) Rel Index Troponin T C-Reactive Protein Total Protein Triglycerides HDL Cholesterol TSH 05/15/17 05/15/17 05/15/17 07:50 07:50 11:08 WBC 19.6 H Hct MCV 99 H MCH MCHC 31 L RDW 21.3 H Plt Count 91 L Lymph % (Auto) [place] % (Auto) Lymph # [place] # Seg Neutrophils % Seg Neuts % (Manual) 82.0 H Lymphocytes % (Manual) 7.0 L Nucleated RBC % 9.0 H Seg Neutrophils # Seg Neutrophils # Man 16.1 H Lymphocytes # (Manual) Monocytes # (Manual) 1.4 H Basophils # (Manual) PT INR APTT D-Dimer POC ABG pH 7.236 L POC ABG pCO2 22.5 L POC ABG pO2 126 H Sodium Potassium 7.0 H* D Chloride 89.5 L Carbon Dioxide 8 L* D BUN 66 H Creatinine 8.4 H Glucose 177 H POC Glucose Lactic Acid Calcium 7.9 L Lactate Dehydrogenase Total Creatine Kinase CK-MB (CK-2) CK-MB (CK-2) Rel Index Troponin T C-Reactive Protein Total Protein Triglycerides HDL Cholesterol TSH Chest x-ray: image reviewed Allied health notes reviewed: RT (on venturi mask, monitor oxygen saturations)
[2017-05-15] MEDS ORDERED: Vasostrict 20 UNIT in NACL 0.9% 100 ML IV SCH (12:00)
[2017-05-15] MEDS ORDERED: HEPARIN ONE (12:02)
[2017-05-15] MEDS ORDERED: ADRENALIN ONE (12:30)
[2017-05-15] MEDS ORDERED: CALCIUM CHLORIDE IV ONE (12:30)
[2017-05-15] MEDS ORDERED: NACL 0.9% ONE (12:30)
[2017-05-15] MEDS ORDERED: LEVOPHED DRIP 4 MG/NS 250 ML 4 MG/250 ML BAG IV SCH (13:00)
--- NOTE | 2017-05-15 13:31 | Event Note ---
Date: 05/15/17 Called for occluded right femoral dialysis catheter. I was informed that the catheter function was restored with cathflo and the patient was to be dialyzed. Dialysis couldn't start because of hypotension. The patient eventually went into cardiac arrest - as such he is not an appropriate candidate to come to the lab associate for catheter exchange.
--- NOTE | 2017-05-15 13:32 | Progress Note ---
Assessment and Plan Altered Mental status Right sided pneumonia and effusion Bilateral mastoiditis ESRD on HD through a right femoral dialysis catheter Hyperkalemia Lactic acidosis Hypotension due to SIRS/sepsis on pressors Cardiomyopathy, LVEF 25-30% Severe right ventricular enlargement and dysfunction Moderate to severe TR with severe pulmonary hypertension. Normal VQ scan Paroxysmal atrial fibrillation in the setting of severe metabolic derangements on IV amiodarone for suppression Lower extremity wound Severe bilateral arterial occlusive disease distal to the popliteal artery Type II DM History of systemic hypertension Recommend: Continue IV amiodarone for rhythm control. Subjective Date of service: 05/15/17 Principal diagnosis: Sepsis Syndrome; Acute Hypoxemic Resp Failure; Acute Encephalopathy; ESRD Interval history: No interval changes. On multiple pressors. Objective Vital Signs Temp Pulse Pulse Resp Resp BP Pulse Ox 05/15/17 10:30 97.9 F 82 22 105/30 05/15/17 09:41 86 26 H 05/15/17 09:25 81 22 05/15/17 09:20 81 27 H 119/32 91 05/15/17 06:45 90 27 H 119/32 05/15/17 06:30 90 23 119/32 05/15/17 06:15 91 H 26 H 116/47 05/15/17 06:01 90 22 91/21 05/15/17 05:45 94 H 24 114/64 05/15/17 05:31 93 H 24 114/64 73 L 05/15/17 05:17 62 99/60 05/15/17 05:01 92 H 29 H 99/60 05/15/17 04:45 94 H 26 H 83/53 05/15/17 04:31 101 H 29 H 77/53 98 05/15/17 04:15 98 H 29 H 93/59 99 05/15/17 04:00 107 H 23 127/67 95 05/15/17 03:45 100 H 28 H 113/81 96 05/15/17 03:31 105 H 24 95/41 96 05/15/17 03:15 102 H 24 113/81 05/15/17 03:00 100 H 23 111/84 97 05/15/17 02:56 106 H 26 H 105/84 97 05/15/17 02:45 105 H 23 105/84 96 05/15/17 02:31 104 H 23 120/63 97 05/15/17 02:15 110 H 26 H 123/73 97 05/15/17 02:00 108 H 24 119/71 97 05/15/17 01:45 112 H 23 131/56 97 05/15/17 01:31 109 H 24 105/60 97 05/15/17 01:15 107 H 22 105/60 97 05/15/17 01:00 99 H 24 107/61 97 05/15/17 00:45 98 H 22 106/63 97 05/15/17 00:31 101 H 21 113/63 96 05/15/17 00:15 102 H 25 H 114/67 96 05/15/17 00:00 100 H 22 114/67 96 05/14/17 23:45 106 H 29 H 108/85 97 05/14/17 23:30 100 H 19 111/58 97 05/14/17 23:15 102 H 25 H 101/60 96 05/14/17 23:13 105 H 22 101/60 96 05/14/17 23:01 113 H 22 101/60 95 05/14/17 22:45 117 H 29 H 111/68 96 05/14/17 22:31 102 H 24 99/64 96 05/14/17 22:15 102 H 19 100/79 05/14/17 22:01 119 H 26 H 100/79 95 05/14/17 22:00 111 H 05/14/17 21:45 112 H 24 121/82 97 05/14/17 21:31 118 H 29 H 121/82 98 05/14/17 21:15 110 H 24 111/78 97 05/14/17 21:01 114 H 24 83/62 96 05/14/17 20:57 105 H 24 83/62 96 05/14/17 20:47 22 96 05/14/17 20:45 109 H 25 H 83/62 97 05/14/17 20:31 109 H 21 80/58 96 05/14/17 20:15 103 H 23 104/62 96 05/14/17 20:00 107 H 19 95/62 96 05/14/17 19:59 103 H 20 05/14/17 19:49 101 H 20 97 05/14/17 19:45 104 H 20 99/47 97 05/14/17 19:31 102 H 22 94/61 97 05/14/17 19:15 101 H 19 95/62 97 05/14/17 19:00 102 H 18 86/56 97 05/14/17 18:45 101 H 20 97/62 97 05/14/17 18:30 102 H 18 97/62 97 05/14/17 18:15 102 H 22 100/64 98 05/14/17 18:00 102 H 17 100/64 97 05/14/17 17:45 102 H 18 107/76 97 05/14/17 17:31 104 H 21 95/35 98 05/14/17 17:15 103 H 20 97/67 97 05/14/17 17:00 102 H 19 97/67 97 05/14/17 16:45 102 H 22 104/59 97 05/14/17 16:31 102 H 23 104/59 97 05/14/17 16:15 101 H 16 108/72 98 05/14/17 16:01 102 H 26 H 108/72 99 05/14/17 16:00 98.2 F 05/14/17 15:45 103 H 20 104/68 97 05/14/17 15:40 22 97 05/14/17 15:30 102 H 15 104/68 98 05/14/17 15:15 102 H 19 86/52 97 05/14/17 15:01 102 H 25 H 86/52 98 05/14/17 14:45 102 H 107 H 16 20 86/55 97 05/14/17 14:33 96 05/14/17 14:31 102 H 18 86/55 99 05/14/17 14:30 102 H 20 05/14/17 14:15 104 H 22 121/58 97 05/14/17 14:00 105 H 19 121/58 98 05/14/17 13:45 104 H 23 122/60 98 Pulse Ox 05/15/17 10:30 88 05/15/17 09:41 05/15/17 09:25 05/15/17 09:20 05/15/17 06:45 05/15/17 06:30 05/15/17 06:15 05/15/17 06:01 05/15/17 05:45 05/15/17 05:31 05/15/17 05:17 05/15/17 05:01 05/15/17 04:45 05/15/17 04:31 05/15/17 04:15 05/15/17 04:00 05/15/17 03:45 05/15/17 03:31 05/15/17 03:15 05/15/17 03:00 05/15/17 02:56 05/15/17 02:45 05/15/17 02:31 05/15/17 02:15 05/15/17 02:00 05/15/17 01:45 05/15/17 01:31 05/15/17 01:15 05/15/17 01:00 05/15/17 00:45 05/15/17 00:31 05/15/17 00:15 05/15/17 00:00 05/14/17 23:45 05/14/17 23:30 05/14/17 23:15 05/14/17 23:13 05/14/17 23:01 05/14/17 22:45 05/14/17 22:31 05/14/17 22:15 05/14/17 22:01 05/14/17 22:00 05/14/17 21:45 05/14/17 21:31 05/14/17 21:15 05/14/17 21:01 05/14/17 20:57 05/14/17 20:47 05/14/17 20:45 05/14/17 20:31 05/14/17 20:15 05/14/17 20:00 05/14/17 19:59 05/14/17 19:49 05/14/17 19:45 05/14/17 19:31 05/14/17 19:15 05/14/17 19:00 05/14/17 18:45 05/14/17 18:30 05/14/17 18:15 05/14/17 18:00 05/14/17 17:45 05/14/17 17:31 05/14/17 17:15 05/14/17 17:00 05/14/17 16:45 05/14/17 16:31 05/14/17 16:15 05/14/17 16:01 05/14/17 16:00 05/14/17 15:45 05/14/17 15:40 05/14/17 15:30 05/14/17 15:15 05/14/17 15:01 05/14/17 14:45 05/14/17 14:33 05/14/17 14:31 05/14/17 14:30 05/14/17 14:15 05/14/17 14:00 05/14/17 13:45 - Physical Examination Cardiac: Positive: irregularly irregular Abdomen: Positive: Soft Extremities: Absent: edema - Labs and Meds CBC 05/15/17 Range/Units 07:50 WBC 19.6 H (4.5-11.0) K/mm3 RBC 4.34 (3.65-5.03) M/mm3 Hgb 13.3 (11.8-15.2) gm/dl Hct 42.9 (35.5-45.6) % Plt Count 91 L (140-440) K/mm3 Comprehensive Metabolic Panel 05/15/17 Range/Units 07:50 Sodium 141 (137-145) mmol/L Potassium 7.0 H* D (3.6-5.0) mmol/L Chloride 89.5 L (98-107) mmol/L Carbon Dioxide 8 L* D (22-30) mmol/L BUN 66 H (9-20) mg/dL Creatinine 8.4 H (0.8-1.5) mg/dL Glucose 177 H (75-100) mg/dL Calcium 7.9 L (8.4-10.2) mg/dL - Imaging and Cardiology EKG: image reviewed - Allied health notes Allied health notes reviewed: RT (on venturi mask, monitor oxygen saturations)
--- NOTE | 2017-05-15 13:34 | Progress Note ---
Assessment and Plan Impression * End-stage renal disease on maintenance hemodialysis * Severe Hyperkalemia * Severe metabolic acidosis * Sepsis * Diabetic foot infection * Respiratory failure * Hypotension Recommendations * Shall administer medical treatment for hyperkalemia . * Patient just had a cardiac arrest and his dialysis had to be aborted * If patient becomes more hemodynamically stable, would attempt dialysis again later today * He is also bacteremic and needs his PermCath to be exchanged. Discussed with vascular surgery * He is currently hypotensive and also on vasopressors. * Antibiotics as per primary team and ID services * Adjust diet and meds for his ESRD state * Patient's prognosis is grim Subjective Date of service: 05/15/17 Principal diagnosis: Sepsis Syndrome; Acute Hypoxemic Resp Failure; Acute Encephalopathy; ESRD Interval history: Events of this morning noted. Patient is currently on BiPAP with 40% FiO2. He was noted to have a potassium of 7 this morning with severe acidosis and bicarbonate of 8. He received medical therapy for his hyperkalemia. His PermCath was not functioning. Activase was placed into his PermCath. His PermCath start function, however in the interim patient had a cardiac arrest. He has now been resuscitated. Currently a DNR . Dialysis could not be initiated due to his instability Objective - Vital Signs Vital signs: Vital Signs - 12hr 05/15/17 05/15/17 05/15/17 01:31 01:45 02:00 Temperature Pulse Rate 109 H 112 H 108 H Pulse Rate [ Anterior Bilateral Throughout] Respiratory 24 23 24 Rate Respiratory Rate [Anterior Bilateral Throughout] Blood Pressure 105/60 131/56 119/71 O2 Sat by Pulse 97 97 97 Oximetry O2 Sat by Pulse Oximetry [ Anterior Bilateral Throughout] 05/15/17 05/15/17 05/15/17 02:15 02:31 02:45 Temperature Pulse Rate 110 H 104 H 105 H Pulse Rate [ Anterior Bilateral Throughout] Respiratory 26 H 23 23 Rate Respiratory Rate [Anterior Bilateral Throughout] Blood Pressure 123/73 120/63 105/84 O2 Sat by Pulse 97 97 96 Oximetry O2 Sat by Pulse Oximetry [ Anterior Bilateral Throughout] 05/15/17 05/15/17 05/15/17 02:56 03:00 03:15 Temperature Pulse Rate 106 H 100 H 102 H Pulse Rate [ Anterior Bilateral Throughout] Respiratory 26 H 23 24 Rate Respiratory Rate [Anterior Bilateral Throughout] Blood Pressure 105/84 111/84 113/81 O2 Sat by Pulse 97 97 Oximetry O2 Sat by Pulse Oximetry [ Anterior Bilateral Throughout] 05/15/17 05/15/17 05/15/17 03:31 03:45 04:00 Temperature Pulse Rate 105 H 100 H 107 H Pulse Rate [ Anterior Bilateral Throughout] Respiratory 24 28 H 23 Rate Respiratory Rate [Anterior Bilateral Throughout] Blood Pressure 95/41 113/81 127/67 O2 Sat by Pulse 96 96 95 Oximetry O2 Sat by Pulse Oximetry [ Anterior Bilateral Throughout] 05/15/17 05/15/17 05/15/17 04:15 04:31 04:45 Temperature Pulse Rate 98 H 101 H 94 H Pulse Rate [ Anterior Bilateral Throughout] Respiratory 29 H 29 H 26 H Rate Respiratory Rate [Anterior Bilateral Throughout] Blood Pressure 93/59 77/53 83/53 O2 Sat by Pulse 99 98 Oximetry O2 Sat by Pulse Oximetry [ Anterior Bilateral Throughout] 05/15/17 05/15/17 05/15/17 05:01 05:17 05:31 Temperature Pulse Rate 92 H 62 93 H Pulse Rate [ Anterior Bilateral Throughout] Respiratory 29 H 24 Rate Respiratory Rate [Anterior Bilateral Throughout] Blood Pressure 99/60 99/60 114/64 O2 Sat by Pulse 73 L Oximetry O2 Sat by Pulse Oximetry [ Anterior Bilateral Throughout] 05/15/17 05/15/17 05/15/17 05:45 06:01 06:15 Temperature Pulse Rate 94 H 90 91 H Pulse Rate [ Anterior Bilateral Throughout] Respiratory 24 22 26 H Rate Respiratory Rate [Anterior Bilateral Throughout] Blood Pressure 114/64 91/21 116/47 O2 Sat by Pulse Oximetry O2 Sat by Pulse Oximetry [ Anterior Bilateral Throughout] 05/15/17 05/15/17 05/15/17 06:30 06:45 09:20 Temperature Pulse Rate 90 90 81 Pulse Rate [ Anterior Bilateral Throughout] Respiratory 23 27 H 27 H Rate Respiratory Rate [Anterior Bilateral Throughout] Blood Pressure 119/32 119/32 119/32 O2 Sat by Pulse 91 Oximetry O2 Sat by Pulse Oximetry [ Anterior Bilateral Throughout] 05/15/17 05/15/17 05/15/17 09:25 09:41 10:30 Temperature 97.9 F Pulse Rate 82 Pulse Rate [ 81 86 Anterior Bilateral Throughout] Respiratory 22 Rate Respiratory 22 26 H Rate [Anterior Bilateral Throughout] Blood Pressure 105/30 O2 Sat by Pulse Oximetry O2 Sat by Pulse 88 Oximetry [ Anterior Bilateral Throughout] - General Appearance General appearance: well-developed, well-nourished, appears stated age, other ( BiPAP mask in place) EENT: PERRL, mucous membranes moist Neck: no JVD, no thyromegaly, no carotid bruit, supple Respiratory: Present: Ronchi (few scattered rhonchi) Cardiology: regular, normal heart rate, S1S2, no murmurs Gastrointestinal: normal, normoactive bowel sounds Integumentary: other (right femoral PermCath in place) - Lab 05/15/17 07:50 05/15/17 07:50 Most recent lab results Calcium 7.9 mg/dL (8.4-10.2) L 05/15/17 07:50
[2017-05-15] MEDS ORDERED: NACL 0.9% 1000 ML ONE (14:12)
--- NOTE | 2017-05-15 14:38 | Death Note ---
Note Date of : 05/15/17 Time of : 14:30 Time Pronounced: 14:30 - Preliminary Cause of (problem) (1) Acute respiratory failure Preliminary cause of
--- NOTE | 2017-05-15 14:39 | Death Summary ---
Summary - Providers Consults: 05/10/17 00:14 Consult to Physician [CONS] Urgent Consulting Provider: COLT SAUCEDA Reason For Exam: end-stage renal disease Place consult to:: amena Notified:: n 05/10/17 01:25 Consult to Physician [CONS] Routine Consulting Provider: BALTA LOTT Reason For Exam: cc Place consult to:: Dr. Lott Notified:: Answering Service Phone number called:: [phone] Was contact made?: No 05/10/17 15:04 Consult to Physician [CONS] Routine Consulting Provider: HIRAM BARNES Reason For Exam: b/l leg pain h/o PVD with recent procedure Place consult to:: Dr GILBERT Notified:: yes Was contact made?: Yes Time called:: 07:55 Comment:: DR BARNES SAW THE PT ON 05/10/17 05/11/17 07:19 Consult to Physician [CONS] Routine Consulting Provider: PRIMO TORRES Reason For Exam: elevated troponin Place consult to:: DR TORRES Notified:: YES Was contact made?: Yes Time called:: 07:58 Comment:: SR TORRES SAW THE PT ON 05/10/17 05/13/17 11:32 Consult to Wound/ET Nurse [CONS] Routine Reason For Exam: wound eval R great toe. 05/14/17 13:57 Consult to Dietitian/Nutrition [CONS] Routine Physician Instructions: Reason For Exam: Reason for Consult: Write/Manage Tube Feeding 05/14/17 13:59 Speech Therapy Evaluation and Treat [CONS] Urgent Reason For Exam: swallow eval 05/14/17 14:05 Consult to Physician [CONS] Routine Consulting Provider: EVELYN JOYNER Reason For Exam: MSSA BACTEREMIA Place consult to:: JAYLA Notified:: YES 05/14/17 14:36 Consult to Physician [CONS] Routine Consulting Provider: EVELYN JOYNER Reason For Exam: mssa bacteremia Place consult to:: Dr. Parra Notified:: Yes Was contact made?: Yes Comment:: Dr. Lacey called Dr. Parra and spoke with her during rounds 05/15/17 12:11 Consult to Physician [CONS] Urgent Consulting Provider: VANESSA TRAN Reason For Exam: bacteremia and malfunctioning permcath Notified:: Spoke with Tj Attending: OZZY LATIF MD - summary Date of admission: 05/10/17 01:22 Date of : 05/15/17 Significant findings: 51-year-old man history of hypertension, diabetes, end-stage renal disease on dialysis was brought to the emergency room because he was weak and not acting himself. Brother at bedside state that after dialysis his symptoms started, family members told him that he had a syncopal episode. The review of system unobtainable. Patient was found to be in shock, he was treated with pressors and amiodarone drip for atrial flutter. His blood cultures grew MSSA, he received IV antibiotics. His mentation continued to worsen despite aggressive treatments. He was also noted to have distal occlusion of arteries distal to the popliteal and both lower extremities. Extremities were turning blue and his pulses are very poor. Unfortunately patient was too sick and so unstable for a vascular procedure. He was also receiving dialysis for end-stage renal disease. Unfortunately he had a clotted Vas-Cath, but the patient was too unstable to have it exchanged in the Lab. Medical treatment was attempted, but shortly after the patient had a cardiac arrest. He received CPR and had a resumption of his pulse. In a family discussion was held with his brother, and at that time given his poor prognosis and worsening mental status, the decision was made to make him DO NOT RESUSCITATE and comfort care. And he shortly after. Discharge diagnoses Septic shock Gram-positive sepsis MSSA bacteremia Acute metabolic encephalopathy Acute respiratory failure Bacterial pneumonia, most likely due to gram-positive End-stage renal disease Hyperkalemia Systolic heart failure with acute exacerbation Pulmonary hypertension Atrial fibrillation with hypercoagulable states Acute peripheral arterial occlusion of distal lower extremities distal to popliteal artery - Final diagnosis (1) Acute respiratory failure Note: Final diagnosis:
[2017-05-15 16:11] VITALS: BP 104/69
[2017-05-17 16:49] LABS: Heparin-Induced Platelet Antib Negative (Negative); Unfractionated Heparin Negative (Negative)
[2017-05-19 15:05] LABS: LDH,Body Fluid 978; Total Protein,Body Fluid 3.1 (15.0-45.0)
== END 2017-05-15 14:30 | DRG 871 ==
LOC: ED 18:21 → CC1 05-10 01:22
PROVIDERS: ADMIT Internal Medicine; ATTEND Internal Medicine
PROC: 06HN33Z Insertion of Infusion Device into Left Femoral Vein, Percutaneous Approach (ICD-10-PCS; 2017-05-09)
PROC: 4A033R1 Measurement of Arterial Saturation, Peripheral, Percutaneous Approach (ICD-10-PCS; principal; 2017-05-10)
PROC: 5A1D70Z Performance of Urinary Filtration, Intermittent, Less than 6 Hours Per Day (ICD-10-PCS; 2017-05-11)
PROC: 5A09357 Assistance with Respiratory Ventilation, Less than 24 Consecutive Hours, Continuous Positive Airway Pressure (ICD-10-PCS; 2017-05-11)
PROC: 5A1D70Z Performance of Urinary Filtration, Intermittent, Less than 6 Hours Per Day (ICD-10-PCS; 2017-05-13)
PROC: 5A09457 Assistance with Respiratory Ventilation, 24-96 Consecutive Hours, Continuous Positive Airway Pressure (ICD-10-PCS; 2017-05-13)
PROC: 0W993ZZ Drainage of Right Pleural Cavity, Percutaneous Approach (ICD-10-PCS; 2017-05-14)
PROC: 5A1D70Z Performance of Urinary Filtration, Intermittent, Less than 6 Hours Per Day (ICD-10-PCS; 2017-05-15)
DX: A41.9 Sepsis, unspecified organism (principal); N18.6 End stage renal disease; J18.9 Pneumonia, unspecified organism; R65.21 Severe sepsis with septic shock; J96.01 Acute respiratory failure with hypoxia; G92 Toxic encephalopathy; I50.20 Unspecified systolic (congestive) heart failure; I13.2 Hypertensive heart and chronic kidney disease with heart failure and with stage 5 chronic kidney disease, or end stage renal disease; N25.81 Secondary hyperparathyroidism of renal origin; E11.52 Type 2 diabetes mellitus with diabetic peripheral angiopathy with gangrene; I96 Gangrene, not elsewhere classified; I42.9 Cardiomyopathy, unspecified; I38 Endocarditis, valve unspecified; I48.92 Unspecified atrial flutter; J90 Pleural effusion, not elsewhere classified; Z66 Do not resuscitate; I46.9 Cardiac arrest, cause unspecified; R55 Syncope and collapse; H70.93 Unspecified mastoiditis, bilateral; I48.0 Paroxysmal atrial fibrillation; W18.30XA Fall on same level, unspecified, initial encounter; Y93.89 Activity, other specified; Y92.049 Unspecified place in boarding-house as the place of occurrence of the external cause; Y99.8 Other external cause status; F17.210 Nicotine dependence, cigarettes, uncomplicated; E11.22 Type 2 diabetes mellitus with diabetic chronic kidney disease; D63.1 Anemia in chronic kidney disease; E87.5 Hyperkalemia; I27.20 Pulmonary hypertension, unspecified; Z99.2 Dependence on renal dialysis; Z79.4 Long term (current) use of insulin
CPT/HCPCS: 32555; 36415; 36600; 70450; 71010; 74000; 76604; 78582; 80048; 80061; 80074; 80202; 82140; 82533; 82550; 82553; 82803; 82947; 82962; 83605; 83615; 84132; 84160; 84439; 84443; 84484; 85007; 85025; 85027; 85379; 85610; 85652; 85730; 86022; 86140; 86403; 87040; 87076; 87116; 87186; 88112; 88305; 89051; 93005; 93010; 93306; 93925; 94640; 94660; 94760; 96365; 96368; 96375; A9540; A9558; J0171; J0282; J0610; J0690; J1644; J1650; J1720; J1815; J2543; J2997; J3370; J7030; J7040; J7050; J7060; J7070; P9047